=== PATIENT | male | born 2000 | race Caucasian/White ===

== ENCOUNTER 2020-04-01 10:47 | Outpatient (REF) | payer OTHER, SELFPAY | END 2020-04-01 10:48 | disposition home or self-care (01) | LOC: HO.LAB 10:47 | PROVIDERS: Visit Provider Internal Medicine | DX: Z20.828 Contact with and (suspected) exposure to other viral communicable diseases (principal) | CPT/HCPCS: C9803; U0003 ==

== ENCOUNTER 2020-04-20 15:44 | Outpatient (REF) | payer OTHER, SELFPAY | END 2020-04-20 15:45 | disposition home or self-care (01) | LOC: HO.LAB 15:44 | PROVIDERS: Visit Provider Internal Medicine | DX: Z20.828 Contact with and (suspected) exposure to other viral communicable diseases (principal) | CPT/HCPCS: C9803; U0003 ==

== ENCOUNTER → 2022-03-10 09:34 | Outpatient (BNVA) | payer OTHER, SELFPAY | PROVIDERS: PCP Internal Medicine; Visit Provider Nurse Practitioner Psychiatric/Mental Health | DX: Z51.81 Encounter for therapeutic drug level monitoring (principal); F11.20 Opioid dependence, uncomplicated | CPT/HCPCS: 80305; 99202 ==

== ENCOUNTER → 2022-03-17 08:56 | Outpatient (BNVA) | payer OTHER, SELFPAY | PROVIDERS: PCP Internal Medicine; Visit Provider Nurse Practitioner Psychiatric/Mental Health | DX: Z51.81 Encounter for therapeutic drug level monitoring (principal); F11.20 Opioid dependence, uncomplicated | CPT/HCPCS: 80305; 99212 ==

== ENCOUNTER → 2022-03-29 09:45 | Outpatient (BNVA) | payer OTHER, SELFPAY | PROVIDERS: PCP Internal Medicine; Visit Provider Nurse Practitioner Psychiatric/Mental Health | DX: Z51.81 Encounter for therapeutic drug level monitoring (principal); F11.20 Opioid dependence, uncomplicated | CPT/HCPCS: 99212 ==

== ENCOUNTER 2022-04-01 07:40 | Emergency (ER) | payer OTHER, SELFPAY ==
[2022-04-01 07:46] VITALS: BP 127/74; PULSE 90; RESP 18; TEMP 36.4; O2SAT 96; BMI 39.5
--- OUTSIDE RECORDS SUMMARY | 2022-04-01 08:02 | XMS_ITS | Continuity of Care Document ---
:2000 Author Organization [facility] Address [address] [place] [id number]- Care Team Providers Name Role Phone Stanislaw SAEZ, Kori Snyder Primary Care Physician Encounter [facility] Date(s): 12/27/19 - 12/27/[address] [address]- [facility] Discharge Disposition: A-D/C Walkout Attending Physician: Not on Staff, Attending MD Admitting Physician: Not on Staff, Admitting MD Referring Physician: Not on Staff, Referring MD Allergies, Adverse Reactions, Alerts Substance Reaction Severity Status amoxicillin Active Medications No Known Medications
--- OUTSIDE RECORDS SUMMARY | 2022-04-01 08:02 | XMS_ITS | Continuity of Care Document ---
:2000 Author Organization [facility] Address [address] [place] [address]- Care Team Providers Name Role Phone Not on Staff, PCP Primary Care Physician Unavailable Encounter [facility] Date(s): 02/28/20 - 02/28/[address] [address]- [facility] Encounter Diagnosis Chronic back pain (Final) - 02/28/20 Cerebral palsy (Final) - 02/28/20 Discharge Disposition: A-D/C Home Attending Physician: Sujit Kessler MD Admitting Physician: Sujit Kessler MD Referring Physician: Not on Staff, Referring MD Allergies, Adverse Reactions, Alerts Substance Reaction Severity Status amoxicillin Active Vicodin Active Medications lidocaine 5% topical film 1 patch, Topically, Daily, PRN Pain , Mild, for 7 days, remove after 12 hours, # 7 patch, 1 Refills,Acute 03/13/20 8:23:00 EST, 02/28/20 8:23:00 EDT, Film, [id number], 1 patch Topically Daily,x7 days,PRN:Pain , Mild,Instr:remove afte... Start Date: 02/28/20 Stop Date: 03/13/20 Status: Ordered Vital Signs Most recent to oldest 1 2 3 [Reference Range]: Oxygen Saturation [94-100 %] 100 % 99 % 100 % (02/28/20 8:06 AM) (02/28/20 6:43 AM) (02/28/20 5:57 AM) Pulse Rate [55-90 bpm] 98 bpm 98 bpm 114 bpm *H* *H* *H* (02/28/20 8:06 AM) (02/28/20 6:43 AM) (02/28/20 5:57 AM) Blood Pressure [90-138/55-84 143/68 mm Hg 141/86 mm Hg 136 /86 mm Hg mm Hg] *H* *H* (02/28/20 5:57 A M) (02/28/20 8:06 AM) (02/28/20 6:43 AM) Respiratory Rate [16-30 15 br/min 16 br/min 17 br/mi n br/min] *L* (02/28/20 7:41 AM) (02/28/20 6:4 3 AM) (02/28/20 8:06 AM) Temperature [96.8-100.4 98.6 DegF 98.4 DegF 98.3 Deg F DegF] (02/28/20 8:06 AM) (02/28/20 6:43 AM) (02/28/20 5:57 AM) Mode of Delivery (Oxygen) Room air Room air Room a ir (02/28/20 8:06 AM) (02/28/20 6:43 AM) (02/28/20 5:57 AM) Blood pressure sites Arm, left Arm, left Arm, left (02/28/20 8:06 AM) (02/28/20 6:43 AM) (02/28/20 5:57 AM) Temperature Route Oral Oral Oral (02/28/20 8:06 AM) (02/28/20 6:43 AM) (02/28/20 5:57 AM)
[2022-04-01 08:30] LABS: Strep A Nucleic Acid Positive (Negative)
--- NOTE | 2022-04-01 08:53 | ED.GENADULT ---
HPI - General Adult General Chief complaint: General Medical Stated complaint: COVID + Flu Symptoms Time Seen by Provider: 04/01/22 08:10 Source: patient Mode of arrival: ambulatory Limitations: no limitations History of Present Illness HPI narrative: Mookie is a 22 yo male with a PMHx of opioid use disorder and cerebral palsy who presents to the emergency department for a CC of 1.5 weeks of COVID symptoms after testing positive for COVID. He says that for over a week he has been having nasal congestion, body aches, and says he has a throbbing migraine that he rates as a 10/10. He does not indicate that it radiates anywhere but says it has been constant for the last few days. He denies any trauma to his head and says anxiety triggers his migraines. He denies photophobia or phonophobia. He also denies fevers, chills, shortness of breath, chest pain, nausea, vomiting, diarrhea, constipation, or changes in urination. He has tried taking Ibuprofen and Tylenol for his symptoms but with no relief. He admits that he has not been taking any of his other medications but has been taking Vicodin. Onset (ago): week(s) Location: head Severity: moderate and severe Severity scale (1-10): 10 Pain Consistency: constant Relieving factors: none Exacerbating factors: none Associated symptoms: headaches Treatments prior to arrival: NSAID Related Data Previous Rx's Medication Instructions Recorded hydroxyzine HCl 50 mg tablet 50 mg PO TID PRN anxiety #30 tabs 03/10/22 mirtazapine 7.5 mg tablet 7.5 mg PO BEDTIME #14 tabs 03/10/22 buprenorphine 12 mg-naloxone 3 mg 1 film buccal Q24H #8 ea 03/29/22 sublingual film (Suboxone) buprenorphine 4 mg-naloxone 1 mg 1 film sublingual Q24H #14 ea 03/29/22 sublingual film (Suboxone) clindamycin HCl 150 mg capsule 150 mg PO TID #21 caps 04/01/22 ketorolac 10 mg tablet 10 mg PO Q8H PRN pain #15 tabs 04/01/22 Allergies Allergy/AdvReac Type Severity Reaction Status Date / Time acetaminophen [From VICODIN] Allergy Unknown RASH Unverified 03/29/22 09:54 amoxicillin [AMOXICILLIN] Allergy Unknown HIVES Unverified 03/29/22 09:54 hydrocodone [From VICODIN] Allergy Unknown RASH Unverified 03/29/22 09:54 sulfamethoxazole Allergy Unknown UNKNOWN Unverified 03/29/22 09:54 [From BACTRIM] trimethoprim [From BACTRIM] Allergy Unknown UNKNOWN Unverified 03/29/22 09:54 Vicodin Allergy Unknown hives Uncoded 03/29/22 09:54 Review of Systems Review of Systems: Yes all other systems are reviewed and are negative Constitutional: Constitutional: Reports no additional constitutional complaints, Reports body ache(s), Denies chills, Denies fever(s), Reports headache(s) and Denies weakness Eyes: Eyes: Reports no additional eye complaints and Denies change in vision ENT: Reports system reviewed and no additional complaints, except as documented, Denies dizziness, Reports headache(s), Reports nasal congestion, Denies nasal discharge and Denies neck pain Comments: exudate left tonsil Cardiovascular: Cardiovascular: Reports no additional cardiovascular complaints, Denies chest pain, Denies leg edema and Denies dyspnea Respiratory: Respiratory: Reports no additional respiratory complaints, Denies cough and Denies dyspnea Gastrointestinal: Gastrointestinal: Reports no additional gastrointestinal complaints, Denies abdominal pain, Denies diarrhea, Denies nausea and Denies vomiting Genitourinary: Genitourinary: Denies urinary incontinence Musculoskeletal: Musculoskeletal: Reports no additional musculoskeletal complaints, Reports back pain, Reports myalgias, Denies arthralgias, Denies joint swelling, Denies neck pain, Denies numbness and Denies tingling Integumentary/Breasts: Skin/Breast: Reports system reviewed and no additional complaints, except as docu and Denies rash Neurologic: Reports system reviewed and no additional complaints, except as documented, Denies dizziness, Reports headache(s), Denies numbness, Denies tingling and Denies weakness [facility], [facility] Past Medical History Attestation statement: The following information was validated with the patient. [facility], [facility] Narrative: PMHx: opioid use disorder and cerebral palsy SHx: none Social: Drinks alcohol socially, vapes everyday, taking Vicodin Source: old records reviewed and nursing notes reviewed Social History Social History Advance Directives: No Advance Directives Information Provided: No Physical Exam ED Vital Signs: Vital Signs - 24 hr 04/01/22 07:46 Temperature 97.5 F Pulse Rate 90 Respiratory Rate 18 Blood Pressure 127/74 Pulse Oximetry 96 Oxygen Delivery Method Room Air BMI result Body Mass Index 39.5 Const General: cooperative, alert and awake Nutritional Appearance: well nourished Orientation/consciousness: oriented to person, oriented to place and oriented to time Limitations: no limitations HENMT Head: Yes normal to inspection Ears: hearing grossly normal bilaterally, external ears normal and TM's normal bilaterally General nose exam: Normal external nose present Face and sinus: Yes normal facial exam and Yes sinuses nontender Mouth: Normal oral and palatal mucosa present Throat: Yes abnormal tonsil (exudate left) Eyes General: appearance normal, both eyes and all related structures Pupils: Equal, round and reactive pupils present EOM: EOMs intact bilaterally Neck Neck: Yes normal visual inspection, Yes full ROM, Yes no lymphadenopathy and Yes no meningeal signs Chest Chest palpation & inspection: normal inspection of the chest and normal palpation of entire chest wall Resp Effort & Inspection: normal respiratory effort and able to speak in complete sentences Auscultation: clear to auscultation bilaterally Cardio Palpation: normal PMI Rate: regular rate Rhythm: regular rhythm Heart sounds: S1 normal heart sound present and S2 normal heart sound present GI Inspection: Yes normal to inspection Auscultation: normal bowel sounds General: Yes no CVA tenderness Back/Spine/Pelvis Back: no CVA tenderness Cervical Spine: normal cervical lordosis Thoracic/Lumbar Spine: thoracic and lumbar spine normal to inspection Skin General skin exam: no rashes or lesions noted Neuro General: oriented to person, oriented to place, oriented to time and no meningeal signs Cranial nerves: Yes CN's II-XII intact bilaterally and Yes Equal, round and reactive pupils present Extrem General: Yes normal to inspection and Yes full ROM Course Course Course Narrative: Mookie is a 22 yo male who test positive for COVID 1.5 weeks ago and has current symptoms of body aches, migraine, congestion, and axiety. His grandmother yesterday and he is very stressed about this as well as his current symptoms which he feels have been worsening. His physical exam is positive for an exudate on left tonsil but is otherwise unremarkable. Did have positive Strep test. Will treat with Clindamycin 500 mg BID for 10 days. Will also provide some hydroxyzine PRN for anxiety and toradol injection for current body aches. Pt should f/u with PCP for further care but return to the emergency department if symptoms worsen. Reevaluation(s) Reevaluation #1: -informed by nursing patient declined hydroxyzine. Did feel better after receiving Toradol. Plan for discharge home with prescription for clindamycin for strep pharyngitis. Patient did elope from the emergency room prior to receiving his instructions. We did verbally reviewed the instructions with the patient at the bedside Medications Administered Discontinued Medications Generic Name Dose Route Start Last Admin Trade Name Freq PRN Reason Stop Dose Admin Hydroxyzine HCl 25 mg 04/01/22 09:06 04/01/22 09:25 Hydroxyzine Hcl 25 Mg Tablet PO 04/01/22 09:07 Not Given ONCE ONE Ketorolac Tromethamine 60 mg 04/01/22 09:06 04/01/22 09:24 Ketorolac Tromethamine 60 Mg/2 Ml Vial IM 04/01/22 09:07 60 mg ONCE ONE Administration Toradol Medical Decision Making MDM Narrative Medical decision making narrative: r/o SAH-no sudden, not worst headache of life, no neck stiffness, no photophobia, no nausea, no vomiting r/o stroke-no neuro changes, no weakness or sensory changes, no trauma r/o psudeotumor cerebri-no headache on standing, no transient vision loss, no pulsatile tinnitus. r/o giant cell arteritis-no hardened temporal artery, no jaw claudication, does have headache, no vision changes r/o epidural/subdural hemorrage-no loc, no trauma likely migraine -throbbing, triggered by anxiety, neuro exam unremarkable, no photophobia or phonophobia, with body aches, nasal congestion, exudate on left tonsil on PE, positive strep test Plan is to treat for pain, strep infection, and anxiety - will start Toradol, hydroxyzine, and clindamycin Medical Records Medical records reviewed: Yes I reviewed the patient's medical records. Lab Data Lab results reviewed: Yes I reviewed the patient's lab results. Labs: Lab Results 04/01/22 04/01/22 Range/Units 08:02 08:03 Influenza Type A (PCR) NEGATIVE (Negative) Influenza Type B (PCR) NEGATIVE (Negative) RSV RNA Qual (PCR) NEGATIVE (Negative) SARS-CoV-2 RNA (RT-PCR) NEGATIVE (Negative) S. pyogenes GrpA EWA Positive A (Negative) Discharge Plan Discharge Clinical Impression: Pharyngitis Patient Disposition: Home, Self-Care Instructions: Pharyngitis (ED) Prescriptions: New clindamycin HCl 150 mg capsule 150 mg PO TID Qty: 21 0RF ketorolac 10 mg tablet 10 mg PO Q8H PRN (Reason: pain) Qty: 15 0RF No Action buprenorphine-naloxone [Suboxone] 12-3 mg film 1 film buccal Q24H Qty: 8 0RF Rx Instructions: total of 20mg daily buprenorphine-naloxone [Suboxone] 4-1 mg film 1 film sublingual Q24H Qty: 14 0RF Rx Instructions: take one film at 2 pm and one film at 8pm total of 20mg daily mirtazapine 7.5 mg tablet 7.5 mg PO BEDTIME Qty: 14 0RF hydroxyzine HCl 50 mg tablet 50 mg PO TID PRN (Reason: anxiety) Qty: 30 0RF Referrals: Physician,None [Primary Care Provider] - 1 week Interventions: ED Discharge Assessment Last Done: 04/01/22 09:58 Discharge Date/Time: 04/01/22 09:58
[2022-04-01] MEDS: Ketorolac Tromethamine 60 MG/2 ML VIAL IM (09:24)
[2022-04-01 09:28] LABS: Influenza A PCR NEGATIVE (Negative); Influenza B PCR NEGATIVE (Negative); Resp Syncy Virus RNA Qual PCR NEGATIVE (Negative); SARS COV2 PCR INHOUSE NEGATIVE (Negative)
--- NOTE | 2022-04-01 09:30 | PC.NURSE ---
refused atarax sts i dont know what that is . pt educated about medication and intended effect. pt sts i usually take ativan or klonopin . provider aware. pt not outwardly displaying any evidence of anxiety or nervousness, rr even/unlabored, appears comfortable sitting up. pt sts my anxiety is through the roof .
== END 2022-04-01 09:58 | disposition home or self-care (01) ==
PROVIDERS: Emergency Provider Student in an Organized Health Care Education/Training Program
DX: U07.1 COVID-19 (principal); J02.9 Acute pharyngitis, unspecified; Z79.899 Other long term (current) drug therapy
CPT/HCPCS: 0241U; 87651; 96372; 99283; 99284; J1885

== ENCOUNTER → 2022-07-06 10:07 | Outpatient (BNVA) | payer OTHER, SELFPAY | PROVIDERS: PCP Pediatrics; Visit Provider Nurse Practitioner Psychiatric/Mental Health | DX: F11.20 Opioid dependence, uncomplicated (principal) | CPT/HCPCS: 80305; 99212 ==

== ENCOUNTER → 2022-07-13 10:08 | Outpatient (BNVA) | payer OTHER, SELFPAY | PROVIDERS: PCP Nurse Practitioner Family; Visit Provider Nurse Practitioner Psychiatric/Mental Health | DX: Z51.81 Encounter for therapeutic drug level monitoring (principal); F11.20 Opioid dependence, uncomplicated | CPT/HCPCS: 80305; 96372; 99212 ==

== ENCOUNTER → 2022-08-10 09:12 | Outpatient (BNVA) | payer OTHER, SELFPAY | PROVIDERS: PCP Nurse Practitioner Family; Visit Provider Nurse Practitioner Psychiatric/Mental Health | DX: Z51.81 Encounter for therapeutic drug level monitoring (principal); F11.20 Opioid dependence, uncomplicated | CPT/HCPCS: 80305; 96372 ==

== ENCOUNTER → 2022-09-12 09:23 | Outpatient (BNVA) | payer OTHER, SELFPAY | PROVIDERS: PCP Nurse Practitioner Family; Visit Provider Nurse Practitioner Psychiatric/Mental Health | DX: Z51.81 Encounter for therapeutic drug level monitoring (principal); F11.20 Opioid dependence, uncomplicated | CPT/HCPCS: 80305; 96372; 99212 ==

== ENCOUNTER → 2022-09-19 09:19 | Outpatient (BNVA) | payer OTHER, SELFPAY | PROVIDERS: PCP Nurse Practitioner Family; Visit Provider Nurse Practitioner Psychiatric/Mental Health | DX: F11.20 Opioid dependence, uncomplicated (principal) | CPT/HCPCS: 99212 ==

== ENCOUNTER 2022-10-10 09:20 | Outpatient (REF) | payer OTHER, SELFPAY ==
[2022-10-10 10:54] LABS: Basophils Percent Auto 0.4 % (0-2); Eosinophils Absolute Auto 0.8 X10*3/uL (0.0-0.4); Eosinophils Percent Auto 10.3 % (0-4); Hematocrit 43.4 % (42.0-52.0); Hemoglobin 14.5 g/dl (14.0-18.0); Imm Gran Abs Auto 0.04 X10*3/uL (0.00-0.03); Imm Gran Pct Auto 0.5 % (0.0-0.4); Lymphocytes Absolute Auto 2.2 X10*3/uL (1.2-4.9); Lymphocytes Percent Auto 27.3 % (20-40); MANUAL DIFF FLAG NO; Mean Corpuscular HGB Conc 33.4 g/dl (31.0-36.0); Mean Corpuscular Hemoglobin 27.9 pg (27.0-33.0); Mean Corpuscular Volume 83.6 fL (80.0-98.0); Mean Platelet Volume 10.7 fL (9.4-12.4); Monocytes Absolute Auto 0.6 X10*3/uL (0.1-1.2); Monocytes Percent Auto 7.6 % (2-11); Neutrophils Absolute Auto 4.3 x10*3/uL (2.0-8.3); Neutrophils Percent Auto 53.9 % (45-73); Platelet Count 255 X10*3/uL (160-400); Red Blood Count 5.19 X10*6/uL (4.60-5.80); Red Cell Distribution Width 12.4 % (11.0-16.0)
[2022-10-10 12:11] LABS: Alanine Aminotransferase 30 U/L (0-40); Albumin Level 4.3 g/dL (3.5-5.0); Alkaline Phosphatase 84 U/L (39-117); Anion Gap 12 (12-20); Aspartate Amino Transferase 25 U/L (5-37); Bilirubin Total 0.4 mg/dL (0.0-1.0); Blood Urea Nitrogen 18 mg/dL (9-16); Calcium 9.8 mg/dL (8.4-10.2); Carbon Dioxide 25 mmol/L (22-29); Chloride 107 mmol/L (96-108); Cholesterol 148 mg/dL; Estimated Glomerular Filt Rate > 60; Glucose Fasting 103 mg/dL (60-99); HDL Cholesterol 36 mg/dL; LDL Cholesterol Calculated 95 mg/dl; Sodium 140 mmol/L (135-145); Total Protein 7.7 g/dL (6.5-8.0); Triglycerides 87 mg/dL
[2022-10-10 12:14] LABS: TSH reflex Free T4 1.41 uIU/mL (0.32-4.0)
== END 2022-10-10 09:21 | disposition home or self-care (01) ==
LOC: HO.LAB 09:20
PROVIDERS: PCP Nurse Practitioner Family; Visit Provider Nurse Practitioner Family
DX: Z00.00 Encounter for general adult medical examination without abnormal findings (principal); F11.20 Opioid dependence, uncomplicated; Z51.81 Encounter for therapeutic drug level monitoring; Z79.899 Other long term (current) drug therapy
CPT/HCPCS: 36415; 80053; 80061; 80305; 84443; 85025; 96372; 99212

== ENCOUNTER → 2022-11-04 09:40 | Outpatient (BNVA) | payer OTHER, SELFPAY | PROVIDERS: PCP Nurse Practitioner Family; Visit Provider Nurse Practitioner Psychiatric/Mental Health | DX: Z51.81 Encounter for therapeutic drug level monitoring (principal); F11.10 Opioid abuse, uncomplicated | CPT/HCPCS: 99212 ==

== ENCOUNTER 2022-11-11 09:20 | Outpatient (AMB) | payer OTHER, SELFPAY ==
--- NOTE | 2022-11-11 09:21 | A.OFFVIS_ITS ---
Intake Vital Signs 11/11/22 09:31 BP 120/82 Blood Pressure Location Lt radial Position Sitting Pulse 84 Pulse Source Pulse Oximeter Pulse Oximetry (%) 96 Oxygen Delivery Method Room Air Intake Visit Reasons: MAT Visit Intake Note: the patient presents for a mat visit Medical Territory Manager Required: No Allergies acetaminophen [From VICODIN] Allergy (Unknown, Unverified 11/11/22 09:23) RASH amoxicillin [AMOXICILLIN] Allergy (Unknown, Unverified 11/11/22 09:23) HIVES hydrocodone [From VICODIN] Allergy (Unknown, Unverified 11/11/22 09:23) RASH sulfamethoxazole [From BACTRIM] Allergy (Unknown, Unverified 11/11/22 09:23) UNKNOWN trimethoprim [From BACTRIM] Allergy (Unknown, Unverified 11/11/22 09:23) UNKNOWN Vicodin Allergy (Unknown, Uncoded 11/11/22 09:23) hives Do you need a note to return to daycare/school/sports/work: No HPI MAT Visit HPI Details Patient presents for ALICIA treatment follow up Reports he attmpted to get admitted to [facility] following last visit, but no beds available Patient reports recurrence of use Has been taking extra suboxone. Discussed that dose will not be increased any further. Discussed possibility of transitioning to methadone. Patient does not wish to do this. Seems patient is taking Suboxone to address anxiety and cravings, reviewed other strategies for dressing cravings. Patient would like to change from 12 mg b.i.d. to 8 mg t.i.d. [facility] Medical History (Updated 10/03/22 @ 13:44 by Jarvis Porter, [facility]) Cerebral palsy Left hemiparesis Social History (System 04/12/22 @ 13:24 by Kelsi Portillo) Housing: House Patient Tobacco Use Status: Current everyday Tobacco user e-Cigarette/Vaping Use: Never Used Current occupational status: unemployed Cognitive needs: No Hearing needs: No Vision needs: No Review of Systems Const Reports as per HPI Physical Exam Vital Signs: Last Vital Signs Pulse 84 11/11/22 09:31 BP 120/82 11/11/22 09:31 Pulse Ox 96 11/11/22 09:31 Oxygen Delivery Method Room Air 11/11/22 09:31 Const General: cooperative, healthy appearing and no acute distress Nutritional Appearance: overweight Psych Appearance: well kempt Speech and movement: Clear speech present Affect: Anxious affect present Attitude: cooperative Insight: Limited insight present (Psych) Results AMB 14 Panel Urine Drug Screen Urine Marijuana (THC) Negative Last Edit by Dominique Paulino CMA on 11/11/22 09:34 Urine Cocaine Positive Last Edit by Dominique Paulino CMA on 11/11/22 09:34 Urine Morphine Negative Last Edit by Dominique Paulino CMA on 11/11/22 09:34 Urine Methamphetamine Negative Last Edit by Dominique Paulino CMA on 11/11/22 09:34 Urine Amphetamine Negative Last Edit by Dominique Paulino CMA on 11/11/22 09:3 4 Urine Benzodiazepine Positive Last Edit by Dominique Paulino CMA on 11/11/22 09:34 Urine Barbiturates Negative Last Edit by Dominique Paulino CMA on 11/11/22 09: 34 Urine Methadone Negative Last Edit by Dominique Paulino CMA on 11/11/22 09:34 Urine Buprenorphine Positive Last Edit by Dominique Paulino CMA on 11/11/22 09 :34 Urine Tricyclic Antidepressant Negative Last Edit by Dominique Paulino CMA on 11/11/22 09:34 Urine MDMA Negative Last Edit by Dominique Paulino CMA on 11/11/22 09:34 Urine Oxycodone Positive Last Edit by Dominique Paulino CMA on 11/11/22 09:34 Urine Phencyclidine Negative Last Edit by Dominique Paulino CMA on 11/11/22 09 :34 Urine Propoxyphene Negative Last Edit by Dominique Paulino CMA on 11/11/22 09: 34 Results Reviewed Results Reviewed: Laboratory Last Values POC Urine Buprenorphine Positive 11/11/22 09:24 POC Urine Morphine Negative 11/11/22 09:24 POC Urine Oxycodone Positive 11/11/22 09:24 POC Urine Methadone Negative 11/11/22 09:24 POC Urine Propoxyphene Negative 11/11/22 09:24 POC Urine Barbiturates Negative 11/11/22 09:24 POC U Tricyclic Antidpr Negative 11/11/22 09:24 POC Urine PCP Negative 11/11/22 09:24 POC Ur Amphetamines Negative 11/11/22 09:24 POC Ur Methamphetamine Negative 11/11/22 09:24 POC Urine MDMA Negative 11/11/22 09:24 POC Ur Benzodiazepine Positive 11/11/22 09:24 POC Urine Cocaine Positive 11/11/22 09:24 POC Ur Marijuana (THC) Negative 11/11/22 09:24 Assessment & Plan Assessment & Plan (1) Opioid use disorder: Code(s): F11.90 - Opioid use, unspecified, uncomplicated Plan: * Suboxone 8 mg t.i.d. * Overdose prevention and risk reduction discussion * Follow-up 2 weeks Orders: Orders AMB 14 Panel Urine Drug Screen Today Z51.81 - Encounter for therapeutic drug level monitoring Medications: New buprenorphine-naloxone 8-2 mg (Suboxone) 1 film sublingual TID 21 ea 1RF Refilled bupropion HCl (Wellbutrin XL) 300 mg PO QAM 30 tabs 2RF Discontinued buprenorphine-naloxone 2-0.5 mg (Suboxone) Discontinued Reason: Patient Completed Course 1 film sublingual DAILY 10 ea 0RF buprenorphine-naloxone 12-3 mg (Suboxone) Discontinued Reason: Doctor's Order 1 film sublingual BID 14 ea 0RF Coding Level of Care Code Est Pt Level 4 (50202) Diagnoses Opioid use disorder F11.90
[2022-11-11 09:31] VITALS: BP 120/82; PULSE 84; O2SAT 96
== END 2022-11-11 09:50 | disposition home or self-care (01) ==
LOC: HO.HCC 09:21
PROVIDERS: PCP Nurse Practitioner Family; Visit Provider Nurse Practitioner Psychiatric/Mental Health
DX: F11.90 Opioid use, unspecified, uncomplicated (principal); Z51.81 Encounter for therapeutic drug level monitoring
CPT/HCPCS: 99214

== ENCOUNTER → 2022-11-11 09:20 | Outpatient (BNVA) | payer OTHER, SELFPAY | PROVIDERS: PCP Nurse Practitioner Family; Visit Provider Nurse Practitioner Psychiatric/Mental Health | DX: Z51.81 Encounter for therapeutic drug level monitoring (principal); F11.10 Opioid abuse, uncomplicated | CPT/HCPCS: 80305; 99212 ==

== ENCOUNTER 2023-01-16 16:05 | Outpatient (AMB) | payer OTHER, SELFPAY ==
[2023-01-16 16:48] VITALS: BP 122/80; PULSE 80; TEMP 36.6; O2SAT 97
--- NOTE | 2023-01-16 16:48 | MHC.OFFWIV ---
Intake Vital Signs 01/16/23 16:48 Weight 289 lb BP 122/80 Blood Pressure Location Rt brachial Position Sitting Pulse 80 Pulse Source Pulse Oximeter Temp 97.8 F Temp Source Temporal Artery Scan Pulse Oximetry (%) 97 Intake Visit Reasons: EP Sore Throat (masked) Intake Note: pt is here for c/o sore throat, denies sore throat/strep, loss of voice and cough Patient Tobacco Use Status: Current everyday Tobacco user Allergies acetaminophen [From VICODIN] Allergy (Unknown, Verified 01/17/23 05:13) RASH amoxicillin [AMOXICILLIN] Allergy (Unknown, Verified 01/17/23 05:13) HIVES hydrocodone [From VICODIN] Allergy (Unknown, Verified 01/17/23 05:13) RASH sulfamethoxazole [From BACTRIM] Allergy (Unknown, Verified 01/17/23 05:13) UNKNOWN trimethoprim [From BACTRIM] Allergy (Unknown, Verified 01/17/23 05:13) UNKNOWN Vicodin Allergy (Unknown, Uncoded 01/17/23 05:13) hives Medication List - Last Reconciled 01/17/23 by Donnell Carlton MD albuterol sulfate 90 mcg/actuation (Ventolin HFA) 2 puffs inhalation QID PRN buprenorphine-naloxone 8-2 mg (Suboxone) 1 film sublingual TID bupropion HCl (Wellbutrin XL) 300 mg PO QAM clonazepam 1 mg PO TID PRN dextroamphetamine-amphetamine 20 mg 1 tab PO BID fexofenadine (Karen Allergy) 180 mg PO Q24H ibuprofen 800 mg PO BID PRN 30 days tizanidine 4 mg PO BID PRN 30 days Do you need a note to return to daycare/school/sports/work: Yes HPI EP Sore Throat (masked) HPI Details Patient presents for a sick visit. Reporting symptoms of sinus congestion, sore throat and difficulty swallowing. Low-grade fever. No family member is sick. No recent travel. Patient reports symptoms of malaise and fatigue. [facility] Medical History (Updated 01/17/23 @ 05:14 by Donnell Carlton MD) Environmental allergies Allergies Left hemiparesis Cerebral palsy Social History (System 04/12/22 @ 13:24 by Kelsi Portillo) Housing: House Patient Tobacco Use Status: Current everyday Tobacco user e-Cigarette/Vaping Use: Never Used Current occupational status: unemployed Cognitive needs: No Hearing needs: No Vision needs: No Physical Exam Vital Signs: Last Vital Signs Temp 97.8 F 01/16/23 16:48 Pulse 80 01/16/23 16:48 BP 122/80 01/16/23 16:48 Pulse Ox 97 01/16/23 16:48 Const General: cooperative and healthy appearing Nutritional Appearance: well nourished Orientation/consciousness: patient oriented x3 Limitations: no limitations HEENT Head: Yes normal to inspection Eyes General: appearance normal, both eyes and all related structures Neck Neck: Yes normal visual inspection Chest Chest palpation & inspection: normal palpation of entire chest wall Resp Effort & Inspection: normal respiratory effort Neuro General: patient oriented x3 Assessment & Plan Assessment & Plan (1) Upper respiratory tract infection: Code(s): J06.9 - Acute upper respiratory infection, unspecified Plan: Increase fluid intake. Tylenol for aches and pains. If symptoms worsen, follow-up here for a recheck. No antibiotics needed. Allergy medication called in. Medications: Refilled fexofenadine (Karen Allergy) 180 mg PO Q24H 90 tabs 0RF Coding Level of Care Code Est Pt Level 3 (94389) Diagnoses Upper respiratory tract infection J06.9
== END 2023-01-16 17:02 | disposition home or self-care (01) ==
PROVIDERS: PCP Nurse Practitioner Family; Visit Provider Internal Medicine
DX: J06.9 Acute upper respiratory infection, unspecified (principal)
CPT/HCPCS: 99213

== ENCOUNTER 2023-01-19 09:27 | Outpatient (AMB) | payer OTHER, SELFPAY ==
--- NOTE | 2023-01-19 07:23 | A.OFFPC_ITS ---
Intake Visit Reasons: Follow up Allergies acetaminophen [From VICODIN] Allergy (Unknown, Verified 01/17/23 05:13) RASH amoxicillin [AMOXICILLIN] Allergy (Unknown, Verified 01/17/23 05:13) HIVES hydrocodone [From VICODIN] Allergy (Unknown, Verified 01/17/23 05:13) RASH sulfamethoxazole [From BACTRIM] Allergy (Unknown, Verified 01/17/23 05:13) UNKNOWN trimethoprim [From BACTRIM] Allergy (Unknown, Verified 01/17/23 05:13) UNKNOWN Vicodin Allergy (Unknown, Uncoded 01/17/23 05:13) hives Tobacco use date assessed: 08/16/22 HPI Follow up HPI Details Pt c/o ongoing lower back pain. He does report radicular symptoms down his BLE. XR has been ordered, encouraged pt to have this done. Pt was supposed to go to PT but never did due to going to rehab. Will refer back to PT. Denies any signs of cauda equina. [facility] Medical History (Updated 01/17/23 @ 05:14 by Donnell Carlton MD) Environmental allergies Allergies Left hemiparesis Cerebral palsy Social History (System 04/12/22 @ 13:24 by Kelsi Portillo) Housing: House Patient Tobacco Use Status: Current everyday Tobacco user e-Cigarette/Vaping Use: Never Used Current occupational status: unemployed Cognitive needs: No Hearing needs: No Vision needs: No Questionnaire Thrive Questionnaire Date Thrive assessed: 08/16/22 TAMMIE-7 AMB Questionnaire TAMMIE-7 Date TAMMIE - 7 assessed: 08/16/22 Source: Developed by Drs. Isaak Christiansen, Cady Brooks, Hunter Escobedo and colleagues, with an educational robbie from [employer]. Review of Systems Const Reports as per HPI Physical exam (Primary Care) Tobacco/Smoking Status: Tobacco use Status Tobacco use date assessed 08/16/22 01/19/23 07:25 Patient Tobacco Use Status Current everyday Tobacco 01/19/23 07:25 e-Cigarette/Vaping Use Never Used 01/19/23 07:25 Thrive Assessment: Date of Thrive Assessment Date Thrive assessed 08/16/22 01/19/23 07:25 Const General: cooperative Orientation/consciousness: patient oriented x3 Neuro General: patient oriented x3 Psych Appearance: grossly normal Mental Status: mental status grossly normal Speech and movement: Clear speech present Affect: normal affect Attitude: cooperative Thought process: Normal thought process present Thought content: Normal thought content present Insight: Good insight present (Psych) Judgement: Good judgement present (Psych) Telehealth Telehealth Location of provider rendering services: practice address Location of patient: address on file Patient Identification confirmed using: Name, : Yes Telehealth method: video Patient verbally consented to treatment: Yes Patient verbally consented to billing insurance company: Yes Patient informed of any privacy concerns related to visit: Yes Minutes spent on Phone/Video with Pt.: 10 Assessment and Plan Assessment & Plan (1) Chronic lower back pain: Code(s): M54.50 - Low back pain, unspecified; G89.29 - Other chronic pain Plan: Referred to PT Plan The patient agreed to the use of a medical transport specialist for this encounter. Scribed for PRAVEEN Clifford by Lee Ann Curtis medical transport specialist, on 01/19/2023 at 07:25 EST. Orders: Orders PT Evaluation and Treatment Today G89.29 - Other chronic pain, M54.50 - Low back pain, unspecified Coding Level of Care Code Tele Est Pt Level 3 (98877) Diagnoses Chronic lower back pain M54.50; G89.29
== END 2023-01-19 09:30 | disposition home or self-care (01) ==
PROVIDERS: PCP Nurse Practitioner Family; Visit Provider Nurse Practitioner Family
DX: M54.50 Low back pain, unspecified (principal); G89.29 Other chronic pain
CPT/HCPCS: 99213

== ENCOUNTER 2023-01-20 07:57 | Outpatient (REF) | payer OTHER, SELFPAY ==
--- NOTE | ~2023-01-20 | XR_ITS ---
EXAMINATION: XR LUMBOSACRAL SPINE CLINICAL INFORMATION: Low back pain COMPARISON: 12/11/2018 TECHNIQUE: Three views of the lumbosacral spine. FINDINGS: Limited visualization of the bilateral sacroiliac joints. Small rounded pelvic calcification, likely vascular, redemonstrated. Straightening of the normal lumbar lordosis. Lumbar vertebral body heights and disc space heights are preserved. Mild degenerative changes redemonstrated in the imaged lower thoracic spine. XR/XR lumbar spine 2-3V IMPRESSION: Straightening of the normal lumbar lordosis. Lumbar vertebral body heights and disc space heights are preserved. Additional imaging with CT scan or MRI should be considered for better visualization as these modalities are much more sensitive for detection of fracture or other underlying pathology.
[2023-01-20 11:29] LABS: Appearance Urine Clear; Color Urine Yellow; Glucose Urine UA Negative (Negative); Leukocyte Esterase Urine Negative (Negative); Nitrite Urine Negative (Negative); PH 5.5 (5.0-9.0); Urine Blood Negative (Negative); Urine Ketones Negative (Negative); Urine Protein Negative (Neg-Trace)
== END 2023-01-20 07:58 | disposition home or self-care (01) ==
LOC: HO.HMGCX 07:57
PROVIDERS: PCP Nurse Practitioner Family; Visit Provider Nurse Practitioner Family
DX: Z00.00 Encounter for general adult medical examination without abnormal findings (principal); M54.50 Low back pain, unspecified; G89.29 Other chronic pain; E66.01 Morbid (severe) obesity due to excess calories
CPT/HCPCS: 72100; 81003

== ENCOUNTER 2023-01-24 09:34 | Outpatient (AMB) | payer OTHER, SELFPAY ==
--- NOTE | 2023-01-24 09:54 | A.OFFVIS_ITS ---
Intake Vital Signs 01/24/23 09:55 BP 118/80 Blood Pressure Location Lt brachial Position Sitting Pulse 79 Pulse Oximetry (%) 97 Intake Visit Reasons: MAT Visit Allergies acetaminophen [From VICODIN] Allergy (Unknown, Verified 01/17/23 05:13) RASH amoxicillin [AMOXICILLIN] Allergy (Unknown, Verified 01/17/23 05:13) HIVES hydrocodone [From VICODIN] Allergy (Unknown, Verified 01/17/23 05:13) RASH sulfamethoxazole [From BACTRIM] Allergy (Unknown, Verified 01/17/23 05:13) UNKNOWN trimethoprim [From BACTRIM] Allergy (Unknown, Verified 01/17/23 05:13) UNKNOWN Vicodin Allergy (Unknown, Uncoded 01/17/23 05:13) hives HPI MAT Visit HPI Details Patient presents for OUD treatment follow up Recently discharged from [address]. Received Sublocade on Jan 03 at facility--due for next injection week of January 30 Patient reports that upon discharge from facility he and his mother petitioned to have his father committed for treatment as well. Patient disclosed that he and his father would use together and he was concerned that he would start using again if his father were in the home. At time of visit patient expressed hope and calmness with his recovery. He is active with classes and therapy. [facility] TO [facility] Medical History (Updated 01/17/23 @ 05:14 by Donnell Carlton MD) Environmental allergies Allergies Left hemiparesis Cerebral palsy Social History (System 04/12/22 @ 13:24 by Kelsi Portillo) Housing: House Patient Tobacco Use Status: Current everyday Tobacco user e-Cigarette/Vaping Use: Never Used Current occupational status: unemployed Cognitive needs: No Hearing needs: No Vision needs: No Review of Systems Const Reports as per HPI and Reports no additional complaints Physical Exam Vital Signs: Last Vital Signs Pulse 79 01/24/23 09:55 BP 118/80 01/24/23 09:55 Pulse Ox 97 01/24/23 09:55 Const General: cooperative, healthy appearing and comfortable Orientation/consciousness: patient oriented x3 Limitations: no limitations Neuro General: patient oriented x3 Psych Appearance: well kempt Speech and movement: Clear speech present Affect: normal affect Attitude: cooperative Thought process: Normal thought process present Thought content: Normal thought content present Insight: Good insight present (Psych) Judgement: Good judgement present (Psych) Results AMB 14 Panel Urine Drug Screen Urine Marijuana (THC) Negative Last Edit by Janeth Ordaz RN on 01/24/23 11:0 6 Urine Cocaine Negative Last Edit by Janeth Ordaz RN on 01/24/23 11:06 Urine Morphine Negative Last Edit by Janeth Ordaz RN on 01/24/23 11:06 Urine Methamphetamine Negative Last Edit by Janeth Ordaz RN on 01/24/23 11:0 6 Urine Amphetamine Negative Last Edit by Janeth Ordaz RN on 01/24/23 11:06 Urine Benzodiazepine Negative Last Edit by Janeth Ordaz RN on 01/24/23 11:06 Urine Barbiturates Negative Last Edit by Janeth Ordaz RN on 01/24/23 11:06 Urine Methadone Negative Last Edit by Janeth Ordaz RN on 01/24/23 11:06 Urine Buprenorphine Positive Last Edit by Janeth Ordaz RN on 01/24/23 11:06 Urine Tricyclic Antidepressant Negative Last Edit by Janeth Ordaz RN on 01/24/23 11:06 Urine MDMA Negative Last Edit by Janeth Ordaz RN on 01/24/23 11:06 Urine Oxycodone Negative Last Edit by Janeth Ordaz RN on 01/24/23 11:06 Urine Phencyclidine Negative Last Edit by Janeth Ordaz RN on 01/24/23 11:06 Urine Propoxyphene Negative Last Edit by Janeth Ordaz RN on 01/24/23 11:06 Results Reviewed Results Reviewed: Laboratory Last Values POC Urine Buprenorphine Positive 01/24/23 09:55 POC Urine Morphine Negative 01/24/23 09:55 POC Urine Oxycodone Negative 01/24/23 09:55 POC Urine Methadone Negative 01/24/23 09:55 POC Urine Propoxyphene Negative 01/24/23 09:55 POC Urine Barbiturates Negative 01/24/23 09:55 POC U Tricyclic Antidpr Negative 01/24/23 09:55 POC Urine PCP Negative 01/24/23 09:55 POC Ur Amphetamines Negative 01/24/23 09:55 POC Ur Methamphetamine Negative 01/24/23 09:55 POC Urine MDMA Negative 01/24/23 09:55 POC Ur Benzodiazepine Negative 01/24/23 09:55 POC Urine Cocaine Negative 01/24/23 09:55 POC Ur Marijuana (THC) Negative 01/24/23 09:55 Assessment & Plan Assessment & Plan (1) Opioid use disorder: Code(s): F11.90 - Opioid use, unspecified, uncomplicated Plan: * relapse prevention discussion * follow up one week for injection Orders: Orders AMB 14 Panel Urine Drug Screen Today Z51.81 - Encounter for therapeutic drug level monitoring Coding Level of Care Code Est Pt Level 3 (13216) Diagnoses Opioid use disorder F11.90
[2023-01-24 09:55] VITALS: BP 118/80; PULSE 79; O2SAT 97
== END 2023-01-24 10:39 | disposition home or self-care (01) ==
LOC: HO.HCC 09:34
PROVIDERS: PCP Nurse Practitioner Family; Visit Provider Nurse Practitioner Psychiatric/Mental Health
DX: Z51.81 Encounter for therapeutic drug level monitoring (principal); F11.90 Opioid use, unspecified, uncomplicated
CPT/HCPCS: 99213

== ENCOUNTER → 2023-01-24 09:34 | Outpatient (BNVA) | payer OTHER, SELFPAY | PROVIDERS: PCP Nurse Practitioner Family; Visit Provider Nurse Practitioner Psychiatric/Mental Health | DX: Z51.81 Encounter for therapeutic drug level monitoring (principal); F11.20 Opioid dependence, uncomplicated | CPT/HCPCS: 80305; 99212 ==

== ENCOUNTER 2023-01-31 10:09 | Outpatient (AMB) | payer OTHER, SELFPAY ==
[2023-01-31 10:21] VITALS: BP 108/72; PULSE 74; O2SAT 96
--- NOTE | 2023-01-31 10:21 | AM.OFFVISNUR ---
Intake Vital Signs 01/31/23 10:21 BP 108/72 Blood Pressure Location Lt radial Pulse 74 Pulse Source Pulse Oximeter Pulse Oximetry (%) 96 Oxygen Delivery Method Room Air Intake Visit Reasons: MAT VISIT Intake Note: the patient presents for a sub inj Oceanology Teacher Required: No Allergies acetaminophen [From VICODIN] Allergy (Unknown, Verified 01/31/23 10:23) RASH amoxicillin [AMOXICILLIN] Allergy (Unknown, Verified 01/31/23 10:23) HIVES hydrocodone [From VICODIN] Allergy (Unknown, Verified 01/31/23 10:23) RASH sulfamethoxazole [From BACTRIM] Allergy (Unknown, Verified 01/31/23 10:23) UNKNOWN trimethoprim [From BACTRIM] Allergy (Unknown, Verified 01/31/23 10:23) UNKNOWN Vicodin Allergy (Unknown, Uncoded 01/31/23 10:23) hives Do you need a note to return to daycare/school/sports/work: No Coding
== END 2023-01-31 10:50 | disposition home or self-care (01) ==
PROVIDERS: PCP Nurse Practitioner Family; Visit Provider Nurse Practitioner Psychiatric/Mental Health
DX: F11.90 Opioid use, unspecified, uncomplicated (principal)

== ENCOUNTER → 2023-01-31 10:09 | Outpatient (BNVA) | payer OTHER, SELFPAY | PROVIDERS: PCP Nurse Practitioner Family; Visit Provider Nurse Practitioner Psychiatric/Mental Health | DX: F11.20 Opioid dependence, uncomplicated (principal) | CPT/HCPCS: 96372; Q9992 ==

== ENCOUNTER 2023-02-13 09:41 | Outpatient (REF) | payer OTHER, SELFPAY ==
--- NOTE | ~2023-02-13 | CT_ITS ---
EXAMINATION: CT LUMBAR SPINE WITHOUT CONTRAST CLINICAL INFORMATION: Morbid obesity due to excess calories. COMPARISON: None TECHNIQUE: Helical non-contrast CT images were obtained through the lumbar spine without contrast. Multiplanar reformats were rendered and reviewed. This CT examination was performed using dose optimization techniques as appropriate, variously including the following: *Automated exposure control *Adjustment of mA and/or kV according to patient size (this includes techniques or standardized protocols for targeted exams where dose is matched to indication/reason for exam; i.e. extremities or head) *Use of iterative reconstruction technique DLP: 1683 mGy-cm FINDINGS: Lumbar vertebral bodies maintain normal heights and alignment. No significant disc height loss is seen. There is a minimal amount of levoscoliotic curvature. No fractures seen. There is no pars defect. No gross disc herniation is seen. There is possible mild disc bulging at L4-L5. Neural foramina appear patent. No spinal canal stenosis is seen. The extraspinal soft tissues are within normal limits. CT/CT lumbar spine wo IV con IMPRESSION: No lumbar spine fracture or malalignment. Possible mild disc bulging at L4-L5. No significant narrowing of the spinal canal or neural foramina.
== END 2023-02-13 09:42 | disposition home or self-care (01) ==
LOC: HO.CT 09:41
PROVIDERS: PCP Nurse Practitioner Family; Visit Provider Nurse Practitioner Family
DX: M54.50 Low back pain, unspecified (principal); G89.29 Other chronic pain; E66.01 Morbid (severe) obesity due to excess calories
CPT/HCPCS: 72131

== ENCOUNTER 2023-02-27 12:53 | Outpatient (AMB) | payer OTHER, SELFPAY ==
--- NOTE | 2023-02-27 12:58 | AM.OFFVISNUR ---
Intake Intake Visit Reasons: MAT VISIT Allergies acetaminophen [From VICODIN] Allergy (Unknown, Verified 01/31/23 10:23) RASH amoxicillin [AMOXICILLIN] Allergy (Unknown, Verified 01/31/23 10:23) HIVES hydrocodone [From VICODIN] Allergy (Unknown, Verified 01/31/23 10:23) RASH sulfamethoxazole [From BACTRIM] Allergy (Unknown, Verified 01/31/23 10:23) UNKNOWN trimethoprim [From BACTRIM] Allergy (Unknown, Verified 01/31/23 10:) UNKNOWN Vicodin Allergy (Unknown, Uncoded 01/31/23 10:23) hives Coding
--- NOTE | 2023-02-27 13:01 | A.OFFVIS_ITS ---
Intake Vital Signs 02/27/23 13:10 BP 110/72 Blood Pressure Location Lt radial Position Sitting Pulse 83 Pulse Source Pulse Oximeter Pulse Oximetry (%) 94 Oxygen Delivery Method Room Air Intake Visit Reasons: MAT VISIT Intake Note: the patient is here for a sub inj Photographic Reproduction Technician Required: No Allergies acetaminophen [From VICODIN] Allergy (Unknown, Verified 02/27/23 13:11) RASH amoxicillin [AMOXICILLIN] Allergy (Unknown, Verified 02/27/23 13:11) HIVES hydrocodone [From VICODIN] Allergy (Unknown, Verified 02/27/23 13:11) RASH sulfamethoxazole [From BACTRIM] Allergy (Unknown, Verified 02/27/23 13:11) UNKNOWN trimethoprim [From BACTRIM] Allergy (Unknown, Verified 02/27/23 13:11) UNKNOWN Vicodin Allergy (Unknown, Uncoded 02/27/23 13:11) hives Do you need a note to return to daycare/school/sports/work: No HPI MAT VISIT HPI Details Pt presents for OUD follow up and treatment. States he has been doing well with recovery, but has lots of urges lately. Pt is unsure what has been triggering him States he has had anxiety, periods of sweating, and diarrhea. Pt reports when he has intrusive thoughts he combats this by keeping busy. 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 Said some people have tried to reach out to him to sell him pills, but he has declined and blocked the people that have reached out. Denies any side effects or concerns with current medication. [facility] Medical History (Updated 01/17/23 @ 05:14 by Donnell Carlton MD) Environmental allergies Allergies Left hemiparesis Cerebral palsy Social History (System 04/12/22 @ 13:24 by Kelsi Portillo) Housing: House Patient Tobacco Use Status: Current everyday Tobacco user e-Cigarette/Vaping Use: Never Used Current occupational status: unemployed Cognitive needs: No Hearing needs: No Vision needs: No Review of Systems Const Reports as per HPI and Reports excessive sweating GI Reports diarrhea Psych Reports anxiety Endo Reports excessive sweating Physical Exam Vital Signs: Last Vital Signs Pulse 83 02/27/23 13:10 BP 110/72 02/27/23 13:10 Pulse Ox 94 10/30/23 13:10 Oxygen Delivery Method Room Air 02/27/23 13:10 Const General: cooperative and healthy appearing Orientation/consciousness: patient oriented x3 Resp Effort & Inspection: normal respiratory effort Neuro General: patient oriented x3 and gait normal Psych Appearance: grossly normal Mental Status: mental status grossly normal Speech and movement: Normal speech and movement present Affect: Sad affect present Attitude: cooperative Thought process: Normal thought process present Office Meds Sublocade 300 mg/1.5 mL solution,extended release subcutaneous syringe Performing Provider: Kimberly Nielsen NP Performing Location: [facility] Administered by: Kimberly Nielsen NP on 02/27/23 14:55 Dose Route Admin Location Dispensed Lot Number Expiration Date [facility] Cat Scan Tech 300 mg subcut RUQ 1.5 mL [id number] 06/28/24 [address]-2 [employer]. Comments: No signs or symptoms of infection to previous injection site. Educated pt on signs and symptoms of infection, encouraged to call the office with any questions or concerns. Assessment & Plan Assessment & Plan (1) Opioid use disorder: Code(s): F11.90 - Opioid use, unspecified, uncomplicated Plan: Pt tolerated injection well. Relapse prevention discussed, discussed distractions when intrusive thoughts occur. Discussed with patient a plan to keep a journal to track cravings to figure out his trigger Follow up in 4 weeks. Plan to send bridge script in 3 weeks to address any breakthrough withdrawal symptoms. Orders: Orders AMB Buprenorphine Injection - Patient Supplied Today F11.90 - Opioid use, unspecified, uncomplicated Coding Level of Care Code Est Pt Level 3 (70871) Diagnoses Opioid use disorder F11.90
[2023-02-27 13:10] VITALS: BP 110/72; PULSE 83; O2SAT 94
== END 2023-02-27 13:42 | disposition home or self-care (01) ==
PROVIDERS: PCP Nurse Practitioner Family; Visit Provider Nurse Practitioner Family
DX: F11.90 Opioid use, unspecified, uncomplicated (principal)
CPT/HCPCS: 99213

== ENCOUNTER → 2023-02-27 12:53 | Outpatient (BNVA) | payer OTHER, SELFPAY | PROVIDERS: PCP Nurse Practitioner Family; Visit Provider Nurse Practitioner Family | DX: F11.20 Opioid dependence, uncomplicated (principal) | CPT/HCPCS: 96372; 99212; Q9992 ==

== ENCOUNTER 2023-03-27 12:53 | Outpatient (AMB) | payer OTHER, SELFPAY ==
--- NOTE | 2023-03-27 12:54 | MHC.OFFVIS ---
Intake Vital Signs 03/27/23 13:02 BP 126/70 Blood Pressure Location Lt radial Position Sitting Pulse 118 H Pulse Source Pulse Oximeter Pulse Oximetry (%) 98 Oxygen Delivery Method Room Air Intake Visit Reasons: MAT VISIT Intake Note: the patient presents for a sub inj Cancer Registry Manager Required: No Allergies acetaminophen [From VICODIN] Allergy (Unknown, Verified 03/27/23 13:03) RASH amoxicillin [AMOXICILLIN] Allergy (Unknown, Verified 03/27/23 13:03) HIVES hydrocodone [From VICODIN] Allergy (Unknown, Verified 03/27/23 13:03) RASH sulfamethoxazole [From BACTRIM] Allergy (Unknown, Verified 03/27/23 13:03) UNKNOWN trimethoprim [From BACTRIM] Allergy (Unknown, Verified 03/27/23 13:03) UNKNOWN Vicodin Allergy (Unknown, Uncoded 03/27/23 13:03) hives Do you need a note to return to daycare/school/sports/work: No HPI MAT VISIT HPI Details Pt presents for monthly sublocade Reports this past month has been good for him, many positive changes He reports 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 Has no concerns for recovery today. Reports mild withdrawal symptoms around 1-2 weeks before next injection is due (sweating, diarrhea) Declining bridge films at this time. [facility] Medical History (Updated 01/17/23 @ 05:14 by Donnell Carlton MD) Environmental allergies Allergies Left hemiparesis Cerebral palsy Social History (System 04/12/22 @ 13:24 by Kelsi Portillo) Housing: House Patient Tobacco Use Status: Current everyday Tobacco user e-Cigarette/Vaping Use: Never Used Current occupational status: unemployed Cognitive needs: No Hearing needs: No Vision needs: No Review of Systems Const Reports as per HPI Physical Exam Vital Signs: Last Vital Signs Pulse 118 H 03/27/23 13:02 BP 126/70 03/27/23 13:02 Pulse Ox 98 03/27/23 13:02 Oxygen Delivery Method Room Air 03/27/23 13:02 Const General: cooperative Resp Effort & Inspection: normal respiratory effort Psych Appearance: grossly normal Mental Status: mental status grossly normal Speech and movement: Normal speech and movement present Affect: normal affect Attitude: cooperative Thought process: Normal thought process present Office Meds Sublocade 300 mg/1.5 mL solution,extended release subcutaneous syringe Performing Provider: Kimberly Nielsen NP Performing Location: [facility] Administered by: Kimberly Nielsen NP on 03/28/23 08:59 Dose Route Admin Location Dispensed Lot Number Expiration Date [employer] 300 mg subcut LUQ 1.5 mL [id number] 11/29/23 [address]-3 [employer]. Comments: Pt tolerated injection well. Reviewed signs and symptoms of infection, encouraged to call the office with concerns. Assessment & Plan Assessment & Plan (1) Opioid use disorder: Code(s): F11.90 - Opioid use, unspecified, uncomplicated Plan: Pt tolerated injection well. Follow up in 4 weeks. Encouraged to call the office if he needs a bridge script, or needs to be seen sooner. Orders: Orders AMB Buprenorphine Injection - Patient Supplied 03/27/23 F11.90 - Opioid use, unspecified, uncomplicated Coding Level of Care Code Est Pt Level 3 (36212) Diagnoses Opioid use disorder F11.90
[2023-03-27 13:02] VITALS: BP 126/70; PULSE 118; O2SAT 98
== END 2023-03-27 14:04 | disposition home or self-care (01) ==
PROVIDERS: PCP Nurse Practitioner Family; Visit Provider Nurse Practitioner Family
DX: F11.90 Opioid use, unspecified, uncomplicated (principal)
CPT/HCPCS: 99213

== ENCOUNTER → 2023-03-27 12:53 | Outpatient (BNVA) | payer OTHER, SELFPAY | PROVIDERS: PCP Nurse Practitioner Family; Visit Provider Nurse Practitioner Family | DX: F11.20 Opioid dependence, uncomplicated (principal) | CPT/HCPCS: 96372; 99212; Q9992 ==

== ENCOUNTER 2023-04-12 07:12 | Outpatient (AMB) | payer OTHER, SELFPAY ==
--- NOTE | 2023-04-12 07:30 | MHC.PC.OV ---
Intake Visit Reasons: Discuss smoking cessation Allergies acetaminophen [From VICODIN] Allergy (Unknown, Verified 03/27/23 13:03) RASH amoxicillin [AMOXICILLIN] Allergy (Unknown, Verified 03/27/23 13:03) HIVES hydrocodone [From VICODIN] Allergy (Unknown, Verified 03/27/23 13:03) RASH sulfamethoxazole [From BACTRIM] Allergy (Unknown, Verified 03/27/23 13:03) UNKNOWN trimethoprim [From BACTRIM] Allergy (Unknown, Verified 03/27/23 13:03) UNKNOWN Vicodin Allergy (Unknown, Uncoded 03/27/23 13:03) hives Medication List - Last Reconciled 04/12/23 by ALVINA Johnson-RONN albuterol sulfate 90 mcg/actuation (Ventolin HFA) 2 puffs inhalation QID PRN buprenorphine ER (Sublocade) 300 mg (1.5 mL) subcut .q 4 weeks buprenorphine-naloxone 8-2 mg (Suboxone) 1 film sublingual TID bupropion HCl 300 mg PO QAM clonazepam 1 mg PO TID PRN dextroamphetamine-amphetamine 20 mg 1 tab PO BID fexofenadine (Karen Allergy) 180 mg PO Q24H ibuprofen 800 mg PO BID PRN 30 days nicotine 1 patch transdermal DAILY tizanidine 4 mg PO TID PRN 30 days Tobacco use date assessed: 08/16/22 HPI Discuss smoking cessation HPI Details Pt c/o ongoing lower back pain. He has a CT which showed no lumbar spine fracture or malalignment. Possible mild disc bulging at L4-L5. No significant narrowing of the spinal canal or neural foramina. Will refer to [facility]. Denies any signs of cauda equina. smoker: sending patches. He knows to take them off before bed. [facility] Medical History Environmental allergies Allergies Left hemiparesis Cerebral palsy Social History (System 04/12/22 @ 13:24 by Kelsi Portillo) Housing: House Patient Tobacco Use Status: Current everyday Tobacco user e-Cigarette/Vaping Use: Never Used Current occupational status: unemployed Cognitive needs: No Hearing needs: No Vision needs: No Questionnaire Thrive Questionnaire Date Thrive assessed: 08/16/22 TAMMIE-7 AMB Questionnaire TAMMIE-7 Date TAMMIE - 7 assessed: 08/16/22 Source: Developed by Drs. Isaak Christiansen, Cady Brooks, Hunter Escobedo and colleagues, with an educational robbie from [employer]. Review of Systems Const Reports as per HPI Physical exam (Primary Care) Tobacco/Smoking Status: Tobacco use Status Tobacco use date assessed 08/16/22 04/12/23 07:36 Patient Tobacco Use Status Current everyday Tobacco 04/12/23 07:36 e-Cigarette/Vaping Use Never Used 04/12/23 07:36 Thrive Assessment: Date of Thrive Assessment Date Thrive assessed 08/16/22 04/12/23 07:36 Const General: cooperative Orientation/consciousness: patient oriented x3 Neuro General: patient oriented x3 Psych Appearance: grossly normal Mental Status: mental status grossly normal Speech and movement: Clear speech present Affect: normal affect Attitude: cooperative Thought process: Normal thought process present Thought content: Normal thought content present Insight: Good insight present (Psych) Judgement: Good judgement present (Psych) Telehealth Telehealth Location of provider rendering services: practice address Location of patient: address on file Patient Identification confirmed using: Name, : Yes Telehealth method: video Patient verbally consented to treatment: Yes Patient verbally consented to billing insurance company: Yes Patient informed of any privacy concerns related to visit: Yes Minutes spent on Phone/Video with Pt.: 10 Assessment and Plan Assessment & Plan (1) Chronic lower back pain: Code(s): M54.50 - Low back pain, unspecified; G89.29 - Other chronic pain Plan: Referred to [facility] (2) Smoker: Code(s): F17.200 - Nicotine dependence, unspecified, uncomplicated Plan The patient agreed to the use of a medical pathology teacher for this encounter. Scribed for Jarvis Porter PHOTOLITH OPERATOR- by Lee Ann Curtis medical pathology teacher, on 04/12/2023 at 07:30 EST. Orders: Referrals Sports Medicine Referral G89.29 - Other chronic pain, M54.50 - Low back pain, unspecified Medications: New nicotine 1 patch transdermal DAILY 28 ea 0RF Coding Level of Care Code Tele Est Pt Level 3 (26109) Diagnoses Chronic lower back pain M54.50; G89.29 Smoker F17.200
== END 2023-04-12 14:17 | disposition home or self-care (01) ==
LOC: HO.HMGC 07:12
PROVIDERS: PCP Nurse Practitioner Family; Visit Provider Nurse Practitioner Family
DX: M54.50 Low back pain, unspecified (principal); G89.29 Other chronic pain; F17.200 Nicotine dependence, unspecified, uncomplicated
CPT/HCPCS: 99213

== ENCOUNTER 2023-04-25 10:13 | Outpatient (AMB) | payer OTHER, SELFPAY ==
--- NOTE | 2023-04-25 10:13 | AM.OFFVISNUR ---
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 presents for OUD F/U and sublocade injection.? Pt A&O x 4 pleasant and cooperative with care.? ? Pt. reports his recovery is going well.?He is still havingW/D toward the end of his injection (around the last week or so) to include diarrhea, agitation and restlessness. Provide, Gunjan notified and she will send in bridge script in two weeks. Pt notified of this and in agreement. Pt has been following up with his medical needs including a referral to PSS for lower back pain. The appt for this is scheduled for 04/27/23. ? Pt. denies any systemic or local SE from sublocade injection. Pt also reports progress with his smoking cessation. Pt. is motivated for recovery and is actively participating in his treatment.? T/W administered sublocade injection as per provider orders.? Pt. will F/U in clinic in four weeks for check in and injection. Office Meds Sublocade 300 mg/1.5 mL solution,extended release subcutaneous syringe Performing Provider: Kimberly Nielsen NP Performing Location: [facility] Administered by: Dian Madrid RN on 04/25/23 11:42 Dose Route Admin Location Dispensed Lot Number Expiration Date [facility] Community Product Specialist 300 mg subcut LLQ 1.5 mL [id number] 06/01/24 [address]-9 [employer]. Comments: Pt tolerated injection well. Educated on S/S of infection. Encouraged to call [facility] with questions/concerns. Coding Assessment & Plan Assessment & Plan Orders: Orders AMB Buprenorphine Injection - Patient Supplied Today F11.90 - Opioid use, unspecified, uncomplicated
[2023-04-25 10:24] VITALS: BP 124/72; PULSE 89; O2SAT 97
== END 2023-04-25 11:17 | disposition home or self-care (01) ==
PROVIDERS: PCP Nurse Practitioner Family
DX: F11.90 Opioid use, unspecified, uncomplicated (principal)

== ENCOUNTER → 2023-04-25 10:13 | Outpatient (BNVA) | payer OTHER, SELFPAY | PROVIDERS: PCP Nurse Practitioner Family | DX: F11.20 Opioid dependence, uncomplicated (principal); Z79.899 Other long term (current) drug therapy | CPT/HCPCS: 96372; Q9992 ==

== ENCOUNTER 2023-05-23 10:14 | Outpatient (AMB) | payer OTHER, SELFPAY ==
--- NOTE | 2023-05-23 10:18 | MHC.AM.SUB ---
Intake Intake Visit Reasons: Sub Inj Allergies acetaminophen [From VICODIN] Allergy (Unknown, Verified 04/25/23 10:25) RASH amoxicillin [AMOXICILLIN] Allergy (Unknown, Verified 04/25/23 10:25) HIVES hydrocodone [From VICODIN] Allergy (Unknown, Verified 04/25/23 10:25) RASH sulfamethoxazole [From BACTRIM] Allergy (Unknown, Verified 04/25/23 10:25) UNKNOWN trimethoprim [From BACTRIM] Allergy (Unknown, Verified 04/25/23 10:25) UNKNOWN Vicodin Allergy (Unknown, Uncoded 04/25/23 10:25) hives [facility] Medical History (Reviewed 04/12/23 @ 08:[address] [facility] [place]) Environmental allergies Allergies Left hemiparesis Cerebral palsy Social History (System 04/12/22 @ 13:24 by Kelsi Portillo) Housing: House Patient Tobacco Use Status: Current everyday Tobacco user e-Cigarette/Vaping Use: Never Used Current occupational status: unemployed Cognitive needs: No Hearing needs: No Vision needs: No Coding
--- NOTE | 2023-05-23 10:20 | AM.OFFVISNUR ---
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 A+O x4, well appearing, smiling throughout visit, speaking in clear/full sentences. 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 He understands to call [facility] with any questions or concerns. Office Meds Sublocade 300 mg/1.5 mL solution,extended release subcutaneous syringe Performing Provider: Kimberly Nielsen NP Performing Location: [facility] Administered by: Cynthia Walker RN on 05/23/23 10:46 Dose Route Admin Location Dispensed Lot Number Expiration Date [facility] Pricing Consultant 300 mg subcut rlq 1.5 mL [id number] 06/29/24 [address]-7 [employer]. Comments: Patient tolerated injection with no stated or noted side effects. Educated on signs and symptoms of complications, he verbally understands and will call [facility] with any questions or concerns. Coding Assessment & Plan Assessment & Plan Orders: Orders AMB Buprenorphine Injection - Patient Supplied Today F11.90 - Opioid use, unspecified, uncomplicated
[2023-05-23 10:23] VITALS: BP 122/84; PULSE 85; O2SAT 95
== END 2023-05-23 10:44 | disposition home or self-care (01) ==
PROVIDERS: PCP Nurse Practitioner Family
DX: F11.90 Opioid use, unspecified, uncomplicated (principal)

== ENCOUNTER → 2023-05-23 10:14 | Outpatient (BNVA) | payer OTHER, SELFPAY | PROVIDERS: PCP Nurse Practitioner Family | DX: F11.90 Opioid use, unspecified, uncomplicated (principal) | CPT/HCPCS: 96372; Q9992 ==

== ENCOUNTER 2023-06-12 03:47 | Emergency (ER) | payer OTHER, SELFPAY ==
[2023-06-12 03:56] VITALS: BP 120/74; BP 140/84; PULSE 108; PULSE 120; RESP 16; TEMP 37.1; O2SAT 98; BMI 45.2
[2023-06-12 04:00] VITALS: PULSE 110
--- NOTE | 2023-06-12 04:03 | ED_ITS ---
HPI - Overdose General Chief Complaint: Overdose Stated Complaint: OVERDOSE. 12 MG NARCAN GIVEN Time Seen by Provider: 06/12/23 04:03 Source: patient and EMS Mode of arrival: EMS Limitations: no limitations History of Present Illness HPI Narrative: Patient's history of substance abuse on Suboxone ambulate took a pill from the street around midnight father found him unresponsive foaming from the mouth give him Narcan 12 mg intranasally patient responded calm and cooperative now Related Data Home Medications Medication Instructions Recorded Confirmed clonazepam 1 mg tablet 1 mg PO TID PRN 01/16/23 04/12/23 dextroamphetamine-amphetamine 20 1 tab PO BID 01/16/23 04/12/23 mg tablet Previous Rx's Medication Instructions Recorded albuterol sulfate 90 mcg/actuation 2 puff inhalation QID PRN 10/26/22 aerosol inhaler (Ventolin HFA) shortness of breath or wheezing #8.5 grams buprenorphine 300 mg/1.5 mL 300 mg (1.5 mL) subcut .q 4 weeks 02/09/23 solution,exten.rel.subcutaneous #1.5 mL syringe (Sublocade) bupropion HCl 300 mg 24 hr tablet, 300 mg PO QAM #90 tabs 04/11/23 extended release nicotine 21 mg/24 hr daily 1 patch transdermal DAILY #28 ea 04/12/23 transdermal patch ibuprofen 800 mg tablet 800 mg PO BID PRN pain 30 days #60 04/14/23 tabs tizanidine 4 mg tablet 4 mg PO TID PRN muscle spasticity 04/19/23 30 days #90 tabs buprenorphine 8 mg-naloxone 2 mg 1 film sublingual BID #14 ea 05/16/23 sublingual film (Suboxone) fexofenadine 180 mg tablet 180 mg PO Q24H #90 tabs 06/12/23 (Karen Allergy) Allergies Allergy/AdvReac Type Severity Reaction Status Date / Time amoxicillin [AMOXICILLIN] Allergy Unknown HIVES Verified 05/23/23 10:23 hydrocodone [From VICODIN] Allergy Unknown RASH Verified 05/23/23 10:23 sulfamethoxazole Allergy Unknown UNKNOWN Verified 05/23/23 10:23 [From BACTRIM] trimethoprim [From BACTRIM] Allergy Unknown UNKNOWN Verified 05/23/23 10:23 Vicodin Allergy Unknown hives Uncoded 05/23/23 10:23 Review of Systems Review of Systems: Yes all other systems are reviewed and are negative [facility] Past Medical History Medical History Environmental allergies Allergies Left hemiparesis Cerebral palsy Social History Social History Housing: House Patient Tobacco Use Status: Current everyday Tobacco user Smoked in Last 30 Days: Yes e-Cigarette/Vaping Use: Never Used Use of substances other than those prescribed or required for medical reasons: No Advance Directives: No Advance Directives Information Provided: No Current occupational status: unemployed Cognitive needs: No Hearing needs: No Vision needs: No Physical Exam Vital Signs: Vital Signs: Last Vital Signs Temp 98.8 F 06/12/23 04:10 Pulse 108 H 06/12/23 04:10 Resp 18 06/12/23 04:10 BP 120/74 06/12/23 04:10 Pulse Ox 98 06/12/23 04:10 O2 Del Method Room Air 06/12/23 04:10 BMI result Body Mass Index 45.2 Appearance: Alert. Oriented X3. No acute distress. Eyes: PERRLA, No Nystagmus ENT: Pharynx normal. Oral Mucosa moist no tongue bite Neck: Normal inspection. Neck supple. CVS: Normal heart rate and rhythm. Pulses normal. Respiratory: No respiratory distress. Equal air entry bilateral, no wheezing/rales/rhonchi Abdomen: Soft and nontender. Bowel sounds are present, no mass palpable, no CVA tenderness Skin: Skin warm and dry. Normal skin color. Normal skin turgor. Extremities: No lower extremity edema. No calf tenderness Neuro: Oriented X 3. No motor deficit. No sensory deficit.No cerebellar signs , cranial nerves II-XII intact Medications Administered Discontinued Medications Generic Name Dose Route Start Last Admin Trade Name Freq PRN Reason Stop Dose Admin Acetaminophen 650 mg 06/12/23 05:20 06/12/23 05:24 Acetaminophen 325 Mg Tablet PO 06/12/23 05:21 650 mg ONCE ONE Administration Medical Decision Making Medical Decision Making [facility] Narrative: Patient with opiate overdose alert and awake x3 no saturating 90 discharge patient home advised not to take street pills Differential Diagnosis Differential Diagnoses: The differential diagnosis associated with the presentation includes Lab Data [facility] Lab Attestation statement: I reviewed the patient's lab results. Labs: Lab Results 06/12/23 Range/Units 04:12 Urine Opiates Screen POSITIVE H (Not Detect) Urine Fentanyl Screen Not Detected (Not Detect) Ur Barbiturates Screen Not Detected (Not Detect) Ur Phencyclidine Scrn Not Detected (Not Detect) Ur Amphetamines Screen Not Detected (Not Detect) U Benzodiazepines Scrn Not Detected (Not Detect) Urine Cocaine Screen Not Detected (Not Detect) U Marijuana (THC) Screen Not Detected (Not Detect) Independent Interpretation I performed an independent interpretation of an: EKG Interpretation: Sinus tachycardia heart rate 109 beats per minute incomplete right bundle-branch block no acute ST T wave changes no acute ischemia Discharge Plan Discharge Clinical Impression: Opioid use disorder Patient Disposition: Home, Self-Care Instructions: Opioid Use Disorder (ED) Additional Instructions: Follow-up with detox Prescriptions: No Action albuterol sulfate [Ventolin HFA] 90 mcg/actuation HFA aerosol inhaler 2 puff inhalation QID PRN (Reason: shortness of breath or wheezing) Qty: 8.5 2RF Sublocade 300 mg/1.5 mL solution, extended rel syringe 300 mg subcut .q 4 weeks Qty: 1.5 5RF bupropion HCl 300 mg tablet extended release 24 hr 300 mg PO QAM Qty: 90 1RF ibuprofen 800 mg tablet 800 mg PO BID PRN (Reason: pain) 30 Days Qty: 60 1RF tizanidine 4 mg tablet 4 mg PO TID PRN (Reason: muscle spasticity) 30 Days Qty: 90 1RF buprenorphine-naloxone [Suboxone] 8-2 mg film 1 film sublingual BID Qty: 14 0RF fexofenadine [Karen Allergy] 180 mg tablet 180 mg PO Q24H Qty: 90 0RF clonazepam 1 mg tablet 1 mg PO TID PRN dextroamphetamine-amphetamine 20 mg tablet 1 tab PO BID nicotine 21 mg/24 hr patch 24 hour 1 patch transdermal DAILY Qty: 28 0RF Interventions: ED Discharge Assessment Last Done: 06/12/23 06:07 Discharge Date/Time: 06/12/23 05:55
--- NOTE | 2023-06-12 04:07 | ECG_ITS ---
Test Reason : OVERDOSE Blood Pressure : / mmHG Vent. Rate : 109 BPM Atrial Rate : 109 BPM P-R Int : 166 ms QRS Dur : 092 ms QT Int : 328 ms P-R-T Axes : 024 -15 005 degrees QTc Int : 441 ms Sinus tachycardia Incomplete right bundle branch block Minimal voltage criteria for LVH, may be normal variant ( R in aVL ) Cannot rule out Anterior infarct , age undetermined Abnormal ECG No previous ECGs available Referred By: Lukas Kingston Electronically Signed By:Seamus Stallworth
[2023-06-12 04:10] VITALS: BP 120/74; PULSE 108; RESP 18; TEMP 37.1; O2SAT 98
--- NOTE | 2023-06-12 04:23 | PC.NURSE ---
0400 - pt biba from home reported by father that pt was laying in bed with him when he noticed him awake from his sleep gasping for air and shaking. I thought he was having a seizure but i didn't know so i sprayed narcan 3 times. no hx of seizures per father. father reports pt axox4 at baseline mentation after narcan admin however pt denies opioid use. pt states he took an extra half tab of prescribed klonopin as he felt extra anxious after work. dad reports pt regularly uses percocets. on arrival pt axox4 calm/cooperative. changed over to hospital clothes. belongings in . pt provided jarvis sample. pt reports n/R. sided cp; sinus tachy on monitor. ekg obtained Dr. Kingston aware. resp even and unlabored nad. pt denies si/hi. VSS. call juarez within reach. 0430 - NSR on monitor 93 bpm.
[2023-06-12 04:24] LABS: Amphetamine Screen Urine Not Detected (Not Detect); Barbiturates, Urine Not Detected (Not Detect); Benzodiazepines Screen Urine Not Detected (Not Detect); Cannabinoid Screen Urine Not Detected (Not Detect); Cocaine Screen Urine Not Detected (Not Detect); Fentanyl, urine Not Detected (Not Detect); Opiate Screen Urine POSITIVE (Not Detect); Phencyclidine Screen Urine Not Detected (Not Detect)
[2023-06-12] MEDS: Acetaminophen 325 MG TABLET 650 MG PO (05:24)
== END 2023-06-12 05:55 | disposition home or self-care (01) ==
PROVIDERS: Emergency Provider Internal Medicine; PCP Nurse Practitioner Family
DX: T50.991A Poisoning by other drugs, medicaments and biological substances, accidental (unintentional), initial encounter (principal); Y92.9 Unspecified place or not applicable; R00.0 Tachycardia, unspecified; Z79.899 Other long term (current) drug therapy
CPT/HCPCS: 80307; 93005; 99284; 99285

== ENCOUNTER → 2023-06-12 04:07 | Outpatient (BNV) | payer OTHER, SELFPAY | PROVIDERS: Emergency Provider Internal Medicine; PCP Nurse Practitioner Family; Visit Provider Internal Medicine Cardiovascular Disease | DX: R94.31 Abnormal electrocardiogram [ECG] [EKG] (principal) | CPT/HCPCS: 93010 ==

== ENCOUNTER 2023-06-20 09:09 | Outpatient (AMB) | payer OTHER, SELFPAY ==
[2023-06-20 09:19] VITALS: BP 118/84; PULSE 98; O2SAT 95; BMI 47.4
--- NOTE | 2023-06-20 09:19 | A.OFFVISCC_ITS ---
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: No Allergies amoxicillin [AMOXICILLIN] Allergy (Unknown, Verified 06/20/23 09:29) HIVES hydrocodone [From VICODIN] Allergy (Unknown, Verified 06/20/23 09:29) RASH sulfamethoxazole [From BACTRIM] Allergy (Unknown, Verified 06/20/23 09:29) UNKNOWN trimethoprim [From BACTRIM] Allergy (Unknown, Verified 06/20/23 09:29) UNKNOWN Vicodin Allergy (Unknown, Uncoded 06/20/23 09:29) hives Do you need a note to return to daycare/school/sports/work: No HPI MAT Visit /Sub Inj HPI Details Patient presents for MAT visit Reports he fucked up States he was seen in the emergency dept for OD 1/5 weeks ago He took a 30mg oxycodone that he got from a known source, and he claims they were prescription not pressed pills He reports he was feeling withdrawal symptoms and cravings, he did not want to call the clinic because he feels the films make him feel unwell (nauseated/ high ). 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 [facility] Medical History Environmental allergies Allergies Left hemiparesis Cerebral palsy Social History Housing: House Patient Tobacco Use Status: Current everyday Tobacco user e-Cigarette/Vaping Use: Never Used Current occupational status: unemployed Cognitive needs: No Hearing needs: No Vision needs: No Review of Systems Const Reports as per HPI Physical Exam Vital Signs: Last Vital Signs Pulse 98 06/20/23 09:19 BP 118/84 06/20/23 09:19 Pulse Ox 95 06/20/23 09:19 Oxygen Delivery Method Room Air 06/20/23 09:19 BMI result Body Mass Index 47.4 Const General: cooperative Resp Effort & Inspection: normal respiratory effort and able to speak in complete sentences Psych Appearance: grossly normal Mental Status: mental status grossly normal Speech and movement: Normal speech and movement present Affect: normal affect Attitude: cooperative Office Meds Sublocade 300 mg/1.5 mL solution,extended release subcutaneous syringe Performing Provider: Kimberly Nielsen NP Performing Location: [facility] Administered by: Cynthia Walker RN on 06/20/23 09:57 Dose Route Admin Location Dispensed Lot Number Expiration Date [facility] Calender Let Off Operator 300 mg subcut LLQ 1.5 mL [id number] 06/01/24 [address]-4 [employer]. Comments: Patient tolerated injection with no stated or noted side effects. He verbally agrees to call [facility] with any comments or concerns. Assessment & Plan Assessment & Plan (1) Opioid use disorder: Code(s): F11.90 - Opioid use, unspecified, uncomplicated Plan: -Narcan offered, he declined reporting he has plenty at home -Recovery support discussed -Rx for buprenorphine tablets placed -Discussed weekly Brixadi with him as an option and provided literature -Discussed with him increasing his visits to weekly for the time being- he is agreeable to this -Follow up 1 week Orders: Orders AMB Buprenorphine Injection - Patient Supplied Today F11.90 - Opioid use, unspecified, uncomplicated Medications: New buprenorphine HCl 8 mg sublingual BID 42 tabs 0RF Coding Level of Care Code Est Pt Level 3 (79527) Diagnoses Opioid use disorder F11.90
== END 2023-06-20 10:53 | disposition home or self-care (01) ==
PROVIDERS: PCP Nurse Practitioner Family; Visit Provider Nurse Practitioner Family
DX: F11.90 Opioid use, unspecified, uncomplicated (principal)
CPT/HCPCS: 99213

== ENCOUNTER → 2023-06-20 09:09 | Outpatient (BNVA) | payer OTHER, SELFPAY | PROVIDERS: PCP Nurse Practitioner Family; Visit Provider Nurse Practitioner Family | DX: F11.20 Opioid dependence, uncomplicated (principal) | CPT/HCPCS: 96372; 99212; Q9992 ==

== ENCOUNTER 2023-06-26 10:07 | Outpatient (AMB) | payer OTHER, SELFPAY ==
--- NOTE | 2023-06-26 10:09 | MHC.AM.SUB ---
Intake Vital Signs 06/26/23 10:15 BP 126/74 Blood Pressure Location Lt radial Position Sitting Pulse 98 Pulse Source Pulse Oximeter Pulse Oximetry (%) 97 Oxygen Delivery Method Room Air Intake Visit Reasons: mat Intake Note: the patient presents for mat visit Biologist Aide Required: No Allergies amoxicillin [AMOXICILLIN] Allergy (Unknown, Verified 06/26/23 10:16) HIVES hydrocodone [From VICODIN] Allergy (Unknown, Verified 06/26/23 10:16) RASH sulfamethoxazole [From BACTRIM] Allergy (Unknown, Verified 06/26/23 10:16) UNKNOWN trimethoprim [From BACTRIM] Allergy (Unknown, Verified 06/26/23 10:16) UNKNOWN Vicodin Allergy (Unknown, Uncoded 06/26/23 10:16) hives Do you need a note to return to daycare/school/sports/work: No HPI mat HPI Details Patient presents for follow up Irritable affect, he was on his phone the entire encounter, poor eye contact When asked if he could put his phone away for discussion, he reports it is out for his anxiety Reports cravings persist, he has been experiencing mood swings, hot flashes , and stomach cramps When t/w attempted to have a discussion about trialing antidepressants, he declined Difficult to engage in conversation, unwilling to discuss how to address his cravings, fixated on receiving oral suboxone [facility] Medical History Environmental allergies Allergies Left hemiparesis Cerebral palsy Social History Housing: House Patient Tobacco Use Status: Current everyday Tobacco user e-Cigarette/Vaping Use: Never Used Current occupational status: unemployed Cognitive needs: No Hearing needs: No Vision needs: No Review of Systems Const Reports as per HPI Physical Exam Vital Signs: Last Vital Signs Pulse 98 06/26/23 10:15 BP 126/74 06/26/23 10:15 Pulse Ox 97 06/26/23 10:15 Oxygen Delivery Method Room Air 06/26/23 10:15 Const General: cooperative and no acute distress Resp Effort & Inspection: normal respiratory effort Psych Appearance: grossly normal Mental Status: mental status grossly normal Affect: Irritable affect present Attitude: Belligerent attititude/behavior present, Guarded attititude/behavior present and Avoids eye contact (attititude/behavior) Assessment & Plan Assessment & Plan (1) Opioid use disorder: Code(s): F11.90 - Opioid use, unspecified, uncomplicated Plan: -Mass pat reviewed -Discussed antidepressants, pt declined at this time -Attempted to explore other therapeutic options, he is not interested at this time -Follow up as need prior to next injection Coding Level of Care Code Est Pt Level 3 (90641) Diagnoses Opioid use disorder F11.90
[2023-06-26 10:15] VITALS: BP 126/74; PULSE 98; O2SAT 97
== END 2023-06-26 10:35 | disposition home or self-care (01) ==
PROVIDERS: PCP Nurse Practitioner Family; Visit Provider Nurse Practitioner Family
DX: F11.90 Opioid use, unspecified, uncomplicated (principal)
CPT/HCPCS: 99213

== ENCOUNTER → 2023-06-26 10:07 | Outpatient (BNVA) | payer OTHER, SELFPAY | PROVIDERS: PCP Nurse Practitioner Family; Visit Provider Nurse Practitioner Family | DX: F11.20 Opioid dependence, uncomplicated (principal) | CPT/HCPCS: 99212 ==

== ENCOUNTER 2023-07-04 09:10 | Outpatient (AMB) | payer OTHER, SELFPAY ==
[2023-07-04 09:22] VITALS: BP 140/60; PULSE 98; RESP 20; O2SAT 99
--- NOTE | 2023-07-04 09:22 | MHC.AM.SUB ---
Intake Vital Signs 07/04/23 09:22 BP 140/60 H Blood Pressure Location Rt radial Position Sitting Respiration 20 Pulse 98 Pulse Source Pulse Oximeter Pulse Oximetry (%) 99 Intake Visit Reasons: mat Allergies amoxicillin [AMOXICILLIN] Allergy (Unknown, Verified 06/26/23 10:16) HIVES hydrocodone [From VICODIN] Allergy (Unknown, Verified 06/26/23 10:16) RASH sulfamethoxazole [From BACTRIM] Allergy (Unknown, Verified 06/26/23 10:16) UNKNOWN trimethoprim [From BACTRIM] Allergy (Unknown, Verified 06/26/23 10:16) UNKNOWN Vicodin Allergy (Unknown, Uncoded 06/26/23 10:16) hives HPI mat HPI Details Patient presents for OUD treatment follow up Discussed recent overdose-15mg oxycodone Currently in [facility] for the last 2 weeks Psychiatry appt tomorrow Expressing anxiety and worry with cravings --he reports cravings several times per day with no trigger Reviewed how he deals with them as they come on. He expressed desire for tabs ans he found them helpful while he was in [address]. He states that he was not anxious or having cravings when he was taking tabs. This service writer acknowledged patients experience with tabs, however also reminded patient that he was in a highly structured, controlled environment. Discussed possibility of switching to Brixadi, or referring to methadone. Also reinforced importance of developing and strengthening coping strategies as taking suboxone with every thought of using is not a sustainable response. Prior auth for tablets denied. [facility] Medical History Environmental allergies Allergies Left hemiparesis Cerebral palsy Social History Housing: House Patient Tobacco Use Status: Current everyday Tobacco user e-Cigarette/Vaping Use: Never Used Current occupational status: unemployed Cognitive needs: No Hearing needs: No Vision needs: No Review of Systems Const Reports as per HPI Physical Exam Vital Signs: Last Vital Signs Pulse 98 07/04/23 09:22 Resp 20 07/04/23 09:22 BP 140/60 H 07/04/23 09:22 Pulse Ox 99 07/04/23 09:22 Const General: cooperative and healthy appearing Nutritional Appearance: overweight Orientation/consciousness: patient oriented x3 Limitations: no limitations Neuro General: patient oriented x3 Psych Appearance: well kempt Speech and movement: Clear speech present Affect: normal affect Attitude: cooperative and Avoids eye contact (attititude/behavior) Thought process: Circumstantial thought process present Insight: Fair insight present (Psych) Judgement: Fair judgement present (Psych) Assessment & Plan Assessment & Plan (1) Opioid use disorder: Code(s): F11.90 - Opioid use, unspecified, uncomplicated Plan patient agreeable to zofran trial when needing pRN films follow up 2 weeks for next injection Medications: New ondansetron 4 mg PO DAILY PRN 10 tabs 0RF nausea and vomiting Coding Level of Care Code Est Pt Level 4 (44068) Diagnoses Opioid use disorder F11.90
== END 2023-07-04 10:03 | disposition home or self-care (01) ==
PROVIDERS: PCP Nurse Practitioner Family; Visit Provider Nurse Practitioner Psychiatric/Mental Health
DX: F11.90 Opioid use, unspecified, uncomplicated (principal)
CPT/HCPCS: 99214

== ENCOUNTER → 2023-07-04 09:10 | Outpatient (BNVA) | payer OTHER, SELFPAY | PROVIDERS: PCP Nurse Practitioner Family; Visit Provider Nurse Practitioner Psychiatric/Mental Health | DX: F11.20 Opioid dependence, uncomplicated (principal) | CPT/HCPCS: 99212 ==

== ENCOUNTER 2024-03-11 07:22 | Emergency (ER) | payer OTHER, SELFPAY ==
--- NOTE | ~2024-03-11 | CT_ITS ---
EXAMINATION: CT FOREARM WITH CONTRAST, LEFT CLINICAL INFORMATION: Abscess. COMPARISON: None available. TECHNIQUE: Axial imaging. Sagittal and coronal reconstructions. 85 mL Omnipaque 350. This CT examination was performed using dose optimization techniques as appropriate, variously including the following: *Automated exposure control *Adjustment of mA and/or kV according to patient size (this includes techniques or standardized protocols for targeted exams where dose is matched to indication/reason for exam; i.e. extremities or head) *Use of iterative reconstruction technique DLP: 181 mGy-cm FINDINGS: There is soft tissue swelling with fluid and stranding in the subcutaneous tissues of the anterior/lateral aspect of the elbow. The confluent signal changes measure about 2.2 x 2.1 cm (transverse x length) (5:109, 8:80, 7:116). This is suggestive of edema from inflammatory/infectious process with possible early/evolving abscess not excluded. There is extensive subcutaneous edema/fluid and stranding presumed from cellulitis in the subcutaneous tissues of the forearm more prominently seen along the posterior, medial and anterior aspect. There is skin thickening and edema present. More confluent signal changes seen in the medial/ulnar aspect of the proximal/mid forearm, measuring 3.6 x 1.2 x 4.4 cm (AP x transverse x length) (image 5:73, 7:66). Findings raise concern for an abscess in this region. No fluid collection is identified in the deep soft tissues/fascial planes. No evidence of acute fracture. No erosive or destructive changes identified. CT/CT forearm LT w IV con IMPRESSION: 1. Soft tissue swelling with extensive subcutaneous edema/cellulitis, skin thickening and inflammation. Findings are from inflammatory/infectious process. 2. More confluent hypodense focus in the skin and subcutaneous tissues of the proximal/mid forearm, measuring approximately 3.6 x 1.2 x 4.5 cm. Findings raise concern for a possible abscess. 3. More confluent fluid focus in the subcutaneous tissues of the anterior/lateral aspect of the elbow measuring 2.2 x 2.1 cm. Early/evolving abscess cannot be excluded in this region. Electronically signed by: Ernesto Lee MD 03/11/2024 01:50 PM [facility]
[2024-03-11 07:25] VITALS: BP 139/87; PULSE 100; RESP 18; TEMP 37; O2SAT 98; BMI 39.3
[2024-03-11 07:41] LABS: MANUAL DIFF FLAG NO
[2024-03-11 07:44] LABS: Basophils Percent Auto 0.4 % (0-2); Eosinophils Absolute Auto 0.3 X10*3/uL (0.0-0.4); Eosinophils Percent Auto 3.1 % (0-4); Hematocrit 43.1 % (42.0-52.0); Hemoglobin 14.7 g/dl (14.0-18.0); Imm Gran Abs Auto 0.03 X10*3/uL (0.00-0.03); Imm Gran Pct Auto 0.4 % (0.0-0.4); Lymphocytes Absolute Auto 2.1 X10*3/uL (1.2-4.9); Lymphocytes Percent Auto 25.5 % (20-40); Mean Corpuscular HGB Conc 34.1 g/dl (31.0-36.0); Mean Corpuscular Hemoglobin 27.9 pg (27.0-33.0); Mean Corpuscular Volume 81.8 fL (80.0-98.0); Mean Platelet Volume 11.1 fL (9.4-12.4); Monocytes Absolute Auto 0.6 X10*3/uL (0.1-1.2); Monocytes Percent Auto 7.7 % (2-11); Neutrophils Absolute Auto 5.1 x10*3/uL (2.0-8.3); Neutrophils Percent Auto 62.9 % (45-73); Platelet Count 278 X10*3/uL (160-400); Red Blood Count 5.27 X10*6/uL (4.60-5.80); Red Cell Distribution Width 11.9 % (11.0-16.0); White Blood Count 8.1 X10*3/uL (4.8-10.8)
--- NOTE | 2024-03-11 08:29 | ED.SKABFB ---
HPI - Skin/Abscess/Foreign Bdy General Chief complaint: Skin/Abscess/Foreign Body Stated complaint: abscess Time Seen by Provider: 03/11/24 08:15 Source: patient Mode of arrival: ambulatory Limitations: no limitations History of Present Illness ED Provider: NELSON DAWSON PA-C HPI narrative: 23-year-old male with pmhx significant for opioid use disorder, depression, IV drug use presents to the ED today for evaluation of two abscess' to left forearm x1 week. Patient was recently evaluated at urgent care for an abscess to his left hand. The area was not incised and drained and he was discharged home with bactrim. Admits that he has not been taking the antibiotic as prescribed. Admits that since being evaluated at urgent care, he has two more abscesses to his left upper extremity. Reports increasing pain, swelling and purulent drainage from the areas. Admits to pain with flexing and extending his left elbow. Patient admits to IVDU. Injects cocaine. Last injected this morning. States that he just started injecting 1 month ago. States he is not seeking detox at this time. [email or web address] currently. Denies fevers, chills, N/V, numbness/tingling/weakness of the LUE. Related Data Home Medications ?Medication ?Instructions ?Recorded ?Confirmed clonazepam 1 mg tablet 1 mg PO TID PRN 01/16/23 04/12/23 dextroamphetamine-amphetamine 20 1 tab PO BID 01/16/23 04/12/23 mg tablet Previous Rx's ?Medication ?Instructions ?Recorded buprenorphine 300 mg/1.5 mL 300 mg (1.5 mL) subcut .q 4 weeks 02/09/23 solution,exten.rel.subcutaneous #1.5 mL syringe (Sublocade) bupropion HCl 300 mg 24 hr tablet, 300 mg PO QAM #90 tabs 04/11/23 extended release buprenorphine 8 mg-naloxone 2 mg 1 film sublingual BID #14 ea 05/16/23 sublingual film (Suboxone) buprenorphine HCl 8 mg sublingual 8 mg sublingual BID #42 tabs 06/20/23 tablet dicyclomine 20 mg tablet 20 mg PO BID PRN abdominal pain 06/27/23 #30 tabs ondansetron 4 mg disintegrating 4 mg PO DAILY PRN nausea and 07/04/23 tablet vomiting #10 tabs tizanidine 4 mg tablet 4 mg PO TID PRN muscle spasticity 07/26/23 30 days #90 tabs fexofenadine 180 mg tablet 180 mg PO Q24H #90 tabs 09/21/23 (Karen Allergy) nicotine 21 mg/24 hr daily 1 patch transdermal DAILY #28 ea 01/03/24 transdermal patch ibuprofen 800 mg tablet 800 mg PO BID PRN pain 30 days #60 01/23/24 tabs Ventolin HFA 90 mcg/actuation 2 puff inhalation QID PRN 02/27/24 aerosol inhaler (albuterol sulfate) shortness of breath or wheezing #8 grams cephalexin 500 mg capsule 500 mg PO Q8H 10 days #30 caps 03/11/24 doxycycline hyclate 100 mg tablet 100 mg PO BID 10 days #20 tabs 03/11/24 Allergies Allergy/AdvReac Type Severity Reaction Status Date / Time amoxicillin [AMOXICILLIN] Allergy Unknown HIVES Verified 03/11/24 07:29 hydrocodone [From VICODIN] Allergy Unknown RASH Verified 03/11/24 07:29 sulfamethoxazole Allergy Unknown UNKNOWN Verified 03/11/24 07:29 [From BACTRIM] trimethoprim [From BACTRIM] Allergy Unknown UNKNOWN Verified 03/11/24 07:29 Vicodin Allergy Unknown hives Uncoded 03/11/24 07:29 Review of Systems Review of Systems: Constitutional: No fever, chills, fatigue, night sweats, weight changes ENT/Mouth: No ear pain, hearing loss, nasal congestion, sinus pain, rhinorrhea, sore throat Eyes: No eye pain, swelling, redness, vision changes, discharge Cardio: No chest pain, palpitations, KILPATRICK, orthopnea, peripheral edema Pulm: No SOB, cough, sputum, wheezing, dyspnea, hemoptysis GI: No nausea, vomiting, hematemesis, abdominal pain, diarrhea, constipation, hematochezia, melena : No irregular bleeding, dysuria, frequency, urgency, hesitancy, hematuria, flank pain, urinary flow changes, urinary incontinence or retention MSK: No back pain, neck pain, joint pain, myalgias Skin: No lesions, rashes, +L forearm abscess Neuro: No weakness, numbness, paresthesias, LOC, dizziness, headache Psych: No anxiety/panic, depression, SI/HI, AH/VH All other systems reviewed and are negative. [facility] Past Medical History Attestation statement: The following information was validated with the patient. Source: old records reviewed and nursing notes reviewed Medical History Environmental allergies Allergies Left hemiparesis Cerebral palsy Social History Social History Housing: House Patient Tobacco Use Status: Current everyday Tobacco user e-Cigarette/Vaping Use: Never Used Advance Directives: No Advance Directives Information Provided: Yes Do you have a plan to hurt others: No Plan Current occupational status: unemployed Cognitive needs: No Hearing needs: No Vision needs: No Physical Exam Vital Signs: Vital Signs: Last Vital Signs Temp 98.6 F 03/11/24 14:05 Pulse 100 03/11/24 14:05 Resp 18 03/11/24 14:05 BP 139/87 03/11/24 14:05 Pulse Ox 98 03/11/24 14:05 O2 Del Method Room Air 03/11/24 14:05 BMI result Body Mass Index 39.3 Vital signs stable. Afebrile. General: Well appearing, in no acute distress. Skin: see photos below. Multiple track iverson and areas consistent with skin picking. 8 cm x 7 cm area of erythema noted to ulnar aspect of left forearm. Large area of central fluctuance and pointing with bloody/purulent drainage. No streaking. 2cm x 3cm area of induration with central fluctuance and pointing noted to radial aspect of left forearm just distal to elbow. Full ROM intact to left shoulder, elbow, wrist. There is pain on flexion of left elbow. Warm, exquisitely tender to palpation. 2+radial/ ulnar pulse intact. Head: Normocephalic, atraumatic. EENT: Hearing is intact b/l. Conjunctiva clear. PERRLA. EOM intact. Moist mucous membranes.? Neck: Supple without LAD Cardiac: Chest wall symmetric. RRR Lungs: Normal respiratory effort without accessory muscle use Back: No midline spinous or paraspinal tenderness. No step off deformity. Ext: Upper and lower extremities atraumatic, without tenderness, deformity, swelling or erythema. Full ROM throughout Neuro: AOx3. Normal speech. Ambulating with steady gait. Psych: Appropriate mood and affect. Responds appropriately to questions. Course Course Course Narrative: CBC without leukocytosis or left shift. no anemia, h&h stable. chemistry without acute electrolyte abnormality requiring intervention. CRP elevated to 1.84, ESR wnl. lactic acid wnl. CT forearm LT w IV con IMPRESSION: 1. Soft tissue swelling with extensive subcutaneous edema/cellulitis, skin thickening and inflammation. Findings are from inflammatory/infectious process. 2. More confluent hypodense focus in the skin and subcutaneous tissues of the proximal/mid forearm, measuring approximately 3.6 x 1.2 x 4.5 cm. Findings raise concern for a possible abscess. 3. More confluent fluid focus in the subcutaneous tissues of the anterior/lateral aspect of the elbow measuring 2.2 x 2.1 cm. Early/evolving abscess cannot be excluded in this region. No involvement of the left elbow joint or surrounding muscles. I did reach out to general surgeon, Dr. Davis, who reviewed CT images and evaluated patient at bedside. states the abscess' are superficial and would benefit from I&D under local anesthesia. I feel this is reasonable. > I incised both abscess' to left forearm using an 11 blade. I injected approximately 8 ml lido into the larger abscess to mid forearm and approximately 2 ml into the smaller abscess more proximally. I was able drain a large amount of purulent discharge from each. I broke up the loculations and irrigated each with saline/ iodine. I packed the larger abscess with iodoform packing. overall patient tolerated procedure well. administered toradol and oxycodone for pain. > patient with noted allergy to amoxicillin. tells me he gets a rash. oral doxy and keflex given in ED. observed for reaction. patient tolerated well. will send home with both prescriptions for coverage. > gram stain sent to lab. informed patient that he will be contacted if his antibiotics require adjustment. > advised patient to return to the ED in 3 days for wound check/ packing removal. Patient also spoke with Cynthia from addiction medicine. He has plans to follow up with her at the [email or web address] tomorrow for detox options. i have provided him with their contact information. Patient has remained stable throughout ED visit today. Discussed worrisome signs and symptoms and when to return to the ED. All questions answered at this time. Patient is agreeable with disposition and stable for discharge. Medications Administered Discontinued Medications Generic Name Dose Route Start Last Admin Trade Name Freq PRN Reason Stop Dose Admin Cephalexin HCl 500 mg 03/11/24 12:06 03/11/24 13:12 Cephalexin 500 Mg Capsule PO 03/11/24 12:07 500 mg ONCE ONE Administration Doxycycline Monohydrate 100 mg 03/11/24 12:06 03/11/24 13:12 Doxycycline Monohydrate 100 Mg Capsule PO 03/11/24 12:07 100 mg ONCE ONE Administration Piperacillin Sod/Tazobactam 50 mls @ 100 mls/hr 03/11/24 12:06 03/11/24 12:27 Sod 3.375 gm/ Sodium Chloride IV 03/11/24 12:35 Not Given ONCE ONE Iohexol 85 ml 03/11/24 09:47 03/11/24 09:48 Iohexol 350 Mg/Ml 100 Ml Infus..Btl IV 03/11/24 09:48 85 ml ONCE ONE Administration Ketorolac Tromethamine 15 mg 03/11/24 08:27 03/11/24 09:12 Ketorolac Tromethamine 15 Mg/Ml Vial IVPUSH 03/11/24 08:28 15 mg ONCE ONE Administration Lidocaine HCl 5 ml 03/11/24 08:28 03/11/24 12:29 Lidocaine Hcl 1 % Mpf 5 Ml Vial INFILTRATI 03/11/24 08:29 5 ml ONCE ONE Administration Lidocaine HCl 5 ml 03/11/24 12:15 03/11/24 12:29 Lidocaine Hcl 1 % Mpf 5 Ml Vial INFILTRATI 03/11/24 12:16 5 ml ONCE ONE Administration Oxycodone HCl 5 mg 03/11/24 13:38 03/11/24 13:55 Oxycodone Hcl Immed Release 5 Mg Tablet PO 03/11/24 13:39 5 mg ONCE ONE Administration Medical Decision Making Medical Decision Making MDM Narrative: 23-year-old male with pmhx significant for opioid use disorder, depression, IV drug use presents to the ED today for evaluation of abscess to left forearm x1 week. Vitals stable, afebrile. on exam, there are Multiple track iverson and areas consistent with skin picking. 8 cm x 7 cm area of erythema noted to ulnar aspect of left forearm. Large area of central fluctuance and pointing with bloody/purulent drainage. No streaking. 2cm x 3cm area of induration with central fluctuance and pointing noted to radial aspect of left forearm just distal to elbow. Full ROM intact to left shoulder, elbow, wrist. There is pain on flexion of left elbow. Warm, exquisitely tender to palpation. 2+radial/ ulnar pulse intact. Differential diagnosis includes cellulitis, abscess, deep soft tissue infection, polysubstance use, IV drug use. Lower suspicion for lymphangitis, septic joint, neurovascular compromise, threat to limb. Plan labs, inflammatory markers, lactic acid, blood cultures, CT forearm, I&D, pain control, re-evaluation. Differential Diagnosis Differential Diagnoses: The differential diagnosis associated with the presentation includes As above Admission/Observation Consideration of admission/observation: Escalation of care including admission/observation considered Admission considered on presentation Consult Healthcare Provider Management of the patient was discussed with: Doughnut Icer (Dr. Davis) Lab Data MDM Lab Attestation statement: I reviewed the patient's lab results. As above 03/11/24 07:36 03/11/24 11:13 Labs: Lab Results 03/11/24 03/11/24 03/11/24 Range/Units 07:36 11:12 11:13 WBC 8.1 (4.8-10.8) X10*3/uL RBC 5.27 (4.60-5.80) X10*6/uL Hgb 14.7 (14.0-18.0) g/dl Hct 43.1 (42.0-52.0) % MCV 81.8 (80.0-98.0) fL MCH 27.9 (27.0-33.0) pg MCHC 34.1 (31.0-36.0) g/dl RDW 11.9 (11.0-16.0) % Plt Count 278 (160-400) X10*3/uL MPV 11.1 (9.4-12.4) fL Immature Gran % (Auto) 0.4 (0.0-0.4) % Neut % (Auto) 62.9 (45-73) % Lymph % (Auto) 25.5 (20-40) % [place] % (Auto) 7.7 (2-11) % Eos % (Auto) 3.1 (0-4) % Baso % (Auto) 0.4 (0-2) % Lymph # (Auto) 2.1 (1.2-4.9) X10*3/uL [place] # (Auto) 0.6 (0.1-1.2) X10*3/uL Eos # (Auto) 0.3 (0.0-0.4) X10*3/uL Baso # (Auto) 0.0 (0.0-0.2) X10*3/uL Abs Immat Gran (auto) 0.03 (0.00-0.03) X10*3/uL Absolute Neuts (auto) 5.1 (2.0-8.3) x10*3/uL Absolute Nucleated RBC 0.000 (0.0-0.012) X10*3/uL Nucleated RBC % (auto) 0.0 (0.0-0.2) /100WBC ESR 10 (0-15) MM/HR Sodium 135 (135-145) mmol/L Potassium 4.0 (3.3-5.1) mmol/L Chloride 109 H (96-108) mmol/L Carbon Dioxide 17 L (22-29) mmol/L Anion Gap 13 (12-20) BUN 14 (9-16) mg/dL Creatinine 1.11 (0.5-1.4) mg/dL Estim Creat Clear Calc 132.8 Estimated GFR > 60 Random Glucose 108 (60-115) mg/dL Lactic Acid 0.7 (0.5-2.0) mmol/L Calcium 9.4 (8.4-10.2) mg/dL Total Bilirubin 0.3 (0.0-1.0) mg/dL AST 22 (5-37) U/L ALT 21 (0-40) U/L Alkaline Phosphatase 65 (39-117) U/L C-Reactive Protein 1.85 H (< or = 0.50) mg/dL Total Protein 7.6 (6.5-8.0) g/dL Albumin 3.8 (3.5-5.0) g/dL Independent Interpretation I performed an independent interpretation of an: CT Scan Interpretation: CT left forearm Radiology Impression Discussion of test interpretation with radiology: I have reviewed the radiologist's reading. Radiologist Impression: CT forearm LT w IV con IMPRESSION: 1. Soft tissue swelling with extensive subcutaneous edema/cellulitis, skin thickening and inflammation. Findings are from inflammatory/infectious process. 2. More confluent hypodense focus in the skin and subcutaneous tissues of the proximal/mid forearm, measuring approximately 3.6 x 1.2 x 4.5 cm. Findings raise concern for a possible abscess. 3. More confluent fluid focus in the subcutaneous tissues of the anterior/lateral aspect of the elbow measuring 2.2 x 2.1 cm. Early/evolving abscess cannot be excluded in this region. Electronically signed by: Ernesto Lee MD 03/11/2024 01:50 PM [facility] Workstation: [facility] [employer] External Record Review External record reviewed: Inpatient record Prescription Management I considered prescription management with: Pain Medication and Antibiotic (keflex, doxy) Chronic Conditions Patient?s care impacted by: Other (IV drug use) Social Determinants Patient?s care significantly limited by Social Determinants of Health including: Other Social Determinant of Health Procedures Abscess I/D Site: upper extremity (forearm) Side (if applicable): left Local Anesthetic: lidocaine 1% Amount of anesthesia used (mL): 10 Technique: incised with blade Amount of fluid expressed (mL): 15 Sent for culture/gram staining?: Yes Irrigation: Yes Packing used?: iodoform Complications: bleeding Critical Care Time Critical Care Time Critical Care Time: No Discharge Plan Discharge Clinical Impression: Abscess of forearm, left, Active intravenous drug use, Encounter for incision and drainage procedure Patient Disposition: Home, Self-Care Instructions: Abscess (ED), Abscess Follow-up (ED), Incision and Drainage (ED) Additional Instructions: You were evaluated in the ED today for two abscesses to your left forearm/ elbow. Both were incised and drained today. The larger abscess to your forearm was packed with medicated packing. Please keep the area surrounding the abscess clean and dry. You will be given a prescription for antibiotics (Keflex and Doxycycline). Please take the antibiotics as directed for the full course of the medication. Return to the ED in 3 days for wound check and to determine if the packing needs to be removed. I recommend you take 600mg ibuprofen every 6 hours or Tylenol 650mg every 6 hours as needed for pain. If needed, you can alternate these medications so that you take one medication every 3 hours. For example, at noon take ibuprofen, then at 3pm take Tylenol, then at 6pm take ibuprofen. Please schedule an appointment with your primary care provider as soon as possible for follow up. I have also provided you with a referral to general surgery. you may call them to establish care. they will not call you. You were also seen by Addiction Medicine. Please follow up with them at the [email or web address]] as discussed tomorrow. [place] [id number] [address] [address] Return to the Emergency Department if you experience fevers greater than 100.4F, increase in area of redness or swelling, increasing amount of discharge from the area, increased tenderness around the area, or any other concerning symptoms. Prescriptions: New doxycycline hyclate 100 mg tablet 100 mg PO BID 10 Days Qty: 20 0RF cephalexin 500 mg capsule 500 mg PO Q8H 10 Days Qty: 30 0RF No Action Sublocade 300 mg/1.5 mL solution, extended rel syringe 300 mg subcut .q 4 weeks Qty: 1.5 5RF bupropion HCl 300 mg tablet extended release 24 hr 300 mg PO QAM Qty: 90 1RF buprenorphine-naloxone [Suboxone] 8-2 mg film 1 film sublingual BID Qty: 14 0RF dicyclomine 20 mg tablet 20 mg PO BID PRN (Reason: abdominal pain) Qty: 30 0RF tizanidine 4 mg tablet 4 mg PO TID PRN (Reason: muscle spasticity) 30 Days Qty: 90 1RF fexofenadine [Karen Allergy] 180 mg tablet 180 mg PO Q24H Qty: 90 0RF nicotine 21 mg/24 hr patch 24 hour 1 patch transdermal DAILY Qty: 28 0RF ibuprofen 800 mg tablet 800 mg PO BID PRN (Reason: pain) 30 Days Qty: 60 1RF albuterol sulfate [Ventolin HFA] 90 mcg/actuation HFA aerosol inhaler 2 puff inhalation QID PRN (Reason: shortness of breath or wheezing) Qty: 8 2RF clonazepam 1 mg tablet 1 mg PO TID PRN dextroamphetamine-amphetamine 20 mg tablet 1 tab PO BID buprenorphine HCl 8 mg tablet, sublingual 8 mg sublingual BID Qty: 42 0RF ondansetron 4 mg tablet,disintegrating 4 mg PO DAILY PRN (Reason: nausea and vomiting) Qty: 10 0RF Referrals: [facility] [Provider Group] Jarvis Porter FNP-BC [Primary Care Provider] - Interventions: ED Discharge Assessment Last Done: 03/11/24 14:05 Discharge Date/Time: 03/11/24 14:05 Print Language: Mauritian
[2024-03-11] MEDS: Ketorolac Tromethamine 15 MG/ML VIAL IVPUSH (09:12)
[2024-03-11] MEDS: iohexoL 350 MG/ML 100 ML INFUS..BTL 85 ML IV (09:48)
[2024-03-11 11:33] LABS: Lactic Acid 0.7 mmol/L (0.5-2.0)
[2024-03-11 11:36] LABS: Alanine Aminotransferase 21 U/L (0-40); Albumin Level 3.8 g/dL (3.5-5.0); Alkaline Phosphatase 65 U/L (39-117); Anion Gap 13 (12-20); Aspartate Amino Transferase 22 U/L (5-37); Bilirubin Total 0.3 mg/dL (0.0-1.0); Blood Urea Nitrogen 14 mg/dL (9-16); C Reactive Protein 1.85 mg/dL (< or = 0.50); Calcium 9.4 mg/dL (8.4-10.2); Carbon Dioxide 17 mmol/L (22-29); Chloride 109 mmol/L (96-108); Creatinine Clr Calc Pharmacy 132.8; Estimated Glomerular Filt Rate > 60; Glucose Random 108 mg/dL (60-115); Sodium 135 mmol/L (135-145); Total Protein 7.6 g/dL (6.5-8.0)
[2024-03-11 11:41] LABS: Erythrocyte Sedimentation Rate 10 MM/HR (0-15)
[2024-03-11] MEDS: Lidocaine HCl 1 % MPF 5 ML VIAL INFILTRATI ×2 (12:29)
[2024-03-11] MEDS: Doxycycline Monohydrate 100 MG CAPSULE PO (13:12)
[2024-03-11] MEDS: cephALEXin 500 MG CAPSULE PO (13:12)
[2024-03-11] MEDS: oxyCODONE HCl Immed Release 5 MG TABLET PO (13:55)
[2024-03-11 14:05] VITALS: BP 139/87; PULSE 100; RESP 18; TEMP 37; O2SAT 98
== END 2024-03-11 14:05 | disposition home or self-care (01) ==
PROVIDERS: Physician Assistant Medical; Emergency Provider Emergency Medicine; PCP Nurse Practitioner Family
DX: L02.414 Cutaneous abscess of left upper limb (principal); Z79.899 Other long term (current) drug therapy; F17.210 Nicotine dependence, cigarettes, uncomplicated
CPT/HCPCS: 10060; 36415; 73201; 80053; 83605; 85025; 85652; 86140; 87040; 87070; 87077; 87186; 87205; 96374; 99283; 99284; J1885; J2003; Q9967

== ENCOUNTER 2024-03-13 13:51 | Outpatient (AMB) | payer OTHER, SELFPAY ==
--- NOTE | 2024-03-13 13:55 | AM.OFFVISNUR ---
Intake Visit Reasons: MAT Allergies amoxicillin [AMOXICILLIN] Allergy (Unknown, Verified 03/11/24 07:29) HIVES hydrocodone [From VICODIN] Allergy (Unknown, Verified 03/11/24 07:29) RASH sulfamethoxazole [From BACTRIM] Allergy (Unknown, Verified 03/11/24 07:29) UNKNOWN trimethoprim [From BACTRIM] Allergy (Unknown, Verified 03/11/24 07:29) UNKNOWN Vicodin Allergy (Unknown, Uncoded 03/11/24 07:29) hives Nursing Note Patient Presents for Sublocade Injection. Current Dose 300mg . Given in LLQ the with no noted or stated complications. Denies any issues with previous injection. Denies symptoms, and denies any break through cravings. Last appt with provider was in july , will follow up with RN in 4 weeks for injection. Will need to see provider for check in next week for an MAT intake restart . Office Meds Sublocade 300 mg/1.5 mL solution,extended release subcutaneous syringe Performing Provider: Gunjan Damon CNP Performing Location: [facility] Administered by: Cynthia Walker RN on 03/14/24 14:04 Dose Route Admin Location Dispensed Lot Number Expiration Date [facility] [employer] 300 mg subcut LLQ 1.5 mL [id number] 06/29/24 [address]-7 [employer]. Assessment & Plan Assessment & Plan Orders: Orders AMB Buprenorphine Injection - Patient Supplied 03/13/24 F11.90 - Opioid use, unspecified, uncomplicated AMB 14 Panel Urine Drug Screen 03/13/24 Z51.81 - Encounter for therapeutic drug level monitoring
== END 2024-03-13 14:20 | disposition home or self-care (01) ==
LOC: HO.HCC 13:51
PROVIDERS: PCP Nurse Practitioner Family; Visit Provider Nurse Practitioner Psychiatric/Mental Health
DX: F11.90 Opioid use, unspecified, uncomplicated (principal); Z51.81 Encounter for therapeutic drug level monitoring

== ENCOUNTER → 2024-03-13 13:51 | Outpatient (BNVA) | payer OTHER, SELFPAY | PROVIDERS: PCP Nurse Practitioner Family; Visit Provider Nurse Practitioner Psychiatric/Mental Health | DX: F11.90 Opioid use, unspecified, uncomplicated (principal); Z51.81 Encounter for therapeutic drug level monitoring | CPT/HCPCS: 80307; 96372; Q9992 ==

== ENCOUNTER 2024-05-10 09:53 | Outpatient (AMB) | payer OTHER, SELFPAY ==
--- NOTE | 2024-05-15 17:38 | A.OFFVISCC_ITS ---
Intake Visit Reasons: MAT Office Allergies amoxicillin [AMOXICILLIN] Allergy (Unknown, Verified 03/11/24 07:29) HIVES hydrocodone [From VICODIN] Allergy (Unknown, Verified 03/11/24 07:29) RASH sulfamethoxazole [From BACTRIM] Allergy (Unknown, Verified 03/11/24 07:29) UNKNOWN trimethoprim [From BACTRIM] Allergy (Unknown, Verified 03/11/24 07:29) UNKNOWN Vicodin Allergy (Unknown, Uncoded 03/11/24 07:29) hives HPI HPI MAT Office: Details: Patient presents as walk in to continue treatment for ALICIA Patient reporting he started injecting cocaine after release from incarceration he states he had been using that multiple times per day, but at time of visit had not used in over a week showing t/w numerous healed injection sites on his arms patient reporting increasing cravings limited structure in his day parents are in process of getting a divorce Review of Systems Const Reports as per HPI, Reports difficulty sleeping, Reports lethargy and Reports malaise Psych Reports anxiety, Reports depression, Reports difficulty concentrating and Reports anhedonia Physical Exam Const General: cooperative and anxious Orientation/consciousness: patient oriented x3 Limitations: no limitations Neuro General: patient oriented x3 Psych Appearance: disheveled Speech and movement: Normal speech and movement present Affect: Anxious affect present Attitude: cooperative Thought process: Circumstantial thought process present Thought content: Normal thought content present Insight: Limited insight present (Psych) Judgement: Fair judgement present (Psych) [facility] Medical History Environmental allergies Allergies Left hemiparesis Cerebral palsy Social History Housing: House Patient Tobacco Use Status: Current everyday Tobacco user e-Cigarette/Vaping Use: Never Used Current occupational status: unemployed Cognitive needs: No Hearing needs: No Vision needs: No Assessment & Plan Assessment & Plan (1) Opioid use disorder: Code(s): F11.90 - Opioid use, unspecified, uncomplicated Category: Medical Plan: * continue suboxone 8mg TID * will restart sublocade Medications: Refilled buprenorphine-naloxone 8-2 mg (Suboxone) 1 film sublingual BID 28 ea 0RF
== END 2024-05-10 10:11 | disposition home or self-care (01) ==
PROVIDERS: PCP Nurse Practitioner Family; Visit Provider Nurse Practitioner Psychiatric/Mental Health
DX: F11.90 Opioid use, unspecified, uncomplicated (principal)
CPT/HCPCS: 99214

== ENCOUNTER → 2024-05-10 09:53 | Outpatient (BNVA) | payer OTHER, SELFPAY | PROVIDERS: PCP Nurse Practitioner Family; Visit Provider Nurse Practitioner Psychiatric/Mental Health | DX: F11.20 Opioid dependence, uncomplicated (principal) | CPT/HCPCS: 99212 ==

== ENCOUNTER 2024-05-25 14:47 | Inpatient (IN) | payer MEDICAID, SELFPAY ==
--- NOTE | ~2024-05-25 | XR_ITS ---
CLINICAL HISTORY: ? foreign body 3 view left hand Comparison: CR - HAND LEFT [id number] - 04/15/14 02:16 EST Findings: No fractures or dislocations. No significant loss of joint space or osteophytes. No erosions. No radiopaque foreign body. IMPRESSION: No radiopaque foreign body. Severe soft tissue edema noted. This document has been electronically signed by: Steph Milian MD on 05/26/2024 13:54:30
[2024-05-25 14:57] VITALS: BP 127/71; PULSE 100; RESP 18; TEMP 36.6; O2SAT 96; BMI 34.9
[2024-05-25 16:12] LABS: MANUAL DIFF FLAG NO
[2024-05-25 16:14] LABS: Basophils Percent Auto 0.2 % (0-2); Eosinophils Absolute Auto 0.1 X10*3/uL (0.0-0.4); Eosinophils Percent Auto 0.6 % (0-4); Hematocrit 41.1 % (42.0-52.0); Hemoglobin 14.3 g/dl (14.0-18.0); Imm Gran Abs Auto 0.06 X10*3/uL (0.00-0.03); Imm Gran Pct Auto 0.5 % (0.0-0.4); Lymphocytes Absolute Auto 1.7 X10*3/uL (1.2-4.9); Lymphocytes Percent Auto 13.2 % (20-40); Mean Corpuscular HGB Conc 34.8 g/dl (31.0-36.0); Mean Corpuscular Hemoglobin 27.9 pg (27.0-33.0); Mean Corpuscular Volume 80.3 fL (80.0-98.0); Mean Platelet Volume 10.4 fL (9.4-12.4); Monocytes Absolute Auto 1.4 X10*3/uL (0.1-1.2); Monocytes Percent Auto 10.7 % (2-11); Neutrophils Absolute Auto 9.6 x10*3/uL (2.0-8.3); Neutrophils Percent Auto 74.8 % (45-73); Platelet Count 245 X10*3/uL (160-400); Red Blood Count 5.12 X10*6/uL (4.60-5.80); Red Cell Distribution Width 12.3 % (11.0-16.0); White Blood Count 12.8 X10*3/uL (4.8-10.8)
[2024-05-25 16:27] LABS: Lactic Acid 0.9 mmol/L (0.5-2.0)
[2024-05-25 16:28] LABS: Alanine Aminotransferase 27 U/L (0-40); Albumin Level 3.8 g/dL (3.5-5.0); Alkaline Phosphatase 94 U/L (39-117); Anion Gap 11 (12-20); Aspartate Amino Transferase 30 U/L (5-37); Bilirubin Total 0.5 mg/dL (0.0-1.0); Blood Urea Nitrogen 12 mg/dL (9-16); Calcium 9.2 mg/dL (8.4-10.2); Carbon Dioxide 23 mmol/L (22-29); Chloride 107 mmol/L (96-108); Creatinine Clr Calc Pharmacy 184.6; Estimated Glomerular Filt Rate > 60; Glucose Random 118 mg/dL (60-115); Potassium 3.6 mmol/L (3.3-5.1); Sodium 137 mmol/L (135-145); Total Protein 8.1 g/dL (6.5-8.0)
[2024-05-25 16:59] LABS: Influenza A PCR NEGATIVE (Negative); Influenza B PCR NEGATIVE (Negative); Resp Syncy Virus RNA Qual PCR POSITIVE (Negative); SARS COV2 PCR INHOUSE NEGATIVE (Negative)
[2024-05-25 22:38] VITALS: BP 135/60; PULSE 78; RESP 18; TEMP 36.8; O2SAT 100
--- NOTE | 2024-05-25 22:42 | PC.NURSE ---
pt retriaged at this time pt requesting rewrap of L hand states has been itching it and dressing was coming off. pt back out to waiting room
--- OUTSIDE RECORDS SUMMARY | 2024-05-26 00:23 | XMS_ITS | Clinical Summary ---
Author Organization [facility] Address [address] [place] [id number] Phone Care Team Providers Care Special Education Aide Name Role Phone Unavailable Primary Care Provider Unavailabl e Immunizations Name Administration Dates Next Due DTaP 5 05/17/2005, 2,2000, 001,2000 H1N1 03/30/2009 HPV, Quadrivalent 04/11/2013,04/16/2012 Hep B, ped/adol 2000,2000,2000 Hib (PRP-T) 07/02/2001, 1,2000, 001 IPV 05/17/2005, 2,2000, 001 Influenza Split 04/11/2013,04/16/2012 Influenza, injectable, trivalent 009,03/05/2008,03/14/2007, 007,03/03/2005 Influenza, intranasal, trivalent 12/30/2009 MMR 05/05/2004,04/03/2001 Meningococcal Conj (Menactra) MCV4P 03/30/2011 Pneumococcal Conjugate 05/05/2004,2000,2000, 001 Tdap 03/30/2011 Varicella 03/05/2008,04/03/2001 Family History Relation Name Status Comments Brother Alive Brother: Alive and well, ADD/ADHD Cousin 1 Cousin: ADD/ADH D, Autism Cousin 2 Cousin: ADD/ADH D, Autism Father Alive Father: Asthma Mother Alive Mother: Alive a nd well Other No family histo ry of Seizure disorder, No family history of Deafness, Family history of Obesity, No family history of Migraines, No family history of Elevated cholesterol, No family history of Developmental dislocation of hip, Family history of Asthma, No family history of Strabismus/amblyopia, Family history of Diabetes mellitus, No family history of Sudden /VA under age 55 Sister Alive Sister: Asthma Social History Tobacco Use Types Packs/Day Years Used Date Smoking Tobacco: Never Comments:Never smoker Sex and Gender Information Value Date Recorded Sex Assigned at Not on file Legal Sex Male 4:51 PM EDT Gender Identity Not on file Sexual Orientation Not on file Last Filed Vital Signs Vital Sign Reading Time Taken Comments Blood Pressure 120/57 05/30/2013 12:00 AM EST Pulse 72 05/30/2013 12:00 AM EST Temperature 35.7 ??C (96.2 ??F) 05/30/2013 12:[address] Respiratory Rate - - Oxygen Saturation - - Inhaled Oxygen Concentration - - Weight 82.2 kg (181 lb 3.2 oz) 05/30/2013 12:00 AM EST Height 162 cm (5' 3.78 ) 04/11/2013 12:00 AM EST Body Mass Index - - Plan of Treatment Health Maintenance Due Date Last Done Comments Consider Men B Vaccine (1 of 2 - Bexsero 2-dose series) 2016 DTaP,Tdap,and Td Vaccines (7 - Td or Tdap) 03/30/2021 03/30/2011, 05/17/2005, 09/18/2001, Additional history exists Influenza Vaccines (#1) 2023 04/11/20 13, 04/16/2012, 12/30/2009, Additional history exists COVID-19 Vaccine () 12/31/2023 Hepatitis B Vaccines Completed 2000, 2000, 2000 HIB Vaccines Completed 07/02/2001, 10/2000, 2000, Additional history exists MMR Vaccines Completed 05/05/2004, 04/03/2001 Pneumococcal Vaccine Completed 05/05/2004, 2000, 2000, Additional history exists IPV Vaccines Completed 05/17/2005, 07/2001, 2000, Additional history exists Varicella Vaccines Completed 03/05/2008, 04/03/2001 Meningococcal Vaccine Aged Out 03/30/2011 No deandra peggy eligible based on patient's age to complete this topic HPV Vaccines Completed 04/11/2013, 04/16/2012 Hepatitis A Vaccines Aged Out No long er eligible based on patient's age to complete this topic Men B Vaccine Aged Out No longer elig ible based on patient's age to complete this topic
[2024-05-26 00:50] VITALS: BP 111/65; PULSE 87; RESP 18; TEMP 36.9; O2SAT 99
--- NOTE | 2024-05-26 01:12 | ED.GENADULT ---
HPI - General Adult General Chief complaint: Skin/Abscess/Foreign Body Stated complaint: abscess Time Seen by Provider: 05/26/24 00:10 Source: patient, RN notes reviewed and old records reviewed Mode of arrival: ambulatory Limitations: no limitations History of Present Illness ED Provider: Troy HPI narrative: 24-year-old male past medical history significant for cerebral palsy, opiate use disorder presents for evaluation of an abscess. Patient reports that he injects to his left arm mostly as he is right-hand dominant. He also has left-sided deficits from his cerebral palsy The patient denies any fevers but reports severe pain to the left hand and wrist area. He reports that he has difficulty moving all of the fingers left hand He also reports body aches Related Data Home Medications ?Medication ?Instructions ?Recorded ?Confirmed clonazepam 1 mg tablet 1 mg PO TID PRN 01/16/23 04/12/23 dextroamphetamine-amphetamine 20 1 tab PO BID 01/16/23 04/12/23 mg tablet Previous Rx's ?Medication ?Instructions ?Recorded bupropion HCl 300 mg 24 hr tablet, 300 mg PO QAM #90 tabs 04/11/23 extended release buprenorphine HCl 8 mg sublingual 8 mg sublingual BID #42 tabs 06/20/23 tablet dicyclomine 20 mg tablet 20 mg PO BID PRN abdominal pain 06/27/23 #30 tabs ondansetron 4 mg disintegrating 4 mg PO DAILY PRN nausea and 07/04/23 tablet vomiting #10 tabs nicotine 21 mg/24 hr daily 1 patch transdermal DAILY #28 ea 01/03/24 transdermal patch ibuprofen 800 mg tablet 800 mg PO BID PRN pain 30 days #60 01/23/24 tabs Ventolin HFA 90 mcg/actuation 2 puff inhalation QID PRN 02/27/24 aerosol inhaler (albuterol sulfate) shortness of breath or wheezing #8 grams cephalexin 500 mg capsule 500 mg PO Q8H 10 days #30 caps 03/11/24 doxycycline hyclate 100 mg tablet 100 mg PO BID 10 days #20 tabs 03/11/24 tizanidine 4 mg tablet 4 mg PO TID PRN muscle spasticity 03/14/24 30 days #90 tabs fexofenadine 180 mg tablet 180 mg PO Q24H #90 tabs 04/10/24 (Karen Allergy) buprenorphine 8 mg-naloxone 2 mg 1 film sublingual BID #28 ea 05/10/24 sublingual film (Suboxone) buprenorphine 300 mg/1.5 mL 300 mg (1.5 mL) subcut .q 4 weeks 05/15/24 solution,exten.rel.subcutaneous #1.5 mL syringe (Sublocade) Allergies Allergy/AdvReac Type Severity Reaction Status Date / Time amoxicillin [AMOXICILLIN] Allergy Unknown HIVES Verified 05/25/24 14:59 hydrocodone [From VICODIN] Allergy Unknown RASH Verified 05/25/24 14:59 sulfamethoxazole Allergy Unknown UNKNOWN Verified 05/25/24 14:59 [From BACTRIM] trimethoprim [From BACTRIM] Allergy Unknown UNKNOWN Verified 05/25/24 14:59 Vicodin Allergy Unknown hives Uncoded 03/11/24 07:29 Review of Systems Constitutional: Constitutional: Reports body ache(s), Denies chills, Denies fever(s) and Denies headache(s) Eyes: Eyes: Denies blurry vision ENT: Denies vertigo and Denies headache(s) Cardiovascular: Cardiovascular: Denies chest pain and Denies dyspnea Respiratory: Respiratory: Reports cough and Denies dyspnea Gastrointestinal: Gastrointestinal: Denies abdominal pain Musculoskeletal: Musculoskeletal: Reports arthralgias, Reports joint swelling and Reports limited range of motion Integumentary/Breasts: Skin/Breast: Reports erythema and Reports wounds Neurologic: Denies vertigo and Denies headache(s) [facility] Past Medical History Medical History Environmental allergies Allergies Left hemiparesis Cerebral palsy Social History Social History Housing: House Patient Tobacco Use Status: Current everyday Tobacco user e-Cigarette/Vaping Use: Never Used Advance Directives: No Advance Directives Information Provided: Yes Current occupational status: unemployed Cognitive needs: No Hearing needs: No Vision needs: No Physical Exam ED Vital Signs: Vital Signs - 24 hr 05/25/24 14:57 05/25/24 22:38 05/26/24 00:50 Temperature 97.9 F 98.3 F 98.5 F Pulse Rate 100 78 87 Respiratory Rate 18 18 18 Blood Pressure 127/71 135/60 111/65 Pulse Oximetry 96 100 99 Oxygen Delivery Method Room Air Room Air Room Air BMI result Body Mass Index 34.9 Const General: healthy appearing, comfortable, no acute distress, alert and awake Nutritional Appearance: well nourished Orientation/consciousness: patient oriented x3 HENMT Head: Yes normocephalic and Yes atraumatic Eyes Eyelids: Yes eyelids normal Conjunctivae: conjunctivae normal Sclerae: sclerae normal Corneas: corneas normal Pupils: Equal, round and reactive pupils present EOM: EOMs intact bilaterally Neck Neck: Yes full ROM Resp Effort & Inspection: normal respiratory effort, able to speak in complete sentences and not labored GI Inspection: No distended Palpation (GI): Soft to palpation, not firm, nontender, no guarding and not rigid Skin General skin exam: elasticity normal Neuro General: patient oriented x3 Cranial nerves: Yes Equal, round and reactive pupils present and Yes Bilaterally intact EOM present Cognition (Neuro): normal cognition Extrem Other: Patient has moderate edema to the dorsal surface of the left hand and wrist. There is an area of fluctuance with an open wound and foul-smelling drainage coming from the radial side of the left hand. The patient has slightly reduced range of motion with extension of the left 3rd 4th and 5th fingers. He also has reduced range of motion with flexion of the left wrist. Distal sensation and capillary refill is intact Medical Decision Making Medical Decision Making MDM Narrative: 24-year-old male presents for evaluation of an abscess to his left hand. This has been going on for at least a week per his report. Clinically he has a very clear abscess and surrounding cellulitis. The area is already open and draining. I discussed with Orthopedics, Ken Arnold who does not feel that imaging will be beneficial at this time as the abscess is quite obvious clinically. He recommends the patient be admitted to the medical service. He orthopedic team will evaluate the patient in the morning to determine if the patient requires additional imaging versus OR intervention. The patient should be NPO after midnight. We will treat the patient with vancomycin and ceftriaxone due to amoxicillin allergy. He does not meet sepsis criteria but did received broad-spectrum antibiotics and some fluids Differential Diagnosis Differential Diagnoses: The differential diagnosis associated with the presentation includes Abscess Cellulitis Septic joint Sepsis Admission/Observation Consideration of admission/observation: Escalation of care including admission/observation considered Discussed with orthopedics who recommends admission for IV antibiotics and possible OR intervention Consult Healthcare Provider Management of the patient was discussed with: Assistant To The Vice President Ken Arnold Lab Data MDM Lab Attestation statement: I reviewed the patient's lab results. Leukocytosis to 12.8 K. No significant anemia. Normal platelet count. No electrolyte abnormalities 05/25/24 16:03 05/25/24 16:03 Labs: Lab Results 05/25/24 Range/Units 16:03 WBC 12.8 H (4.8-10.8) X10*3/uL RBC 5.12 (4.60-5.80) X10*6/uL Hgb 14.3 (14.0-18.0) g/dl Hct 41.1 L (42.0-52.0) % MCV 80.3 (80.0-98.0) fL MCH 27.9 (27.0-33.0) pg MCHC 34.8 (31.0-36.0) g/dl RDW 12.3 (11.0-16.0) % Plt Count 245 (160-400) X10*3/uL MPV 10.4 (9.4-12.4) fL Immature Gran % (Auto) 0.5 H (0.0-0.4) % Neut % (Auto) 74.8 H (45-73) % Lymph % (Auto) 13.2 L (20-40) % [place] % (Auto) 10.7 (2-11) % Eos % (Auto) 0.6 (0-4) % Baso % (Auto) 0.2 (0-2) % Lymph # (Auto) 1.7 (1.2-4.9) X10*3/uL [place] # (Auto) 1.4 H (0.1-1.2) X10*3/uL Eos # (Auto) 0.1 (0.0-0.4) X10*3/uL Baso # (Auto) 0.0 (0.0-0.2) X10*3/uL Abs Immat Gran (auto) 0.06 H (0.00-0.03) X10*3/uL Absolute Neuts (auto) 9.6 H (2.0-8.3) x10*3/uL Absolute Nucleated RBC 0.000 (0.0-0.012) X10*3/uL Nucleated RBC % (auto) 0.0 (0.0-0.2) /100WBC Sodium 137 (135-145) mmol/L Potassium 3.6 (3.3-5.1) mmol/L Chloride 107 (96-108) mmol/L Carbon Dioxide 23 (22-29) mmol/L Anion Gap 11 L (12-20) BUN 12 (9-16) mg/dL Creatinine 0.79 (0.5-1.4) mg/dL Estim Creat Clear Calc 184.6 Estimated GFR > 60 Random Glucose 118 H (60-115) mg/dL Lactic Acid 0.9 (0.5-2.0) mmol/L Calcium 9.2 (8.4-10.2) mg/dL Total Bilirubin 0.5 (0.0-1.0) mg/dL AST 30 (5-37) U/L ALT 27 (0-40) U/L Alkaline Phosphatase 94 (39-117) U/L Total Protein 8.1 H (6.5-8.0) g/dL Albumin 3.8 (3.5-5.0) g/dL Influenza Type A (PCR) NEGATIVE (Negative) Influenza Type B (PCR) NEGATIVE (Negative) RSV RNA Qual (PCR) POSITIVE A (Negative) SARS-CoV-2 RNA (RT-PCR) NEGATIVE (Negative) Discharge Plan Discharge Clinical Impression: Abscess of dorsum of left hand, Drug abuse, IV Patient Disposition: Admitted As Inpatient Prescriptions: No Action bupropion HCl 300 mg tablet extended release 24 hr 300 mg PO QAM Qty: 90 1RF dicyclomine 20 mg tablet 20 mg PO BID PRN (Reason: abdominal pain) Qty: 30 0RF nicotine 21 mg/24 hr patch 24 hour 1 patch transdermal DAILY Qty: 28 0RF ibuprofen 800 mg tablet 800 mg PO BID PRN (Reason: pain) 30 Days Qty: 60 1RF albuterol sulfate [Ventolin HFA] 90 mcg/actuation HFA aerosol inhaler 2 puff inhalation QID PRN (Reason: shortness of breath or wheezing) Qty: 8 2RF tizanidine 4 mg tablet 4 mg PO TID PRN (Reason: muscle spasticity) 30 Days Qty: 90 1RF fexofenadine [Karen Allergy] 180 mg tablet 180 mg PO Q24H Qty: 90 0RF doxycycline hyclate 100 mg tablet 100 mg PO BID 10 Days Qty: 20 0RF cephalexin 500 mg capsule 500 mg PO Q8H 10 Days Qty: 30 0RF clonazepam 1 mg tablet 1 mg PO TID PRN dextroamphetamine-amphetamine 20 mg tablet 1 tab PO BID buprenorphine HCl 8 mg tablet, sublingual 8 mg sublingual BID Qty: 42 0RF ondansetron 4 mg tablet,disintegrating 4 mg PO DAILY PRN (Reason: nausea and vomiting) Qty: 10 0RF buprenorphine-naloxone [Suboxone] 8-2 mg film 1 film sublingual BID Qty: 28 0RF Sublocade 300 mg/1.5 mL solution, extended rel syringe 300 mg subcut .q 4 weeks Qty: 1.5 5RF Print Language: Citizen Of [place]
[2024-05-26] MEDS: cefTRIAXone sodium 1 GM VIAL IVPUSH ×2 (01:17→23:09)
[2024-05-26] MEDS: ondansetron HCL 4 MG/2 ML VIAL IVPUSH (01:19)
[2024-05-26] MEDS: Morphine Sulfate 4 MG/ML CARTRIDGE IVPUSH ×4 (01:20→15:23)
[2024-05-26] MEDS: clonazePAM 1 MG TABLET PO ×5 (01:21→23:09)
[2024-05-26] MEDS: vancomycin/NS 2,000 MG/500 ML PLAST..BAG 250 MG IV (01:21)
[2024-05-26] MEDS: 0.9 % Sodium Chloride 1,000 ML 999 ML IV (01:24)
--- NOTE | 2024-05-26 02:17 | P.HPHOSP_ITS ---
History of Present Illness Date of Service: 05/26/24 Attending physician on admission: Armando Chaves Chief Complaint: L hand abscess Patient is a 24-year-old male with a past medical history significant for cerebral palsy with left hand deficit, substance use disorder (opiates and cocaine), obesity and mild intermittent asthma, who presented to the ED due to left hand pain, swelling and abscess drainage for the past week. He reports that a week and a half ago he injected cocaine into his hand. He has severe pain in his hand with swelling and he was unable to move it much. He also describes some body aches and reports that everyone at home is sick, he tested positive for RSV. He is currently on Sublocade for substance use disorder. He denies any runny nose, congestion, nausea, vomiting, abdominal pain, diarrhea. He has not been coughing much and denies any wheezing but feels mildly short of breath and is requesting his inhaler as needed. Review of Systems 2 Constitutional: Constitutional: Reports body ache(s), Denies chills, Denies fatigue, Denies fever(s) and Denies headache(s) Eyes: Eyes: Denies change in vision ENT: Denies headache(s), Denies nasal congestion, Denies nasal discharge and Denies sore throat Cardiovascular: Cardiovascular: Denies chest pain, Denies rapid heart rate, Denies leg edema, Denies lightheadedness and Reports dyspnea Respiratory: Respiratory: Denies chest congestion, Denies cough, Reports dyspnea and Denies wheezing Gastrointestinal: Gastrointestinal: Denies diarrhea, Denies nausea and Denies vomiting Genitourinary: Genitourinary: Denies hematuria, Denies dysuria and Denies urinary urgency Integumentary/Breasts: Skin/Breast: Reports as per HPI Neurologic: Denies confusion and Denies headache(s) Psychiatric: Psychiatric: Denies confusion Endocrine: Endocrine: Denies fatigue Hematologic/Lymphatic: Hematologic/Lymphatic: Denies easy bleeding and Denies easy bruising Allergic/Immunologic: Allergic/Immunologic: Denies wheezing [facility] Medical History (Updated 05/26/24 @ 02:28 by An Dill PA-C) Mild intermittent asthma Environmental allergies Allergies Left hemiparesis Cerebral palsy Functional capacity: independent ambulation Social History Housing: House Patient Tobacco Use Status: Current everyday Tobacco user e-Cigarette/Vaping Use: Never Used Advance Directives: No Advance Directives Information Provided: Yes Current occupational status: unemployed Cognitive needs: No Hearing needs: No Vision needs: No Narrative: vapes nicotine, uses IV cocaine, on sublocade, no etoh Meds Allergies Allergy/AdvReac Type Severity Reaction Status Date / Time amoxicillin [AMOXICILLIN] Allergy Unknown HIVES Verified 05/25/24 14:59 hydrocodone [From VICODIN] Allergy Unknown RASH Verified 05/25/24 14:59 sulfamethoxazole Allergy Unknown UNKNOWN Verified 05/25/24 14:59 [From BACTRIM] trimethoprim [From BACTRIM] Allergy Unknown UNKNOWN Verified 05/25/24 14:59 Vicodin Allergy Unknown hives Uncoded 03/11/24 07:29 Active Medications: Current Medications Calcium Carbonate (Calcium Carbonate 750 Mg Tab.Chew) 750 mg PO Q4H PRN PRN Reason: Heartburn Ceftriaxone Sodium (Ceftriaxone Sodium 1 Gm Vial) 1 gm IVPUSH Q24H ROBERT Vancomycin HCl (Vancomycin/Ns) 2,000 mg in 500 mls @ 250 mls/hr IV ONCE ONE Stop: 05/26/24 02:54 Last Admin: 05/26/24 01:21 Dose: 250 mls/hr Acetaminophen (Ofirmev) 1,000 mg in 100 mls @ 400 mls/hr IV Q6H ROBERT Ketorolac Tromethamine (Ketorolac Tromethamine 30 Mg/Ml Vial) 30 mg IM Q6H PRN PRN Reason: Pain, Moderate(Pain Scale 4-6) Magnesium Hydroxide (Milk Of Magnesia 30 Ml Oral.Susp) 30 ml PO DAILY PRN PRN Reason: Constipation Melatonin (Melatonin 3 Mg Tablet) 6 mg PO BEDTIME PRN PRN Reason: Insomnia Morphine Sulfate (Morphine Sulfate 4 Mg/Ml Cartridge) 4 mg IVPUSH Q6H PRN; Protocol PRN Reason: Pain, Severe (Pain Scale 7-10) Nicotine (Nicotine 14 Mg Patch.Td24) 14 mg TRANSDERMA DAILY ROBERT Ondansetron HCl (Ondansetron Hcl 4 Mg/2 Ml Vial) 4 mg IVPUSH Q8H PRN PRN Reason: Nausea and Vomiting Pharmacy Consult (Consult Rx Vancomycin Dosing) 1 each MISCELLANE DAILY PRN PRN Reason: Consult order Sodium Chloride (0.9 % Sodium Chloride Flush 3 Ml Syringe) 3 ml IVFLUSH QSHIFT ON LICENSE OF [facility] Home Medications ?Medication ?Instructions ?Recorded ?Confirmed ?Last Taken ?Type clonazepam 1 mg tablet 1 mg PO TID PRN 01/16/23 04/12/23 Unknown History dextroamphetamine-amphetamine 20 1 tab PO BID 01/16/23 04/12/23 Unknown History mg tablet Physical Exam 2 Vital Signs and Narrative: Vital Signs: Last Vital Signs Temp 98.5 F 05/26/24 00:50 Pulse 87 05/26/24 00:50 Resp 18 05/26/24 00:50 BP 111/65 05/26/24 00:50 Pulse Ox 99 05/26/24 00:50 O2 Del Method Room Air 05/26/24 00:50 BMI result Body Mass Index 34.9 General: AOx3, no acute distress Resp: CTA bilaterally, no wheezing or rhonchi CVS: S1, S2, RRR GI: +BS, NT, no distention Skin: Warm, dry. swelling and erythema dorsum L hand. warmth. purulent drainage. painful to touch. Neuro: Cranial nerves II-XII grossly intact bilaterally. Motor grossly intact bilaterally Extremities: No LE edema Psych: Appropriate affect Const: General: No confusion Orientation/consciousness: No confusion Neuro: General: No confusion Results Labs 05/25/24 16:03 05/25/24 16:03 Labs: Laboratory Results - last 24 hr 05/25/24 16:03 MCV 80.3 MCH 27.9 MCHC 34.8 RDW 12.3 Plt Count 245 MPV 10.4 Immature Gran % (Auto) 0.5 H Neut % (Auto) 74.8 H Lymph % (Auto) 13.2 L [place] % (Auto) 10.7 Eos % (Auto) 0.6 Baso % (Auto) 0.2 Lymph # (Auto) 1.7 [place] # (Auto) 1.4 H Eos # (Auto) 0.1 Baso # (Auto) 0.0 Abs Immat Gran (auto) 0.06 H Absolute Neuts (auto) 9.6 H Absolute Nucleated RBC 0.000 Nucleated RBC % (auto) 0.0 Anion Gap 11 L Estim Creat Clear Calc 184.6 Estimated GFR > 60 Random Glucose 118 H Lactic Acid 0.9 Calcium 9.2 Total Bilirubin 0.5 AST 30 ALT 27 Alkaline Phosphatase 94 Total Protein 8.1 H Albumin 3.8 Influenza Type A (PCR) NEGATIVE Influenza Type B (PCR) NEGATIVE RSV RNA Qual (PCR) POSITIVE A SARS-CoV-2 RNA (RT-PCR) NEGATIVE Assessment and Plan (1) Sepsis: Status: Acute (2) Abscess of dorsum of left hand: Status: Acute (3) Drug abuse, IV: Status: Acute (4) Opioid use disorder: Status: Acute (5) RSV (respiratory syncytial virus infection): Status: Acute (6) Morbid obesity: Status: Acute Plan Patient is a 24-year-old male with a past medical history significant for cerebral palsy with left hand deficit, substance use disorder (opiates and cocaine), obesity and mild intermittent asthma, who presented to the ED due to left hand pain, swelling and abscess drainage for the past week. ED provider discussed case with ortho and it was recommended for medical admission with surgical I&D today or tomorrow. sepsis due to abscess left hand secondary to IV drug abuse - WBC 12.8, mild tachycardia, lactic acid normal, blood cultures x2 pending, not severe sepsis - history of MRSA abscess - active draining abscess on left hand - no imaging recommended by ortho given obvious presentation - NPO - Surgical consult - given 1 L IV fluids in ED - started on ceftriaxone and vancomycin, continue - monitor CBC and BMP RSV - patient mildly symptomatic - supportive care - contact precautions Mild intermittent asthma, no acute exacerbation - albuterol as needed Substance use disorder - patient on sublocade Obesity - BMI 34.9 - weight loss encouraged Full code VTE prophylaxis: Pneumoboots Patient with sepsis secondary to abscess left hand due to IV drug use, complicated by current RSV infection, requiring admission for at least 2 midnights stay for IV antibiotics and incision and drainage by Orthopedics. Quality Stroke Does the patient have a stroke diagnosis?: No VTE Prior VTE?: No VTE Risk Level:: Medical - moderate - high VTE Device Contraindication: N/A - Device Ordered VTE Drug Contraindication: Treatment Not Indicated
[2024-05-26] MEDS: Acetaminophen 1,000 MG/100 ML PIGGYBACK 400 MG IV ×4 (02:49→23:19)
[2024-05-26 04:00] VITALS: BP 115/69; PULSE 79; RESP 16; TEMP 36.8; O2SAT 99
[2024-05-26 06:00] VITALS: BP 110/63; PULSE 75; RESP 16; TEMP 36.4; O2SAT 98
[2024-05-26 06:00] LABS: MANUAL DIFF FLAG NO
[2024-05-26 06:02] LABS: Basophils Percent Auto 0.5 % (0-2); Eosinophils Absolute Auto 0.2 X10*3/uL (0.0-0.4); Eosinophils Percent Auto 2.5 % (0-4); Hematocrit 42.1 % (42.0-52.0); Hemoglobin 13.8 g/dl (14.0-18.0); Imm Gran Abs Auto 0.03 X10*3/uL (0.00-0.03); Imm Gran Pct Auto 0.4 % (0.0-0.4); Lymphocytes Absolute Auto 2.5 X10*3/uL (1.2-4.9); Lymphocytes Percent Auto 30.6 % (20-40); Mean Corpuscular HGB Conc 32.8 g/dl (31.0-36.0); Mean Corpuscular Hemoglobin 27.1 pg (27.0-33.0); Mean Corpuscular Volume 82.5 fL (80.0-98.0); Mean Platelet Volume 10.9 fL (9.4-12.4); Monocytes Absolute Auto 0.8 X10*3/uL (0.1-1.2); Monocytes Percent Auto 9.7 % (2-11); Neutrophils Absolute Auto 4.6 x10*3/uL (2.0-8.3); Neutrophils Percent Auto 56.3 % (45-73); Platelet Count 218 X10*3/uL (160-400); Red Cell Distribution Width 12.3 % (11.0-16.0); White Blood Count 8.1 X10*3/uL (4.8-10.8)
[2024-05-26 06:16] LABS: Anion Gap 9 (12-20); Blood Urea Nitrogen 11 mg/dL (9-16); Calcium 8.3 mg/dL (8.4-10.2); Carbon Dioxide 24 mmol/L (22-29); Chloride 110 mmol/L (96-108); Creatinine Clr Calc Pharmacy 184.6; Estimated Glomerular Filt Rate > 60; Glucose Random 109 mg/dL (60-115); Potassium 3.5 mmol/L (3.3-5.1); Sodium 139 mmol/L (135-145)
--- NOTE | 2024-05-26 06:32 | PC.NURSE ---
medicated per Jun, Notified WINNIE Barnes
[2024-05-26] MEDS: Nicotine 14 MG PATCH.TD24 TRANSDERMA (08:27)
--- NOTE | 2024-05-26 08:27 | PHA.PROG ---
Admission Date/Time: May 26, 2024 02:00 Indication: skin infection Weight in k.398 kg Serum Creatinine - Last 168 Hours 05/25/24 05/26/24 16:03 05:46 Creatinine 0.79 0.79 Estimated CrCl and GFR - Last 168 Hours 05/25/24 05/26/24 16:03 05:46 Estim Creat Clear Calc 184.6 184.6 Estimated GFR > 60 > 60 Vancomycin Loading Dose: 2000 mg Current Vancomycin Dosing Regimen: 1500 Q12H Vancomycin Monitoring using AUC goal of 400 - 600 range with trough as surrogate marker: 550 Date and Time for next Vancomycin Level to be drawn: 05/27 @1100 Pharmacist Comments on Vancomycin Plan: Vancomycin dosing will take advantage of jigl as a clinical decision support tool that uses Bayesian modeling to calculate individual patient's pharmacokinetic parameters and forecast the patient's drug concentration time course with the target goal AUC 24 range of 400 - 600 mg/L/hr.
[2024-05-26 08:29] VITALS: BP 121/79; PULSE 59; RESP 18; TEMP 36.2; O2SAT 98
--- NOTE | 2024-05-26 08:35 | PHA.MEDREC ---
Pharmacy Consult ? Medication Reconciliation Pharmacy has completed the medication reconciliation. Spoke to the patient to confirm meds. Per pt, no longer takes Suboxone, Depakote, loratadine, or sertraline.
[2024-05-26] MEDS: 0.9 % Sodium Chloride Flush 3 ML SYRINGE IVFLUSH ×2 (08:37→16:50)
--- NOTE | 2024-05-26 08:42 | P.CONOP_ITS ---
History of Present Illness HPI Consult date: 05/26/24 Chief complaint: Abscess L Hand, RSV Narrative: Patient is a 24 YO M admitted to the hospital for treatment of L hand/wrist abscess Patient states that he injected cocaine into the area approximately 2 weeks ago, began to notice an abscess forming approximately 1.5 weeks ago Patient states that the abscess has been draining for the last few days Patient states that he is experiencing significant pain throughout the dorsum of his left hand, and states that he has diminished sensation in his fingers Patient states that he has not been doing anything in particular to treat this abscess until arrival to the hospital No other acute complaints or concerns at this time Review of Systems 2 Review of Systems: Yes all other systems are reviewed and are negative [facility] Past Medical History Medical History (Updated 05/26/24 @ 02:28 by An Dill PA-C) Mild intermittent asthma Environmental allergies Allergies Left hemiparesis Cerebral palsy Social History Social History Household Members: Family and Other Housing: House Do you presently have visiting nurse or other home services: No Patient Tobacco Use Status: Current everyday Tobacco user Smoked in Last 30 Days: Yes e-Cigarette/Vaping Use: Currently Using Use of substances other than those prescribed or required for medical reasons: Yes Substance Use Type: [employer] Drugs and Opiates Substance Use Frequency: Daily Last Used Substance: Just Prior to Admission Currently Displaying Signs/Symptoms of Drug Intoxication Withdrawal: No Advance Directives: No Advance Directives Information Provided: Yes Do you have a plan to hurt others: No Plan Recently lost weight without trying: No Nutrition Risks: No Nutritional Risk Poor oral hygiene: No Current occupational status: unemployed Cognitive needs: No Hearing needs: No Vision needs: No Meds Allergies Allergy/AdvReac Type Severity Reaction Status Date / Time amoxicillin [AMOXICILLIN] Allergy Unknown HIVES Verified 05/25/24 14:59 hydrocodone [From VICODIN] Allergy Unknown RASH Verified 05/25/24 14:59 sulfamethoxazole Allergy Unknown UNKNOWN Verified 05/25/24 14:59 [From BACTRIM] trimethoprim [From BACTRIM] Allergy Unknown UNKNOWN Verified 05/25/24 14:59 Vicodin Allergy Unknown hives Uncoded 03/11/24 07:29 Active Medications: Current Medications Albuterol Sulfate (Albuterol Sulfate 90 Mcg 8 Gm Inhaler) 2 puff INHALE RQ4H WHILE AWAKE PRN PRN Reason: Shortness of Breath/Wheezing Calcium Carbonate (Calcium Carbonate 750 Mg Tab.Chew) 750 mg PO Q4H PRN PRN Reason: Heartburn Ceftriaxone Sodium (Ceftriaxone Sodium 1 Gm Vial) 1 gm IVPUSH Q24H [facility] Acetaminophen (Ofirmev) 1,000 mg in 100 mls @ 400 mls/hr IV Q6H [facility] Last Admin: 05/26/24 08:28 Dose: 400 mls/hr Vancomycin HCl 1,500 mg/ (Sodium Chloride) 500 mls @ 333.333 mls/hr IV Q24H [facility] Ketorolac Tromethamine (Ketorolac Tromethamine 30 Mg/Ml Vial) 30 mg IM Q6H PRN PRN Reason: Pain, Moderate(Pain Scale 4-6) Magnesium Hydroxide (Milk Of Magnesia 30 Ml Oral.Susp) 30 ml PO DAILY PRN PRN Reason: Constipation Melatonin (Melatonin 3 Mg Tablet) 6 mg PO BEDTIME PRN PRN Reason: Insomnia Morphine Sulfate (Morphine Sulfate 4 Mg/Ml Cartridge) 4 mg IVPUSH Q6H PRN; Protocol PRN Reason: Pain, Severe (Pain Scale 7-10) Last Admin: 05/26/24 06:29 Dose: 4 mg Nicotine (Nicotine 14 Mg Patch.Td24) 14 mg TRANSDERMA DAILY [facility] Last Admin: 05/26/24 08:27 Dose: 14 mg Ondansetron HCl (Ondansetron Hcl 4 Mg/2 Ml Vial) 4 mg IVPUSH Q8H PRN PRN Reason: Nausea and Vomiting Pharmacy Consult (Consult Rx Vancomycin Dosing) 1 each MISCELLANE DAILY PRN PRN Reason: Consult order Sodium Chloride (0.9 % Sodium Chloride Flush 3 Ml Syringe) 3 ml IVFLUSH QSHIFT [facility] Home Medications ?Medication ?Instructions ?Recorded ?Confirmed ?Last Taken ?Type albuterol sulfate 90 mcg/actuation 2 puff inhalation QID PRN wheezing 05/26/24 05/26/24 Unknown History aerosol inhaler (Ventolin HFA) buprenorphine HCl 8 mg sublingual 24 mg sublingual DAILY 05/26/24 05/26/24 05/25/24 History tablet clonazepam 1 mg tablet 1 mg PO QID 05/26/24 05/26/24 05/25/24 History clonidine HCl 0.1 mg tablet 0.1 mg PO TID PRN Anxiety 05/26/24 05/26/24 Unknown History dextroamphetamine-amphetamine 30 1 tab PO BID@0700,1400 05/26/24 05/26/24 05/25/24 History mg tablet fexofenadine 180 mg tablet 180 mg PO DAILY 05/26/24 05/26/24 05/25/24 History ibuprofen 800 mg tablet 800 mg PO BID PRN pain 05/26/24 05/26/24 Unknown History nicotine 21 mg/24 hr daily 1 patch transdermal DAILY 05/26/24 05/26/24 05/25/24 History transdermal patch Physical Exam 2 Vital Signs: Vital Signs: Last Vital Signs Temp 97.2 F 05/26/24 08:29 Pulse 59 05/26/24 08:29 Resp 18 05/26/24 08:29 BP 121/79 05/26/24 08:29 Pulse Ox 98 05/26/24 08:29 O2 Del Method Room Air 05/26/24 08:29 BMI result Body Mass Index 34.9 Extrem: Other: Patient is alert, oriented, and in no acute distress. Neuro: Diminished sensation of the tips of all digits of the left hand at this time Vascular: Cap refill brisk Pain: Patient reports significant tenderness to palpation about the abscess on the dorsal and ulnar aspect of the left hand and wrist Patient reports pain when attempting active range of motion of the fingers of the left hand No pain with passive range of motion of the fingers of the left hand ROM: Patient does have diminished range of motion of the fingers of the left hand when moving actively However, the fingers of the left hand are able to be passively flexed and extended fully with minimal discomfort Skin: There is noted to be an open, draining wound with associated edema and cellulitis consistent with abscess on the ulnar and dorsal aspect of the left hand/wrist Drainage purulent, yellow General: No ecchymosis Psych: Appears grossly normal Affect normal Attitude cooperative Results Labs 05/26/24 05:46 05/26/24 05:46 Labs: Abnormal lab results 05/25/24 05/26/24 Range/Units 16:03 05:46 WBC 12.8 H (4.8-10.8) X10*3/uL Hgb 13.8 L (14.0-18.0) g/dl Hct 41.1 L (42.0-52.0) % Immature Gran % (Auto) 0.5 H (0.0-0.4) % Neut % (Auto) 74.8 H (45-73) % Lymph % (Auto) 13.2 L (20-40) % [place] # (Auto) 1.4 H (0.1-1.2) X10*3/uL Abs Immat Gran (auto) 0.06 H (0.00-0.03) X10*3/uL Absolute Neuts (auto) 9.6 H (2.0-8.3) x10*3/uL Chloride 110 H (96-108) mmol/L Anion Gap 11 L 9 L (12-20) Random Glucose 118 H (60-115) mg/dL Calcium 8.3 L D (8.4-10.2) mg/dL Total Protein 8.1 H (6.5-8.0) g/dL RSV RNA Qual (PCR) POSITIVE A (Negative) H & H 05/25/24 05/26/24 Range/Units 16:03 05:46 Hgb 14.3 13.8 L (14.0-18.0) g/dl Hct 41.1 L 42.1 (42.0-52.0) % All other labs normal. Assessment and Plan (1) Abscess of dorsum of left hand: Status: Acute Plan 1. Abscess of dorsum of the left hand and wrist Patient was discussed with Dr. Duvall and Dr. Mercado, and a collaborative treatment plan was formed: At this time, due to the abscess actively draining on its own, no acute surgery is indicated at this time, however this may change if the patient demonstrates no improvement with conservative treatment or active drainage of the abscess ceases Patient should be admitted to the hospital for IV antibiotics, pain management, and monitoring Patient will be made NPO every midnight until demonstrating large amounts of improvement and potential surgery would no longer be indicated Encourage patient to undergo warm water soaks of the left hand 2-3 times per day at a minimum to encourage drainage of the abscess Loose Dressing should be applied for absorption of purulent material when not soaking We will obtain x-ray of the left hand to rule out presence of any needle or other foreign body Continue IV antibiotics per Medicine Continue with all other recommendations per Medicine Orthopedics will continue to follow Procedures Date of Service Date of Service: 05/26/24
[2024-05-26 08:49] VITALS: BMI 34.6
[2024-05-26] MEDS: Loratadine 10 MG TABLET PO (09:35)
--- NOTE | 2024-05-26 09:41 | PM.EVENT ---
Event Note Date of Service: 05/26/24 Event Note: pt seen/examined, vitals, imaing and med reconciled 24-year-old male with a past medical history significant for cerebral palsy with left hand deficit, substance use disorder (opiates and cocaine), obesity and mild intermittent asthma, who presented to the ED due to left hand pain, swelling and abscess drainage for the past week. ED provider discussed case with ortho and it was recommended for medical admission with surgical I&D today or tomorrow. Left hand abscess/sepsis related to ivda -continue iv vanco and cetriaxone -follow culture -Ortho august I and D tomorrow RSV-- asymptomatic - supportive care Mild intermittent asthma, no acute exacerbation - albuterol as needed Attention deficit=Adderal Substance use disorder - patient on sublocade -consider addiction med consult Obesity - BMI 34.9 - weight loss encouraged Full code VTE prophylaxis: Pneumoboots Time Spent With Patient Time: Total time managing care of this patient today ____ minutes.
[2024-05-26] MEDS: Amphetamine Mixed Salts 10 MG TABLET 30 MG PO ×2 (10:04→14:21)
[2024-05-26] MEDS: Buprenorphine HCL 8 MG TAB.SUBL 24 MG SUBLINGUAL (10:38)
--- NOTE | 2024-05-26 11:22 | PC.NURSE ---
Addendum entered by Lary Soriano RN 05/26/24 11:38: Pt has scabs to left upper arm, PA aware. 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 Wound care nurse consulted. Original Note: Per VINNIE Arnold, warm soak of left hand given. Pt tolerated well. Pat dried, xeroform, gauze, then gauze wrap covering site.
[2024-05-26] MEDS: oxyCODONE HCl Immed Release 5 MG TABLET PO ×2 (12:36→23:08)
[2024-05-26] MEDS: vancomycin HCL 1,500 MG in 0.9 % Sodium Chloride 500 ML 333.33 MG IV (12:36)
--- NOTE | 2024-05-26 15:32 | MHC.CM.PN ---
PT REPORTS HE LIVES WITH HIS PARENTS AND HIS MOTHER ASSISTS WITH MOST OF HIS CARE HE HAS NO IN HOME SERVICES BUT IS INTERESTED IN A [facility] REFERRAL HE COMPLETED A HCP TODAY NAMING HIS PARENTS HIS AGENTS PCP: LISTED LEIA MULLER, HOWEVER PT STATES HE RECENTLY CHANGED IT TO [facility] PUENTE DCP: HOME WITH [facility] REFERRAL PARENTS TO TRANSPORT
[2024-05-26] MEDS: Ketorolac Tromethamine 30 MG/ML VIAL IM (15:46)
[2024-05-26 15:49] VITALS: BP 127/70; PULSE 65; RESP 16; TEMP 36.3; O2SAT 99
[2024-05-26] MEDS: HYDROmorphone HCl 1 MG/ML SYRINGE IVPUSH (19:12)
[2024-05-26 20:00] VITALS: BP 130/74; PULSE 101; RESP 18; TEMP 36.1; O2SAT 98
[2024-05-27] MEDS: HYDROmorphone HCl 1 MG/ML SYRINGE IVPUSH ×6 (01:01→23:14)
[2024-05-27] MEDS: cloNIDine HCL 0.1 MG TABLET PO (01:47)
[2024-05-27 04:00] VITALS: BP 121/65; PULSE 88; RESP 17; TEMP 36; O2SAT 96
[2024-05-27] MEDS: Acetaminophen 1,000 MG/100 ML PIGGYBACK 400 MG IV (04:15)
[2024-05-27] MEDS: Docusate Sodium 100 MG CAPSULE PO ×2 (04:34→20:25)
[2024-05-27] MEDS: oxyCODONE HCl Immed Release 5 MG TABLET PO ×4 (06:39→20:25)
[2024-05-27] MEDS: Amphetamine Mixed Salts 10 MG TABLET 30 MG PO ×2 (07:24→13:48)
[2024-05-27 07:42] VITALS: BP 118/72; PULSE 58; RESP 12; TEMP 37; O2SAT 97
[2024-05-27 08:09] LABS: MANUAL DIFF FLAG NO
[2024-05-27 08:16] LABS: Basophils Percent Auto 0.4 % (0-2); Eosinophils Absolute Auto 0.2 X10*3/uL (0.0-0.4); Eosinophils Percent Auto 2.7 % (0-4); Hematocrit 37.6 % (42.0-52.0); Hemoglobin 12.8 g/dl (14.0-18.0); Imm Gran Abs Auto 0.03 X10*3/uL (0.00-0.03); Imm Gran Pct Auto 0.4 % (0.0-0.4); Lymphocytes Absolute Auto 2.5 X10*3/uL (1.2-4.9); Lymphocytes Percent Auto 32.3 % (20-40); Mean Corpuscular Hemoglobin 27.9 pg (27.0-33.0); Mean Corpuscular Volume 81.9 fL (80.0-98.0); Mean Platelet Volume 10.8 fL (9.4-12.4); Monocytes Absolute Auto 0.4 X10*3/uL (0.1-1.2); Monocytes Percent Auto 5.6 % (2-11); Neutrophils Absolute Auto 4.5 x10*3/uL (2.0-8.3); Neutrophils Percent Auto 58.6 % (45-73); Platelet Count 235 X10*3/uL (160-400); Red Blood Count 4.59 X10*6/uL (4.60-5.80); Red Cell Distribution Width 12.3 % (11.0-16.0); White Blood Count 7.7 X10*3/uL (4.8-10.8)
[2024-05-27] MEDS: Nicotine 21 MG PATCH.TD24 TRANSDERMA (08:19)
[2024-05-27] MEDS: Buprenorphine HCL 8 MG TAB.SUBL 24 MG SUBLINGUAL (08:20)
[2024-05-27] MEDS: Loratadine 10 MG TABLET PO (08:21)
[2024-05-27] MEDS: clonazePAM 1 MG TABLET PO ×4 (08:21→20:25)
[2024-05-27] MEDS: 0.9 % Sodium Chloride Flush 3 ML SYRINGE IVFLUSH ×2 (08:21→16:05)
[2024-05-27 08:29] LABS: Anion Gap 11 (12-20); Blood Urea Nitrogen 14 mg/dL (9-16); Calcium 8.6 mg/dL (8.4-10.2); Carbon Dioxide 22 mmol/L (22-29); Chloride 110 mmol/L (96-108); Creatinine Clr Calc Pharmacy 168.9; Estimated Glomerular Filt Rate > 60; Glucose Random 106 mg/dL (60-115); Potassium 3.9 mmol/L (3.3-5.1); Sodium 139 mmol/L (135-145)
--- NOTE | 2024-05-27 08:30 | PM.PNORT ---
Subjective Subjective Date of Service: 05/27/24 Interval history: 24-year-old male admitted to the hospital for left hand abscess Today, patient reports he is still in significant pain Has been compliant with warm water soaks Receiving IV antibiotics and pain medication per Medicine No acute events overnight, but patient reports he did have trouble sleeping No other acute complaints or concerns at this time Physical Exam Vital Signs: Vital Signs: Last Vital Signs Temp 98.6 F 05/27/24 07:42 Pulse 58 05/27/24 07:42 Resp 12 05/27/24 07:42 BP 118/72 05/27/24 07:42 Pulse Ox 97 05/27/24 07:42 O2 Del Method Room Air 05/27/24 07:42 BMI result Body Mass Index 34.6 Extrem: Other: Patient is alert, oriented, and in no acute distress. Neuro: Diminished sensation of the tips of all digits of the left hand at this time Vascular: Cap refill brisk Pain: Patient reports significant tenderness to palpation about the abscess on the dorsal and ulnar aspect of the left hand and wrist Patient reports some pain when attempting active range of motion of the fingers of the left hand, but this is improved from yesterday No pain with passive range of motion of the fingers of the left hand Patient continues to report pain with axial loading of the wrist, but states that this is only located along the ulnar aspect of the wrist ROM: Patient does have diminished range of motion of the fingers of the left hand when moving actively, but this has improved since yesterday However, the fingers of the left hand are able to be passively flexed and extended fully with minimal discomfort Skin: There is noted to be an wound with associated mild edema consistent with abscess on the ulnar and dorsal aspect of the left hand/wrist Erythema and edema significantly improved from yesterday, no longer tracking up into the hand or down into the forearm No active drainage at this time General: No ecchymosis No fluctuance around wound and abscess site noted today Psych: Appears grossly normal Affect normal Attitude cooperative Procedures Date of Service Date of Service: 05/27/24 Progress Note: A&P Assessment and plan (1) Abscess of dorsum of left hand: Status: Acute Plan 1. Abscess of dorsum of left hand Significantly improved from yesterday No surgical indication noted today, patient appears to be significantly improving and there is no further evidence of acute fluid collection Dressing changed Patient encouraged to continue with warm water soaks to allow any further purulence that may be in his wound out OT ordered Patient can eat now, but we will be NPO once again at midnight pending evaluation tomorrow Continue IV antibiotics per Medicine Continue with all other recommendations per Medicine Time Spent With Patient Time: Total time managing care of this patient today ____ minutes. Quality Stroke Does the patient have a stroke diagnosis?: No VTE Prior VTE?: No VTE Risk Level:: Medical - moderate - high VTE Device Contraindication: N/A - Device Ordered VTE Drug Contraindication: Treatment Not Indicated
[2024-05-27 10:16] LABS: Vancomycin Trough 6.5 mcg/mL (10.0-20.0)
[2024-05-27] MEDS: Ibuprofen 800 MG TABLET PO (10:51)
[2024-05-27] MEDS: vancomycin HCL 1,500 MG in 0.9 % Sodium Chloride 500 ML 333.33 MG IV ×2 (10:52→23:23)
--- NOTE | 2024-05-27 10:53 | P.PNIM_ITS ---
Subjective Subjective Date of Service: 05/27/24 Interval History: f/u on cellulitis and abscess of left hand looking better today Physical Exam 2 Vital Signs: Vital Signs: Last Vital Signs Temp 98.6 F 05/27/24 07:42 Pulse 58 05/27/24 07:42 Resp 12 05/27/24 07:42 BP 118/72 05/27/24 07:42 Pulse Ox 97 05/27/24 07:42 O2 Del Method Room Air 05/27/24 07:42 BMI result Body Mass Index 34.6 Const: Other: General: AO X 3, no acute distress Resp: CTA bilateral CVS: S1,S2,RRR GI: +BS, NT, no distention Skin: No rash Neuro: motor grossly intact Psych: appropriate affect Objective Data Active Medications Albuterol Sulfate (Albuterol Sulfate 90 Mcg 8 Gm Inhaler) 2 puff INHALE RQ4H WHILE AWAKE PRN PRN Reason: Shortness of Breath/Wheezing Albuterol Sulfate (Albuterol Sulfate 90 Mcg 8 Gm Inhaler) 2 puff INHALE QID PRN PRN Reason: wheezing Amphetamine/Dextroamphetamine (Amphetamine Mixed Salts 10 Mg Tablet) 30 mg PO BID@0700,1400 [facility] Last Admin: 05/27/24 07:24 Dose: 30 mg Documented By: VINCENT Buprenorphine HCl (Buprenorphine Hcl 8 Mg Tab.Subl) 24 mg SUBLINGUAL DAILY [facility] Last Admin: 05/27/24 08:20 Dose: 24 mg Documented By: VINCENT Calcium Carbonate (Calcium Carbonate 750 Mg Tab.Chew) 750 mg PO Q4H PRN PRN Reason: Heartburn Ceftriaxone Sodium (Ceftriaxone Sodium 1 Gm Vial) 1 gm IVPUSH Q24H [facility] Last Admin: 05/26/24 23:09 Dose: 1 gm Documented By: GARRET Clonazepam (Clonazepam 1 Mg Tablet) 1 mg PO QID [facility] Last Admin: 05/27/24 08:21 Dose: 1 mg Documented By: VINCENT Clonidine HCl (Clonidine Hcl 0.1 Mg Tablet) 0.1 mg PO TID PRN; Protocol PRN Reason: Anxiety Last Admin: 05/27/24 01:47 Dose: 0.1 mg Documented By: GARRET Docusate Sodium (Docusate Sodium 100 Mg Capsule) 100 mg PO BID [facility] Last Admin: 05/27/24 04:34 Dose: 100 mg Documented By: GARRET Hydromorphone HCl (Hydromorphone Hcl 1 Mg/Ml Syringe) 1 mg IVPUSH Q4H PRN; Protocol PRN Reason: Pain, Severe (Pain Scale 7-10) Last Admin: 05/27/24 09:46 Dose: 1 mg Documented By: VINCENT Vancomycin HCl 1,500 mg/ (Sodium Chloride) 500 mls @ 333.333 mls/hr IV Q12H [facility] Ibuprofen (Ibuprofen 800 Mg Tablet) 800 mg PO Q6H PRN PRN Reason: Pain, Mild (Pain Scale 1-3) Loratadine (Loratadine 10 Mg Tablet) 10 mg PO DAILY [facility] Last Admin: 05/27/24 08:21 Dose: 10 mg Documented By: VINCENT Magnesium Hydroxide (Milk Of Magnesia 30 Ml Oral.Susp) 30 ml PO DAILY PRN PRN Reason: Constipation Melatonin (Melatonin 3 Mg Tablet) 6 mg PO BEDTIME PRN PRN Reason: Insomnia Nicotine (Nicotine 14 Mg Patch.Td24) 14 mg TRANSDERMA DAILY [facility] Last Admin: 05/27/24 08:45 Dose: Not Given Documented By: VINCENT Non-Admin Reason: Patient Refused Nicotine (Nicotine 21 Mg Patch.Td24) 21 mg TRANSDERMA DAILY [facility] Last Admin: 05/27/24 08:19 Dose: 21 mg Documented By: VINCENT Ondansetron HCl (Ondansetron Hcl 4 Mg/2 Ml Vial) 4 mg IVPUSH Q8H PRN PRN Reason: Nausea and Vomiting Oxycodone HCl (Oxycodone Hcl Immed Release 5 Mg Tablet) 5 mg PO Q6H PRN PRN Reason: Pain, Moderate(Pain Scale 4-6) Last Admin: 05/27/24 06:39 Dose: 5 mg Documented By: GARRET Comments: per pt request Pharmacy Consult (Consult Rx Vancomycin Dosing) 1 each MISCELLANE DAILY PRN PRN Reason: Consult order Sodium Chloride (0.9 % Sodium Chloride Flush 3 Ml Syringe) 3 ml IVFLUSH QSHIFT [facility] Last Admin: 05/27/24 08:21 Dose: 3 ml Documented By: VINCENT Tizanidine HCl (Tizanidine Hcl 4 Mg Tablet) 4 mg PO TID PRN PRN Reason: muscle spasticity Labs 05/27/24 07:30 05/27/24 07:30 Labs: Laboratory Results - last 24 hr 05/27/24 05/27/24 07:30 09:19 MCV 81.9 MCH 27.9 MCHC 34.0 RDW 12.3 Plt Count 235 MPV 10.8 Immature Gran % (Auto) 0.4 Neut % (Auto) 58.6 Lymph % (Auto) 32.3 [place] % (Auto) 5.6 Eos % (Auto) 2.7 Baso % (Auto) 0.4 Lymph # (Auto) 2.5 [place] # (Auto) 0.4 Eos # (Auto) 0.2 Baso # (Auto) 0.0 Abs Immat Gran (auto) 0.03 Absolute Neuts (auto) 4.5 Absolute Nucleated RBC 0.000 Nucleated RBC % (auto) 0.0 Anion Gap 11 L Estim Creat Clear Calc 168.9 Estimated GFR > 60 Random Glucose 106 Calcium 8.6 Vancomycin Trough 6.5 L Microbiology Microbiology Results: Microbiology 05/25/24 16:03 Blood Culture - Preliminary Blood - Venous No growth after 24 hours. 05/25/24 16:03 Blood Culture - Preliminary Blood - Venous No growth after 24 hours. Assessment and Plan (1) Sepsis: Status: Acute (2) Abscess of dorsum of left hand: Status: Acute (3) RSV (respiratory syncytial virus infection): Status: Acute Plan 24-year-old male with a past medical history significant for cerebral palsy with left hand deficit, substance use disorder (opiates and cocaine), obesity and mild intermittent asthma, who presented to the ED due to left hand pain, swelling and abscess drainage for the past week. ED provider discussed case with ortho and it was recommended for medical admission with surgical I&D today or tomorrow. Left hand abscess/sepsis related to ivda, looks better -continue iv vanco and cetriaxone -follow culture -Ortho may I and D following, so far no intervention -dilaudid and oxycodone for pain RSV-- asymptomatic - supportive care Mild intermittent asthma, no acute exacerbation - albuterol as needed Attention deficit--Adderal Substance use disorder - patient on sublocade -consider addiction med consult Obesity - BMI 34.9 - weight loss encouraged Full code VTE prophylaxis: Pneumoboots early ambulation Quality Stroke Does the patient have a stroke diagnosis?: No VTE Prior VTE?: No VTE Risk Level:: Medical - moderate - high VTE Device Contraindication: N/A - Device Ordered VTE Drug Contraindication: Treatment Not Indicated
[2024-05-27] MEDS: TiZANidine HCL 4 MG TABLET PO ×2 (10:56→20:25)
[2024-05-27 11:49] VITALS: BP 138/77; PULSE 78; RESP 18; TEMP 36.3; O2SAT 98
--- NOTE | 2024-05-27 13:15 | MHC.CM.PN ---
Per MD rounds Patient is not medically cleared for discharge today. A referral has been sent to [facility]. A message has been sent to the options care advisor today. CM will continue to follow for discharge. DP home with family support and transport.
--- NOTE | 2024-05-27 13:53 | HO.ADDICT_ITS ---
History of Present Illness Date of Service: 05/27/2024 Chief Complaint: Abscess L Hand, RSV Reason for Consult: ALICIA Sources of Information: patient interviewed and chart reviewed HPI Narrative: Patient is a 24 year old male medically admitted with abscess to the hand secondary to IVDU Patient known to t/w via outpatient ALICIA treatment at [facility]. Patient seen in room 363. He is awake, alert, pleasant and engaged in interview. He reports that he has been injecting into the same area of his hand for some time, and felt like he waiting too long to be seen, it smelled so bad . He states he was nervous to come in because he knew he would end up admitted and he was afraid to tell his mother why--states his mother was unaware that he had started using cocaine IV. He reports he started using IV after release from incarceration over the summer, and his use just increased quickly. He reports that opiate use is minimal. He has been engaged in treatemtn with Linda BERMEO, and last received his Sublocade injection last week. Denies any recent overdose He denies any discomfort or pain. He expressed interest in being referred to treatment from this admission. Review of Systems Constitutional: Reports as per HPI Diagnostics Vital Signs (24Hr): Vital Signs - 24 hr 05/26/24 15:49 05/26/24 20:00 05/27/24 04:00 Temperature 97.3 F 96.9 F 96.8 F Pulse Rate 65 101 H 88 Respiratory Rate 16 18 17 Blood Pressure 127/70 130/74 121/65 Pulse Oximetry 99 98 96 Oxygen Delivery Method Room Air Room Air Room Air 05/27/24 07:42 05/27/24 11:49 Temperature 98.6 F 97.4 F Pulse Rate 58 78 Respiratory Rate 12 18 Blood Pressure 118/72 138/77 Pulse Oximetry 97 98 Oxygen Delivery Method Room Air Room Air BMI result Body Mass Index 34.6 Labs 05/27/24 07:30 05/27/24 07:30 Labs: Laboratory Results - last 48 hr 05/25/24 05/26/24 05/27/24 16:03 05:46 07:30 WBC 12.8 H 8.1 7.7 RBC 5.12 5.10 4.59 L Hgb 14.3 13.8 L 12.8 L Hct 41.1 L 42.1 37.6 L MCV 80.3 82.5 81.9 MCH 27.9 27.1 27.9 MCHC 34.8 32.8 34.0 RDW 12.3 12.3 12.3 Plt Count 245 218 235 MPV 10.4 10.9 10.8 Immature Gran % (Auto) 0.5 H 0.4 0.4 Neut % (Auto) 74.8 H 56.3 58.6 Lymph % (Auto) 13.2 L 30.6 32.3 [place] % (Auto) 10.7 9.7 5.6 Eos % (Auto) 0.6 2.5 2.7 Baso % (Auto) 0.2 0.5 0.4 Lymph # (Auto) 1.7 2.5 2.5 [place] # (Auto) 1.4 H 0.8 0.4 Eos # (Auto) 0.1 0.2 0.2 Baso # (Auto) 0.0 0.0 0.0 Abs Immat Gran (auto) 0.06 H 0.03 0.03 Absolute Neuts (auto) 9.6 H 4.6 4.5 Absolute Nucleated RBC 0.000 0.000 0.000 Nucleated RBC % (auto) 0.0 0.0 0.0 Sodium 137 139 139 Potassium 3.6 3.5 3.9 Chloride 107 110 H 110 H Carbon Dioxide 23 24 22 Anion Gap 11 L 9 L 11 L BUN 12 11 14 Creatinine 0.79 0.79 0.86 Estim Creat Clear Calc 184.6 184.6 168.9 Estimated GFR > 60 > 60 > 60 Random Glucose 118 H 109 106 Lactic Acid 0.9 Calcium 9.2 8.3 L D 8.6 Total Bilirubin 0.5 AST 30 ALT 27 Alkaline Phosphatase 94 Total Protein 8.1 H Albumin 3.8 Vancomycin Trough Influenza Type A (PCR) NEGATIVE Influenza Type B (PCR) NEGATIVE RSV RNA Qual (PCR) POSITIVE A SARS-CoV-2 RNA (RT-PCR) NEGATIVE 05/27/24 09:19 WBC RBC Hgb Hct MCV MCH MCHC RDW Plt Count MPV Immature Gran % (Auto) Neut % (Auto) Lymph % (Auto) [place] % (Auto) Eos % (Auto) Baso % (Auto) Lymph # (Auto) [place] # (Auto) Eos # (Auto) Baso # (Auto) Abs Immat Gran (auto) Absolute Neuts (auto) Absolute Nucleated RBC Nucleated RBC % (auto) Sodium Potassium Chloride Carbon Dioxide Anion Gap BUN Creatinine Estim Creat Clear Calc Estimated GFR Random Glucose Lactic Acid Calcium Total Bilirubin AST ALT Alkaline Phosphatase Total Protein Albumin Vancomycin Trough 6.5 L Influenza Type A (PCR) Influenza Type B (PCR) RSV RNA Qual (PCR) SARS-CoV-2 RNA (RT-PCR) Mental Status Exam Mental Status Exam Patient Appearance: Appropriate Patient Orientation: Person, Place, Time and Situation Level of Consciousness: Awake, Appropriate and Alert Patient Behavior: Appropriate and Talkative Mood Description: Calm Affect Description: Calm Speech Pattern: Clear Thought Process: Intact Thought Content: positive for Intact Judgement: Fair Medications Medications Current Medications Albuterol Sulfate (Albuterol Sulfate 90 Mcg 8 Gm Inhaler) 2 puff INHALE RQ4H WHILE AWAKE PRN PRN Reason: Shortness of Breath/Wheezing Albuterol Sulfate (Albuterol Sulfate 90 Mcg 8 Gm Inhaler) 2 puff INHALE QID PRN PRN Reason: wheezing Amphetamine/Dextroamphetamine (Amphetamine Mixed Salts 10 Mg Tablet) 30 mg PO BID@0700,1400 [facility] Last Admin: 05/27/24 13:48 Dose: 30 mg Buprenorphine HCl (Buprenorphine Hcl 8 Mg Tab.Subl) 24 mg SUBLINGUAL DAILY [facility] Last Admin: 05/27/24 08:20 Dose: 24 mg Calcium Carbonate (Calcium Carbonate 750 Mg Tab.Chew) 750 mg PO Q4H PRN PRN Reason: Heartburn Ceftriaxone Sodium (Ceftriaxone Sodium 1 Gm Vial) 1 gm IVPUSH Q24H [facility] Last Admin: 05/26/24 23:09 Dose: 1 gm Clonazepam (Clonazepam 1 Mg Tablet) 1 mg PO QID [facility] Last Admin: 05/27/24 12:30 Dose: 1 mg Clonidine HCl (Clonidine Hcl 0.1 Mg Tablet) 0.1 mg PO TID PRN; Protocol PRN Reason: Anxiety Last Admin: 05/27/24 01:47 Dose: 0.1 mg Docusate Sodium (Docusate Sodium 100 Mg Capsule) 100 mg PO BID [facility] Last Admin: 05/27/24 04:34 Dose: 100 mg Hydromorphone HCl (Hydromorphone Hcl 1 Mg/Ml Syringe) 1 mg IVPUSH Q4H PRN; Protocol PRN Reason: Pain, Severe (Pain Scale 7-10) Last Admin: 05/27/24 09:46 Dose: 1 mg Vancomycin HCl 1,500 mg/ (Sodium Chloride) 500 mls @ 333.333 mls/hr IV Q12H [facility] Last Infusion: 05/27/24 12:53 Dose: Infused Ibuprofen (Ibuprofen 800 Mg Tablet) 800 mg PO Q6H PRN PRN Reason: Pain, Mild (Pain Scale 1-3) Last Admin: 05/27/24 10:51 Dose: 800 mg Loratadine (Loratadine 10 Mg Tablet) 10 mg PO DAILY [facility] Last Admin: 05/27/24 08:21 Dose: 10 mg Magnesium Hydroxide (Milk Of Magnesia 30 Ml Oral.Susp) 30 ml PO DAILY PRN PRN Reason: Constipation Melatonin (Melatonin 3 Mg Tablet) 6 mg PO BEDTIME PRN PRN Reason: Insomnia Nicotine (Nicotine 14 Mg Patch.Td24) 14 mg TRANSDERMA DAILY [facility] Last Admin: 05/27/24 08:45 Dose: Not Given Nicotine (Nicotine 21 Mg Patch.Td24) 21 mg TRANSDERMA DAILY [facility] Last Admin: 05/27/24 08:19 Dose: 21 mg Ondansetron HCl (Ondansetron Hcl 4 Mg/2 Ml Vial) 4 mg IVPUSH Q8H PRN PRN Reason: Nausea and Vomiting Oxycodone HCl (Oxycodone Hcl Immed Release 5 Mg Tablet) 5 mg PO Q6H PRN PRN Reason: Pain, Moderate(Pain Scale 4-6) Last Admin: 05/27/24 12:30 Dose: 5 mg Pharmacy Consult (Consult Rx Vancomycin Dosing) 1 each MISCELLANE DAILY PRN PRN Reason: Consult order Sodium Chloride (0.9 % Sodium Chloride Flush 3 Ml Syringe) 3 ml IVFLUSH QSHIFT [facility] Last Admin: 05/27/24 08:21 Dose: 3 ml Tizanidine HCl (Tizanidine Hcl 4 Mg Tablet) 4 mg PO TID PRN PRN Reason: muscle spasticity Last Admin: 05/27/24 10:56 Dose: 4 mg Allergies Allergies Allergy/AdvReac Type Severity Reaction Status Date / Time amoxicillin [AMOXICILLIN] Allergy Unknown HIVES Verified 05/25/24 14:59 hydrocodone [From VICODIN] Allergy Unknown RASH Verified 05/25/24 14:59 sulfamethoxazole Allergy Unknown UNKNOWN Verified 05/25/24 14:59 [From BACTRIM] trimethoprim [From BACTRIM] Allergy Unknown UNKNOWN Verified 05/25/24 14:59 Vicodin Allergy Unknown hives Uncoded 03/11/24 07:29 Assessment & Plan Assessment & Plan (1) Opioid use disorder: Status: Acute Code(s): F11.90 - Opioid use, unspecified, uncomplicated Assessment and Plan: * d/c buprenorphine as patient received Sublocade injection last week (per his report) * interested in going to treatment following this hospitalization--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
--- NOTE | 2024-05-27 14:35 | MHC.RECOVRN ---
Attempted to reach Linda Clayton x 2 to determine when pts last Sublocade injection was. Left voicemails. Awaiting call back.
[2024-05-27 15:33] VITALS: BP 124/64; PULSE 93; RESP 16; TEMP 36; O2SAT 97
[2024-05-27 19:11] VITALS: BP 156/77; PULSE 100; RESP 17; TEMP 36.5; O2SAT 95
[2024-05-27] MEDS: cefTRIAXone sodium 1 GM VIAL IVPUSH (20:26)
[2024-05-28] MEDS: cloNIDine HCL 0.1 MG TABLET PO (00:26)
[2024-05-28 03:20] VITALS: BP 120/66; PULSE 64; RESP 18; TEMP 36.7; O2SAT 98
[2024-05-28 07:13] VITALS: BP 102/61; PULSE 70; RESP 16; TEMP 36.3; O2SAT 100
[2024-05-28] MEDS: Amphetamine Mixed Salts 10 MG TABLET 30 MG PO (07:31)
[2024-05-28] MEDS: HYDROmorphone HCl 1 MG/ML SYRINGE IVPUSH (07:36)
[2024-05-28] MEDS: 0.9 % Sodium Chloride Flush 3 ML SYRINGE IVFLUSH (07:39)
[2024-05-28] MEDS: Nicotine 21 MG PATCH.TD24 TRANSDERMA (08:40)
[2024-05-28] MEDS: oxyCODONE HCl Immed Release 5 MG TABLET PO (08:40)
[2024-05-28] MEDS: Docusate Sodium 100 MG CAPSULE PO (08:41)
[2024-05-28] MEDS: Loratadine 10 MG TABLET PO (08:41)
[2024-05-28] MEDS: TiZANidine HCL 4 MG TABLET PO (08:41)
[2024-05-28] MEDS: clonazePAM 1 MG TABLET PO (08:41)
--- NOTE | 2024-05-28 09:00 | HO.WOUND ---
Wound Consult: Initial 24yr old male admitted to [facility] [place] 05[place]26/24 see H&P for details. Wound consult placed for Left Hand - chart review reveals patient is followed by Orthopedic Surgery team with topical orders in place. No topical orders needed at this time from Inpatient wound Care will defer to Orthopedic Surgery team.
--- NOTE | 2024-05-28 09:31 | P.DS_ITS ---
DS: Providers Provider Date of Service: 05/28/24 Date of admission: 05/26/24 02:00 Date of discharge: 05/28/24 Primary care physician: Nghia Gao MD Consults: 05/26/24 02:14 Consult to Orthopedics Routine Consulting Provider: [facility] Orth[facility] Surgeons Reason for consultation: abscess L hand Has provider been notified: Yes 05/26/24 11:25 Addiction Medicine Routine Consulting Provider: Addiction Covering Reason for consultation: poly sub use Consult to Wound Care Routine Reason for consultation: left hand IVDU injection site DS: Diagnosis Discharge Diagnosis (1) Opioid use disorder: Status: Acute (2) Cocaine use disorder: Status: Acute DS: Summary Hospital Course Hospital Course: admission hpi Chief Complaint: L hand abscess Patient is a 24-year-old male with a past medical history significant for cerebral palsy with left hand deficit, substance use disorder (opiates and cocaine), obesity and mild intermittent asthma, who presented to the ED due to left hand pain, swelling and abscess drainage for the past week. He reports that a week and a half ago he injected cocaine into his hand. He has severe pain in his hand with swelling and he was unable to move it much. He also describes some body aches and reports that everyone at home is sick, he tested positive for RSV. He is currently on Sublocade for substance use disorder. He denies any runny nose, congestion, nausea, vomiting, abdominal pain, diarrhea. He has not been coughing much and denies any wheezing but feels mildly short of breath and is requesting his inhaler as needed. Hospital course: The patient was admitted for IV antibiotics with vancomycin and doxycycline for cellulitis and an abscess on the back of the left hand. Initially, he was evaluated by orthopedics, who expressed concern that surgery might be required. However, during the hospitalization, the affected area spontaneously opened and self-drained. Subsequently, the redness and swelling in the hand significantly improved, and the patient is now able to maneuver the hand and fingers without difficulty. Orthopedics no longer believes surgery is necessary and recommends outpatient follow-up. Cultures have been negative. 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 Follow-up with orthopedics in the office is advised. Daily dry dressing changes are recommended, and his father will assist with these. Oxycodone is prescribed as needed for pain, with clear instructions to avoid use in conjunction with any illicit substances. Time Attestation Discharge Coordination Time (in mins): 35 Quality: Safe Use of Opioids Does Pt have an Active Cancer Diagnosis on the Problem List?: Yes Opioid Measure Date for [facility] Report: 04/28/24 Opioid Measure Time for [facility] Report: 09:39 Quality: Stroke Does the patient have a stroke diagnosis?: No Physical Exam Vital Signs: Vital Signs: Last Vital Signs Temp 97.3 F 05/28/24 07:13 Pulse 70 05/28/24 07:13 Resp 16 05/28/24 07:13 BP 102/61 05/28/24 07:13 Pulse Ox 100 05/28/24 07:13 O2 Del Method Room Air 05/28/24 07:13 BMI result Body Mass Index 34.6 General: AO X 3, no acute distress Resp: CTA bilateral CVS: S1,S2,RRR GI: +BS, NT, no distention Skin: No rash Neuro: motor grossly intact Psych: appropriate affect DS: Data Data Completed and Pending Labs on day of discharge: Laboratory Results - last 24 hr 05/27/24 09:19 Vancomycin Trough 6.5 L Preliminary micro results at discharge 05/25/24 16:03 Blood Culture - Preliminary Blood - Venous No growth after 48 hours. 05/25/24 16:03 Blood Culture - Preliminary Blood - Venous No growth after 48 hours. Discharge Plan Discharge Anticipated Discharge Date/Time: 05/28/24 09:20 Patient Disposition: Home, Self-Care Discharge Diagnosis: Cellulitis and abscess of left hand Referrals: Nghia Gao MD [Primary Care Provider] - 1 Week Discharge Medications: New doxycycline monohydrate 100 mg capsule 100 mg PO BID Qty: 13 0RF oxycodone 5 mg Tablet 5 mg PO Q6H PRN (Reason: Pain, Moderate(Pain Scale 4-6)) Qty: 10 0RF Rx Instructions: Partial Fill upon patient request. Continued tizanidine 4 mg tablet 4 mg PO TID PRN (Reason: muscle spasticity) 30 Days Qty: 90 1RF clonidine HCl 0.1 mg tablet 0.1 mg PO TID PRN (Reason: Anxiety) ibuprofen 800 mg tablet 800 mg PO BID PRN (Reason: pain) clonazepam 1 mg tablet 1 mg PO QID fexofenadine 180 mg tablet 180 mg PO DAILY dextroamphetamine-amphetamine 30 mg tablet 1 tab PO BID@0700,1400 nicotine 21 mg/24 hr patch 24 hour 1 patch transdermal DAILY albuterol sulfate [Ventolin HFA] 90 mcg/actuation HFA aerosol inhaler 2 puff INHALATION QID PRN (Reason: wheezing) buprenorphine HCl 8 mg tablet, sublingual 24 mg sublingual DAILY Discharge Orders: Discharge Order (Routine); Ordered 05/28/24 Ordered By: Ej Stephens Diet: Advance to usual diet Activity on Discharge: As tolerated Stand Alone Forms: Patient Portal Discharge page Print Language: Palestinian Care Plan Goals: recovery from sepsis, cellulitis of the back of left hand Health Concerns: cellulitis, abscess of left hand opioid and substance use disorder Plan of Treatment: take Doxycyline as recommended follow up with Orthopedics office in a week avoid ilicit substance use follow up with your primary care provider in a week, call for appointment Assessment: see above
[2024-05-28] MEDS: Doxycycline Monohydrate 100 MG CAPSULE PO (09:46)
--- NOTE | 2024-05-28 09:49 | MHC.CM.PN ---
Patient discharged to home self care. His parents will provide transport home.
--- NOTE | 2024-05-28 10:12 | MHC.RECOVRN ---
T/W met with pt. in rm. 363-1 upon D/C and provided him education re: harm reduction including supplies available and where to obtain them.
== END 2024-05-28 11:07 | disposition home or self-care (01) | DRG 720 ==
LOC: HO.ED 05-26 01:20 → HO.EDOVER 05-26 02:12 → HO.S3 05-26 07:23
PROVIDERS: Admitting Provider Physician Assistant; Emergency Provider Emergency Medicine Emergency Medical Services; PCP Internal Medicine; Visit Provider Internal Medicine
DX: A41.9 Sepsis, unspecified organism (principal); B97.4 Respiratory syncytial virus as the cause of diseases classified elsewhere; F11.20 Opioid dependence, uncomplicated; G80.9 Cerebral palsy, unspecified; L03.114 Cellulitis of left upper limb; E66.9 Obesity, unspecified; F98.8 Other specified behavioral and emotional disorders with onset usually occurring in childhood and adolescence; F14.90 Cocaine use, unspecified, uncomplicated; Z68.34 Body mass index [BMI] 34.0-34.9, adult; Z71.3 Dietary counseling and surveillance; F17.210 Nicotine dependence, cigarettes, uncomplicated; J45.20 Mild intermittent asthma, uncomplicated; L02.512 Cutaneous abscess of left hand; Z86.14 Personal history of Methicillin resistant Staphylococcus aureus infection; Z71.6 Tobacco abuse counseling; Z79.899 Other long term (current) drug therapy
CPT/HCPCS: 0241U; 36415; 73130; 80048; 80053; 80202; 83605; 85025; 87040; 97110; 97165; 99285; J0131; J0571; J0696; J1171; J1885; J2270; J2405; J3370; J3371

== ENCOUNTER 2024-05-26 02:00 | Outpatient (BNV) | payer OTHER, SELFPAY | END 2024-05-26 12:50 | PROVIDERS: Admitting Provider Physician Assistant; Emergency Provider Emergency Medicine Emergency Medical Services; PCP Internal Medicine; Visit Provider Radiology Diagnostic Radiology | DX: L02.512 Cutaneous abscess of left hand (principal) | CPT/HCPCS: 73130 ==

== ENCOUNTER → 2024-05-26 02:00 | Outpatient (BNV) | payer OTHER, SELFPAY | PROVIDERS: Admitting Provider Physician Assistant; Emergency Provider Emergency Medicine Emergency Medical Services; PCP Internal Medicine; Visit Provider Internal Medicine | DX: A41.9 Sepsis, unspecified organism (principal); L02.512 Cutaneous abscess of left hand; B33.8 Other specified viral diseases | CPT/HCPCS: 99233 ==

== ENCOUNTER → 2024-05-26 02:00 | Outpatient (BNV) | payer OTHER, SELFPAY | PROVIDERS: Admitting Provider Physician Assistant; Emergency Provider Emergency Medicine Emergency Medical Services; PCP Internal Medicine | DX: L02.512 Cutaneous abscess of left hand (principal) | CPT/HCPCS: 99222; 99232 ==

== ENCOUNTER → 2024-05-26 02:00 | Outpatient (BNV) | payer MEDICAID, SELFPAY | PROVIDERS: Admitting Provider Physician Assistant; Emergency Provider Emergency Medicine Emergency Medical Services; PCP Internal Medicine; Visit Provider Nurse Practitioner Psychiatric/Mental Health | DX: F11.90 Opioid use, unspecified, uncomplicated (principal); F14.10 Cocaine abuse, uncomplicated | CPT/HCPCS: 99222 ==

== ENCOUNTER 2024-06-04 13:02 | Outpatient (AMB) | payer MEDICAID, SELFPAY ==
--- NOTE | 2024-06-04 13:16 | MHC.OFFVIS ---
Vital Signs 06/04/24 13:17 Height 5 ft 9 in Weight 250 lb BMI 36.9 Intake Visit Reasons: OV- ED f/u open wound of LT hand Intake Note: Mookie is a 24 year old right hand dominant male who presents today for a wound check and follow up for his left hand and wrist abscess s/p ED admission on 05/26/24. As per ED note patient states that he injected cocaine into the area approximately 2 weeks ago, began to notice an abscess forming approximately 1.5 weeks after. Currently he has pain at the dorsal aspect of hand that increases with ROM. Numbness and tingling in his whole hand. Allergies amoxicillin [AMOXICILLIN] Allergy (Unknown, Verified 06/04/24 13:18) HIVES hydrocodone [From VICODIN] Allergy (Unknown, Verified 06/04/24 13:18) RASH sulfamethoxazole [From BACTRIM] Allergy (Unknown, Verified 06/04/24 13:18) UNKNOWN trimethoprim [From BACTRIM] Allergy (Unknown, Verified 06/04/24 13:18) UNKNOWN Vicodin Allergy (Unknown, Uncoded 06/04/24 13:18) hives HPI HPI OV- ED f/u open wound of LT hand: Details: Mookie is a 24 year old right hand dominant male who presents today for a wound check and follow up for his left hand and wrist abscess s/p ED admission on 05/26/24. As per ED note patient states that he injected cocaine into the area approximately 2 weeks ago, began to notice an abscess forming approximately 1.5 weeks after. Currently he has pain at the dorsal aspect of hand that increases with ROM, improved from previous evaluation in the hospital. Numbness and tingling in his whole hand. 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 Neuro: Diminished sensation of the tips of all digits of the left hand at this time Vascular: Cap refill brisk Pain: Patient reports very mild tenderness to palpation about the wound on the dorsal and ulnar aspect of the left hand and wrist Patient reports improved pain when attempting active range of motion of the fingers of the left hand No pain with range of motion of the fingers of the left hand Patient reports very mild pain with axial loading of the wrist, but states that this is only located along the ulnar aspect of the wrist ROM: Patient does have diminished range of motion of the fingers of the left hand when moving actively, but this has improved since yesterday However, the fingers of the left hand are able to be passively flexed and extended fully with minimal discomfort Skin: There is noted to be an wound on the dorsal and ulnar aspect of the left wrist Edema and erythema resolved since hospital discharge General: No ecchymosis Psych: Appears grossly normal Affect normal Attitude cooperative Assessment & Plan Assessment & Plan (1) Abscess of dorsum of left hand: Code(s): L02.512 - Cutaneous abscess of left hand Category: Medical (2) Numbness and tingling of left hand: Code(s): R20.0 - Anesthesia of skin; R20.2 - Paresthesia of skin Category: Medical Plan 1. Abscess of left hand 2. Numbness and tingling of left hand Patient appears to be recovering well from his injury Patient is educated about the typical recovery course At this time, patient was referred to occupational therapy for range of motion and strengthening of the left hand in the setting of recovery from an abscess Patient was also referred for EMG and nerve conduction study for assessment of the health of the nerves of left upper extremity Patient was amenable to this plan Patient will follow-up in 1 week for wound check, sooner with any acute concerns Orders: Orders NE nerve conduction velocity Today R20.0 - Anesthesia of skin, R20.2 - Paresthesia of skin NE electromyogram (EMG) Today R20.0 - Anesthesia of skin, R20.2 - Paresthesia of skin OT Evaluation and Treatment Today L02.512 - Cutaneous abscess of left hand Coding Level of Care Code Est Pt Level 3 (09111) Diagnoses Abscess of dorsum of left hand L02.512 Numbness and tingling of left hand R20.0; R20.2
[2024-06-04 13:17] VITALS: BMI 36.9
--- OUTSIDE RECORDS SUMMARY | 2024-06-04 13:23 | XMS_ITS | Encounter Summary ---
Author Organization [facility] Address [address] [place] [phone] Phone Care Team Providers Care Wood Inspector Name Role Phone Kori Dover MD Primary Care Provider [phone] Encounter Details Date Type Department Care Team (Late st Contact Info) Description 12/15/2016 Conversion Encounter [facility] [place] [address] [place] [address] Social History Tobacco Use Types Packs/Day Years Used Date Smoking Tobacco: Never Comments:Never smoker Sex and Gender Information Value Date Recorded Sex Assigned at Not on file Legal Sex Male 4:51 PM EDT Gender Identity Not on file Sexual Orientation Not on file documented as of this encounter Plan of Treatment Not on file documented as of this encounter Visit Diagnoses Not on filedocumented in this encounter Care Teams Wood Inspector Relationship Specialty Start Date End Date Kori Dover MD [address] [place] [address] PCP - General 12/09/16 10/30/22 documented as of this encounter
--- OUTSIDE RECORDS SUMMARY | 2024-06-04 13:23 | XMS_ITS | Clinical Summary ---
Author Organization [facility] Address [address] [place] [phone] Phone Care Team Providers Care Well Service Floorperson Name Role Phone Unavailable Primary Care Provider [...] Diabetes mellitus, No family history of Sudden /ME under age 55 Sister Alive Sister: Asthma [...]
== END 2024-06-04 13:52 | disposition home or self-care (01) ==
PROVIDERS: PCP Internal Medicine
DX: L02.512 Cutaneous abscess of left hand (principal); R20.0 Anesthesia of skin; R20.2 Paresthesia of skin
CPT/HCPCS: 99213

== ENCOUNTER → 2024-06-04 13:02 | Outpatient (BNVA) | payer MEDICAID, SELFPAY | PROVIDERS: PCP Internal Medicine | DX: L02.512 Cutaneous abscess of left hand (principal); R20.0 Anesthesia of skin; R20.2 Paresthesia of skin | CPT/HCPCS: 99212 ==

== ENCOUNTER 2024-06-21 10:48 | Inpatient (IN) | payer MEDICAID, SELFPAY ==
--- NOTE | ~2024-06-21 | XR_ITS ---
EXAMINATION: XR HAND, LEFT CLINICAL INFORMATION: infection, FB COMPARISON: 05/26/2024. TECHNIQUE: PA, lateral, and oblique views of the left hand. FINDINGS: No fracture, dislocation, or suspicious bone lesion. Normal bone mineralization. Normal alignment. Joint spaces are preserved. No significant arthropathy. Soft tissue swelling involving the hypothenar aspect and dorsum of the hand. No radiopaque foreign body seen. XR/XR hand LT min 3V IMPRESSION: 1. No acute bony abnormalities. 2. Soft tissue swelling involving the hypothenar aspect and dorsum of the hand. No radiopaque foreign body is evident. Electronically signed by: Janes Cunningham MD 06/21/2024 11:49 AM [facility]
[2024-06-21 10:59] VITALS: BP 131/79; PULSE 74; RESP 18; TEMP 37; O2SAT 96; BMI 36.3
--- NOTE | 2024-06-21 11:18 | ED.SKABFB ---
HPI - Skin/Abscess/Foreign Bdy General Chief complaint: Skin/Abscess/Foreign Body Stated complaint: Abscess L hand Time Seen by Provider: 06/21/24 17:22 Source: patient, RN notes reviewed and old records reviewed Mode of arrival: ambulatory Limitations: no limitations History of Present Illness ED Provider: Troy HPI narrative: 24-year-old male past medical history significant for obesity, mild intermittent asthma, IV drug abuse presents for evaluation of an abscess to his left hand. Patient was seen here on 05/26/2024 and admitted for an abscess to his left hand. Orthopedics was consulted but the patient did not have any OR intervention because of the abscess was draining He was given a few days of antibiotics and discharged on 05/28/2024. The patient reports he did not fill his prescription on discharge. He also reports that he continuing to inject into the left hand. He reports he is unable to straighten all the fingers in his left hand. He denies any fevers or chills He reports his pain is 10/10 Related Data Home Medications ?Medication ?Instructions ?Recorded ?Confirmed albuterol sulfate 90 mcg/actuation 2 puff inhalation QID PRN wheezing 05/26/24 05/29/24 aerosol inhaler (Ventolin HFA) buprenorphine HCl 8 mg sublingual 24 mg sublingual DAILY 05/26/24 05/29/24 tablet clonazepam 1 mg tablet 1 mg PO QID 05/26/24 05/29/24 clonidine HCl 0.1 mg tablet 0.1 mg PO TID PRN Anxiety 05/26/24 05/29/24 dextroamphetamine-amphetamine 30 1 tab PO BID@0700,1400 05/26/24 05/29/24 mg tablet fexofenadine 180 mg tablet 180 mg PO DAILY 05/26/24 05/29/24 ibuprofen 800 mg tablet 800 mg PO BID PRN pain 05/26/24 05/29/24 nicotine 21 mg/24 hr daily 1 patch transdermal DAILY 05/26/24 05/29/24 transdermal patch Previous Rx's ?Medication ?Instructions ?Recorded tizanidine 4 mg tablet 4 mg PO TID PRN muscle spasticity 03/14/24 30 days #90 tabs doxycycline monohydrate 100 mg 100 mg PO BID #13 caps 05/28/24 capsule Allergies Allergy/AdvReac Type Severity Reaction Status Date / Time amoxicillin [AMOXICILLIN] Allergy Unknown HIVES Verified 06/21/24 11:04 hydrocodone [From VICODIN] Allergy Unknown RASH Verified 06/21/24 11:04 sulfamethoxazole Allergy Unknown UNKNOWN Verified 06/21/24 11:04 [From BACTRIM] trimethoprim [From BACTRIM] Allergy Unknown UNKNOWN Verified 06/21/24 11:04 Vicodin Allergy Unknown hives Uncoded 06/21/24 11:04 Review of Systems Constitutional: Constitutional: Denies body ache(s), Denies chills, Denies fever(s) and Denies headache(s) ENT: Denies headache(s) Cardiovascular: Cardiovascular: Denies chest pain and Denies dyspnea Respiratory: Respiratory: Denies cough and Denies dyspnea Gastrointestinal: Gastrointestinal: Denies abdominal pain Musculoskeletal: Musculoskeletal: Reports arthralgias, Reports joint swelling and Reports limited range of motion Integumentary/Breasts: Skin/Breast: Reports erythema, Reports skin pain, Reports skin swelling and Reports wounds Neurologic: Denies headache(s) PMFSH Past Medical History Medical History (Updated 06/21/24 @ 18:13 by Jorge Alberto Simmons) Mild intermittent asthma Environmental allergies Allergies Left hemiparesis Cerebral palsy Social History Social History Household Members: Family and Other Housing: House Do you presently have visiting nurse or other home services: No Patient Tobacco Use Status: Current everyday Tobacco user e-Cigarette/Vaping Use: Currently Using Substance Use Type: Club/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 [employer] Drugs and Opiates Advance Directives: Yes Advance Directives on File: Yes Advance Directives Date on File: 05/29/24 Do you have a plan to hurt others: No Plan service: No Current occupational status: unemployed Cognitive needs: No Hearing needs: No Vision needs: No Physical Exam Vital Signs: Vital Signs: Last Vital Signs Temp 100.2 F 06/21/24 16:00 Pulse 79 06/21/24 16:00 Resp 18 06/21/24 16:00 BP 140/84 H 06/21/24 16:00 Pulse Ox 99 06/21/24 16:00 O2 Del Method Room Air 06/21/24 16:00 BMI result Body Mass Index 36.3 Const: General: healthy appearing, comfortable, no acute distress, alert and awake Nutritional Appearance: well nourished Orientation/consciousness: patient oriented x3 HEENT: Head: Yes normocephalic and Yes atraumatic Eyes: Eyelids: Yes eyelids normal Conjunctivae: conjunctivae normal Sclerae: sclerae normal Corneas: corneas normal Pupils: Equal, round and reactive pupils present EOM: EOMs intact bilaterally Neck: Neck: Yes full ROM Resp: Effort & Inspection: normal respiratory effort, able to speak in complete sentences and not labored Skin: General skin exam: elasticity normal Neuro: General: patient oriented x3 Cranial nerves: Yes Equal, round and reactive pupils present and Yes Bilaterally intact EOM present Cognition (Neuro): normal cognition Extrem: Other: Patient has a markedly edematous dorsal surface of left hand mostly on the ulnar side. There is significant erythema. The area is tender to palpation. The patient has limited range of motion with extension of the 1st through 4th fingers Course Course Course Narrative: This is a rapid medical exam performed by Heather Espinal PA-C. The patient is a 24-year-old male with a history of IV drug abuse, who presents with infection of the left hand x5 days. Associated fevers, and purulent drainage from some of the wounds. We will be ordering screening labs blood cultures lactic and an x-ray of the hand. The patient is stable and can return to the waiting room pending his full medical assessment. Medications Administered Generic Name Dose Route Start Last Admin Trade Name Freq PRN Reason Stop Dose Admin Sodium Chloride 1,000 mls @ 999 mls/hr 06/21/24 17:45 06/21/24 17:56 Ns IV 06/21/24 18:45 999 mls/hr .Q1H1M ROBERT Administration Discontinued Medications Generic Name Dose Route Start Last Admin Trade Name Freq PRN Reason Stop Dose Admin Ceftriaxone Sodium 1 gm 06/21/24 17:31 06/21/24 17:55 Ceftriaxone Sodium 1 Gm Vial IVPUSH 06/21/24 17:32 1 gm ONCE ONE Administration Hydromorphone HCl 1 mg 06/21/24 17:47 06/21/24 18:08 Hydromorphone Hcl 1 Mg/Ml Syringe IVPUSH 06/21/24 17:48 1 mg ONCE ONE Administration Protocol Ondansetron HCl 4 mg 06/21/24 17:47 06/21/24 18:08 Ondansetron Hcl 4 Mg/2 Ml Vial IVPUSH 06/21/24 17:48 4 mg ONCE ONE Administration Medical Decision Making Medical Decision Making [facility] Narrative: 24-year-old male presents for evaluation of left hand abscess. He was admitted about a month ago for left hand abscess and did not have any or intervention. He was treated with IV antibiotics, he was discharged a couple days later but did not fill his antibiotic prescription. He continuing to use IV drugs injecting into the left hand. He appears to have worsening abscess. I consulted with Orthopedics, Ken Arnold who recommends admission to the medical service for likely OR intervention tomorrow. The patient should be NPO after midnight. The patient does not meet SIRS criteria. He was treated with vancomycin and ceftriaxone. He has an allergy to amoxicillin Differential Diagnosis Differential Diagnoses: The differential diagnosis associated with the presentation includes Abscess Cellulitis Tenosynovitis Sepsis less likely Admission/Observation Consideration of admission/observation: Escalation of care including admission/observation considered Consult Healthcare Provider Management of the patient was discussed with: Hospitalist and Province Archivist Lab Data [facility] Lab Attestation statement: I reviewed the patient's lab results. Leukocytosis to 13.5. Consistent with left hand cellulitis/abscess. No significant anemia. No significant electrolyte abnormalities. 06/21/24 11:37 06/21/24 11:37 Labs: Lab Results 06/21/24 Range/Units 11:37 WBC 13.5 H (4.8-10.8) X10*3/uL RBC 5.16 (4.60-5.80) X10*6/uL Hgb 14.1 (14.0-18.0) g/dl Hct 41.7 L (42.0-52.0) % MCV 80.8 (80.0-98.0) fL MCH 27.3 (27.0-33.0) pg MCHC 33.8 (31.0-36.0) g/dl RDW 12.7 (11.0-16.0) % Plt Count 297 D (160-400) X10*3/uL MPV 10.4 (9.4-12.4) fL Immature Gran % (Auto) 0.3 (0.0-0.4) % Neut % (Auto) 80.4 H (45-73) % Lymph % (Auto) 11.2 L (20-40) % [place] % (Auto) 6.7 (2-11) % Eos % (Auto) 1.1 (0-4) % Baso % (Auto) 0.3 (0-2) % Lymph # (Auto) 1.5 (1.2-4.9) X10*3/uL [place] # (Auto) 0.9 (0.1-1.2) X10*3/uL Eos # (Auto) 0.2 (0.0-0.4) X10*3/uL Baso # (Auto) 0.0 (0.0-0.2) X10*3/uL Abs Immat Gran (auto) 0.04 H (0.00-0.03) X10*3/uL Absolute Neuts (auto) 10.9 H (2.0-8.3) x10*3/uL Absolute Nucleated RBC 0.000 (0.0-0.012) X10*3/uL Nucleated RBC % (auto) 0.0 (0.0-0.2) /100WBC Sodium 137 (135-145) mmol/L Potassium 3.9 (3.3-5.1) mmol/L Chloride 106 (96-108) mmol/L Carbon Dioxide 24 (22-29) mmol/L Anion Gap 11 L (12-20) BUN 16 (9-16) mg/dL Creatinine 0.86 (0.5-1.4) mg/dL Estim Creat Clear Calc 158.1 Estimated GFR > 60 Random Glucose 121 H (60-115) mg/dL Lactic Acid 1.3 (0.5-2.0) mmol/L Calcium 9.2 D (8.4-10.2) mg/dL Independent Interpretation I performed an independent interpretation of an: Plain X-Ray Interpretation: Agree with Radiology interpretation Radiology Impression Discussion of test interpretation with radiology: I have reviewed the radiologist's reading. Radiologist Impression: FINDINGS: No fracture, dislocation, or suspicious bone lesion. Normal bone mineralization. Normal alignment. Joint spaces are preserved. No significant arthropathy. Soft tissue swelling involving the hypothenar aspect and dorsum of the hand. No radiopaque foreign body seen. XR/XR hand LT min 3V IMPRESSION: 1. No acute bony abnormalities. 2. Soft tissue swelling involving the hypothenar aspect and dorsum of the hand. No radiopaque foreign body is evident. Electronically signed by: Janes Cunningham MD 06/21/2024 11:49 AM EST Discharge Plan Discharge Clinical Impression: Abscess of hand, left Patient Disposition: Admitted As Inpatient Print Language: Cook Islander
[2024-06-21 11:45] LABS: MANUAL DIFF FLAG NO
[2024-06-21 11:49] LABS: Basophils Percent Auto 0.3 % (0-2); Eosinophils Absolute Auto 0.2 X10*3/uL (0.0-0.4); Eosinophils Percent Auto 1.1 % (0-4); Hematocrit 41.7 % (42.0-52.0); Hemoglobin 14.1 g/dl (14.0-18.0); Imm Gran Abs Auto 0.04 X10*3/uL (0.00-0.03); Imm Gran Pct Auto 0.3 % (0.0-0.4); Lymphocytes Absolute Auto 1.5 X10*3/uL (1.2-4.9); Lymphocytes Percent Auto 11.2 % (20-40); Mean Corpuscular HGB Conc 33.8 g/dl (31.0-36.0); Mean Corpuscular Hemoglobin 27.3 pg (27.0-33.0); Mean Corpuscular Volume 80.8 fL (80.0-98.0); Mean Platelet Volume 10.4 fL (9.4-12.4); Monocytes Absolute Auto 0.9 X10*3/uL (0.1-1.2); Monocytes Percent Auto 6.7 % (2-11); Neutrophils Absolute Auto 10.9 x10*3/uL (2.0-8.3); Neutrophils Percent Auto 80.4 % (45-73); Platelet Count 297 X10*3/uL (160-400); Red Blood Count 5.16 X10*6/uL (4.60-5.80); Red Cell Distribution Width 12.7 % (11.0-16.0); White Blood Count 13.5 X10*3/uL (4.8-10.8)
[2024-06-21 12:01] LABS: Anion Gap 11 (12-20); Blood Urea Nitrogen 16 mg/dL (9-16); Calcium 9.2 mg/dL (8.4-10.2); Carbon Dioxide 24 mmol/L (22-29); Chloride 106 mmol/L (96-108); Creatinine Clr Calc Pharmacy 158.1; Estimated Glomerular Filt Rate > 60; Glucose Random 121 mg/dL (60-115); Potassium 3.9 mmol/L (3.3-5.1); Sodium 137 mmol/L (135-145)
[2024-06-21 12:06] LABS: Lactic Acid 1.3 mmol/L (0.5-2.0)
--- OUTSIDE RECORDS SUMMARY | 2024-06-21 15:43 | XMS_ITS | Clinical Summary ---
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 Name Role Phone Unavailable Primary Care Provider Unavailabl e Encounters Date Type Department Care Team Description 06/21/2024 Lab Requisition [facility] - Main Lab [address] [facility] [place] [address] Alia Mota MD Opioid dependence, uncomplicated (CMS/HCC) from Last 3 Months Surgical History Surgery Date Site/Laterality Comments OTHER SURGICAL HISTORY PROCEDURE: DENIES PREVIOUS SURGERY Medical History Medical History Date Comments Left hemiparesis (CMS/HCC) DX:Le ft hemiparesis ([facility]); 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 Kristie LÓPEZ in past- Obesity DX:Obesity; COMM ENT: seen at [facility] Fracture of patella, right, closed 2010 DX:Fracture of patella, right, closed; COMMENT: no complications, Hx MRSA infection 04/07/2014 DX:Hx MRSA inf ection; COMMENT: Abscess thigh 04/04/14 ADHD (attention deficit hype ractivity disorder) DX:ADHD (attention deficit hyperactivity disorder) Family History Medical History Relation Name Comments ADD / ADHD Brother 1 learning prob Other: learning problems Brother 2 Diabetes Maternal Grandmother Hypertension Maternal Grandmother Other: renal dise Maternal Grandmother Stroke Maternal Grandmother Asthma Sister 1 PAVITHRA disease Sister 2 Relation Name Status Comments Brother 1 Brother 2 Brother 3 Maternal Grandmother Sister 1 Sister 2 Sister 3 Social History Tobacco Use Types Packs/Day Years Used Date Smoking Tobacco: Never Alcohol Use Standard Drinks/Week Comments Not Asked 0 (1 standard drink = 0.6 oz pur e alcohol) Sex and Gender Information Value Date Recorded Sex Assigned at Not on file Legal Sex Male 9:06 AM EST Gender Identity Not on file Sexual Orientation Not on file Obstetrics History Plan of Treatment Health Maintenance Due Date Last Done Comments DTaP,Tdap,and Td Vaccines (7 - Td or Tdap) 03/30/2021 03/30/2011, 05/17/2005, 09/18/2001, Additional history exists Cholesterol Screening (Lipid Panel) 04/03/2022 Depression Screening 04/03/2022 HIV Screening 04/03/2022 Hepatitis C Screening 04/03/2022 Social Influencers of Health Screening 04/03/2022 COVID-19 Vaccine ( season) 2023 Influenza Vaccine (#1) 2023 6, 04/16/2012, 12/30/2009, Additional history exists Hepatitis B Vaccines Completed 2000, 2000, 2000 HIB Vaccines Completed 07/02/2001, 10/2000, 2000, Additional history exists MMR Vaccines Completed 05/05/2004, 04/03/2001 IPV Vaccines Completed 05/17/2005, 07/2001, 07/02/2001, Additional history exists Pneumococcal Vaccine: Pediatrics (0 to 5 Years) and At-Risk Patients (6 to 64 Years) Completed 05/05/2006, 05/30/2001, 2000, Additional history exists Varicella Vaccines Completed 03/05/2008, 04/03/2001 Meningococcal ACWY Vaccine Aged Out 03/30/2011 N o longer eligible based on patient's age to complete this topic HPV Vaccines Completed 06/11/2014, 03/31, 04/16/2012 Hepatitis A Vaccines Aged Out No long er eligible based on patient's age to complete this topic Meningococcal B Vacine Aged Out No lo nger eligible based on patient's age to complete this topic RSV Immunization Patients Under 20 months Aged Out No longer eligible based on patient's age to complete this topic Procedures Procedure Name Priority Date/Time Associated Diagnosis Comments COMPLETE BLOOD COUNT Routine 06/21/2024 10:35 AM EST Opioid dependence, uncomplicated (CMS/HCC) from Last 3 Months Results * (ABNORMAL) Complete blood count (06/21/2024 10:35 AM EST) [facility] WBC 12.8(H) 4.8 - 10.8 K/mcL LAB HEMETOLOGY METHOD 06/21/2024 2:44 PM [facility] RBC 5.20 4.50 - 5.50 M/mcL LAB HEMETOLOGY METHOD 06/21/2024 2:44 PM [facility] Hemoglobin 14.3 13.5 - 17.5 g/dL LAB HEMETOLOGY METHOD 06/21/2024 2:44 PM [facility] Hematocrit 44.5 42.0 - 54.0 % LAB HEMETOLOGY METHOD 06/21/2024 2:44 PM [facility] MCV 85.1 79.0 - 98.0 FL LAB HEMETOLOGY METHOD 06/21/2024 2:44 PM [facility] MCH 27.3 27.0 - 32.0 pcg LAB HEMETOLOGY METHOD 06/21/2024 2:44 PM [facility] MCHC 32.1 32.0 - 37.0 g/dL LAB HEMETOLOGY METHOD 06/21/2024 2:44 PM [facility] RDW 12.8 11.0 - 15.0 % LAB HEMETOLOGY METHOD 06/21/2024 2:44 PM [facility] Platelets 298 130 - 400 K/mcL LAB HEMETOLOGY METHOD 06/21/2024 2:44 PM [facility] MPV 11.5(H) 7.0 - 11.0 FL LAB HEMETOLOGY METHOD 06/21/2024 2:44 PM [facility] NRBC 0.0 <1.0 % LAB HEMETOLOGY METHOD 06/21/2024 2:44 PM [facility] NRBC Absolute 0.00 <0.10 K/mcL LAB HEMETOLOGY METHOD 06/21/2024 2:44 PM EST [facility] Blood Venous blood specimen / Unknown 06/21/2024 10:35 AM EST 06/21/2024 2:35 PM EST us Alia Mota MD LAB BLOOD ORDERABLES Fi nal Result [facility] [address] [place] [address], from Last 3 Months Insurance [place]ICA[place] - [place]
--- OUTSIDE RECORDS SUMMARY | 2024-06-21 15:43 | XMS_ITS | Encounter Summary ---
Author Organization [facility] Address [address] [place] [phone] Phone Care Team Providers Care Combat Control Name Role Phone Kori Dover MD Primary Care Provider [phone] Encounter Details Date Type Department Care Team (Late st Contact Info) Description 12/15/2016 Conversion Encounter [facility] [address] [place] [address] Social History Tobacco Use Types Packs/Day Years [...] on filedocumented in this encounter Care Teams Combat Control Relationship Specialty Start Date End Date Kori Dover MD [address] [place] [address] PCP - General 12/09/16 10/30/22 documented as of this encounter
--- OUTSIDE RECORDS SUMMARY | 2024-06-21 15:43 | XMS_ITS | Clinical Summary ---
Author Organization [facility] Address [address] [place] [phone] Phone Care Team Providers Care Manager Farm Name Role Phone Unavailable Primary Care Provider Unavailabl e Immunizations Immunization Administration Dates Next Due DTaP 5 05/17/2005, [...] Diabetes mellitus, No family history of Sudden /ND under age 55 Sister Alive Sister: Asthma [...] 04/16/2012, 12/30/2009, Additional history exists COVID-19 Vaccine ( season) 2023 Hepatitis B Vaccines Completed 2000, 2000, 2000 [...]
--- OUTSIDE RECORDS SUMMARY | 2024-06-21 15:43 | XMS_ITS | Encounter Summary ---
Author Organization [facility] Address [address] [place] [address] Care Team Providers Care Metal Refiner Name Role Phone Unavailable Primary Care Provider Unavailabl e Encounter Details Date Type Department Care Team (Late st Contact Info) Description 06/21/2024 Lab Requisition [facility] - Main Lab [address] [facility] [address] [place] [address] Alia Mota MD [address] [place], [place] [id number] Opioid dependence, uncomplicated (CMS/HCC) Social History Tobacco Use Types Packs/Day Years [...] as of this encounter Plan of Treatment Pending Results Name Type Priority Associated Diagnoses Date /Time Comprehensive metabolic panel Lab Routine Opioid dependence, uncomplicated (CMS/HCC) 06/21/2024 10:35 AM EST Treponema pallidum antibody with reflex to RPR and particle agglutination Lab Routine Opioid dependence, uncomplicated (CMS/HCC) 06/21/2024 10:35 AM EST Hepatitis B surface antigen with reflex to confirmation Lab Routine Opioid dependence, uncomplicated (CMS/HCC) 06/21/2024 10:35 AM EST Hepatitis B surface antibody Lab Routine Opioid dependence, uncomplicated (CMS/HCC) 06/21/2024 10:35 AM EST Hepatitis B core antibody, total Lab Routine Opioid dependence, uncomplicated (CMS/HCC) 06/21/2024 10:35 AM EST HIV 1,2 antibody, p24 antigen with reflex to differentiation Lab Routine Opioid dependence, uncomplicated (CMS/HCC) 06/21/2024 10:35 AM EST Hepatitis A antibody IgM Lab Routine Opioid dependence, uncomplicated (CMS/HCC) 06/21/2024 10:35 AM EST Hepatitis C antibody Lab Routine Opioid dependence, uncomplicated (CMS/HCC) 06/21/2024 10:35 AM EST documented as of this encounter Procedures Procedure Name Priority Date/Time Associated Diagnosis Comments COMPLETE BLOOD COUNT Routine 06/21/2024 10:35 AM EST Opioid dependence, uncomplicated (CMS/HCC) documented in this encounter Results * (ABNORMAL) Complete blood count (06/21/2024 10:35 AM EST) WBC 12.8(H) 4.8 - 10.8 K/mcL LAB HEMETOLOGY METHOD 06/21/2024 2:44 PM [facility] RBC 5.20 4.50 - 5.50 M/mcL LAB HEMETOLOGY METHOD 06/21/2024 2:44 PM [facility] Hemoglobin 14.3 13.5 - 17.5 g/dL LAB HEMETOLOGY METHOD 06/21/2024 2:44 PM [facility] Hematocrit 44.5 42.0 - 54.0 % LAB HEMETOLOGY METHOD 06/21/2024 2:44 PM [facility] LAB MCV 85.1 79.0 - 98.0 FL LAB HEMETOLOGY METHOD 06/21/2024 2:44 PM [facility] LAB MCH 27.3 27.0 - 32.0 pcg LAB HEMETOLOGY METHOD 06/21/2024 2:44 PM [facility] LAB MCHC 32.1 32.0 - 37.0 g/dL LAB HEMETOLOGY METHOD 06/21/2024 2:44 PM [facility] RDW 12.8 11.0 - 15.0 % LAB HEMETOLOGY METHOD 06/21/2024 2:44 PM [facility] Platelets 298 130 - 400 K/mcL LAB HEMETOLOGY METHOD 06/21/2024 2:44 PM EST [facility] MPV 11.5(H) 7.0 - 11.0 FL LAB HEMETOLOGY METHOD 06/21/2024 2:44 PM EST [facility] NRBC 0.0 <1.0 % LAB HEMETOLOGY METHOD 06/21/2024 2:44 PM EST [facility] NRBC Absolute 0.00 <0.10 K/mcL LAB HEMETOLOGY METHOD 06/21/2024 2:44 PM EST [facility] Blood Venous blood specimen / Unknown 06/21/2024 10:35 AM EST 06/21/2024 2:35 PM EST us Alia Mota MD LAB BLOOD ORDERABLES Fi nal Result [facility] [address] [place] [address], documented in this encounter Visit Diagnoses Diagnosis Opioid dependence, uncomplicated (CMS/HCC) documented in this encounter
[2024-06-21 16:00] VITALS: BP 140/84; PULSE 79; RESP 18; TEMP 37.9; O2SAT 99
[2024-06-21] MEDS: cefTRIAXone sodium 1 GM VIAL IVPUSH (17:55)
[2024-06-21] MEDS: 0.9 % Sodium Chloride 1,000 ML 999 ML IV (17:56)
[2024-06-21] MEDS: HYDROmorphone HCl 1 MG/ML SYRINGE IVPUSH ×2 (18:08→22:15)
[2024-06-21] MEDS: ondansetron HCL 4 MG/2 ML VIAL IVPUSH (18:08)
[2024-06-21] MEDS: vancomycin/NS 2,000 MG/500 ML PLAST..BAG 250 MG IV (18:22)
--- NOTE | 2024-06-21 18:36 | PC.NURSE ---
patient reports he is newly switched from suboxone to methadone with [facility]. Facility was called but clinic is closed at thsi time and will reopen at 5:30am until 12pm monday06/21/24. Alicia public area supervisor can be contacted at that time @ [phone] or the nurses station can be reached @ [phone] for methadone dosing confirmation.
--- NOTE | 2024-06-21 18:43 | PHA.MEDREC ---
Addendum entered by Karey Hardy RPh 06/21/24 19:12: Med rec was reviewed by [facility]. Original Note: Pharmacy Consult ? Medication Reconciliation Pharmacy has completed the medication reconciliation. Spoke with patient to confirm medications. He reports not taking depakote, last taken 2 weeks ago. He is waiting for a PA at his pharmacy for the adderall. He uses sertraline prn. He is no longer on Suboxone, he started on methadone 3 days ago, he reports 70 mg last taken this morning at 9AM and he gets it from [facility]. He uses nicotine patches when he does not have his e-cigarette. He last took his medications this morning.
--- NOTE | 2024-06-21 18:48 | PHA.PROG ---
Admission Date/Time: June 21, 2024 18:28 Indication: SKIN Weight in k.409 kg Adjusted body weight in Kg: [place] body weight in Kg: Obesity Dosing Indication % IBW: Serum Creatinine - Last 168 Hours 06/21/24 11:37 Creatinine 0.86 Estimated CrCl and GFR - Last 168 Hours 06/21/24 11:37 Estim Creat Clear Calc 158.1 Estimated GFR > 60 Vancomycin Loading Dose: 2000 MG Current Vancomycin Dosing Regimen: 1250 MG Q12H Vancomycin Monitoring using AUC goal of 400 - 600 range with trough as surrogate marker: BYK=138 TROUGH=14.4 Date and Time for next Vancomycin Level to be drawn: 06/22/24 @1600 Pharmacist Comments on Vancomycin Plan: Vancomycin dosing will take advantage of [employer] as a clinical decision support tool that uses Bayesian modeling to calculate individual patient's pharmacokinetic parameters and forecast the patient's drug concentration time course with the target goal AUC 24 range of 400 - 600 mg/L/hr.
--- NOTE | 2024-06-21 19:11 | P.HPHOSP_ITS ---
History of Present Illness Date of Service: 06/21/24 Attending physician on admission: Yong Scott Chief Complaint: Left hand abscess/sepsis HPi:24-year-old male with a past medical history significant for cerebral palsy with left hand deficit, substance use disorder (opiates and cocaine), obesity and mild intermittent asthma, who presented to the ED due to left hand pain, swelling and abscess drainage for the past week. ED provider discussed case with ortho and it was recommended for medical admission with surgical I&D today or tomorrow. has left hand pain /erythema/swelling Denies any new complaint of chest pain or shortness of breath or abdominal pain or fever or chills or nausea or vomiting Denies any cough Denies any weakness or numbness. labs imaging reviewed: wbc 13.5 bmp seems fine ,blood cultures pending hand xray: 1. No acute bony abnormalities. 2. Soft tissue swelling involving the hypothenar aspect and dorsum of the hand. No radiopaque foreign body is evidence Review of Systems 2 Review of Systems: as above. Yes all other systems are reviewed and are negative [facility] Medical History Mild intermittent asthma Environmental allergies Allergies Left hemiparesis Cerebral palsy Social History Household Members: Family and Other Housing: House Do you presently have visiting nurse or other home services: No Alcohol intake: current Alcohol intake frequency: holidays/special occasions only Patient Tobacco Use Status: Current everyday Tobacco user e-Cigarette/Vaping Use: Currently Using Use of substances other than those prescribed or required for medical reasons: Yes Substance Use Type: Crack/Cocaine and Heroin Substance Use Frequency: Daily Last Used Substance: Unknown Any prior treatment program specific to substance use: Yes ([facility]) Advance Directives: Yes Advance Directives on File: Yes Advance Directives Date on File: 05/29/24 Do you have a plan to hurt others: No Plan service: No Current occupational status: unemployed Cognitive needs: No Hearing needs: No Vision needs: No Meds Allergies Allergy/AdvReac Type Severity Reaction Status Date / Time amoxicillin [AMOXICILLIN] Allergy Unknown HIVES Verified 06/21/24 11:04 hydrocodone [From VICODIN] Allergy Unknown RASH Verified 06/21/24 11:04 sulfamethoxazole Allergy Unknown UNKNOWN Verified 06/21/24 11:04 [From BACTRIM] trimethoprim [From BACTRIM] Allergy Unknown UNKNOWN Verified 06/21/24 11:04 Vicodin Allergy Unknown hives Uncoded 06/21/24 11:04 Active Medications: Current Medications Acetaminophen (Acetaminophen 325 Mg Tablet) 650 mg PO Q6H PRN PRN Reason: Pain, Mild 1-3,fever,headache Albuterol Sulfate (Albuterol Sulfate 90 Mcg 8 Gm Inhaler) 2 puff INHALE QID PRN PRN Reason: wheezing Amphetamine/Dextroamphetamine (Amphetamine Mixed Salts 10 Mg Tablet) 30 mg PO BID@0700,1400 ROBERT Calcium Carbonate (Calcium Carbonate 750 Mg Tab.Chew) 750 mg PO Q4H PRN PRN Reason: Heartburn Ceftriaxone Sodium (Ceftriaxone Sodium 1 Gm Vial) 1 gm IVPUSH Q24H ROBERT Clonazepam (Clonazepam 1 Mg Tablet) 1 mg PO QID ROBERT Clonidine HCl (Clonidine Hcl 0.1 Mg Tablet) 0.1 mg PO TID PRN; Protocol PRN Reason: Anxiety Vancomycin HCl (Vancomycin/Ns) 2,000 mg in 500 mls @ 250 mls/hr IV ONCE ONE Stop: 06/21/24 19:59 Last Admin: 06/21/24 18:22 Dose: 250 mls/hr Lactated Ringer's (Lr) 1,000 mls @ 100 mls/hr IVCONT .Q10H ROBERT Vancomycin HCl 1,250 mg/ (Sodium Chloride) 250 mls @ 166.667 mls/hr IV Q12H ROBERT Magnesium Hydroxide (Milk Of Magnesia 30 Ml Oral.Susp) 30 ml PO DAILY PRN PRN Reason: Constipation Melatonin (Melatonin 3 Mg Tablet) 6 mg PO BEDTIME PRN PRN Reason: Insomnia Nicotine (Nicotine 21 Mg Patch.Td24) mg TRANSDERMA DAILY PRN PRN Reason: Nicotine Cravings Non-Formulary Medication (Fexofenadine) 180 mg PO DAILY ROBERT Ondansetron HCl (Ondansetron Odt 8 Mg Tab.Rapdis) 8 mg TRANSLINGU DAILY PRN PRN Reason: nausea Pharmacy Consult (Consult Rx Vancomycin Dosing) 1 each MISCELLANE DAILY PRN PRN Reason: Consult order Sertraline HCl (Sertraline Hcl 50 Mg Tablet) 50 mg PO DAILY PRN PRN Reason: Anxiety Sodium Chloride (0.9 % Sodium Chloride Flush 3 Ml Syringe) 3 ml IVFLUSH QSHIFT [facility] Tizanidine HCl (Tizanidine Hcl 4 Mg Tablet) 4 mg PO TID PRN PRN Reason: muscle spasticity Home Medications ?Medication ?Instructions ?Recorded ?Confirmed ?Last Taken ?Type albuterol sulfate 90 mcg/actuation 2 puff inhalation QID PRN wheezing 05/26/24 06/21/24 Unknown History aerosol inhaler (Ventolin HFA) clonazepam 1 mg tablet 1 mg PO QID 05/26/24 06/21/24 06/21/24 History clonidine HCl 0.1 mg tablet 0.1 mg PO TID PRN Anxiety 05/26/24 06/21/24 Unknown History dextroamphetamine-amphetamine 30 1 tab PO BID@0700,1400 05/26/24 06/21/24 05/25/24 History mg tablet fexofenadine 180 mg tablet 180 mg PO DAILY 05/26/24 06/21/24 06/21/24 History ibuprofen 800 mg tablet 800 mg PO BID PRN pain 05/26/24 06/21/24 Unknown History nicotine 21 mg/24 hr daily 1 patch transdermal DAILY PRN 05/26/24 06/21/24 05/25/24 History transdermal patch Nicotine Cravings methadone 10 mg/mL oral concentrate 70 mg PO DAILY 06/21/24 06/21/24 06/21/24 09:00 History ondansetron 8 mg disintegrating 8 mg PO DAILY PRN nausea 06/21/24 06/21/24 Unknown History tablet sertraline 50 mg tablet 50 mg PO DAILY PRN Anxiety 06/21/24 06/21/24 Unknown History Physical Exam 2 Vital Signs and Narrative: Vital Signs: Last Vital Signs Temp 100.2 F 06/21/24 16:00 Pulse 79 06/21/24 16:00 Resp 18 06/21/24 16:00 BP 140/84 H 06/21/24 16:00 Pulse Ox 99 06/21/24 16:00 O2 Del Method Room Air 06/21/24 16:00 BMI result Body Mass Index 36.3 Appearance: Alert.? Oriented X3.? Eyes: Pupils equal, round and reactive to light.? Sclera nonicteric.? ENT: Pharynx normal.? Moist mucous membranes. cvs: rrr, [id number] . res: clear to auscultation ,no rhonchii or wheezing abd: no rebound or guarding ,nt, bs present. ext pulses present , no cyanosis . skin: erythema, Reports skin pain, Reports skin swelling ,please see hand pic(H&P). neuro: axo3 , nonfocal. No Results Labs 06/21/24 11:37 06/21/24 11:37 Labs: Laboratory Results - last 24 hr 06/21/24 11:37 MCV 80.8 MCH 27.3 MCHC 33.8 RDW 12.7 Plt Count 297 D MPV 10.4 Immature Gran % (Auto) 0.3 Neut % (Auto) 80.4 H Lymph % (Auto) 11.2 L [place] % (Auto) 6.7 Eos % (Auto) 1.1 Baso % (Auto) 0.3 Lymph # (Auto) 1.5 [place] # (Auto) 0.9 Eos # (Auto) 0.2 Baso # (Auto) 0.0 Abs Immat Gran (auto) 0.04 H Absolute Neuts (auto) 10.9 H Absolute Nucleated RBC 0.000 Nucleated RBC % (auto) 0.0 Anion Gap 11 L Estim Creat Clear Calc 158.1 Estimated GFR > 60 Random Glucose 121 H Lactic Acid 1.3 Calcium 9.2 D Imaging Radiologist's Impressions: Impressions Hand X-Ray 06/21/24 11:20 IMPRESSION: 1. No acute bony abnormalities. 2. Soft tissue swelling involving the hypothenar aspect and dorsum of the hand. No radiopaque foreign body is evident. Electronically signed by: Janes Cunningham MD 06/21/2024 11:49 AM [facility] Assessment and Plan (1) Abscess of hand, left: Status: Acute Plan 24-year-old male with a past medical history significant for cerebral palsy with left hand deficit, substance use disorder (opiates and cocaine), obesity and mild intermittent asthma, who presented to the ED due to left hand pain, swelling and abscess drainage for the past week. ED provider discussed case with ortho and it was recommended for medical admission with surgical I&D today or tomorrow. Left hand abscess/sepsis related to ivda WBC 13.5, lactic acid 1.3 no tachycardia or tachypnea follow culture continue iv vanco and cetriaxone Ortho may need I and D -dilaudid and oxycodone for pain. RSV-- asymptomatic- supportive care Mild intermittent asthma, no acute exacerbation albuterol as needed Attention deficit--Adderal. Substance use disorder- patient on sublocade consider addiction med consult Obesity- BMI 34.9 weight loss encouraged Full code VTE prophylaxis: Pneumoboots early ambulation ongoing need for hospitlisation : Left hand abscess/sepsis related to ivda: Started on IV antibiotics,, possible need of I and D in the morning, ortho consult, IV pain medications as well as IV fluid. Quality Stroke Does the patient have a stroke diagnosis?: No VTE Prior VTE?: No VTE Risk Level:: Medical - moderate - high VTE Device Contraindication: N/A - Device Ordered VTE Drug Contraindication: N/A - Med Ordered
[2024-06-21 19:23] VITALS: BP 137/70; PULSE 76; RESP 20; TEMP 37.4; O2SAT 99
[2024-06-21] MEDS: Lactated Ringers 1,000 ML 100 ML IVCONT (20:40)
[2024-06-21] MEDS: clonazePAM 1 MG TABLET PO (20:40)
[2024-06-21 22:45] VITALS: BP 155/72; PULSE 92; RESP 18; O2SAT 97
--- NOTE | 2024-06-21 23:56 | PC.NURSE ---
Went in to introduce myself to pt. fluids not running at this time. pt states previous RN stopped fluid but forgot to restart them. LR fluids restarted at this time. pt asking for something for pain,currently rating pain a 9, advised that PRN for that pain scale not available at this time, voices understanding.
[2024-06-22] VITALS (17 sets, daily range): BP systolic 120–156; BP diastolic 55–91; PULSE 81–103; RESP 15–20; TEMP 36.1–37.1; O2SAT 95–99
[2024-06-22] MEDS: HYDROmorphone HCl 1 MG/ML SYRINGE IVPUSH ×6 (01:26→21:02)
--- NOTE | 2024-06-22 03:17 | PC.NURSE ---
New #20 PIV initiated to right forearm due to other #20 IV in right AC being positional. Pt tolerated well. Pharmacy called to retime maintenance LR as pump has had to be restarted multiple times for downstream occlusion alarm. #20 PIV still appears to be in place, blood return noted, asymptomatic at insertion site.
--- NOTE | 2024-06-22 04:23 | MHC.EDTECH ---
pt requesting pain medication. RN aware.
[2024-06-22 06:16] LABS: Hematocrit 39.8 % (42.0-52.0); Hemoglobin 13.3 g/dl (14.0-18.0); Mean Corpuscular HGB Conc 33.4 g/dl (31.0-36.0); Mean Corpuscular Hemoglobin 27.4 pg (27.0-33.0); Mean Corpuscular Volume 82.1 fL (80.0-98.0); Mean Platelet Volume 10.3 fL (9.4-12.4); Platelet Count 291 X10*3/uL (160-400); Red Blood Count 4.85 X10*6/uL (4.60-5.80); Red Cell Distribution Width 12.5 % (11.0-16.0); White Blood Count 15.2 X10*3/uL (4.8-10.8)
[2024-06-22 06:32] LABS: Anion Gap 12 (12-20); Blood Urea Nitrogen 10 mg/dL (9-16); Carbon Dioxide 23 mmol/L (22-29); Chloride 105 mmol/L (96-108); Creatinine Clr Calc Pharmacy 147.8; Estimated Glomerular Filt Rate > 60; Glucose Random 104 mg/dL (60-115); Sodium 136 mmol/L (135-145)
[2024-06-22] MEDS: vancomycin HCL 1,250 MG in 0.9 % Sodium Chloride 250 ML 166.67 MG IV (06:38)
[2024-06-22] MEDS: Amphetamine Mixed Salts 10 MG TABLET 30 MG PO ×2 (06:39→12:45)
--- NOTE | 2024-06-22 08:18 | P.CONOP_ITS ---
History of Present Illness HPI Consult date: 06/22/24 Chief complaint: Left Hand Abscess Narrative: 24-year-old male admitted to the hospital for left hand abscess Patient did have abscess in the same hand approximately 2-3 weeks ago, drained spontaneously Patient did not fill antibiotics upon discharge and continue to shoot into the left hand Patient reports that abscesses he has noticed on his left hand are not draining like the previous 1 did Significant difficulty with range of motion due to pain Patient reports he has been NPO since midnight Denies numbness or tingling No other acute complaints or concerns this time Review of Systems 2 Review of Systems: Yes all other systems are reviewed and are negative PMFSH Past Medical History Medical History Mild intermittent asthma Environmental allergies Allergies Left hemiparesis Cerebral palsy Social History Social History Household Members: Family and Other Housing: House Do you presently have visiting nurse or other home services: No Alcohol intake: current Alcohol intake frequency: holidays/special occasions only Patient Tobacco Use Status: Current everyday Tobacco user e-Cigarette/Vaping Use: Currently Using Use of substances other than those prescribed or required for medical reasons: Yes Substance Use Type: Crack/Cocaine and Heroin Substance Use Frequency: Daily Last Used Substance: Unknown Any prior treatment program specific to substance use: Yes ([facility]) Advance Directives: Yes Advance Directives on File: Yes Advance Directives Date on File: 05/29/24 Do you have a plan to hurt others: No Plan Nutrition Risks: No Nutritional Risk service: No Current occupational status: unemployed Cognitive needs: No Hearing needs: No Vision needs: No Meds Allergies Allergy/AdvReac Type Severity Reaction Status Date / Time amoxicillin [AMOXICILLIN] Allergy Unknown HIVES Verified 06/21/24 11:04 hydrocodone [From VICODIN] Allergy Unknown RASH Verified 06/21/24 11:04 sulfamethoxazole Allergy Unknown UNKNOWN Verified 06/21/24 11:04 [From BACTRIM] trimethoprim [From BACTRIM] Allergy Unknown UNKNOWN Verified 06/21/24 11:04 Vicodin Allergy Unknown hives Uncoded 06/21/24 11:04 Active Medications: Current Medications Acetaminophen (Acetaminophen 325 Mg Tablet) 650 mg PO Q6H PRN PRN Reason: Pain, Mild 1-3,fever,headache Albuterol Sulfate (Albuterol Sulfate 90 Mcg 8 Gm Inhaler) 2 puff INHALE QID PRN PRN Reason: wheezing Amphetamine/Dextroamphetamine (Amphetamine Mixed Salts 10 Mg Tablet) 30 mg PO BID@0700,1400 [facility] Last Admin: 06/22/24 06:39 Dose: 30 mg Calcium Carbonate (Calcium Carbonate 750 Mg Tab.Chew) 750 mg PO Q4H PRN PRN Reason: Heartburn Ceftriaxone Sodium (Ceftriaxone Sodium 1 Gm Vial) 1 gm IVPUSH Q24H ROBERT Clonazepam (Clonazepam 1 Mg Tablet) 1 mg PO QID [facility] Last Admin: 06/21/24 20:40 Dose: 1 mg Clonidine HCl (Clonidine Hcl 0.1 Mg Tablet) 0.1 mg PO TID PRN; Protocol PRN Reason: Anxiety Hydromorphone HCl (Hydromorphone Hcl 1 Mg/Ml Syringe) 1 mg IVPUSH Q3H PRN; Protocol PRN Reason: Pain, Severe (Pain Scale 7-10) Last Admin: 06/22/24 06:43 Dose: 1 mg Vancomycin HCl 1,250 mg/ (Sodium Chloride) 250 mls @ 166.667 mls/hr IV Q12H [facility] Last Infusion: 06/22/24 08:17 Dose: Infused Lactated Ringer's (Lr) 1,000 mls @ 100 mls/hr IVCONT .Q10H [facility] Loratadine (Loratadine 10 Mg Tablet) 10 mg PO DAILY [facility] Magnesium Hydroxide (Milk Of Magnesia 30 Ml Oral.Susp) 30 ml PO DAILY PRN PRN Reason: Constipation Melatonin (Melatonin 3 Mg Tablet) 6 mg PO BEDTIME PRN PRN Reason: Insomnia Nicotine (Nicotine 21 Mg Patch.Td24) 21 mg TRANSDERMA DAILY PRN PRN Reason: Nicotine Cravings Ondansetron HCl (Ondansetron Odt 8 Mg Tab.Rapdis) 8 mg TRANSLINGU DAILY PRN PRN Reason: nausea Oxycodone HCl (Oxycodone Hcl Immed Release 5 Mg Tablet) 5 mg PO Q6H PRN PRN Reason: Pain, Moderate(Pain Scale 4-6) Pharmacy Consult (Consult Rx Vancomycin Dosing) 1 each MISCELLANE DAILY PRN PRN Reason: Consult order Sertraline HCl (Sertraline Hcl 50 Mg Tablet) 50 mg PO DAILY PRN PRN Reason: Anxiety Sodium Chloride (0.9 % Sodium Chloride Flush 3 Ml Syringe) 3 ml IVFLUSH QSHIFT ROBERT Last Admin: 06/22/24 08:16 Dose: Not Given Tizanidine HCl (Tizanidine Hcl 4 Mg Tablet) 4 mg PO TID PRN PRN Reason: muscle spasticity Home Medications ?Medication ?Instructions ?Recorded ?Confirmed ?Last Taken ?Type albuterol sulfate 90 mcg/actuation 2 puff inhalation QID PRN wheezing 05/26/24 06/21/24 Unknown History aerosol inhaler (Ventolin HFA) clonazepam 1 mg tablet 1 mg PO QID 05/26/24 06/21/24 06/21/24 History clonidine HCl 0.1 mg tablet 0.1 mg PO TID PRN Anxiety 05/26/24 06/21/24 Unknown History dextroamphetamine-amphetamine 30 1 tab PO BID@0700,1400 05/26/24 06/21/24 05/25/24 History mg tablet fexofenadine 180 mg tablet 180 mg PO DAILY 05/26/24 06/21/24 06/21/24 History ibuprofen 800 mg tablet 800 mg PO BID PRN pain 05/26/24 06/21/24 Unknown History nicotine 21 mg/24 hr daily 1 patch transdermal DAILY PRN 05/26/24 06/21/24 05/25/24 History transdermal patch Nicotine Cravings methadone 10 mg/mL oral concentrate 70 mg PO DAILY 06/21/24 06/21/24 06/21/24 09:00 History ondansetron 8 mg disintegrating 8 mg PO DAILY PRN nausea 06/21/24 06/21/24 Unknown History tablet sertraline 50 mg tablet 50 mg PO DAILY PRN Anxiety 06/21/24 06/21/24 Unknown History Physical Exam 2 Vital Signs: Vital Signs: Last Vital Signs Temp 98.5 F 06/22/24 03:46 Pulse 82 06/22/24 03:46 Resp 18 06/22/24 03:46 BP 135/65 06/22/24 03:46 Pulse Ox 97 06/22/24 03:46 O2 Del Method Room Air 06/22/24 03:46 BMI result Body Mass Index 36.3 Extrem: Other: Patient is alert, oriented, and in no acute distress. Neuro: Diminished sensation of the tips of all digits of the left hand at this time Vascular: Cap refill brisk Pain: Patient reports significant tenderness to palpation about the wound on the dorsal left hand Patient reports very significant pain when attempting active range of motion of the fingers of the left hand ROM: Patient does have diminished range of motion of the fingers of the left hand when moving actively Skin: Patient was noted to have very significant edema and erythema throughout the dorsal left hand, most prominent on the ulnar aspect There do appear to be scant amounts of purulent drainage from the radial sided suspected abscess General: No ecchymosis Psych: Appears grossly normal Affect normal Attitude cooperative Results Labs 06/22/24 06:07 06/22/24 06:07 Labs: Abnormal lab results 06/21/24 06/22/24 Range/Units 11:37 06:07 WBC 13.5 H 15.2 H (4.8-10.8) X10*3/uL Hgb 13.3 L (14.0-18.0) g/dl Hct 41.7 L 39.8 L (42.0-52.0) % Neut % (Auto) 80.4 H (45-73) % Lymph % (Auto) 11.2 L (20-40) % Abs Immat Gran (auto) 0.04 H (0.00-0.03) X10*3/uL Absolute Neuts (auto) 10.9 H (2.0-8.3) x10*3/uL Anion Gap 11 L (12-20) Random Glucose 121 H (60-115) mg/dL H & H 06/21/24 06/22/24 Range/Units 11:37 06:07 Hgb 14.1 13.3 L (14.0-18.0) g/dl Hct 41.7 L 39.8 L (42.0-52.0) % All other labs normal. Diagnostic results Wrist/Hand x-ray: report reviewed and image reviewed Assessment and Plan (1) Abscess of hand, left: Status: Acute Plan 1. abscess of the left hand I educated the patient about the condition. I discussed both operative and nonoperative treatment options. The patient would like to proceed with surgery. The risks and benefits of operative treatment were discussed with the patient and the patient wishes to proceed with surgery. These risks include, but are not limited to, risk of damage to blood vessels, nerves, tendons, infection, recurrence, incomplete relief of preoperative symptoms, persistent pain, possible need for further surgery, and the risks associated with regional blocks and/or anesthesia. Plan is to take the patient to the operating room at some point today, 06/22/2024 for the following procedures: 1. I and D of left hand under general anesthesia Patient has been NPO since midnight, last food or drink at approximately 23:00 last night Continue with IV antibiotics per Medicine Pain management post surgery Continue with all other recommendations per Medicine Procedures Date of Service Date of Service: 06/22/24
--- NOTE | 2024-06-22 08:25 | HO.ANESPROP2 ---
HPI - Anesthesia Eval Consult details Narrative: Hand infection PMFSH Active Problems Active Problems: All Active Problems Abscess of hand, left (Acute) Numbness and tingling of left hand (Acute) Cocaine use disorder (Acute) Mild intermittent asthma (Acute) Drug abuse, IV (Acute) Smoker (Acute) Upper respiratory tract infection (Acute) Cervical pain (neck) (Acute) Chronic lower back pain (Acute) Morbid obesity (Acute) Physical exam (Acute) Depression (Acute) Lower thoracic back pain (Acute) Opioid use disorder (Acute) Past Medical History Medical History Mild intermittent asthma Environmental allergies Allergies Left hemiparesis Cerebral palsy Family History Family history of problems with anesthesia: No Surgical History History of Problems with Anesthesia: No Social History Social History Household Members: Family and Other Housing: House Do you presently have visiting nurse or other home services: No Alcohol intake: current Alcohol intake frequency: holidays/special occasions only Patient Tobacco Use Status: Current everyday Tobacco user e-Cigarette/Vaping Use: Currently Using Use of substances other than those prescribed or required for medical reasons: Yes Substance Use Type: Crack/Cocaine and Heroin Substance Use Frequency: Daily Last Used Substance: Unknown Any prior treatment program specific to substance use: Yes ([facility]) Advance Directives: Yes Advance Directives on File: Yes Advance Directives Date on File: 05/29/24 Do you have a plan to hurt others: No Plan Nutrition Risks: No Nutritional Risk service: No Current occupational status: unemployed Cognitive needs: No Hearing needs: No Vision needs: No Meds Allergies Allergy/AdvReac Type Severity Reaction Status Date / Time amoxicillin [AMOXICILLIN] Allergy Unknown HIVES Verified 06/21/24 11:04 hydrocodone [From VICODIN] Allergy Unknown RASH Verified 06/21/24 11:04 sulfamethoxazole Allergy Unknown UNKNOWN Verified 06/21/24 11:04 [From BACTRIM] trimethoprim [From BACTRIM] Allergy Unknown UNKNOWN Verified 06/21/24 11:04 Vicodin Allergy Unknown hives Uncoded 06/21/24 11:04 Active Medications: Current Medications Acetaminophen (Acetaminophen 325 Mg Tablet) 650 mg PO Q6H PRN PRN Reason: Pain, Mild 1-3,fever,headache Albuterol Sulfate (Albuterol Sulfate 90 Mcg 8 Gm Inhaler) 2 puff INHALE QID PRN PRN Reason: wheezing Amphetamine/Dextroamphetamine (Amphetamine Mixed Salts 10 Mg Tablet) 30 mg PO BID@0700,1400 [facility] Last Admin: 06/22/24 06:39 Dose: 30 mg Calcium Carbonate (Calcium Carbonate 750 Mg Tab.Chew) 750 mg PO Q4H PRN PRN Reason: Heartburn Ceftriaxone Sodium (Ceftriaxone Sodium 1 Gm Vial) 1 gm IVPUSH Q24H [facility] Clonazepam (Clonazepam 1 Mg Tablet) 1 mg PO QID [facility] Last Admin: 06/21/24 20:40 Dose: 1 mg Clonidine HCl (Clonidine Hcl 0.1 Mg Tablet) 0.1 mg PO TID PRN; Protocol PRN Reason: Anxiety Hydromorphone HCl (Hydromorphone Hcl 1 Mg/Ml Syringe) 1 mg IVPUSH Q3H PRN; Protocol PRN Reason: Pain, Severe (Pain Scale 7-10) Last Admin: 06/22/24 06:43 Dose: 1 mg Vancomycin HCl 1,250 mg/ (Sodium Chloride) 250 mls @ 166.667 mls/hr IV Q12H [facility] Last Infusion: 06/22/24 08:17 Dose: Infused Lactated Ringer's (Lr) 1,000 mls @ 100 mls/hr IVCONT .Q10H [facility] Loratadine (Loratadine 10 Mg Tablet) 10 mg PO DAILY [facility] Magnesium Hydroxide (Milk Of Magnesia 30 Ml Oral.Susp) 30 ml PO DAILY PRN PRN Reason: Constipation Melatonin (Melatonin 3 Mg Tablet) 6 mg PO BEDTIME PRN PRN Reason: Insomnia Nicotine (Nicotine 21 Mg Patch.Td24) 21 mg TRANSDERMA DAILY PRN PRN Reason: Nicotine Cravings Ondansetron HCl (Ondansetron Odt 8 Mg Tab.Rapdis) 8 mg TRANSLINGU DAILY PRN PRN Reason: nausea Oxycodone HCl (Oxycodone Hcl Immed Release 5 Mg Tablet) 5 mg PO Q6H PRN PRN Reason: Pain, Moderate(Pain Scale 4-6) Pharmacy Consult (Consult Rx Vancomycin Dosing) 1 each MISCELLANE DAILY PRN PRN Reason: Consult order Sertraline HCl (Sertraline Hcl 50 Mg Tablet) 50 mg PO DAILY PRN PRN Reason: Anxiety Sodium Chloride (0.9 % Sodium Chloride Flush 3 Ml Syringe) 3 ml IVFLUSH QSHIFT [facility] Last Admin: 06/22/24 08:16 Dose: Not Given Tizanidine HCl (Tizanidine Hcl 4 Mg Tablet) 4 mg PO TID PRN PRN Reason: muscle spasticity Home Medications ?Medication ?Instructions ?Recorded ?Confirmed ?Last Taken ?Type albuterol sulfate 90 mcg/actuation 2 puff inhalation QID PRN wheezing 05/26/24 06/21/24 Unknown History aerosol inhaler (Ventolin HFA) clonazepam 1 mg tablet 1 mg PO QID 05/26/24 06/21/24 06/21/24 History clonidine HCl 0.1 mg tablet 0.1 mg PO TID PRN Anxiety 05/26/24 06/21/24 Unknown History dextroamphetamine-amphetamine 30 1 tab PO BID@0700,1400 05/26/24 06/21/24 05/25/24 History mg tablet fexofenadine 180 mg tablet 180 mg PO DAILY 05/26/24 06/21/24 06/21/24 History ibuprofen 800 mg tablet 800 mg PO BID PRN pain 05/26/24 06/21/24 Unknown History nicotine 21 mg/24 hr daily 1 patch transdermal DAILY PRN 05/26/24 06/21/24 05/25/24 History transdermal patch Nicotine Cravings methadone 10 mg/mL oral concentrate 70 mg PO DAILY 06/21/24 06/21/24 06/21/24 09:00 History ondansetron 8 mg disintegrating 8 mg PO DAILY PRN nausea 06/21/24 06/21/24 Unknown History tablet sertraline 50 mg tablet 50 mg PO DAILY PRN Anxiety 06/21/24 06/21/24 Unknown History Exam Height,Weight and Vital Signs: Height 5 ft 8 in Weight 108.409 kg Last Vital Signs Temp 98.5 F 06/22/24 03:46 Pulse 82 06/22/24 03:46 Resp 18 06/22/24 03:46 BP 135/65 06/22/24 03:46 Pulse Ox 97 06/22/24 03:46 O2 Del Method Room Air 06/22/24 03:46 Pertinent Lab Results Pertinent Lab Results: Laboratory Tests 06/21/24 06/22/24 11:37 06:07 WBC 13.5 H 15.2 H RBC 5.16 4.85 Hgb 14.1 13.3 L Hct 41.7 L 39.8 L MCV 80.8 82.1 MCH 27.3 27.4 MCHC 33.8 33.4 RDW 12.7 12.5 Plt Count 297 D 291 MPV 10.4 10.3 Immature Gran % (Auto) 0.3 Neut % (Auto) 80.4 H Lymph % (Auto) 11.2 L [place] % (Auto) 6.7 Eos % (Auto) 1.1 Baso % (Auto) 0.3 Lymph # (Auto) 1.5 [place] # (Auto) 0.9 Eos # (Auto) 0.2 Baso # (Auto) 0.0 Abs Immat Gran (auto) 0.04 H Absolute Neuts (auto) 10.9 H Absolute Nucleated RBC 0.000 0.000 Nucleated RBC % (auto) 0.0 0.0 Sodium 137 136 Potassium 3.9 4.0 Chloride 106 105 Carbon Dioxide 24 23 Anion Gap 11 L 12 BUN 16 10 Creatinine 0.86 0.92 Estim Creat Clear Calc 158.1 147.8 Estimated GFR > 60 > 60 Random Glucose 121 H 104 Lactic Acid 1.3 Calcium 9.2 D 9.0 Airway Mallampati Class: II TM Dist: >3cm Neck ROM: Full Loose/Missing/Broken Teeth: No Heart: RRR Lungs: CTA Assessment and Plan Assessment Anesthesia Assessment: Anesthesia Plan Discussed, Smoking Cess. Discussed and Chart Reviewed Final Anesthetic Review Family History of Problems with Anesthesia: No History of Problems with Anesthesia: No NPO: Yes ASA Class: III Final Preanesthetic Review: No Changes in Pt Med Stat, Meds/Allgs Chart Reviewed, Consent Obtained/Reviewed and Anes Risks/Benef Reviewed Patient Risk: Intermediate Procedure Risk: Low Anesthetic Plan Anesthetic Plan: GA Disposition: Standard PACU
--- NOTE | 2024-06-22 08:35 | PC.NURSE ---
report given to surgery
--- NOTE | 2024-06-22 08:51 | P.HPSUR_ITS ---
Pre-Procedural Eval Section A - 24 Hr Update-Section A only Date of Service: 06/22/24 The patient is an INPATIENT: Yes Changes since office visit: Yes Cold of Flu in the past 2 weeks, Yes New Medical Problems, Yes Changes in Medication and Yes Patient answered all questions The patient has been examined within 24 hours of the surgical procedure. The History & Physical has been completed within 30 days and I have reviewed it.: Yes Section B - Complete if H&P > 30 days Chief Complaint: Left Hand Abscess Allergies: Allergies Allergy/AdvReac Type Severity Reaction Status Date / Time amoxicillin [AMOXICILLIN] Allergy Unknown HIVES Verified 06/21/24 11:04 hydrocodone [From VICODIN] Allergy Unknown RASH Verified 06/21/24 11:04 sulfamethoxazole Allergy Unknown UNKNOWN Verified 06/21/24 11:04 [From BACTRIM] trimethoprim [From BACTRIM] Allergy Unknown UNKNOWN Verified 06/21/24 11:04 Vicodin Allergy Unknown hives Uncoded 06/21/24 11:04 Exam Exam Comment: S: The patient is a 24-year-old man who has been injecting drugs into his left hand. He was seen about 2-3 weeks ago with an abscess in the left hand for similar reasons. The abscess began to drain on its own and he was sent home with an order of oral antibiotics which she failed to peanut picker. He complains of pain redness and swelling in his left hand O: The patient has a visible abscess on the ulnar aspect of his left hand. He also appears to have another less prominent abscess on the dorsal radial aspect of his left hand. He admits to shooting drugs into these areas. The palmar aspect of the hand does not appear to be involved. He can only very weakly flex and extend his finger secondary to pain on the ulnar and dorsal aspect of his hand. At present he does not appear to have evidence of palmar abscess. Cap refill brisk sensation intact Assessment and plan: 1. Left dorsal and ulnar hand abscesses secondary to IV drug use I educated the patient about this condition we discussed operative and non operative treatment options. I am recommending an operative I and D and the patient wishes to proceed. The risks and benefits of operative treatment were discussed with the patient and the patient wishes to proceed with surgery. These risks include, but are not limited to risk of damage to blood vessels, nerves, tendons, infection, recurrence, incomplete relief of preoperative symptoms, persistent pain, possible need for further surgery and the risks associated with regional blocks and anesthesia. The plan is to take the patient to the operating room today for the following procedures: 1. Left hand I&D 2. [ ] All of the preoperative paperwork including the consent was filled out today. All the patient's questions were answered. He will then be admitted for IV antibiotics. Plan I have reviewed the history and physical and performed a pertinent physical examination on my patient. No changes have occurred unless specified. Time Spent With Patient Time: Total time managing care of this patient today ____ minutes.
--- NOTE | 2024-06-22 08:56 | W.PM.OPN ---
Operative Note Operative Note Date of Service: 06/22/24 Narrative: Operative Note Narrative: Preop diagnosis: 1. Left dorsal and ulnar hand abscesses secondary to IV drug use Postop diagnosis: Same Procedure: 1. I and D of left ulnar hand abscess 2. I and D of left dorsal radial hand abscess Surgeon: Fanny Cruz MD Developmental Psychologist: Ken B[place]MINGH[place] Anesthesia: General Findings: Copious amounts of creamy yellow purulence from the dorsal ulnar abscess Implants: None Tourniquet time: 0 minutes EBL: 5.0 ml Specimen: Left hand purulence sent for cultures Drains: Iodoform drains times 2 Complications: None Disposition: Brought to the recovery room in stable condition Plan: Admit to floor for IV antibiotics Check cultures and adjust antibiotics appropriately Pull drains and wound check tomorrow Indications: The patient is a 24 year old young man with left dorsal and ulnar hand abscesses secondary to drug use . The risks and benefits of operative treatment, including but not limited to risk of damage to blood vessels, nerves, tendons, infection, recurrence, persistent pain or numbness, incomplete resolution of preoperative symptoms, or need for further surgery were discussed with the patient and they wished to proceed with surgery. Procedure: Once consent was obtained patient was brought back to the operating suite and placed in the operating table in a supine position. Anesthesia was administered by the anesthesia team. A tourniquet was applied to the proximal aspect of the left upper extremity and the limb was prepped and draped in a standard surgical fashion. The tourniquet was not inflated during the case. I 1st aspirated 10 cc of creamy yellow purulence from the abscess on the ulnar aspect of the hand so that it would not be under pressure. I then made a 2 cm longitudinal incision for the apex of the abscess on the dorsal ulnar aspect of the hand. I entered the abscess cavity with a hemostat, spreading within the abscess cavity to facilitate evacuation of the purulence. Creamy yellow purulence was copious and was evacuated. Cultures were taken of the purulence. I then made a 2nd incision over the dorsal ulnar abscess. This 1 was longitudinally oriented and measured approximately 1.5 cm. There was only a small amount of purulence and some fibrinous exudate in this area. I made an additional 1.5 cm longitudinal incision over the dorsal aspect of the dorsal ulnar abscess. This connected with the more ulnarly positioned incision and facilitated our I&D. Both abscess cavities were copiously irrigated with normal saline. At this point the tourniquet was deflated and hemostasis obtained with a brief period of local pressure and bipolar electrocautery. The wound was copiously irrigated with normal saline. I placed 1 piece of quarter-inch iodoform gauze between the 2 incisions in the dorsal ulnar abscess. A 2nd piece of iodoform gauze was placed within the hypothenar abscess to facilitate drainage. The wound was infiltrated with some 1% lidocaine with epinephrine for postop pain control and a sterile dressing was applied. The patient appears to have tolerated the procedure well and with no complications. All digits were well vascularized conclusion of the case.
[2024-06-22 09:24] LABS: C Reactive Protein 8.76 mg/dL (< or = 0.50)
[2024-06-22 10:01] LABS: Erythrocyte Sedimentation Rate 26 MM/HR (0-15)
[2024-06-22] MEDS: Ketorolac Tromethamine 30 MG/ML VIAL IVPUSH (10:02)
[2024-06-22] MEDS: fentaNYL citrate/PF 100 MCG/2 ML VIAL 50 MCG IVPUSH (10:04)
[2024-06-22] MEDS: Acetaminophen 1,000 MG/100 ML PIGGYBACK 400 MG IV (10:14)
--- NOTE | 2024-06-22 11:43 | PC.NURSE ---
no need for telemetry per dr. Scott
[2024-06-22] MEDS: Lactated Ringers 1,000 ML 100 ML IVCONT ×2 (12:09→22:33)
[2024-06-22] MEDS: clonazePAM 1 MG TABLET PO ×3 (12:41→21:02)
--- NOTE | 2024-06-22 12:48 | MHC.CM.PN ---
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 PT VERIFIES PCP AND HCP ON FILE.
[2024-06-22 13:00] LABS: Amphetamine Screen Urine POSITIVE (Not Detect); Barbiturates, Urine Not Detected (Not Detect); Benzodiazepines Screen Urine POSITIVE (Not Detect); Buprenorphine Scr Positive (Not Detect); Cannabinoid Screen Urine Not Detected (Not Detect); Cocaine Screen Urine POSITIVE (Not Detect); Fentanyl, urine POSITIVE (Not Detect); Methadone Screen, Urine Positive (Not Detect); Opiate Screen Urine POSITIVE (Not Detect); Oxycodone Screen Urine Not Detected (Not Detect); Phencyclidine Screen Urine Not Detected (Not Detect)
--- NOTE | 2024-06-22 13:03 | PC.NURSE ---
Patient dose not need a sling for his arm per VINNIE Rogers
[2024-06-22] MEDS: oxyCODONE HCl Immed Release 5 MG TABLET PO ×2 (14:08→19:26)
[2024-06-22 14:41] LABS: MRSA Nasal PCR POSITIVE (Negative); SA Nasal PCR POSITIVE (Negative)
--- NOTE | 2024-06-22 15:22 | HO.PM.IMPN ---
Subjective Subjective Date of Service: 06/22/24 Interval History: Left hand abscess/sepsis Review of Systems s/p I and D of left ulnar hand abscess and I and D of left dorsal radial hand abscess. pain somewhat improving no fevers Physical Exam Vital Signs: Vital Signs: Last Vital Signs Temp 97.4 F 06/22/24 11:50 Pulse 90 06/22/24 11:50 Resp 16 06/22/24 11:50 BP 126/72 06/22/24 11:50 Pulse Ox 98 06/22/24 11:50 O2 Del Method Room Air 06/22/24 11:50 O2 Flow Rate 3 06/22/24 09:50 BMI result Body Mass Index 36.3 Appearance: Alert.? Oriented X3.? cvs: rrr, [id number] . res: clear to auscultation ,no rhonchii or wheezing abd: no rebound or guarding ,nt, bs present. ext pulses present , no cyanosis . skin: s/p i&d left hand neuro: axo3 , nonfocal. No Objective Data Active Medications Acetaminophen (Acetaminophen 325 Mg Tablet) 650 mg PO Q6H PRN PRN Reason: Pain, Mild 1-3,fever,headache Albuterol Sulfate (Albuterol Sulfate 90 Mcg 8 Gm Inhaler) 2 puff INHALE QID PRN PRN Reason: wheezing Amphetamine/Dextroamphetamine (Amphetamine Mixed Salts 10 Mg Tablet) 30 mg PO BID@0700,1400 [facility] Last Admin: 06/22/24 12:45 Dose: 30 mg Documented By: ETRRI Calcium Carbonate (Calcium Carbonate 750 Mg Tab.Chew) 750 mg PO Q4H PRN PRN Reason: Heartburn Ceftriaxone Sodium (Ceftriaxone Sodium 1 Gm Vial) 1 gm IVPUSH Q24H [facility] Clonazepam (Clonazepam 1 Mg Tablet) 1 mg PO QID [facility] Last Admin: 06/22/24 12:41 Dose: 1 mg Documented By: TERRI Clonidine HCl (Clonidine Hcl 0.1 Mg Tablet) 0.1 mg PO TID PRN; Protocol PRN Reason: Anxiety Hydromorphone HCl (Hydromorphone Hcl 1 Mg/Ml Syringe) 1 mg IVPUSH Q3H PRN; Protocol PRN Reason: Pain, Severe (Pain Scale 7-10) Last Admin: 06/22/24 15:03 Dose: 1 mg Documented By: TERRI Vancomycin HCl 1,250 mg/ (Sodium Chloride) 250 mls @ 166.667 mls/hr IV Q12H [facility] Last Infusion: 06/22/24 08:17 Dose: Infused Documented By: BRIANDA Lactated Ringer's (Lr) 1,000 mls @ 100 mls/hr IVCONT .Q10H [facility] Last Admin: 06/22/24 12:09 Dose: 100 mls/hr Documented By: TERRI Loratadine (Loratadine 10 Mg Tablet) 10 mg PO DAILY [facility] Last Admin: 06/22/24 11:48 Dose: Not Given Documented By: TERRI Non-Admin Reason: Off Unit: Surgery Magnesium Hydroxide (Milk Of Magnesia 30 Ml Oral.Susp) 30 ml PO DAILY PRN PRN Reason: Constipation Melatonin (Melatonin 3 Mg Tablet) 6 mg PO BEDTIME PRN PRN Reason: Insomnia Naloxone HCl (Naloxone Hcl 0.4 Mg/Ml Vial) 0.04 mg IVPUSH Q5M PRN PRN Reason: Excessive sedation or RR < 8 Nicotine (Nicotine 21 Mg Patch.Td24) 21 mg TRANSDERMA DAILY PRN PRN Reason: Nicotine Cravings Ondansetron HCl (Ondansetron Odt 8 Mg Tab.Rapdis) 8 mg TRANSLINGU DAILY PRN PRN Reason: nausea Oxycodone HCl (Oxycodone Hcl Immed Release 5 Mg Tablet) 5 mg PO Q6H PRN PRN Reason: Pain, Moderate(Pain Scale 4-6) Last Admin: 06/22/24 14:08 Dose: 5 mg Documented By: TERRI Pharmacy Consult (Consult Rx Vancomycin Dosing) 1 each MISCELLANE DAILY PRN PRN Reason: Consult order Sertraline HCl (Sertraline Hcl 50 Mg Tablet) 50 mg PO DAILY PRN PRN Reason: Anxiety Sodium Chloride (0.9 % Sodium Chloride Flush 3 Ml Syringe) 3 ml IVFLUSH QSHIFT [facility] Last Admin: 06/22/24 08:16 Dose: Not Given Documented By: BRIANDA Non-Admin Reason: IV Running Tizanidine HCl (Tizanidine Hcl 4 Mg Tablet) 4 mg PO TID PRN PRN Reason: muscle spasticity Labs 06/22/24 06:07 06/22/24 06:07 Labs: Laboratory Results - last 24 hr 06/22/24 06/22/24 06/22/24 06:07 12:34 12:49 MCV 82.1 MCH 27.4 MCHC 33.4 RDW 12.5 Plt Count 291 MPV 10.3 Absolute Nucleated RBC 0.000 Nucleated RBC % (auto) 0.0 ESR 26 H Anion Gap 12 Estim Creat Clear Calc 147.8 Estimated GFR > 60 Random Glucose 104 Calcium 9.0 C-Reactive Protein 8.76 H Nasal Screen MRSA (PCR) POSITIVE A Nasal S. aureus Screen POSITIVE A Nasal MRSA/S.aureus Interp SEE NOTE Urine Opiates Screen POSITIVE H Ur Buprenorphine Scrn Positive H Ur Oxycodone Screen Not Detected Urine Methadone Screen Positive H Urine Fentanyl Screen POSITIVE H Ur Barbiturates Screen Not Detected Ur Phencyclidine Scrn Not Detected Ur Amphetamines Screen POSITIVE H U Benzodiazepines Scrn POSITIVE H Urine Cocaine Screen POSITIVE H U Marijuana (THC) Screen Not Detected Microbiology Microbiology Results: Microbiology 06/22/24 09:15 Gram Stain - Final Hand Left 06/21/24 11:37 Blood Culture - Preliminary Blood - Venous No growth after 24 hours. Assessment and Plan (1) Abscess of hand, left: Status: Acute Plan 24-year-old male with a past medical history significant for cerebral palsy with left hand deficit, substance use disorder (opiates and cocaine), obesity and mild intermittent asthma, who presented to the ED due to left hand pain, swelling and abscess drainage for the past week. ED provider discussed case with ortho and it was recommended for medical admission with surgical I&D today or tomorrow. Left hand abscess/sepsis related to ivda WBC 13.5, lactic acid 1.3 no tachycardia or tachypnea follow culture continue iv vanco and cetriaxone Ortho may need I and D -dilaudid and oxycodone for pain. RSV-- asymptomatic- supportive care Mild intermittent asthma, no acute exacerbation albuterol as needed Attention deficit--Adderal. Substance use disorder- patient on methdone -does need to be confirmed. addiction med consult Obesity- BMI 34.9 weight loss encouraged Full code VTE prophylaxis: Pneumoboots early ambulation ongoing need for hospitlisation : Left hand abscess/sepsis related to ivda: Started on IV antibiotics,, possible need of I and D in the morning, ortho consult, IV pain medications as well as IV fluid. Quality Stroke Does the patient have a stroke diagnosis?: No VTE Prior VTE?: No VTE Risk Level:: Medical - moderate - high VTE Device Contraindication: N/A - Device Ordered VTE Drug Contraindication: N/A - Med Ordered
[2024-06-22 16:36] LABS: Vancomycin Random 10.1 mcg/mL (15-20)
[2024-06-22] MEDS: 0.9 % Sodium Chloride Flush 3 ML SYRINGE IVFLUSH (17:23)
[2024-06-22] MEDS: cefTRIAXone sodium 1 GM VIAL IVPUSH (17:25)
[2024-06-22] MEDS: vancomycin HCL 1,500 MG in 0.9 % Sodium Chloride 500 ML 333.33 MG IV (17:26)
[2024-06-22] MEDS: TiZANidine HCL 4 MG TABLET PO (19:25)
[2024-06-22] MEDS: cloNIDine HCL 0.1 MG TABLET PO (21:02)
[2024-06-22] MEDS: Melatonin 3 MG TABLET 6 MG PO (21:02)
[2024-06-23] MEDS: HYDROmorphone HCl 1 MG/ML SYRINGE IVPUSH ×7 (01:05→23:25)
[2024-06-23] MEDS: oxyCODONE HCl Immed Release 5 MG TABLET PO ×2 (01:13→06:22)
[2024-06-23 03:28] VITALS: BP 128/64; PULSE 73; RESP 18; TEMP 36; O2SAT 99
[2024-06-23] MEDS: Acetaminophen 325 MG TABLET 650 MG PO ×2 (05:50→19:40)
[2024-06-23] MEDS: Amphetamine Mixed Salts 10 MG TABLET 30 MG PO ×2 (05:51→12:09)
[2024-06-23] MEDS: vancomycin HCL 1,500 MG in 0.9 % Sodium Chloride 500 ML 333.33 MG IV ×2 (05:51→17:46)
[2024-06-23 07:00] LABS: Creatinine Clr Calc Pharmacy 174.3; Estimated Glomerular Filt Rate > 60
--- NOTE | 2024-06-23 07:28 | HO.PM.IMPN ---
Subjective Subjective Date of Service: 06/23/24 Interval History: hand cellulitis Review of Systems hand wrapped has pain ,able to wiggle fingers Physical Exam Vital Signs: Vital Signs: Last Vital Signs Temp 96.8 F 06/23/24 03:28 Pulse 73 06/23/24 03:28 Resp 18 06/23/24 03:28 BP 128/64 06/23/24 03:28 Pulse Ox 99 06/23/24 03:28 O2 Del Method Room Air 06/23/24 03:28 O2 Flow Rate 3 06/22/24 09:50 BMI result Body Mass Index 36.3 General: AO X 3, no acute distress Resp: CTA bilateral CVS: S1,S2,RRR GI: +BS, NT, no distention Skin: No rash Neuro: motor grossly intact,hand wrapped Psych: appropriate affect Objective Data Active Medications Acetaminophen (Acetaminophen 325 Mg Tablet) 650 mg PO Q6H PRN PRN Reason: Pain, Mild 1-3,fever,headache Last Admin: 06/23/24 05:50 Dose: 650 mg Documented By: ALLISON Albuterol Sulfate (Albuterol Sulfate 90 Mcg 8 Gm Inhaler) 2 puff INHALE QID PRN PRN Reason: wheezing Amphetamine/Dextroamphetamine (Amphetamine Mixed Salts 10 Mg Tablet) 30 mg PO BID@0700,1400 [facility] Last Admin: 06/23/24 05:51 Dose: 30 mg Documented By: ALLISON Calcium Carbonate (Calcium Carbonate 750 Mg Tab.Chew) 750 mg PO Q4H PRN PRN Reason: Heartburn Ceftriaxone Sodium (Ceftriaxone Sodium 1 Gm Vial) 1 gm IVPUSH Q24H [facility] Last Admin: 06/22/24 17:25 Dose: 1 gm Documented By: TERRI Clonazepam (Clonazepam 1 Mg Tablet) 1 mg PO QID [facility] Last Admin: 06/22/24 21:02 Dose: 1 mg Documented By: ALLISON Clonidine HCl (Clonidine Hcl 0.1 Mg Tablet) 0.1 mg PO TID PRN; Protocol PRN Reason: Anxiety Last Admin: 06/22/24 21:02 Dose: 0.1 mg Documented By: ALLISON Hydromorphone HCl (Hydromorphone Hcl 1 Mg/Ml Syringe) 1 mg IVPUSH Q3H PRN; Protocol PRN Reason: Pain, Severe (Pain Scale 7-10) Last Admin: 06/23/24 03:57 Dose: 1 mg Documented By: ALLISON Lactated Ringer's (Lr) 1,000 mls @ 100 mls/hr IVCONT .Q10H [facility] Last Admin: 06/22/24 22:33 Dose: 100 mls/hr Documented By: ALLISON Vancomycin HCl 1,500 mg/ (Sodium Chloride) 500 mls @ 333.333 mls/hr IV Q12H [facility] Last Admin: 06/23/24 05:51 Dose: 333.33 mls/hr Documented By: ALLISON Loratadine (Loratadine 10 Mg Tablet) 10 mg PO DAILY [facility] Last Admin: 06/22/24 11:48 Dose: Not Given Documented By: TERRI Non-Admin Reason: Off Unit: Surgery Magnesium Hydroxide (Milk Of Magnesia 30 Ml Oral.Susp) 30 ml PO DAILY PRN PRN Reason: Constipation Melatonin (Melatonin 3 Mg Tablet) 6 mg PO BEDTIME PRN PRN Reason: Insomnia Last Admin: 06/22/24 21:02 Dose: 6 mg Documented By: ALLISON Methadone HCl (Methadone Hcl 20 Mg/2 Ml Oral.Conc) 70 mg PO ONCE ONE Stop: 06/23/24 09:01 Methadone HCl (Methadone Hcl 20 Mg/2 Ml Oral.Conc) 70 mg PO DAILY@0800 [facility] Naloxone HCl (Naloxone Hcl 0.4 Mg/Ml Vial) 0.04 mg IVPUSH Q5M PRN PRN Reason: Excessive sedation or RR < 8 Nicotine (Nicotine 21 Mg Patch.Td24) 21 mg TRANSDERMA DAILY PRN PRN Reason: Nicotine Cravings Ondansetron HCl (Ondansetron Odt 8 Mg Tab.Rapdis) 8 mg TRANSLINGU DAILY PRN PRN Reason: nausea Oxycodone HCl (Oxycodone Hcl Immed Release 5 Mg Tablet) 5 mg PO Q4H PRN PRN Reason: Pain, Moderate(Pain Scale 4-6) Last Admin: 06/23/24 06:22 Dose: 5 mg Documented By: ALLISON Pharmacy Consult (Consult Rx Vancomycin Dosing) 1 each MISCELLANE DAILY PRN PRN Reason: Consult order Sertraline HCl (Sertraline Hcl 50 Mg Tablet) 50 mg PO DAILY PRN PRN Reason: Anxiety Sodium Chloride (0.9 % Sodium Chloride Flush 3 Ml Syringe) 3 ml IVFLUSH QSHIFT [facility] Last Admin: 06/23/24 00:07 Dose: Not Given Documented By: ALLISON Non-Admin Reason: IV Running Tizanidine HCl (Tizanidine Hcl 4 Mg Tablet) 4 mg PO TID PRN PRN Reason: muscle spasticity Last Admin: 06/22/24 19:25 Dose: 4 mg Documented By: ALLISON Labs 06/22/24 06:07 06/23/24 06:27 Labs: Laboratory Results - last 24 hr 06/22/24 06/22/24 06/22/24 06:07 12:34 12:49 ESR 26 H Estim Creat Clear Calc Estimated GFR C-Reactive Protein 8.76 H Nasal Screen MRSA (PCR) POSITIVE A Nasal S. aureus Screen POSITIVE A Nasal MRSA/S.aureus Interp SEE NOTE Random Vancomycin Urine Opiates Screen POSITIVE H Ur Buprenorphine Scrn Positive H Ur Oxycodone Screen Not Detected Urine Methadone Screen Positive H Urine Fentanyl Screen POSITIVE H Ur Barbiturates Screen Not Detected Ur Phencyclidine Scrn Not Detected Ur Amphetamines Screen POSITIVE H U Benzodiazepines Scrn POSITIVE H Urine Cocaine Screen POSITIVE H U Marijuana (THC) Screen Not Detected 06/22/24 06/23/24 15:59 06:27 ESR Estim Creat Clear Calc 174.3 Estimated GFR > 60 C-Reactive Protein Nasal Screen MRSA (PCR) Nasal S. aureus Screen Nasal MRSA/S.aureus Interp Random Vancomycin 10.1 L Urine Opiates Screen Ur Buprenorphine Scrn Ur Oxycodone Screen Urine Methadone Screen Urine Fentanyl Screen Ur Barbiturates Screen Ur Phencyclidine Scrn Ur Amphetamines Screen U Benzodiazepines Scrn Urine Cocaine Screen U Marijuana (THC) Screen Microbiology Microbiology Results: Microbiology 06/21/24 13:37 Blood Culture - Preliminary Blood - Venous No growth after 24 hours. 06/22/24 09:15 Gram Stain - Final Hand Left 06/21/24 11:37 Blood Culture - Preliminary Blood - Venous No growth after 24 hours. Assessment and Plan (1) Abscess of hand, left: Status: Acute Plan 24-year-old male with a past medical history significant for cerebral palsy with left hand deficit, substance use disorder (opiates and cocaine), obesity and mild intermittent asthma, who presented to the ED due to left hand pain, swelling and abscess drainage for the past week. ED provider discussed case with ortho and it was recommended for medical admission with surgical I&D today or tomorrow. Left hand abscess/sepsis related to ivda WBC 13.5, lactic acid 1.3 no tachycardia or tachypnea follow culture continue iv vanco and cetriaxone Ortho may need I and D -dilaudid and oxycodone for pain. RSV-- asymptomatic- supportive care Mild intermittent asthma, no acute exacerbation albuterol as needed Attention deficit--Adderal. Substance use disorder- patient on methdone -does need to be confirmed. addiction med consult Obesity- BMI 34.9 weight loss encouraged Full code VTE prophylaxis: Pneumoboots early ambulation ongoing need for hospitlisation : Left hand abscess/sepsis related to ivda: Started on IV antibiotics,, possible need of I and D in the morning, ortho consult, IV pain medications as well as IV fluid. Quality Stroke Does the patient have a stroke diagnosis?: No VTE Prior VTE?: No VTE Risk Level:: Medical - moderate - high VTE Device Contraindication: N/A - Device Ordered VTE Drug Contraindication: N/A - Med Ordered
[2024-06-23] MEDS: 0.9 % Sodium Chloride Flush 3 ML SYRINGE IVFLUSH ×3 (07:33→21:19)
[2024-06-23] MEDS: Loratadine 10 MG TABLET PO (07:34)
[2024-06-23] MEDS: clonazePAM 1 MG TABLET PO ×4 (07:35→21:16)
[2024-06-23] MEDS: methADONE HCl 20 MG/2 ML ORAL.CONC 70 MG PO (07:37)
[2024-06-23 07:49] VITALS: BP 127/78; PULSE 69; RESP 18; TEMP 36.3; O2SAT 97
[2024-06-23] MEDS: Lactated Ringers 1,000 ML 100 ML IVCONT (09:14)
--- NOTE | 2024-06-23 09:22 | PC.NURSE ---
Patient asking if Roxicodone or Dilaudid dose can be inreased for better pain control,VINNIE Rogers and Dr. Scott notified
--- NOTE | 2024-06-23 10:30 | PC.NURSE ---
Message sent to Eloisa Dominguez to see pt re switching from Methadone to Seboxone as requested by Dr. Scott
[2024-06-23] MEDS: oxyCODONE HCl Immed Release 5 MG TABLET 10 MG PO ×3 (10:37→21:17)
--- NOTE | 2024-06-23 10:48 | P.PNOP_ITS ---
Subjective Subjective Date of Service: 06/23/24 Interval history: Postop day 1 status post I and D of left hand Patient resting comfortably in bed this morning Reports pain much improved from prior to surgery Did have an episode of pain this morning, but did receive a dose of pain medicat ion which helped significantly No acute events overnight No other acute complaints or concerns at this time Physical Exam Vital Signs: Vital Signs: Last Vital Signs Temp 97.3 F 06/23/24 07:49 Pulse 69 06/23/24 07:49 Resp 18 06/23/24 07:49 BP 127/78 06/23/24 07:49 Pulse Ox 97 06/23/24 07:49 O2 Del Method Room Air 06/23/24 07:49 O2 Flow Rate 3 06/22/24 09:50 BMI result Body Mass Index 36.3 Extrem: Other: Patient is alert, oriented, and in no acute distress. Neuro: Normal sensation of the tips of all digits of the left hand at this time Vascular: Cap refill brisk Pain: Patient reports mild tenderness to palpation about the incision sites Pain with range of motion of the left hand ROM: With encouragement, patient was able to get approximately 50% of the way to a closed fist in the left hand Skin: Open incision sites noted on the dorsal aspect of the left hand Drains in place General: No ecchymosis, erythema, or evidence of infection. Psych: Appears grossly normal Affect normal Attitude cooperative Procedures Date of Service Date of Service: 06/23/24 Progress Note: A&P Assessment and plan (1) Abscess of hand, left: Status: Acute (2) Cocaine use disorder: Status: Acute Plan 1. Status post I and D of left hand DOS 06/22/2024 Dressing changed, drains pulled today Patient should continue with IV antibiotics OT eval and treat ordered for tomorrow for range of motion and strengthening of the left hand Daily dressing changes, and as needed for saturation Patient should be discharged with antibiotics Patient will follow-up with us on an outpatient basis in approximately 1 week Patient was amenable to this plan Continue with all other recommendations per Medicine Time Spent With Patient Time: Total time managing care of this patient today ____ minutes. Quality Stroke Does the patient have a stroke diagnosis?: No VTE Prior VTE?: No VTE Risk Level:: Medical - moderate - high VTE Device Contraindication: N/A - Device Ordered VTE Drug Contraindication: N/A - Med Ordered
[2024-06-23 12:10] VITALS: BP 114/67; PULSE 66; RESP 20; O2SAT 99
--- NOTE | 2024-06-23 14:51 | HO.POSTANES ---
Post Anesthesia Evaluation Post Anesthesia Evaluation Date of Service: 06/23/24 Vital Signs: Vital Signs Temp Pulse Resp BP Pulse Ox O2 Del Method 06/23/24 12:10 66 20 114/67 99 Room Air 06/23/24 07:49 97.3 F 69 18 127/78 97 Room Air 06/23/24 03:28 96.8 F 73 18 128/64 99 Room Air Anesthesia: General LMA Mental Status: Awake Pain Control: Satisfactory Nausea/Vomiting: None Hydration: Adequate Anesthesia-Related Issues: No Anes. Related Issues
[2024-06-23 15:19] VITALS: BP 138/88; PULSE 74; RESP 15; TEMP 36.1; O2SAT 97
[2024-06-23 17:05] LABS: Vancomycin Random 14.4 mcg/mL (15-20)
[2024-06-23] MEDS: cefTRIAXone sodium 1 GM VIAL IVPUSH (17:38)
[2024-06-23 19:13] VITALS: BP 147/89; PULSE 93; RESP 15; TEMP 36.2; O2SAT 100
[2024-06-23] MEDS: Albuterol Sulfate 90 MCG 8 GM INHALER 2 PUFF INHALE (19:46)
[2024-06-23] MEDS: cloNIDine HCL 0.1 MG TABLET PO (21:16)
[2024-06-24] MEDS: HYDROmorphone HCl 1 MG/ML SYRINGE IVPUSH ×4 (02:11→20:13)
[2024-06-24 03:23] VITALS: BP 133/75; PULSE 96; RESP 16; TEMP 36.4; O2SAT 98
[2024-06-24] MEDS: oxyCODONE HCl Immed Release 5 MG TABLET 10 MG PO ×6 (04:42→20:29)
[2024-06-24] MEDS: Amphetamine Mixed Salts 10 MG TABLET 30 MG PO ×2 (06:30→14:08)
[2024-06-24] MEDS: vancomycin HCL 1,500 MG in 0.9 % Sodium Chloride 500 ML 333.33 MG IV (06:31)
[2024-06-24 07:17] LABS: Estimated Glomerular Filt Rate > 60
[2024-06-24 07:47] VITALS: BP 124/77; PULSE 86; RESP 17; TEMP 36.2; O2SAT 97
[2024-06-24] MEDS: 0.9 % Sodium Chloride Flush 3 ML SYRINGE IVFLUSH ×2 (08:39→17:14)
[2024-06-24] MEDS: clonazePAM 1 MG TABLET PO ×3 (08:39→20:13)
[2024-06-24] MEDS: Loratadine 10 MG TABLET PO (08:39)
--- NOTE | 2024-06-24 08:52 | PM.PNORT ---
Subjective Subjective Date of Service: 06/24/24 Interval history: Postop day 2 status post I and D of left hand Patient resting comfortably in bed this morning Reports pain much improved from prior to surgery Patient does report trouble sleeping due to pain No acute events overnight No other acute complaints or concerns at this time Physical Exam Vital Signs: Vital Signs: Last Vital Signs Temp 97.2 F 06/24/24 07:47 Pulse 86 06/24/24 07:47 Resp 17 06/24/24 07:47 BP 124/77 06/24/24 07:47 Pulse Ox 97 06/24/24 07:47 O2 Del Method Room Air 06/24/24 07:47 O2 Flow Rate 3 06/22/24 09:50 BMI result Body Mass Index 36.3 Extrem: Other: Patient is alert, oriented, and in no acute distress. Neuro: Normal sensation of the tips of all digits of the left hand at this time Vascular: Cap refill brisk Pain: Patient reports mild tenderness to palpation about the i dorsal left hand Pain with range of motion of the left hand ROM: With encouragement, patient was able to get approximately 75% of the way to a closed fist in the left hand Skin: No evidence of redness or swelling around the dressing General: No ecchymosis, erythema, or evidence of infection. Psych: Appears grossly normal Affect normal Attitude cooperative Procedures Date of Service Date of Service: 06/24/24 Progress Note: A&P Assessment and plan (1) Abscess of hand, left: Status: Acute (2) Cocaine use disorder: Status: Acute Plan 1. Status post I and D of left hand DOS 06/22/2024 Dressing changed, drains pulled today Patient should continue with IV antibiotics OT eval and treat ordered for today for range of motion and strengthening of the left hand Daily dressing changes, and as needed for saturation Patient should be discharged with antibiotics when he is medically cleared to do so Patient will follow-up with us on an outpatient basis in approximately 1 week Patient was amenable to this plan Continue with all other recommendations per Medicine Time Spent With Patient Time: Total time managing care of this patient today ____ minutes. Quality Stroke Does the patient have a stroke diagnosis?: No VTE Prior VTE?: No VTE Risk Level:: Medical - moderate - high VTE Device Contraindication: N/A - Device Ordered VTE Drug Contraindication: N/A - Med Ordered
--- NOTE | 2024-06-24 09:24 | HE.PHANOTE ---
Re Methadone Received verification form from nursing. Pt gets 70mg from [facility], last dose was 06/21/24
[2024-06-24] MEDS: methADONE HCl 20 MG/2 ML ORAL.CONC 70 MG PO (09:52)
--- NOTE | 2024-06-24 09:58 | HO.ADDICT_ITS ---
History of Present Illness Date of Service: 06/24/2024 Chief Complaint: Left Hand Abscess Reason for Consult: question about MOUD Sources of Information: patient interviewed and chart reviewed HPI Narrative: Patient is a 24 year old male with ongoing ALICIA (OUD and StUD), medically admitted with abscess to the hand secondary to IVDU. Consult requested as patient was requesting to transition back to buprenorphine from current MOUD, methadone. Chart review shows patient was seen by Recovery Support RN over the weekend for the same request, and at that time agreeable to remaining on methadone. This morning patient requesting to speak to t/w, so consult placed. Patient seen in room 352, he is awake, alert, engaged in interview. Father present during interview. Patient states, I think I want to go back to Suboxone, I felt normal with suboxone . When asked how he felt with methadone, he was unable to verbalize, just stating that he felt different--denies sedation, denies feeling groggy , denies side effects, denies any withdrawal sx. He does acknowledge that he feels cravings are better managed with methadone. Per his report and RN notes, methadone was started about a week ago. Patient appears comfortable overall, no restlessness, yawning or rhinorrhea observed. *Patient is well known to t/w via treatment in outpatient setting for ALICIA. He often requests changes in medication regimens dosing--especially early on with treatment changes. He often does well with supportive listening and explanation of why it is helpful to wait before making changes so soon. Review of Systems Constitutional: Reports as per HPI and Reports no additional constitutional complaints Diagnostics Vital Signs (24Hr): Vital Signs - 24 hr 06/23/24 12:10 06/23/24 15:19 06/23/24 19:13 Temperature 96.9 F 97.2 F Pulse Rate 66 74 93 Respiratory Rate 20 15 15 Blood Pressure 114/67 138/88 147/89 H Pulse Oximetry 99 97 100 Oxygen Delivery Method Room Air Room Air Room Air 06/24/24 03:23 06/24/24 07:47 Temperature 97.6 F 97.2 F Pulse Rate 96 86 Respiratory Rate 16 17 Blood Pressure 133/75 124/77 Pulse Oximetry 98 97 Oxygen Delivery Method Room Air Room Air BMI result Body Mass Index 36.3 Labs 06/22/24 06:07 06/24/24 05:26 Labs: Laboratory Results - last 48 hr 06/22/24 06/22/24 06/22/24 06:07 12:34 12:49 ESR 26 H Hold Purple Top Creatinine Estim Creat Clear Calc Estimated GFR Nasal Screen MRSA (PCR) POSITIVE A Nasal S. aureus Screen POSITIVE A Nasal MRSA/S.aureus Interp SEE NOTE Random Vancomycin Urine Opiates Screen POSITIVE H Ur Buprenorphine Scrn Positive H Ur Oxycodone Screen Not Detected Urine Methadone Screen Positive H Urine Fentanyl Screen POSITIVE H Ur Barbiturates Screen Not Detected Ur Phencyclidine Scrn Not Detected Ur Amphetamines Screen POSITIVE H U Benzodiazepines Scrn POSITIVE H Urine Cocaine Screen POSITIVE H U Marijuana (THC) Screen Not Detected 06/22/24 06/23/24 06/23/24 15:59 06:27 15:57 ESR Hold Purple Top Creatinine 0.78 Estim Creat Clear Calc 174.3 Estimated GFR > 60 Nasal Screen MRSA (PCR) Nasal S. aureus Screen Nasal MRSA/S.aureus Interp Random Vancomycin 10.1 L 14.4 L Urine Opiates Screen Ur Buprenorphine Scrn Ur Oxycodone Screen Urine Methadone Screen Urine Fentanyl Screen Ur Barbiturates Screen Ur Phencyclidine Scrn Ur Amphetamines Screen U Benzodiazepines Scrn Urine Cocaine Screen U Marijuana (THC) Screen 06/24/24 05:26 ESR Hold Purple Top SEE NOTE Creatinine 1.07 Estim Creat Clear Calc 127.0 Estimated GFR > 60 Nasal Screen MRSA (PCR) Nasal S. aureus Screen Nasal MRSA/S.aureus Interp Random Vancomycin Urine Opiates Screen Ur Buprenorphine Scrn Ur Oxycodone Screen Urine Methadone Screen Urine Fentanyl Screen Ur Barbiturates Screen Ur Phencyclidine Scrn Ur Amphetamines Screen U Benzodiazepines Scrn Urine Cocaine Screen U Marijuana (THC) Screen Imaging Radiology Impressions: ITS Impressions Hand X-Ray 06/21/24 11:20 IMPRESSION: 1. No acute bony abnormalities. 2. Soft tissue swelling involving the hypothenar aspect and dorsum of the hand. No radiopaque foreign body is evident. Electronically signed by: Janes Cunningham MD 06/21/2024 11:49 AM [facility] Mental Status Exam Mental Status Exam Patient Appearance: Appropriate and Unkempt Level of Consciousness: Awake, Appropriate and Alert Patient Behavior: Appropriate and Talkative Mood Description: Calm Affect Description: Calm Speech Pattern: Clear Thought Process: Intact Thought Content: positive for Intact Judgement: Fair Medications Medications Current Medications Acetaminophen (Acetaminophen 325 Mg Tablet) 975 mg PO Q6H [facility] Albuterol Sulfate (Albuterol Sulfate 90 Mcg 8 Gm Inhaler) 2 puff INHALE QID PRN PRN Reason: wheezing Last Admin: 06/23/24 19:46 Dose: 2 puff Amphetamine/Dextroamphetamine (Amphetamine Mixed Salts 10 Mg Tablet) 30 mg PO BID@0700,1400 [facility] Last Admin: 06/24/24 06:30 Dose: 30 mg Calcium Carbonate (Calcium Carbonate 750 Mg Tab.Chew) 750 mg PO Q4H PRN PRN Reason: Heartburn Ceftriaxone Sodium (Ceftriaxone Sodium 1 Gm Vial) 1 gm IVPUSH Q24H [facility] Last Admin: 06/23/24 17:38 Dose: 1 gm Clonazepam (Clonazepam 1 Mg Tablet) 1 mg PO QID [facility] Last Admin: 06/24/24 08:39 Dose: 1 mg Clonidine HCl (Clonidine Hcl 0.1 Mg Tablet) 0.1 mg PO TID PRN; Protocol PRN Reason: Anxiety Last Admin: 06/23/24 21:16 Dose: 0.1 mg Hydromorphone HCl (Hydromorphone Hcl 1 Mg/Ml Syringe) 1 mg IVPUSH Q3H PRN; Protocol PRN Reason: Pain, Severe (Pain Scale 7-10) Last Admin: 06/24/24 06:29 Dose: 1 mg Vancomycin HCl 1,500 mg/ (Sodium Chloride) 500 mls @ 333.333 mls/hr IV Q12H [facility] Last Infusion: 06/24/24 08:59 Dose: Infused Loratadine (Loratadine 10 Mg Tablet) 10 mg PO DAILY [facility] Last Admin: 06/24/24 08:39 Dose: 10 mg Magnesium Hydroxide (Milk Of Magnesia 30 Ml Oral.Susp) 30 ml PO DAILY PRN PRN Reason: Constipation Melatonin (Melatonin 3 Mg Tablet) 6 mg PO BEDTIME PRN PRN Reason: Insomnia Last Admin: 06/22/24 21:02 Dose: 6 mg Methadone HCl (Methadone Hcl 20 Mg/2 Ml Oral.Conc) 70 mg PO DAILY@0800 [facility] Last Admin: 06/24/24 09:40 Dose: Not Given Naloxone HCl (Naloxone Hcl 0.4 Mg/Ml Vial) 0.04 mg IVPUSH Q5M PRN PRN Reason: Excessive sedation or RR < 8 Nicotine (Nicotine 21 Mg Patch.Td24) 21 mg TRANSDERMA DAILY PRN PRN Reason: Nicotine Cravings Ondansetron HCl (Ondansetron Odt 8 Mg Tab.Rapdis) 8 mg TRANSLINGU DAILY PRN PRN Reason: nausea Oxycodone HCl (Oxycodone Hcl Immed Release 5 Mg Tablet) 10 mg PO Q4H PRN PRN Reason: Pain, Moderate(Pain Scale 4-6) Last Admin: 06/24/24 08:39 Dose: 10 mg Oxycodone HCl (Oxycodone Hcl Immed Release 5 Mg Tablet) 10 mg PO BID PRN PRN Reason: Pain, Moderate(Pain Scale 4-6) Pharmacy Consult (Consult Rx Vancomycin Dosing) 1 each MISCELLANE DAILY PRN PRN Reason: Consult order Sertraline HCl (Sertraline Hcl 50 Mg Tablet) 50 mg PO DAILY PRN PRN Reason: Anxiety Sodium Chloride (0.9 % Sodium Chloride Flush 3 Ml Syringe) 3 ml IVFLUSH QSHIFT [facility] Last Admin: 06/24/24 08:39 Dose: 3 ml Tizanidine HCl (Tizanidine Hcl 4 Mg Tablet) 4 mg PO TID PRN PRN Reason: muscle spasticity Last Admin: 06/22/24 19:25 Dose: 4 mg Allergies Allergies Allergy/AdvReac Type Severity Reaction Status Date / Time amoxicillin [AMOXICILLIN] Allergy Unknown HIVES Verified 06/21/24 11:04 hydrocodone [From VICODIN] Allergy Unknown RASH Verified 06/21/24 11:04 sulfamethoxazole Allergy Unknown UNKNOWN Verified 06/21/24 11:04 [From BACTRIM] trimethoprim [From BACTRIM] Allergy Unknown UNKNOWN Verified 06/21/24 11:04 Vicodin Allergy Unknown hives Uncoded 06/21/24 11:04 Assessment & Plan Assessment & Plan (1) Opioid use disorder: Status: Acute Code(s): F11.90 - Opioid use, unspecified, uncomplicated Assessment and Plan: * lengthy discussion with patient regarding methadone --explained that transition back to buprenorphine is not straightforward and would require several days. Encouraged patient to discuss any desire to change medications with his outpatient team * continue methadone as ordered--no clinical rationale at this time to transition back to buprenorphine * already established with [facility], will continue with them upon discharge (2) Cocaine use disorder: Status: Acute Code(s): F14.10 - Cocaine abuse, uncomplicated Assessment and Plan: * risk reduction discussion Total time managing care of this patient today __35__ minutes. [facility] Past Medical History Medical History Mild intermittent asthma Environmental allergies Allergies Left hemiparesis Cerebral palsy Social History Social History Household Members: Family Housing: House Do you presently have visiting nurse or other home services: No Alcohol intake: current Alcohol intake frequency: holidays/special occasions only Patient Tobacco Use Status: Current everyday Tobacco user Cigarettes Per Day: 10 e-Cigarette/Vaping Use: Currently Using Second Hand Smoke Exposure: Yes Substance Use Type: Crack/Cocaine and Painkillers Advance Directives Date on File: 05/29/24 service: No Current occupational status: unemployed Cognitive needs: No Hearing needs: No Vision needs: No
[2024-06-24] MEDS: Acetaminophen 325 MG TABLET 975 MG PO ×2 (11:55→17:15)
[2024-06-24 15:11] VITALS: BP 145/90; PULSE 78; RESP 20; TEMP 36; O2SAT 98
--- NOTE | 2024-06-24 15:12 | HO.PM.IMPN ---
Subjective Subjective Date of Service: 06/25/24 Interval History: hand infection Review of Systems has hand pain ,can wiggle fingers Physical Exam Vital Signs: Vital Signs: Last Vital Signs Temp 96.8 F 06/24/24 15:11 Pulse 78 06/24/24 15:11 Resp 20 06/24/24 15:11 BP 145/90 H 06/24/24 15:11 Pulse Ox 98 06/24/24 15:11 O2 Del Method Room Air 06/24/24 15:11 O2 Flow Rate 3 06/22/24 09:50 BMI result Body Mass Index 36.3 General: AO X 3, no acute distress Resp: CTA bilateral CVS: S1,S2,RRR GI: +BS, NT, no distention Skin: No rash Neuro: motor grossly intact,hand wrapped Psych: appropriate affect Objective Data Active Medications Acetaminophen (Acetaminophen 325 Mg Tablet) 975 mg PO Q6H [facility] Last Admin: 06/24/24 11:55 Dose: 975 mg Documented By: ANDREA Albuterol Sulfate (Albuterol Sulfate 90 Mcg 8 Gm Inhaler) 2 puff INHALE QID PRN PRN Reason: wheezing Last Admin: 06/23/24 19:46 Dose: 2 puff Documented By: ALLISON Amphetamine/Dextroamphetamine (Amphetamine Mixed Salts 10 Mg Tablet) 30 mg PO BID@0700,1400 [facility] Last Admin: 06/24/24 14:08 Dose: 30 mg Documented By: ANDREA Calcium Carbonate (Calcium Carbonate 750 Mg Tab.Chew) 750 mg PO Q4H PRN PRN Reason: Heartburn Ceftriaxone Sodium (Ceftriaxone Sodium 1 Gm Vial) 1 gm IVPUSH Q24H [facility] Last Admin: 06/23/24 17:38 Dose: 1 gm Documented By: TERRI Clonazepam (Clonazepam 1 Mg Tablet) 1 mg PO QID [facility] Last Admin: 06/24/24 14:14 Dose: Not Given Documented By: ANDREA Non-Admin Reason: Patient Refused Clonidine HCl (Clonidine Hcl 0.1 Mg Tablet) 0.1 mg PO TID PRN; Protocol PRN Reason: Anxiety Last Admin: 06/23/24 21:16 Dose: 0.1 mg Documented By: ALLISON Docusate Sodium (Docusate Sodium 100 Mg Capsule) 100 mg PO BID [facility] Hydromorphone HCl (Hydromorphone Hcl 1 Mg/Ml Syringe) 1 mg IVPUSH Q3H PRN; Protocol PRN Reason: Pain, Severe (Pain Scale 7-10) Last Admin: 06/24/24 11:57 Dose: 1 mg Documented By: ANDREA Vancomycin HCl 1,500 mg/ (Sodium Chloride) 500 mls @ 333.333 mls/hr IV Q12H [facility] Last Infusion: 06/24/24 08:59 Dose: Infused Documented By: ANDREA Loratadine (Loratadine 10 Mg Tablet) 10 mg PO DAILY [facility] Last Admin: 06/24/24 08:39 Dose: 10 mg Documented By: YELENA Magnesium Hydroxide (Milk Of Magnesia 30 Ml Oral.Susp) 30 ml PO DAILY PRN PRN Reason: Constipation Melatonin (Melatonin 3 Mg Tablet) 6 mg PO BEDTIME PRN PRN Reason: Insomnia Last Admin: 06/22/24 21:02 Dose: 6 mg Documented By: ALLISON Methadone HCl (Methadone Hcl 20 Mg/2 Ml Oral.Conc) 70 mg PO DAILY@0800 [facility] Last Admin: 06/24/24 09:40 Dose: Not Given Documented By: ANDREA Non-Admin Reason: Duplicate Order Naloxone HCl (Naloxone Hcl 0.4 Mg/Ml Vial) 0.04 mg IVPUSH Q5M PRN PRN Reason: Excessive sedation or RR < 8 Nicotine (Nicotine 21 Mg Patch.Td24) 21 mg TRANSDERMA DAILY PRN PRN Reason: Nicotine Cravings Ondansetron HCl (Ondansetron Odt 8 Mg Tab.Rapdis) 8 mg TRANSLINGU DAILY PRN PRN Reason: nausea Oxycodone HCl (Oxycodone Hcl Immed Release 5 Mg Tablet) 10 mg PO Q4H PRN PRN Reason: Pain, Moderate(Pain Scale 4-6) Last Admin: 06/24/24 14:13 Dose: 10 mg Documented By: ANDREA Oxycodone HCl (Oxycodone Hcl Immed Release 5 Mg Tablet) 10 mg PO BID PRN PRN Reason: Pain, Moderate(Pain Scale 4-6) Pharmacy Consult (Consult Rx Vancomycin Dosing) 1 each MISCELLANE DAILY PRN PRN Reason: Consult order Polyethylene Glycol (Polyethylene Glycol 3350 17 Gm Powd.Pack) 17 gm PO DAILY PRN PRN Reason: Constipation Sertraline HCl (Sertraline Hcl 50 Mg Tablet) 50 mg PO DAILY PRN PRN Reason: Anxiety Sodium Chloride (0.9 % Sodium Chloride Flush 3 Ml Syringe) 3 ml IVFLUSH QSHIFT [facility] Last Admin: 06/24/24 08:39 Dose: 3 ml Documented By: YELENA Tizanidine HCl (Tizanidine Hcl 4 Mg Tablet) 4 mg PO TID PRN PRN Reason: muscle spasticity Last Admin: 06/22/24 19:25 Dose: 4 mg Documented By: LYSZ Labs 06/22/24 06:07 06/25/24 06:09 Labs: Laboratory Results - last 24 hr 06/23/24 06/24/24 15:57 05:26 Hold Purple Top SEE NOTE Estim Creat Clear Calc 127.0 Estimated GFR > 60 Random Vancomycin 14.4 L Microbiology Microbiology Results: Microbiology 06/22/24 09:15 Gram Stain - Final Hand Left Routine Culture - Preliminary Streptococcus group c Gram negative roldan 06/21/24 13:37 Blood Culture - Preliminary Blood - Venous No growth after 48 hours. 06/21/24 11:37 Blood Culture - Preliminary Blood - Venous No growth after 48 hours. Assessment and Plan (1) Abscess of hand, left: Status: Acute Plan 24-year-old male with a past medical history significant for cerebral palsy with left hand deficit, substance use disorder (opiates and cocaine), obesity and mild intermittent asthma, who presented to the ED due to left hand pain, swelling and abscess drainage for the past week. ED provider discussed case with ortho and it was recommended for medical admission with surgical I&D today or tomorrow. Left hand abscess/sepsis related to ivda WBC 13.5, lactic acid 1.3 no tachycardia or tachypnea follow culture continue iv vanco and cetriaxone Ortho may need I and D -dilaudid and oxycodone for pain. RSV-- asymptomatic- supportive care Mild intermittent asthma, no acute exacerbation albuterol as needed Attention deficit--Adderal. Substance use disorder- patient on methdone -does need to be confirmed. addiction med consult Obesity- BMI 34.9 weight loss encouraged Full code VTE prophylaxis: Pneumoboots early ambulation ongoing need for hospitlisation : Left hand abscess/sepsis related to ivda: Started on IV antibiotics,, possible need of I and D in the morning, ortho consult, IV pain medications as well as IV fluid. Quality Stroke Does the patient have a stroke diagnosis?: No VTE Prior VTE?: No VTE Risk Level:: Medical - moderate - high VTE Device Contraindication: N/A - Device Ordered VTE Drug Contraindication: N/A - Med Ordered
[2024-06-24 16:43] LABS: Vancomycin Random 18.4 mcg/mL (15-20)
--- NOTE | 2024-06-24 17:01 | HE.PHANOTE ---
RE: vanco patient's renal function increased, level came back at 18.4mg/L. changed dose to 1250mg Q12H predicted trough of 14.9mg/L, AUC of 444mg/L. Next level to be drawn 06/25 @1600
[2024-06-24] MEDS: cefTRIAXone sodium 1 GM VIAL IVPUSH (17:15)
[2024-06-24] MEDS: vancomycin HCL 1,250 MG in 0.9 % Sodium Chloride 250 ML 166.67 MG IV (17:53)
[2024-06-24] MEDS: Milk of Magnesia 30 ML ORAL.SUSP PO (18:14)
[2024-06-24 19:16] VITALS: BP 134/74; PULSE 95; RESP 20; TEMP 36; O2SAT 100
[2024-06-24] MEDS: Docusate Sodium 100 MG CAPSULE PO (20:13)
[2024-06-25] MEDS: Acetaminophen 325 MG TABLET 975 MG PO ×2 (00:01→08:57)
[2024-06-25] MEDS: oxyCODONE HCl Immed Release 5 MG TABLET 10 MG PO ×3 (00:02→05:43)
[2024-06-25] MEDS: HYDROmorphone HCl 1 MG/ML SYRINGE IVPUSH ×3 (00:02→05:44)
[2024-06-25 00:03] VITALS: BP 128/70
[2024-06-25] MEDS: 0.9 % Sodium Chloride Flush 3 ML SYRINGE IVFLUSH ×2 (00:03→08:58)
[2024-06-25] MEDS: cloNIDine HCL 0.1 MG TABLET PO (00:03)
[2024-06-25 03:06] VITALS: BP 116/68; PULSE 88; RESP 18; TEMP 36.7; O2SAT 98
[2024-06-25] MEDS: Sertraline HCL 50 MG TABLET PO (03:13)
[2024-06-25] MEDS: Amphetamine Mixed Salts 10 MG TABLET 30 MG PO ×2 (05:46→13:24)
[2024-06-25] MEDS: vancomycin HCL 1,250 MG in 0.9 % Sodium Chloride 250 ML 166.66 MG IV (05:47)
[2024-06-25 06:51] LABS: Creatinine Clr Calc Pharmacy 119.2; Estimated Glomerular Filt Rate > 60
[2024-06-25 08:00] VITALS: BP 136/82; PULSE 94; RESP 16; TEMP 36.1; O2SAT 95
[2024-06-25 08:14] LABS: HIV AB/AG Nonreactive (Nonreactive); HIV Num 1 0.04 S/CO (0.00-0.99); ~HepC Num1 0.24 S/CO (0.00-0.79); ~Hepatitis C Antibody Nonreactive (Nonreactive)
[2024-06-25] MEDS: methADONE HCl 20 MG/2 ML ORAL.CONC 70 MG PO (08:53)
[2024-06-25] MEDS: Docusate Sodium 100 MG CAPSULE PO (08:57)
[2024-06-25] MEDS: clonazePAM 1 MG TABLET PO ×2 (08:57→13:24)
[2024-06-25] MEDS: Loratadine 10 MG TABLET PO (08:57)
--- NOTE | 2024-06-25 09:02 | PC.NURSE ---
Pt left the floor. Was found in the lobby by Nurse Educator Gail. Pt was coming from outside the hospital to inside the lobby. Pt came back to the floor and educated that He can not leave the unit while he is inpatient. Pt states understanding. Camera placed in the room for elopement.
[2024-06-25] MEDS: oxyCODONE HCl Immed Release 15 MG TABLET PO (10:00)
--- NOTE | 2024-06-25 10:33 | P.PNIM_ITS ---
Subjective Subjective Date of Service: 06/25/24 Interval History: hand ceellulitis Physical Exam 2 Vital Signs: Vital Signs: Last Vital Signs Temp 96.9 F 06/25/24 08:00 Pulse 94 06/25/24 08:00 Resp 16 06/25/24 08:00 BP 136/82 06/25/24 08:00 Pulse Ox 95 06/25/24 08:00 O2 Del Method Room Air 06/25/24 08:00 O2 Flow Rate 3 06/22/24 09:50 BMI result Body Mass Index 36.3 Objective Data Active Medications Acetaminophen (Acetaminophen 325 Mg Tablet) 975 mg PO Q6H [facility] Last Admin: 06/25/24 08:57 Dose: 975 mg Documented By: SALMA Albuterol Sulfate (Albuterol Sulfate 90 Mcg 8 Gm Inhaler) 2 puff INHALE QID PRN PRN Reason: wheezing Last Admin: 06/23/24 19:46 Dose: 2 puff Documented By: ALLISON Amphetamine/Dextroamphetamine (Amphetamine Mixed Salts 10 Mg Tablet) 30 mg PO BID@0700,1400 [facility] Last Admin: 06/25/24 05:46 Dose: 30 mg Documented By: MONO Calcium Carbonate (Calcium Carbonate 750 Mg Tab.Chew) 750 mg PO Q4H PRN PRN Reason: Heartburn Ceftriaxone Sodium (Ceftriaxone Sodium 1 Gm Vial) 1 gm IVPUSH Q24H [facility] Last Admin: 06/24/24 17:15 Dose: 1 gm Documented By: ANDREA Clonazepam (Clonazepam 1 Mg Tablet) 1 mg PO QID [facility] Last Admin: 06/25/24 08:57 Dose: 1 mg Documented By: SALMA Clonidine HCl (Clonidine Hcl 0.1 Mg Tablet) 0.1 mg PO TID PRN; Protocol PRN Reason: Anxiety Last Admin: 06/25/24 00:03 Dose: 0.1 mg Documented By: MONO Docusate Sodium (Docusate Sodium 100 Mg Capsule) 100 mg PO BID [facility] Last Admin: 06/25/24 08:57 Dose: 100 mg Documented By: SALMA Hydromorphone HCl (Hydromorphone Hcl 1 Mg/Ml Syringe) 1 mg IVPUSH Q3H PRN; Protocol PRN Reason: Pain, Moderate(Pain Scale 4-6) Vancomycin HCl 1,250 mg/ (Sodium Chloride) 250 mls @ 166.667 mls/hr IV Q12H [facility] Last Infusion: 06/25/24 07:21 Dose: Infused Documented By: SALMA Loratadine (Loratadine 10 Mg Tablet) 10 mg PO DAILY [facility] Last Admin: 06/25/24 08:57 Dose: 10 mg Documented By: SALMA Magnesium Hydroxide (Milk Of Magnesia 30 Ml Oral.Susp) 30 ml PO DAILY PRN PRN Reason: Constipation Last Admin: 06/24/24 18:14 Dose: 30 ml Documented By: ANDREA Melatonin (Melatonin 3 Mg Tablet) 6 mg PO BEDTIME PRN PRN Reason: Insomnia Last Admin: 06/22/24 21:02 Dose: 6 mg Documented By: ALLISON Methadone HCl (Methadone Hcl 20 Mg/2 Ml Oral.Conc) 70 mg PO DAILY@0800 [facility] Last Admin: 06/25/24 08:53 Dose: 70 mg Documented By: SALMA Co-signed By: FELICIA Naloxone HCl (Naloxone Hcl 0.4 Mg/Ml Vial) 0.04 mg IVPUSH Q5M PRN PRN Reason: Excessive sedation or RR < 8 Nicotine (Nicotine 21 Mg Patch.Td24) 21 mg TRANSDERMA DAILY PRN PRN Reason: Nicotine Cravings Ondansetron HCl (Ondansetron Odt 8 Mg Tab.Rapdis) 8 mg TRANSLINGU DAILY PRN PRN Reason: nausea Oxycodone HCl (Oxycodone Hcl Immed Release 15 Mg Tablet) 15 mg PO Q4H PRN PRN Reason: Pain, Moderate(Pain Scale 4-6) Last Admin: 06/25/24 10:00 Dose: 15 mg Documented By: SALMA Pharmacy Consult (Consult Rx Vancomycin Dosing) 1 each MISCELLANE DAILY PRN PRN Reason: Consult order Polyethylene Glycol (Polyethylene Glycol 3350 17 Gm Powd.Pack) 17 gm PO DAILY PRN PRN Reason: Constipation Sertraline HCl (Sertraline Hcl 50 Mg Tablet) 50 mg PO DAILY PRN PRN Reason: Anxiety Last Admin: 06/25/24 03:13 Dose: 50 mg Documented By: MONO Sodium Chloride (0.9 % Sodium Chloride Flush 3 Ml Syringe) 3 ml IVFLUSH QSHIFT [facility] Last Admin: 06/25/24 08:58 Dose: 3 ml Documented By: SALMA Tizanidine HCl (Tizanidine Hcl 4 Mg Tablet) 4 mg PO TID PRN PRN Reason: muscle spasticity Last Admin: 06/22/24 19:25 Dose: 4 mg Documented By: ALLISON Labs 06/22/24 06:07 06/25/24 06:09 Labs: Laboratory Results - last 24 hr 06/24/24 06/25/24 16:16 06:09 Hold Purple Top SEE NOTE Estim Creat Clear Calc 119.2 Estimated GFR > 60 Random Vancomycin 18.4 Hepatitis C Ab (EIA) Nonreactive HIV 1&2 Ab/P24 Ag 4thGn Nonreactive Microbiology Microbiology Results: Microbiology 06/22/24 09:15 Gram Stain - Final Hand Left Routine Culture - Preliminary Streptococcus group c Gram negative roldan Methicillin Res Staph Aureus Assessment and Plan (1) Abscess of hand, left: Status: Acute Plan 24-year-old male with a past medical history significant for cerebral palsy with left hand deficit, substance use disorder (opiates and cocaine), obesity and mild intermittent asthma, who presented to the ED due to left hand pain, swelling and abscess drainage for the past week. ED provider discussed case with ortho and it was recommended for medical admission with surgical I&D today or tomorrow. Left hand abscess/sepsis related to ivda WBC 13.5, lactic acid 1.3 no tachycardia or tachypnea follow culture continue iv vanco and cetriaxone Ortho may need I and D -dilaudid and oxycodone for pain. RSV-- asymptomatic- supportive care Mild intermittent asthma, no acute exacerbation albuterol as needed Attention deficit--Adderal. Substance use disorder- patient on methdone -does need to be confirmed. addiction med consult Obesity- BMI 34.9 weight loss encouraged Full code VTE prophylaxis: Pneumoboots early ambulation ongoing need for hospitlisation : Left hand abscess/sepsis related to ivda: Started on IV antibiotics,, possible need of I and D in the morning, ortho consult, IV pain medications as well as IV fluid. Quality Stroke Does the patient have a stroke diagnosis?: No VTE Prior VTE?: No VTE Risk Level:: Medical - moderate - high VTE Device Contraindication: N/A - Device Ordered VTE Drug Contraindication: N/A - Med Ordered
--- NOTE | 2024-06-25 13:22 | PC.NURSE ---
Pt leaving AMA. Pt is of sounds mind and able to make own decisions. MD notified of leaving AMA. Risks and benefits explained. Pt does not want to stay, Security called. NO IV access.
--- NOTE | 2024-06-25 13:50 | P.DS_ITS ---
DS: Providers Provider Date of Service: 06/25/24 Date of admission: 06/21/24 18:28 Date of discharge: 06/25/24 Primary care physician: Brenda Breaux MD Consults: 06/21/24 19:28 Consult to Orthopedics Routine Consulting Provider: [facility] Reason for consultation: left hand abcess Has provider been notified: No 06/22/24 15:30 Addiction Medicine Routine Consulting Provider: Addiction Covering Reason for consultation: polysubstance use Has provider been notified: No 06/24/24 09:51 Consult to Infectious Diseases Routine Consulting Provider: [facility] Reason for consultation: hand abcess Has provider been notified: No Attending physician on discharge: Yong Scott Discharging clinician: Yogn Scott DS: Diagnosis Discharge Diagnosis (1) Abscess of hand, left: Status: Acute DS: Summary Hospital Course Hospital Course: HPI:24-year-old male with a past medical history significant for cerebral palsy with left hand deficit, substance use disorder (opiates and cocaine), obesity and mild intermittent asthma, who presented to the ED due to left hand pain, swelling and abscess drainage for the past week. ED provider discussed case with ortho and it was recommended for medical admission with surgical I&D today or tomorrow. has left hand pain /erythema/swelling Denies any new complaint of chest pain or shortness of breath or abdominal pain or fever or chills or nausea or vomiting Denies any cough Denies any weakness or numbness. labs imaging reviewed: wbc 13.5 bmp seems fine ,blood cultures pending hand xray: 1. No acute bony abnormalities. 2. Soft tissue swelling involving the hypothenar aspect and dorsum of the hand. No radiopaque foreign body is evidence. Hospital course: Patient came to the hospital because of left hand abscess has history of IVDU: Patient was admitted for left hand abscess/sepsis: Patient was started on IV antibiotics, blood cultures sent, surgery consulted: Patient is status post I&D of left hand-blood culture came out to be negative, hand cellulitis area is also improving after I&D, wound cultures are still pending-so far growing strep C/MRSA /Gram-negative roldan: Patient decided to go against medical advice does not want to tell the reasons Has personal family issues: We have explained in detail the risk of leaving against medical advice yesterday and today-he understand that his hand infection can get worse and even can lose the limb and even can with sepsis if infection worsen, he could able to repeat back above, alert oriented x3. We sent a p.o. antibiotics for home-he understand p.o. antibiotic might not be as effective as IV antibiotics. Staff witnessed conversation. Patient was also told to go to nearest emergency room to seek help. Of note: Patient also was trying go in and out of the hospital since morning even though he was told many times that is not recommended . Assessment and plan coordination time spent 40 minute. Time Attestation Total time managing care of this patient today: 40 mintues. Discharge Coordination Time (in mins): 40 minute Quality: Safe Use of Opioids Does Pt have an Active Cancer Diagnosis on the Problem List?: No Quality: Stroke Does the patient have a stroke diagnosis?: No Physical Exam Vital Signs: Vital Signs: Last Vital Signs Temp 96.9 F 06/25/24 08:00 Pulse 94 06/25/24 08:00 Resp 16 06/25/24 08:00 BP 136/82 06/25/24 08:00 Pulse Ox 95 06/25/24 08:00 O2 Del Method Room Air 06/25/24 08:00 O2 Flow Rate 3 06/22/24 09:50 BMI result Body Mass Index 36.3 Refused physical exam. DS: Data Data Completed and Pending Labs on day of discharge: Laboratory Results - last 24 hr 06/24/24 06/25/24 16:16 06:09 Hold Purple Top SEE NOTE Creatinine 1.14 Estim Creat Clear Calc 119.2 Estimated GFR > 60 Random Vancomycin 18.4 Hepatitis C Ab (EIA) Nonreactive HIV 1&2 Ab/P24 Ag 4thGn Nonreactive Preliminary micro results at discharge 06/22/24 09:15 Routine Culture - Preliminary Hand Left Streptococcus group c Gram negative roldan Methicillin Res Staph Aureus 06/21/24 13:37 Blood Culture - Preliminary Blood - Venous No growth after 48 hours. 06/21/24 11:37 Blood Culture - Preliminary Blood - Venous No growth after 48 hours. Imaging Chest x-ray: Radiologist's impression: ITS Impressions Hand X-Ray 06/21/24 11:20 IMPRESSION: 1. No acute bony abnormalities. 2. Soft tissue swelling involving the hypothenar aspect and dorsum of the hand. No radiopaque foreign body is evident. Electronically signed by: Janes Cunningham MD 06/21/2024 11:49 AM [facility] Discharge Plan Discharge Anticipated Discharge Date/Time: 06/25/24 13:39 Patient Disposition: Left Against Medical Advice Discharge Diagnosis: Left hand Abscess Referrals: Brenda Breaux MD [Primary Care Provider] - 1 Week Ken Arnold PA [Physician Clinical Support Manager] - 1 Week (06/28/24 09:45 [facility] Ken Arnold PA) Discharge Medications: New cefuroxime axetil 500 mg tablet 500 mg PO BID Qty: 14 0RF doxycycline hyclate 100 mg capsule 100 mg PO Q12H Qty: 14 0RF Continued tizanidine 4 mg tablet 4 mg PO TID PRN (Reason: muscle spasticity) 30 Days Qty: 90 1RF clonidine HCl 0.1 mg tablet 0.1 mg PO TID PRN (Reason: Anxiety) ibuprofen 800 mg tablet 800 mg PO BID PRN (Reason: pain) clonazepam 1 mg tablet 1 mg PO QID fexofenadine 180 mg tablet 180 mg PO DAILY dextroamphetamine-amphetamine 30 mg tablet 1 tab PO BID@0700,1400 nicotine 21 mg/24 hr patch 24 hour 1 patch transdermal DAILY PRN (Reason: Nicotine Cravings) albuterol sulfate [Ventolin HFA] 90 mcg/actuation HFA aerosol inhaler 2 puff INHALATION QID PRN (Reason: wheezing) ondansetron 8 mg tablet,disintegrating 8 mg PO DAILY PRN (Reason: nausea) methadone 10 mg/mL Concentrate 70 mg PO DAILY sertraline 50 mg tablet 50 mg PO DAILY PRN (Reason: Anxiety) Discharge Orders: Discharge Order (Routine); Ordered 06/25/24 Ordered By: Yong Scott Print Language: Uzbek Care Plan Goals: Patient came to the hospital because of left hand abscess has history of IVDU: Patient was admitted for left hand abscess/sepsis: Patient was started on IV antibiotics, blood cultures sent, surgery consulted: Patient is status post I&D of left hand-blood culture came out to be negative, hand cellulitis area is also improving after I&D, wound cultures are still pending-so far growing strep C/MRSA /Gram-negative roldan: Patient decided to go against medical advice does not want to tell the reasons Has personal family issues: We have explained in detail the risk of leaving against medical advice yesterday and today-he understand that his hand infection can get worse and even can lose the limb and even can with sepsis if infection worsen, he could able to repeat back above, alert oriented x3. We sent a p.o. antibiotics for home-he understand p.o. antibiotic might not be as effective as IV antibiotics. Staff witnessed conversation. Patient was also told to go to nearest emergency room to seek help. Health Concerns: as above. Plan of Treatment: As above. Assessment: As above.
--- NOTE | 2024-06-25 23:39 | P.CNID_ITS ---
History of Present Illness Data of Consult Service Date: 06/24/24 Requesting physician: Yong Scott Primary Care Provider: MD ERICK Che Reason for consult: left hand abscess He presents with left hand pain and swelling,worse over last day. He has redness as well. He is getting seen by Hand. He has gram negative rods,group C strep from wound. He uses IV cocaine. Review of Systems 2 Review of Systems: Yes all other systems are reviewed and are negative PMFSH Past Medical History Medical History Mild intermittent asthma Environmental allergies Allergies Left hemiparesis Cerebral palsy Family History Family history: reviewed and not pertinent Social History Social History Household Members: Family Housing: House Do you presently have visiting nurse or other home services: No Alcohol intake: current Alcohol intake frequency: holidays/special occasions only Patient Tobacco Use Status: Current everyday Tobacco user Cigarettes Per Day: 10 e-Cigarette/Vaping Use: Currently Using Second Hand Smoke Exposure: Yes Substance Use Type: Crack/Cocaine and Painkillers Advance Directives Date on File: 05/29/24 service: No Current occupational status: unemployed Cognitive needs: No Hearing needs: No Vision needs: No Meds Allergies Allergy/AdvReac Type Severity Reaction Status Date / Time amoxicillin [AMOXICILLIN] Allergy Unknown HIVES Verified 06/21/24 11:04 hydrocodone [From VICODIN] Allergy Unknown RASH Verified 06/21/24 11:04 sulfamethoxazole Allergy Unknown UNKNOWN Verified 06/21/24 11:04 [From BACTRIM] trimethoprim [From BACTRIM] Allergy Unknown UNKNOWN Verified 06/21/24 11:04 Vicodin Allergy Unknown hives Uncoded 06/21/24 11:04 Home Medications ?Medication ?Instructions ?Recorded ?Confirmed ?Last Taken ?Type albuterol sulfate 90 mcg/actuation 2 puff inhalation QID PRN wheezing 05/26/24 06/21/24 Unknown History aerosol inhaler (Ventolin HFA) clonazepam 1 mg tablet 1 mg PO QID 05/26/24 06/21/24 06/21/24 History clonidine HCl 0.1 mg tablet 0.1 mg PO TID PRN Anxiety 05/26/24 06/21/24 Unknown History dextroamphetamine-amphetamine 30 1 tab PO BID@0700,1400 05/26/24 06/21/24 05/25/24 History mg tablet fexofenadine 180 mg tablet 180 mg PO DAILY 05/26/24 06/21/24 06/21/24 History ibuprofen 800 mg tablet 800 mg PO BID PRN pain 05/26/24 06/21/24 Unknown History nicotine 21 mg/24 hr daily 1 patch transdermal DAILY PRN 05/26/24 06/21/24 05/25/24 History transdermal patch Nicotine Cravings methadone 10 mg/mL oral concentrate 70 mg PO DAILY 06/21/24 06/24/24 06/21/24 09:00 History ondansetron 8 mg disintegrating 8 mg PO DAILY PRN nausea 06/21/24 06/21/24 Unknown History tablet sertraline 50 mg tablet 50 mg PO DAILY PRN Anxiety 06/21/24 06/21/24 Unknown History Physical Exam 2 Vital Signs: Vital Signs: Last Vital Signs Temp 96.9 F 06/25/24 08:00 Pulse 94 06/25/24 08:00 Resp 16 06/25/24 08:00 BP 136/82 06/25/24 08:00 Pulse Ox 95 06/25/24 08:00 O2 Del Method Room Air 06/25/24 08:00 O2 Flow Rate 3 06/22/24 09:50 BMI result Body Mass Index 36.3 Const: General: cooperative HEENT: Head: Yes normal to inspection Face and sinus: Yes normal facial exam Mouth: Normal oral and palatal mucosa present Teeth and gingiva: d entition normal Eyes: General: appearance normal, both eyes and all related structures P upils: Equal, round and reactive pupils present Resp: Effort & Inspection: normal respiratory effort Cardio: Rate: regular rate Rhythm: regular rhythm GI: Palpation (GI): Soft to palpation and nontender : General: Yes no CVA tenderness Back/Spine/Pelvis: Back: no CVA tenderness Skin: General skin exam: no rashes or lesions noted Neuro: General: moves all extremities Cranial nerves: Yes Equal, round and reactive pupils present Extrem: Other: hand some swelling,can make fist,difficulty making jean jean sign Psych: Appearance: grossly normal Results Labs 06/22/24 06:07 06/25/24 06:09 Labs: BMP 06/25/24 06:09 Creatinine 1.14 Microbiology Microbiology Results: Microbiology 06/22/24 09:15 Hand Left Gram Stain - Final 06/22/24 09:15 Hand Left Routine Culture - Preliminary Streptococcus group c Gram negative roldan Methicillin Res Staph Aureus 06/21/24 13:37 Blood - Venous Blood Culture - Preliminary No growth after 48 hours. 06/21/24 11:37 Blood - Venous Blood Culture - Preliminary No growth after 48 hours. Assessment and Plan (1) Abscess of hand, left: Status: Acute (2) Cocaine use disorder: Status: Acute (3) Drug abuse, IV: Status: Acute Plan Now that improving and wants to go po cefuroxime and doxycycline 100 mg bid for seven days. Check HIV. Check Hepatitis C and treat if needed outpatient.
--- NOTE | 2024-06-26 10:24 | PC.NURSE ---
Last dose letter faxed at this time to Linda Rothman.
--- NOTE | 2024-07-10 16:50 | P.CDIM_ITS ---
PROVIDER RESPONSE TEXT: To clarify, the appropriate diagnosis supported by the clinical indicators: tendon QUERY TEXT: PHYSICIAN'S DOCUMENTATION REQUEST Date of Query: 07/09/2024 06:45 AM EDT Patient Name: PHILIPPE OREILLY Admit Date: 06/21/2024 Dear Fanny Cruz MD, A review of the medical record indicates additional documentation may be needed. Please review below and update the documentation accordingly. Clinical Indicators: The following diagnoses or signs and symptoms were noted in the patient record: Procedure: 1. I and D of left ulnar hand abscess 2. I and D of left dorsal radial hand abscess Based on the above, could you clarify the depth of the I&D procedure: skin subcutaneous tissue and fat muscle tendon bone Other (explain) Clinically unable to determine (explain) Thank you, Nohemi Rockwell RN Use of terms such as suspected, likely, concern for, or probable (associated with a specific diagnosi s that is being evaluated, monitored, or treated as if it exists) are acceptable and can be coded in the inpatient se tting, when documented at the time of discharge. Please use your independent medical judgment in providing your response. THIS QUERY IS PART OF THE PERMANENT MEDICAL RECORD
== END 2024-06-25 13:53 | disposition left against medical advice (07) | DRG 710 ==
LOC: HO.ED 18:13 → HO.EDOVER 18:43 → HO.S3 06-22 09:52
PROVIDERS: Orthopaedic Surgery; Physician Assistant Medical; Admitting Provider Internal Medicine; Emergency Provider Internal Medicine; PCP Internal Medicine; Visit Provider Internal Medicine
PROC: 0L980ZZ Drainage of Left Hand Tendon, Open Approach (ICD-10-PCS; principal; 2024-06-22 08:30)
DX: A41.9 Sepsis, unspecified organism (principal); E66.9 Obesity, unspecified; F11.20 Opioid dependence, uncomplicated; F98.8 Other specified behavioral and emotional disorders with onset usually occurring in childhood and adolescence; Z68.36 Body mass index [BMI] 36.0-36.9, adult; F17.210 Nicotine dependence, cigarettes, uncomplicated; G80.8 Other cerebral palsy; B95.4 Other streptococcus as the cause of diseases classified elsewhere; B95.62 Methicillin resistant Staphylococcus aureus infection as the cause of diseases classified elsewhere; J45.20 Mild intermittent asthma, uncomplicated; L02.512 Cutaneous abscess of left hand; Z71.6 Tobacco abuse counseling; Z79.899 Other long term (current) drug therapy
CPT/HCPCS: 36415; 73130; 80048; 80202; 80307; 82565; 83605; 85025; 85027; 85652; 86140; 86803; 87040; 87070; 87077; 87147; 87186; 87205; 87389; 87640; 87641; 97110; 97166; 99285; J0131; J0696; J1171; J1885; J2003; J2004; J2250; J2405; J2704; J2795; J3010; J3370; J3371; J7120; S9485

== ENCOUNTER → 2024-06-21 11:10 | Outpatient (BNV) | payer MEDICAID, SELFPAY | PROVIDERS: PCP Internal Medicine; Visit Provider Radiology Diagnostic Radiology | DX: M79.642 Pain in left hand (principal) | CPT/HCPCS: 73130 ==

== ENCOUNTER → 2024-06-21 18:28 | Outpatient (BNV) | payer MEDICAID, SELFPAY | PROVIDERS: Admitting Provider Internal Medicine; Emergency Provider Internal Medicine; PCP Internal Medicine; Visit Provider Internal Medicine | DX: L02.512 Cutaneous abscess of left hand (principal) | CPT/HCPCS: 99222; 99232; 99239 ==

== ENCOUNTER → 2024-06-21 18:28 | Outpatient (BNV) | payer MEDICAID, SELFPAY | PROVIDERS: Admitting Provider Internal Medicine; Emergency Provider Internal Medicine; PCP Internal Medicine; Visit Provider Internal Medicine | DX: L02.512 Cutaneous abscess of left hand (principal); F14.10 Cocaine abuse, uncomplicated; F19.10 Other psychoactive substance abuse, uncomplicated | CPT/HCPCS: 99222 ==

== ENCOUNTER → 2024-06-21 18:28 | Outpatient (BNV) | payer MEDICAID, SELFPAY | PROVIDERS: Admitting Provider Internal Medicine; Emergency Provider Internal Medicine; PCP Internal Medicine | DX: L02.512 Cutaneous abscess of left hand (principal); F14.10 Cocaine abuse, uncomplicated | CPT/HCPCS: 10061; 99024; 99222 ==

== ENCOUNTER → 2024-06-21 18:28 | Outpatient (BNV) | payer MEDICAID, SELFPAY | PROVIDERS: Admitting Provider Internal Medicine; Emergency Provider Internal Medicine; PCP Internal Medicine; Visit Provider Nurse Practitioner Psychiatric/Mental Health | DX: F11.90 Opioid use, unspecified, uncomplicated (principal); F14.10 Cocaine abuse, uncomplicated | CPT/HCPCS: 99221 ==

== ENCOUNTER 2024-08-11 12:58 | Inpatient (IN) | payer MEDICAID, SELFPAY ==
--- NOTE | ~2024-08-11 | XR_ITS ---
CLINICAL HISTORY: abscess, eval for osteo Three views of the left hand. COMPARISON: XR left hand dated 06/21/24 at 11:33 EST FINDINGS: Distal radius and ulna appear intact. Carpal bones appear intact. Metacarpals and phalanges appear intact. No lytic or sclerotic lesion. No periostitis. No cortical disruption. No erosions identified. Soft tissue swelling overlying the 1st metacarpal and dorsal aspect of the hand. IMPRESSION: 1. Soft tissue swelling overlying the 1st metacarpal and dorsal aspect of the hand. Underlying bones appear intact. No radiographic evidence of osteomyelitis. No radiopaque foreign body. This document has been electronically signed by: Stew Flores MD on 08/11/2024 16:11:39
[2024-08-11 13:13] VITALS: BP 131/61; PULSE 92; RESP 18; TEMP 37.3; O2SAT 97; BMI 36.2
--- NOTE | 2024-08-11 13:14 | ED.GENADULT ---
HPI - General Adult General Chief complaint: Skin/Abscess/Foreign Body Stated complaint: abscess Time Seen by Provider: 08/11/24 14:21 Source: patient Mode of arrival: ambulatory Limitations: no limitations History of Present Illness ED Provider: Maricarmen Villa APRN HPI narrative: This is a 24-year-old male with a history of cerebral palsy with left-sided weakness, IV drug abuse, right hand dominant who presents to the ER with complaints of left-sided hand swelling redness and pain for the last 4 days. Of note patient was admitted June 21 for left hand cellulitis and abscess requiring I and D in the operating room. Patient did leave against medical advice and tells me he did not complete his antibiotics. He is injecting cocaine into his right hand daily. No interested in detox resources. He is will to be admitted today of necessary. He reports pain/swelling and limited ROM. Denies numbness, tingling of the extremity. Related Data Home Medications ?Medication ?Instructions ?Recorded ?Confirmed albuterol sulfate 90 mcg/actuation 2 puff inhalation QID PRN wheezing 05/26/24 06/21/24 aerosol inhaler (Ventolin HFA) clonazepam 1 mg tablet 1 mg PO QID 05/26/24 06/21/24 clonidine HCl 0.1 mg tablet 0.1 mg PO TID PRN Anxiety 05/26/24 06/21/24 dextroamphetamine-amphetamine 30 1 tab PO BID@0700,1400 05/26/24 06/21/24 mg tablet fexofenadine 180 mg tablet 180 mg PO DAILY 05/26/24 06/21/24 ibuprofen 800 mg tablet 800 mg PO BID PRN pain 05/26/24 06/21/24 nicotine 21 mg/24 hr daily 1 patch transdermal DAILY PRN 05/26/24 06/21/24 transdermal patch Nicotine Cravings methadone 10 mg/mL oral concentrate 70 mg PO DAILY 06/21/24 06/24/24 ondansetron 8 mg disintegrating 8 mg PO DAILY PRN nausea 06/21/24 06/21/24 tablet sertraline 50 mg tablet 50 mg PO DAILY PRN Anxiety 06/21/24 06/21/24 Previous Rx's ?Medication ?Instructions ?Recorded tizanidine 4 mg tablet 4 mg PO TID PRN muscle spasticity 03/14/24 30 days #90 tabs Allergies Allergy/AdvReac Type Severity Reaction Status Date / Time amoxicillin [AMOXICILLIN] Allergy Unknown HIVES Verified 08/11/24 13:15 hydrocodone [From VICODIN] Allergy Unknown RASH Verified 08/11/24 13:15 sulfamethoxazole Allergy Unknown UNKNOWN Verified 08/11/24 13:15 [From BACTRIM] trimethoprim [From BACTRIM] Allergy Unknown UNKNOWN Verified 08/11/24 13:15 Vicodin Allergy Unknown hives Uncoded 06/21/24 11:04 Review of Systems Review of Systems: Yes all other systems are reviewed and are negative Constitutional: Constitutional: Reports no additional constitutional complaints, Denies body ache(s), Denies chills, Denies fever(s), Denies headache(s) and Denies weakness Eyes: Eyes: Reports no additional eye complaints and Denies change in vision ENT: Reports system reviewed and no additional complaints, except as documented, Denies dizziness, Denies headache(s), Denies nasal congestion, Denies nasal discharge and Denies neck pain Cardiovascular: Cardiovascular: Reports no additional cardiovascular complaints, Denies chest pain, Denies leg edema and Denies dyspnea Respiratory: Respiratory: Reports no additional respiratory complaints, Denies cough and Denies dyspnea Gastrointestinal: Gastrointestinal: Reports no additional gastrointestinal complaints, Denies abdominal pain, Denies diarrhea, Denies nausea and Denies vomiting Genitourinary: Genitourinary: Denies urinary incontinence Musculoskeletal: Musculoskeletal: Reports no additional musculoskeletal complaints, Denies back pain, Denies arthralgias, Denies joint swelling, Denies neck pain, Denies numbness and Denies tingling Integumentary/Breasts: Skin/Breast: Reports system reviewed and no additional complaints, except as docu, Reports swelling, Reports erythema and Denies rash Neurologic: Reports system reviewed and no additional complaints, except as documented, Denies Abnormal speech present, Denies dizziness, Denies headache(s), Denies numbness, Denies tingling and Denies weakness PMFSH Past Medical History Attestation statement: The following information was validated with the patient. Source: old records reviewed and nursing notes reviewed Medical History Mild intermittent asthma Environmental allergies Allergies Left hemiparesis Cerebral palsy Social History Social History Household Members: Family Housing: House Do you presently have visiting nurse or other home services: No Alcohol intake: current Alcohol intake frequency: holidays/special occasions only Patient Tobacco Use Status: Current everyday Tobacco user Cigarettes Per Day: 10 e-Cigarette/Vaping Use: Currently Using Second Hand Smoke Exposure: Yes Substance Use Type: Crack/Cocaine and Painkillers Advance Directives: Yes Advance Directives on File: Yes Advance Directives Date on File: 05/29/24 service: No Current occupational status: unemployed Cognitive needs: No Hearing needs: No Vision needs: No Physical Exam ED Vital Signs: Vital Signs - 24 hr 08/11/24 13:13 Temperature 99.2 F Pulse Rate 92 Respiratory Rate 18 Blood Pressure 131/61 Pulse Oximetry 97 Oxygen Delivery Method Room Air BMI result Body Mass Index 36.2 Const General: cooperative, healthy appearing, comfortable and no acute distress Orientation/consciousness: patient oriented x3 Limitations: no limitations HENMT Head: Yes normal to inspection Ears: hearing grossly normal bilaterally General nose exam: Normal external nose present Face and sinus: Yes normal facial exam Mouth: Normal oral and palatal mucosa present Throat: Yes posterior oropharynx normal Eyes General: appearance normal, both eyes and all related structures Pupils: Equal, round and reactive pupils present Neck Neck: Yes normal visual inspection Chest Chest palpation & inspection: normal inspection of the chest Resp Effort & Inspection: normal respiratory effort Auscultation: clear to auscultation bilaterally Cardio Rate: regular rate Rhythm: regular rhythm Peripheral pulses: Peripheral pulses 2+ throughout GI Inspection: Yes normal to inspection Palpation (GI): Soft to palpation and nontender Auscultation: normal bowel sounds Back/Spine/Pelvis Thoracic/Lumbar Spine: thoracic and lumbar spine normal to inspection Skin General skin exam: no rashes or lesions noted Neuro General: patient oriented x3, no focal motor deficits and normal sensation to monofilament Cranial nerves: Yes Equal, round and reactive pupils present Cognition (Neuro): normal cognition Speech: No Abnormal speech present Gait exam (Neuro): Normal gait present Motor exam (neuro): 5/5 motor strength present throughout Extrem Other: Wrist ROM (active/passive intact). Pain with hyperextension of wrist. Unable to full flex/extend digits especially 1st/2nd digit. Pain with hyperextension of digits and on palpation over the dorsal aspect. Course Course Course Narrative: This is a rapid medical exam performed by Emily Salgado NP: Additional HPI, ROS, PE not included below will be deferred to primary provider. Patient is a 24-year-old right hand dominant male with history of polysubstance use presenting with complaint of abscess to left hand. Has been injecting cocaine, last use 1 week ago. Denies drainage/discharge. Subjective fevers. Plan: labs including cultures Medications Administered Discontinued Medications Generic Name Dose Route Start Last Admin Trade Name Cristiq PRN Reason Stop Dose Admin Ceftriaxone Sodium 2 gm 08/11/24 14:29 08/11/24 15:13 Ceftriaxone Sodium 2 Gm Vial IVPUSH 08/11/24 14:30 2 gm ONCE ONE Administration Hydromorphone HCl 0.5 mg 08/11/24 15:05 08/11/24 15:13 Hydromorphone Hcl 0.5 Mg/0.5 Ml Syringe IVPUSH 08/11/24 15:06 0.5 mg ONCE ONE Administration Protocol Vancomycin HCl 2,000 mg in 500 mls @ 250 mls/hr 08/11/24 14:29 08/11/24 15:13 Vancomycin/Ns IV 08/11/24 16:28 250 mls/hr ONCE ONE Administration Lidocaine HCl 1 appl 08/11/24 15:23 08/11/24 15:30 Lidocaine 4 % Cream Kit TOPICAL 08/11/24 15:24 1 appl ONCE ONE Administration Protocol Lidocaine HCl 2 ml 08/11/24 15:23 08/11/24 15:31 Lidocaine Hcl 1 % Mpf 2 Ml Vial INFILTRATI 08/11/24 15:24 2 ml ONCE ONE Administration Procedures Abscess I/D Site: hand Side (if applicable): left Local Anesthetic: lidocaine 1% Amount of anesthesia used (mL): 3 Technique: incised with blade Amount of fluid expressed (mL): 20 Sent for culture/gram staining?: Yes Irrigation: No Packing used?: iodoform Medical Decision Making Medical Decision Making [facility] Narrative: 1429-This is a 24-year-old male with a history of cerebral palsy with left-sided weakness, IV drug abuse, right hand dominant who presents to the ER with complaints of left-sided hand swelling redness and pain for the last 4 days. Of note patient was admitted June 21 for left hand cellulitis and abscess requiring I and D in the operating room. Patient did leave against medical advice and tells me he did not complete his antibiotics. He is injecting cocaine into his right hand daily. No interested in detox resources. He is will to be admitted today of necessary. He reports pain/swelling and limited ROM. Denies numbness, tingling of the extremity. Wrist ROM (active/passive intact). Pain with hyperextension of wrist. Unable to full flex/extend digits especially 1st/2nd digit. Pain with hyperextension of digits and on palpation over the dorsal aspect. Will need labs, x-ray, discussion with orthopedics and hospitalist for admission. At this time infection suspected. Antibiotics ordered Differential Diagnosis Differential Diagnoses: The differential diagnosis associated with the presentation includes Tenosynovitis, abscess, cellulitis Admission/Observation Consideration of admission/observation: Escalation of care including admission/observation considered See course of care Consult Healthcare Provider Management of the patient was discussed with: Hospitalist and Warehouse [employer] 1530-Spoke to Irma [place]-recommended bedside I&D, admit to medicine service. 1600-Spoke to Sharon [place]-accepted admission Lab Data [facility] Lab Attestation statement: I reviewed the patient's lab results. 08/11/24 14:12 08/11/24 14:11 Labs: Lab Results 08/11/24 08/11/24 Range/Units 14:11 14:12 WBC 13.8 H (4.8-10.8) X10*3/uL RBC 5.47 (4.60-5.80) X10*6/uL Hgb 14.9 (14.0-18.0) g/dl Hct 45.5 (42.0-52.0) % MCV 83.2 (80.0-98.0) fL MCH 27.2 (27.0-33.0) pg MCHC 32.7 (31.0-36.0) g/dl RDW 13.2 (11.0-16.0) % Plt Count 240 (160-400) X10*3/uL MPV 11.5 (9.4-12.4) fL Immature Gran % (Auto) 0.4 (0.0-0.4) % Neut % (Auto) 78.2 H (45-73) % Lymph % (Auto) 10.8 L (20-40) % [place] % (Auto) 9.7 (2-11) % Eos % (Auto) 0.7 (0-4) % Baso % (Auto) 0.2 (0-2) % Lymph # (Auto) 1.5 (1.2-4.9) X10*3/uL [place] # (Auto) 1.3 H (0.1-1.2) X10*3/uL Eos # (Auto) 0.1 (0.0-0.4) X10*3/uL Baso # (Auto) 0.0 (0.0-0.2) X10*3/uL Abs Immat Gran (auto) 0.06 H (0.00-0.03) X10*3/uL Absolute Neuts (auto) 10.8 H (2.0-8.3) x10*3/uL Absolute Nucleated RBC 0.000 (0.0-0.012) X10*3/uL Nucleated RBC % (auto) 0.0 (0.0-0.2) /100WBC ESR 21 H (0-15) MM/HR Sodium 138 (135-145) mmol/L Potassium 4.2 (3.3-5.1) mmol/L Chloride 109 H (96-108) mmol/L Carbon Dioxide 22 (22-29) mmol/L Anion Gap 11 L (12-20) BUN 13 (9-16) mg/dL Creatinine 0.89 (0.5-1.4) mg/dL Estim Creat Clear Calc 147.6 Estimated GFR > 60 Random Glucose 101 (60-115) mg/dL Lactic Acid 1.2 (0.5-2.0) mmol/L Calcium 9.2 (8.4-10.2) mg/dL Total Bilirubin 0.5 (0.0-1.0) mg/dL AST 15 (5-37) U/L ALT 32 (0-40) U/L Alkaline Phosphatase 88 (39-117) U/L C-Reactive Protein 6.06 H (< or = 0.50) mg/dL Total Protein 7.8 (6.5-8.0) g/dL Albumin 4.1 (3.5-5.0) g/dL Independent Interpretation I performed an independent interpretation of an: Plain X-Ray Interpretation: I independently viewed the x-ray and agree with the radiology report Radiology Impression Discussion of test interpretation with radiology: I have reviewed the radiologist's reading. Radiologist Impression: [id number] [place] [id number] XRay Report Signed Patient: Mookie Menchaca MR#: [id number] : 2000 Acct:[id number] Age/Sex: 24 / M ADM Date: 08/11/24 Loc: HO.ED Attending Dr: Ordering Physician: Maricarmen Villa NP Date of Service: 08/11/24 Procedure(s): XR hand LT min 3V Accession Number(s): [id number] cc: Brenda Breaux MD; Maricarmen Villa NP~ CLINICAL HISTORY: abscess, eval for osteo Three views of the left hand. COMPARISON: XR left hand dated 06/21/24 at 11:33 EST FINDINGS: Distal radius and ulna appear intact. Carpal bones appear intact. Metacarpals and phalanges appear intact. No lytic or sclerotic lesion. No periostitis. No cortical disruption. No erosions identified. Soft tissue swelling overlying the 1st metacarpal and dorsal aspect of the hand. IMPRESSION: 1. Soft tissue swelling overlying the 1st metacarpal and dorsal aspect of the hand. Underlying bones appear intact. No radiographic evidence of osteomyelitis. No radiopaque foreign body. This document has been electronically signed by: Stew Flores MD on 08/11/2024 16:11:39 Critical Care Time Critical Care Time Critical Care Time: Yes Total Critical Care Time: 60 Attestation: See procedure note, require discussion with specialist in hospitalist for admission Discharge Plan Discharge Clinical Impression: Cellulitis, Abscess of skin or subcutaneous tissue Patient Disposition: Admitted As Inpatient Print Language: Turkmen
[2024-08-11 14:18] LABS: MANUAL DIFF FLAG NO
[2024-08-11 14:19] LABS: Basophils Percent Auto 0.2 % (0-2); Eosinophils Absolute Auto 0.1 X10*3/uL (0.0-0.4); Eosinophils Percent Auto 0.7 % (0-4); Hematocrit 45.5 % (42.0-52.0); Hemoglobin 14.9 g/dl (14.0-18.0); Imm Gran Abs Auto 0.06 X10*3/uL (0.00-0.03); Imm Gran Pct Auto 0.4 % (0.0-0.4); Lymphocytes Absolute Auto 1.5 X10*3/uL (1.2-4.9); Lymphocytes Percent Auto 10.8 % (20-40); Mean Corpuscular HGB Conc 32.7 g/dl (31.0-36.0); Mean Corpuscular Hemoglobin 27.2 pg (27.0-33.0); Mean Corpuscular Volume 83.2 fL (80.0-98.0); Mean Platelet Volume 11.5 fL (9.4-12.4); Monocytes Absolute Auto 1.3 X10*3/uL (0.1-1.2); Monocytes Percent Auto 9.7 % (2-11); Neutrophils Absolute Auto 10.8 x10*3/uL (2.0-8.3); Neutrophils Percent Auto 78.2 % (45-73); Platelet Count 240 X10*3/uL (160-400); Red Blood Count 5.47 X10*6/uL (4.60-5.80); Red Cell Distribution Width 13.2 % (11.0-16.0); White Blood Count 13.8 X10*3/uL (4.8-10.8)
[2024-08-11 14:50] LABS: Lactic Acid 1.2 mmol/L (0.5-2.0)
[2024-08-11 14:51] LABS: Alanine Aminotransferase 32 U/L (0-40); Albumin Level 4.1 g/dL (3.5-5.0); Alkaline Phosphatase 88 U/L (39-117); Anion Gap 11 (12-20); Aspartate Amino Transferase 15 U/L (5-37); Bilirubin Total 0.5 mg/dL (0.0-1.0); Blood Urea Nitrogen 13 mg/dL (9-16); C Reactive Protein 6.06 mg/dL (< or = 0.50); Calcium 9.2 mg/dL (8.4-10.2); Carbon Dioxide 22 mmol/L (22-29); Chloride 109 mmol/L (96-108); Creatinine Clr Calc Pharmacy 147.6; Estimated Glomerular Filt Rate > 60; Glucose Random 101 mg/dL (60-115); Potassium 4.2 mmol/L (3.3-5.1); Sodium 138 mmol/L (135-145); Total Protein 7.8 g/dL (6.5-8.0)
[2024-08-11 15:01] LABS: Erythrocyte Sedimentation Rate 21 MM/HR (0-15)
[2024-08-11] MEDS: vancomycin/NS 2,000 MG/500 ML PLAST..BAG 250 MG IV (15:13)
[2024-08-11] MEDS: cefTRIAXone sodium 2 GM VIAL IVPUSH (15:13)
[2024-08-11] MEDS: HYDROmorphone HCl 0.5 MG/0.5 ML SYRINGE IVPUSH (15:13)
[2024-08-11] MEDS: Lidocaine 4 % Cream KIT 1 APPL TOPICAL (15:30)
[2024-08-11] MEDS: Lidocaine HCl 1 % MPF 2 ML VIAL INFILTRATI (15:31)
--- NOTE | 2024-08-11 16:04 | PM.IMHP ---
History of Present Illness Date of Service: 08/11/24 Attending physician on admission: Raheel Parekh Chief Complaint: hand infection 24-year-old male with a past medical history significant for cerebral palsy with left hand deficit, substance use disorder (cocaine), obesity and mild intermittent asthma, who presented to the ED due to left hand pain, swelling and redness ongoing for several days. He endores IV cocaine abuse, last use 4 days ago. Reports injecting in the L hand. Has history of cellulitis/abscess ulnar aspect left hand requiring OR I&D but left AMA after several days. Wound cultures positive for MRSA. No history of bacteremia. Endorses subjective fevers and chills. In the ED, slightly tachycardic in the 90s, leukocytosis 13.5. CRP 6.06, ESR 24. Lactic acid 1.2. XR L hand pending. In the ED has received IV vanco and ctx. Also received IV dilaudid. Review of Systems Review of Systems: Yes all other systems are reviewed and are negative [facility] Medical History Mild intermittent asthma Environmental allergies Allergies Left hemiparesis Cerebral palsy Social History Household Members: Family Housing: House Do you presently have visiting nurse or other home services: No Alcohol intake: current Alcohol intake frequency: holidays/special occasions only Patient Tobacco Use Status: Current everyday Tobacco user Cigarettes Per Day: 10 e-Cigarette/Vaping Use: Currently Using Second Hand Smoke Exposure: Yes Substance Use Type: Crack/Cocaine and Painkillers Advance Directives: Yes Advance Directives on File: Yes Advance Directives Date on File: 05/29/24 service: No Current occupational status: unemployed Cognitive needs: No Hearing needs: No Vision needs: No Meds Allergies Allergy/AdvReac Type Severity Reaction Status Date / Time amoxicillin [AMOXICILLIN] Allergy Unknown HIVES Verified 08/11/24 13:15 hydrocodone [From VICODIN] Allergy Unknown RASH Verified 08/11/24 13:15 sulfamethoxazole Allergy Unknown UNKNOWN Verified 08/11/24 13:15 [From BACTRIM] trimethoprim [From BACTRIM] Allergy Unknown UNKNOWN Verified 08/11/24 13:15 Vicodin Allergy Unknown hives Uncoded 06/21/24 11:04 Active Medications: Current Medications Vancomycin HCl (Vancomycin/Ns) 2,000 mg in 500 mls @ 250 mls/hr IV ONCE ONE Stop: 08/11/24 16:28 Last Admin: 08/11/24 15:13 Dose: 250 mls/hr Home Medications ?Medication ?Instructions ?Recorded ?Confirmed ?Last Taken ?Type albuterol sulfate 90 mcg/actuation 2 puff inhalation QID PRN wheezing 05/26/24 06/21/24 Unknown History aerosol inhaler (Ventolin HFA) clonazepam 1 mg tablet 1 mg PO QID 05/26/24 06/21/24 06/21/24 History clonidine HCl 0.1 mg tablet 0.1 mg PO TID PRN Anxiety 05/26/24 06/21/24 Unknown History dextroamphetamine-amphetamine 30 1 tab PO BID@0700,1400 05/26/24 06/21/24 05/25/24 History mg tablet fexofenadine 180 mg tablet 180 mg PO DAILY 05/26/24 06/21/24 06/21/24 History ibuprofen 800 mg tablet 800 mg PO BID PRN pain 05/26/24 06/21/24 Unknown History nicotine 21 mg/24 hr daily 1 patch transdermal DAILY PRN 05/26/24 06/21/24 05/25/24 History transdermal patch Nicotine Cravings methadone 10 mg/mL oral concentrate 70 mg PO DAILY 06/21/24 06/24/24 06/21/24 09:00 History ondansetron 8 mg disintegrating 8 mg PO DAILY PRN nausea 06/21/24 06/21/24 Unknown History tablet sertraline 50 mg tablet 50 mg PO DAILY PRN Anxiety 06/21/24 06/21/24 Unknown History Physical Exam Vital Signs and Narrative: Vital Signs: Last Vital Signs Temp 99.2 F 08/11/24 13:13 Pulse 92 08/11/24 13:13 Resp 18 08/11/24 13:13 BP 131/61 08/11/24 13:13 Pulse Ox 97 08/11/24 13:13 O2 Del Method Room Air 08/11/24 13:13 BMI result Body Mass Index 36.2 Constitutional - Awake and Alert, No apparent distress Eyes - PERRLA, EOMI Cardiovascular - S1S2, RRR, No edema Respiratory - Normal lung expansion, Normal respiratory effort, No respiratory distress, CTA bilaterally Extremities - no calf tenderness bilaterally. Significant swelling pf the dorsal radial aspect of the L hand with prominent abscess at the base of the L thumb with multiple other track iverson noted on the hand. Significant erythema, warmth and ttp, unable to fully close fist due to swelling Skin - Warm/Dry Neurological - Alert & oriented x3 Results Labs 08/11/24 14:12 08/11/24 14:11 Labs: Laboratory Results - last 24 hr 08/11/24 08/11/24 14:11 14:12 MCV 83.2 MCH 27.2 MCHC 32.7 RDW 13.2 Plt Count 240 MPV 11.5 Immature Gran % (Auto) 0.4 Neut % (Auto) 78.2 H Lymph % (Auto) 10.8 L [place] % (Auto) 9.7 Eos % (Auto) 0.7 Baso % (Auto) 0.2 Lymph # (Auto) 1.5 [place] # (Auto) 1.3 H Eos # (Auto) 0.1 Baso # (Auto) 0.0 Abs Immat Gran (auto) 0.06 H Absolute Neuts (auto) 10.8 H Absolute Nucleated RBC 0.000 Nucleated RBC % (auto) 0.0 ESR 21 H Anion Gap 11 L Estim Creat Clear Calc 147.6 Estimated GFR > 60 Random Glucose 101 Lactic Acid 1.2 Calcium 9.2 Total Bilirubin 0.5 AST 15 ALT 32 Alkaline Phosphatase 88 C-Reactive Protein 6.06 H Total Protein 7.8 Albumin 4.1 Assessment and Plan (1) Abscess of skin or subcutaneous tissue: Status: Acute (2) Cellulitis: Status: Acute (3) Drug abuse, IV: Status: Acute Plan 24-year-old male with a past medical history significant for cerebral palsy with left hand deficit, substance use disorder (cocaine), obesity and mild intermittent asthma admitted for further eval and management of cellulitis and abscess L hand Acute cellulitis and abscess L hand wtih sepsis wbc 13.5, tachy 90s. NO lactic acidosis or end organ damage. NO severe sepsis on admission hx mrsa and strep c IV vanco and ctx (initiated 08/11) I&D at bedside by ED provider. Hand surgery consult Follow CBC, cultures Mild intermittent asthma no exacerbation albuterol prn Mood disorder continue home meds Polysubstance abuse refuses addiction consult. Has seen them before and reports he knows how to get in in touch with them and does not desire sobriety at this time NIcotine vaping cessation advised NRT DVT ppx- lovenox full code inpt stay at least 2 midnights due to significant cellulitis L hand and abscess in IVDA requiring broad spectrum abx and expert consultation Quality Stroke Does the patient have a stroke diagnosis?: No VTE Prior VTE?: No VTE Risk Level:: Medical - moderate - high VTE Device Contraindication: Treatment Not Indicated VTE Drug Contraindication: N/A - Med Ordered
--- NOTE | 2024-08-11 16:45 | PHA.PROG ---
Admission Date/Time: Indication: skin + skin structure Weight in k.8 kg Adjusted body weight in Kg: [place] body weight in Kg: Obesity Dosing Indication % IBW: BMI 36.2 Serum Creatinine - Last 168 Hours 08/11/24 14:11 Creatinine 0.89 Estimated CrCl and GFR - Last 168 Hours 08/11/24 14:11 Estim Creat Clear Calc 147.6 Estimated GFR > 60 Vancomycin Loading Dose: 2000mg X1 Current Vancomycin Dosing Regimen: 1500mg Q12H Vancomycin Monitoring using AUC goal of 400 - 600 range with trough as surrogate marker: 552 Date and Time for next Vancomycin Level to be drawn: 08/12 @1300 Pharmacist Comments on Vancomycin Plan: Pt's renal function appears stable. Predicted trough 17.1, starting off a bit higher to get patient into range and bc BMI is elevated. Trough to be drawn tomorrow and adjusted based on renal function and trough before 3rd dose, before 4th dose would be overnight. Vancomycin dosing will take advantage of [employer] website as a clinical decision support tool that uses Bayesian modeling to calculate individual patient's pharmacokinetic parameters and forecast the patient's drug concentration time course with the target goal AUC 24 range of 400 - 600 mg/L/hr.
[2024-08-11] MEDS: HYDROmorphone HCl 1 MG/ML SYRINGE 0.5 MG IVPUSH ×2 (16:57→21:50)
--- NOTE | 2024-08-11 17:10 | PHA.MEDREC ---
Addendum entered by Claudette Fernandez RPh 08/11/24 17:25: MED REC REVIEWED BY JEREMY Original Note: Pharmacy Consult ? Medication Reconciliation Pharmacy has completed the medication reconciliation. Spoke with patient to confirm. He is no longer taking methadone, last had 2 weeks ago. He is no longer taking sertraline or depakote, last had them about a month ago despite recent fills. He confirmed adderall was bid @6AM and 1PM. He only had morning doses of his medications today.
[2024-08-11 18:26] VITALS: BP 126/67; PULSE 94; RESP 16; TEMP 36.8; O2SAT 95
[2024-08-11] MEDS: Nicotine 21 MG PATCH.TD24 TRANSDERMA (18:27)
[2024-08-11] MEDS: Enoxaparin Sodium 40 MG/0.4 ML SYRINGE SUBCUT (18:28)
[2024-08-11] MEDS: oxyCODONE HCl Immed Release 5 MG TABLET PO (18:28)
[2024-08-11 19:47] VITALS: BP 133/71; PULSE 99; RESP 16; TEMP 36.9; O2SAT 97
[2024-08-11] MEDS: clonazePAM 1 MG TABLET PO (20:06)
[2024-08-11] MEDS: 0.9 % Sodium Chloride Flush 3 ML SYRINGE IVFLUSH ×2 (20:06→21:54)
[2024-08-11] MEDS: cloNIDine HCL 0.1 MG TABLET PO (20:07)
--- NOTE | 2024-08-11 21:12 | MHC.PIE ---
p; pt arrived from ed asking for adderall. note; pt take adderall bid, per pt, missed second dose for today. i; dr delgado notified - ok to give adderall now e; will cont to monitor
[2024-08-11] MEDS: Amphetamine Mixed Salts 10 MG TABLET 30 MG PO (21:53)
[2024-08-11] MEDS: TiZANidine HCL 4 MG TABLET PO (22:00)
[2024-08-12 01:00] LABS: Amphetamine Screen Urine Not Detected (Not Detect); Barbiturates, Urine Not Detected (Not Detect); Benzodiazepines Screen Urine Not Detected (Not Detect); Buprenorphine Scr Positive (Not Detect); Cannabinoid Screen Urine Not Detected (Not Detect); Cocaine Screen Urine POSITIVE (Not Detect); Fentanyl, urine Not Detected (Not Detect); Methadone Screen, Urine Not Detected (Not Detect); Opiate Screen Urine POSITIVE (Not Detect); Oxycodone Screen Urine Positive (Not Detect); Phencyclidine Screen Urine Not Detected (Not Detect)
[2024-08-12 03:03] VITALS: BP 101/59; PULSE 63; RESP 18; TEMP 36.1; O2SAT 97
[2024-08-12] MEDS: HYDROmorphone HCl 1 MG/ML SYRINGE 0.5 MG IVPUSH ×5 (03:24→20:01)
[2024-08-12] MEDS: clonazePAM 1 MG TABLET PO ×4 (03:40→21:28)
--- NOTE | 2024-08-12 04:51 | MHC.PIE ---
p; pt asking for klonopin. note klonopin ordered qid while awake? pt reports taking it q6 i; dr delgado notified. new order klonopin q6 e; will cont to monitor
[2024-08-12] MEDS: Amphetamine Mixed Salts 10 MG TABLET 30 MG PO ×2 (05:24→12:24)
[2024-08-12] MEDS: oxyCODONE HCl Immed Release 5 MG TABLET PO ×3 (05:25→21:28)
[2024-08-12 05:49] LABS: MANUAL DIFF FLAG NO
[2024-08-12 05:57] LABS: Basophils Percent Auto 0.3 % (0-2); Eosinophils Absolute Auto 0.2 X10*3/uL (0.0-0.4); Eosinophils Percent Auto 1.7 % (0-4); Hematocrit 41.8 % (42.0-52.0); Hemoglobin 14.9 g/dl (14.0-18.0); Imm Gran Abs Auto 0.05 X10*3/uL (0.00-0.03); Imm Gran Pct Auto 0.4 % (0.0-0.4); Lymphocytes Absolute Auto 2.7 X10*3/uL (1.2-4.9); Lymphocytes Percent Auto 23.6 % (20-40); Mean Corpuscular HGB Conc 35.6 g/dl (31.0-36.0); Mean Corpuscular Hemoglobin 30.1 pg (27.0-33.0); Mean Corpuscular Volume 84.4 fL (80.0-98.0); Mean Platelet Volume 11.6 fL (9.4-12.4); Monocytes Absolute Auto 1.3 X10*3/uL (0.1-1.2); Monocytes Percent Auto 11.7 % (2-11); Neutrophils Absolute Auto 7.1 x10*3/uL (2.0-8.3); Neutrophils Percent Auto 62.3 % (45-73); Platelet Count 231 X10*3/uL (160-400); Red Blood Count 4.95 X10*6/uL (4.60-5.80); Red Cell Distribution Width 13.2 % (11.0-16.0); White Blood Count 11.3 X10*3/uL (4.8-10.8)
[2024-08-12 06:06] LABS: Anion Gap 11 (12-20); Blood Urea Nitrogen 16 mg/dL (9-16); Carbon Dioxide 24 mmol/L (22-29); Chloride 105 mmol/L (96-108); Creatinine Clr Calc Pharmacy 142.8; Estimated Glomerular Filt Rate > 60; Glucose Random 111 mg/dL (60-115); Potassium 3.9 mmol/L (3.3-5.1); Sodium 136 mmol/L (135-145)
[2024-08-12 07:20] VITALS: BP 118/71; PULSE 84; RESP 16; TEMP 36.2; O2SAT 99
[2024-08-12] MEDS: 0.9 % Sodium Chloride Flush 3 ML SYRINGE IVFLUSH ×3 (07:33→23:08)
[2024-08-12] MEDS: Nicotine 21 MG PATCH.TD24 TRANSDERMA (07:34)
[2024-08-12] MEDS: Loratadine 10 MG TABLET PO (07:36)
--- NOTE | 2024-08-12 08:43 | P.PNIM_ITS ---
Subjective Subjective Date of Service: 08/12/24 Interval History: left hand pain Physical Exam 2 Vital Signs: Vital Signs: Last Vital Signs Temp 97.1 F 08/12/24 07:20 Pulse 84 08/12/24 07:20 Resp 16 08/12/24 07:20 BP 118/71 08/12/24 07:20 Pulse Ox 99 08/12/24 07:20 O2 Del Method Room Air 08/12/24 07:20 BMI result Body Mass Index 36.2 Swelling of left hand with packed abscess status post I and D, minimal serous drainage, minimal tenderness, no erythema Objective Data Active Medications Acetaminophen (Acetaminophen 325 Mg Tablet) 650 mg PO Q6H PRN PRN Reason: Pain, Mild 1-3,fever,headache Albuterol Sulfate (Albuterol Sulfate 90 Mcg 8 Gm Inhaler) 2 puff INHALE QID PRN PRN Reason: wheezing Amphetamine/Dextroamphetamine (Amphetamine Mixed Salts 10 Mg Tablet) 30 mg PO BID@0600,1300 [facility] Last Admin: 08/12/24 05:24 Dose: 30 mg Documented By: DEANDRA Calcium Carbonate (Calcium Carbonate 750 Mg Tab.Chew) 750 mg PO Q4H PRN PRN Reason: Heartburn Ceftriaxone Sodium (Ceftriaxone Sodium 1 Gm Vial) 1 gm IVPUSH Q24H [facility] Clonazepam (Clonazepam 1 Mg Tablet) 1 mg PO Q6H [facility] Last Admin: 08/12/24 03:40 Dose: 1 mg Documented By: DEANDRA Clonidine HCl (Clonidine Hcl 0.1 Mg Tablet) 0.1 mg PO TID PRN; Protocol PRN Reason: Anxiety Last Admin: 08/11/24 20:07 Dose: 0.1 mg Documented By: DEANDRA Enoxaparin Sodium (Enoxaparin Sodium 40 Mg/0.4 Ml Syringe) 40 mg SUBCUT Q24H [facility] Last Admin: 08/11/24 18:28 Dose: 40 mg Documented By: DONTRELL Hydromorphone HCl (Hydromorphone Hcl 1 Mg/Ml Syringe) 0.5 mg IVPUSH Q4H PRN; Protocol PRN Reason: Pain, Severe (Pain Scale 7-10) Last Admin: 08/12/24 07:32 Dose: 0.5 mg Documented By: YONI Vancomycin HCl 1,500 mg/ (Sodium Chloride) 500 mls @ 333.333 mls/hr IV Q12H [facility] Loratadine (Loratadine 10 Mg Tablet) 10 mg PO DAILY [facility] Last Admin: 08/12/24 07:36 Dose: 10 mg Documented By: YONI Magnesium Hydroxide (Milk Of Magnesia 30 Ml Oral.Susp) 30 ml PO DAILY PRN PRN Reason: Constipation Melatonin (Melatonin 3 Mg Tablet) 6 mg PO BEDTIME PRN PRN Reason: Insomnia Nicotine (Nicotine 21 Mg Patch.Td24) 21 mg TRANSDERMA DAILY [facility] Last Admin: 08/12/24 07:34 Dose: 21 mg Documented By: YONI Ondansetron HCl (Ondansetron Odt 8 Mg Tab.Rapdis) 8 mg TRANSLINGU DAILY PRN PRN Reason: nausea Oxycodone HCl (Oxycodone Hcl Immed Release 5 Mg Tablet) 5 mg PO Q6H PRN PRN Reason: Pain, Moderate(Pain Scale 4-6) Last Admin: 08/12/24 05:25 Dose: 5 mg Documented By: DEANDRA Comments: given per pt request Pharmacy Consult (Consult Rx Vancomycin Dosing) 1 each MISCELLANE DAILY PRN PRN Reason: Consult order Sodium Chloride (0.9 % Sodium Chloride Flush 3 Ml Syringe) 3 ml IVFLUSH QSHIFT [facility] Last Admin: 08/12/24 07:33 Dose: 3 ml Documented By: YONI Tizanidine HCl (Tizanidine Hcl 4 Mg Tablet) 4 mg PO TID PRN PRN Reason: muscle spasticity Last Admin: 08/11/24 22:00 Dose: 4 mg Documented By: DEANDRA Labs 08/12/24 05:22 08/12/24 05:22 Labs: Laboratory Results - last 24 hr 08/11/24 08/11/24 08/12/24 14:11 14:12 00:38 MCV 83.2 MCH 27.2 MCHC 32.7 RDW 13.2 Plt Count 240 MPV 11.5 Immature Gran % (Auto) 0.4 Neut % (Auto) 78.2 H Lymph % (Auto) 10.8 L [place] % (Auto) 9.7 Eos % (Auto) 0.7 Baso % (Auto) 0.2 Lymph # (Auto) 1.5 [place] # (Auto) 1.3 H Eos # (Auto) 0.1 Baso # (Auto) 0.0 Abs Immat Gran (auto) 0.06 H Absolute Neuts (auto) 10.8 H Absolute Nucleated RBC 0.000 Nucleated RBC % (auto) 0.0 ESR 21 H Anion Gap 11 L Estim Creat Clear Calc 147.6 Estimated GFR > 60 Random Glucose 101 Lactic Acid 1.2 Calcium 9.2 Total Bilirubin 0.5 AST 15 ALT 32 Alkaline Phosphatase 88 C-Reactive Protein 6.06 H Total Protein 7.8 Albumin 4.1 Urine Opiates Screen POSITIVE H Ur Buprenorphine Scrn Positive H Ur Oxycodone Screen Positive H Urine Methadone Screen Not Detected Urine Fentanyl Screen Not Detected Ur Barbiturates Screen Not Detected Ur Phencyclidine Scrn Not Detected Ur Amphetamines Screen Not Detected U Benzodiazepines Scrn Not Detected Urine Cocaine Screen POSITIVE H U Marijuana (THC) Screen Not Detected 08/12/24 05:22 MCV 84.4 MCH 30.1 MCHC 35.6 RDW 13.2 Plt Count 231 MPV 11.6 Immature Gran % (Auto) 0.4 Neut % (Auto) 62.3 Lymph % (Auto) 23.6 [place] % (Auto) 11.7 H Eos % (Auto) 1.7 Baso % (Auto) 0.3 Lymph # (Auto) 2.7 [place] # (Auto) 1.3 H Eos # (Auto) 0.2 Baso # (Auto) 0.0 Abs Immat Gran (auto) 0.05 H Absolute Neuts (auto) 7.1 Absolute Nucleated RBC 0.000 Nucleated RBC % (auto) 0.0 ESR Anion Gap 11 L Estim Creat Clear Calc 142.8 Estimated GFR > 60 Random Glucose 111 Lactic Acid Calcium 9.0 Total Bilirubin AST ALT Alkaline Phosphatase C-Reactive Protein Total Protein Albumin Urine Opiates Screen Ur Buprenorphine Scrn Ur Oxycodone Screen Urine Methadone Screen Urine Fentanyl Screen Ur Barbiturates Screen Ur Phencyclidine Scrn Ur Amphetamines Screen U Benzodiazepines Scrn Urine Cocaine Screen U Marijuana (THC) Screen Microbiology Microbiology Results: Microbiology 08/11/24 16:33 Routine Culture - Preliminary Hand Left Culture in progress. Assessment and Plan (1) Opioid use disorder: Status: Acute Plan 24M PMH polysubstance dependence with IV drug use, cerebral palsy, mild intermittent asthma presented with left hand erythema and swelling Sepsis due to Acute recurrent cellulitis and abscess of left hand due to IV drug use Status post I&D in ED Follow up cultures Continue vancomycin and ceftriaxone Orthopedics following Polysubstance dependence Now agreeable to addiction consult Mood disorder Continue Klonopin DVT prophylaxis with Lovenox Full Code reason for continued hospitalization: Awaiting cultures Quality Stroke Does the patient have a stroke diagnosis?: No VTE Prior VTE?: No VTE Risk Level:: Medical - moderate - high VTE Device Contraindication: Treatment Not Indicated VTE Drug Contraindication: N/A - Med Ordered
[2024-08-12] MEDS: vancomycin HCL 1,500 MG in 0.9 % Sodium Chloride 500 ML 333.33 MG IV ×2 (09:23→21:29)
--- NOTE | 2024-08-12 09:39 | P.CONOP_ITS ---
History of Present Illness HPI Consult date: 08/12/24 Chief complaint: Cellulitis, Abscess LHand Narrative: 24-year-old male with history significant for multiple abscesses of left hand over last 6 months admitted to hospital for abscess of dorsum of the left hand with associated cellulitis Left hand I and D performed bedside in ED yesterday with significant drainage expressed Patient resting comfortably in bed this morning No acute events overnight Pain well managed No other acute complaints or concerns at this time Review of Systems 2 Review of Systems: Yes all other systems are reviewed and are negative PMFSH Past Medical History Medical History Mild intermittent asthma Environmental allergies Allergies Left hemiparesis Cerebral palsy Social History Social History Household Members: Family Housing: Apartment Do you presently have visiting nurse or other home services: No Alcohol intake: current Alcohol intake frequency: holidays/special occasions only Patient Tobacco Use Status: Never used Tobacco Cigarettes Per Day: 10 e-Cigarette/Vaping Use: Currently Using Second Hand Smoke Exposure: Yes Use of substances other than those prescribed or required for medical reasons: Yes Substance Use Type: Crack/Cocaine Substance Use Frequency: Chronic Longstanding Currently Displaying Signs/Symptoms of Drug Intoxication Withdrawal: No Any prior treatment program specific to substance use: No Have you been hit, kicked, punched, or otherwise hurt by someone within the past year? If so, by whom?: No Do you feel safe in your current relationship?: No Current Relationship Is there a partner from a previous relationship who is making you feel unsafe now?: No Are you made to feel afraid or neglected: No Advance Directives: Yes Advance Directives on File: Yes Advance Directives Date on File: 05/29/24 Do you have a plan to hurt others: No Plan Recently lost weight without trying: No Nutrition Risks: No Nutritional Risk Poor oral hygiene: No service: No Current occupational status: unemployed Cognitive needs: No Hearing needs: No Vision needs: No Meds Allergies Allergy/AdvReac Type Severity Reaction Status Date / Time amoxicillin [AMOXICILLIN] Allergy Unknown HIVES Verified 08/11/24 13:15 hydrocodone [From VICODIN] Allergy Unknown RASH Verified 08/11/24 13:15 sulfamethoxazole Allergy Unknown UNKNOWN Verified 08/11/24 13:15 [From BACTRIM] trimethoprim [From BACTRIM] Allergy Unknown UNKNOWN Verified 08/11/24 13:15 Vicodin Allergy Unknown hives Uncoded 06/21/24 11:04 Active Medications: Current Medications Acetaminophen (Acetaminophen 325 Mg Tablet) 650 mg PO Q6H PRN PRN Reason: Pain, Mild 1-3,fever,headache Albuterol Sulfate (Albuterol Sulfate 90 Mcg 8 Gm Inhaler) 2 puff INHALE QID PRN PRN Reason: wheezing Amphetamine/Dextroamphetamine (Amphetamine Mixed Salts 10 Mg Tablet) 30 mg PO BID@0600,1300 [facility] Last Admin: 08/12/24 05:24 Dose: 30 mg Calcium Carbonate (Calcium Carbonate 750 Mg Tab.Chew) 750 mg PO Q4H PRN PRN Reason: Heartburn Ceftriaxone Sodium (Ceftriaxone Sodium 1 Gm Vial) 1 gm IVPUSH Q24H [facility] Clonazepam (Clonazepam 1 Mg Tablet) 1 mg PO Q6H [facility] Last Admin: 08/12/24 09:23 Dose: 1 mg Clonidine HCl (Clonidine Hcl 0.1 Mg Tablet) 0.1 mg PO TID PRN; Protocol PRN Reason: Anxiety Last Admin: 08/11/24 20:07 Dose: 0.1 mg Enoxaparin Sodium (Enoxaparin Sodium 40 Mg/0.4 Ml Syringe) 40 mg SUBCUT Q24H [facility] Last Admin: 08/11/24 18:28 Dose: 40 mg Hydromorphone HCl (Hydromorphone Hcl 1 Mg/Ml Syringe) 0.5 mg IVPUSH Q4H PRN; Protocol PRN Reason: Pain, Severe (Pain Scale 7-10) Last Admin: 08/12/24 07:32 Dose: 0.5 mg Vancomycin HCl 1,500 mg/ (Sodium Chloride) 500 mls @ 333.333 mls/hr IV Q12H [facility] Last Admin: 08/12/24 09:23 Dose: 333.33 mls/hr Loratadine (Loratadine 10 Mg Tablet) 10 mg PO DAILY [facility] Last Admin: 08/12/24 07:36 Dose: 10 mg Magnesium Hydroxide (Milk Of Magnesia 30 Ml Oral.Susp) 30 ml PO DAILY PRN PRN Reason: Constipation Melatonin (Melatonin 3 Mg Tablet) 6 mg PO BEDTIME PRN PRN Reason: Insomnia Nicotine (Nicotine 21 Mg Patch.Td24) 21 mg TRANSDERMA DAILY [facility] Last Admin: 08/12/24 07:34 Dose: 21 mg Ondansetron HCl (Ondansetron Odt 8 Mg Tab.Rapdis) 8 mg TRANSLINGU DAILY PRN PRN Reason: nausea Oxycodone HCl (Oxycodone Hcl Immed Release 5 Mg Tablet) 5 mg PO Q6H PRN PRN Reason: Pain, Moderate(Pain Scale 4-6) Last Admin: 08/12/24 05:25 Dose: 5 mg Pharmacy Consult (Consult Rx Vancomycin Dosing) 1 each MISCELLANE DAILY PRN PRN Reason: Consult order Sodium Chloride (0.9 % Sodium Chloride Flush 3 Ml Syringe) 3 ml IVFLUSH QSHIFT [facility] Last Admin: 08/12/24 07:33 Dose: 3 ml Tizanidine HCl (Tizanidine Hcl 4 Mg Tablet) 4 mg PO TID PRN PRN Reason: muscle spasticity Last Admin: 08/11/24 22:00 Dose: 4 mg Home Medications ?Medication ?Instructions ?Recorded ?Confirmed ?Last Taken ?Type albuterol sulfate 90 mcg/actuation 2 puff inhalation QID PRN wheezing 05/26/24 08/11/24 Unknown History aerosol inhaler (Ventolin HFA) clonazepam 1 mg tablet 1 mg PO QID 05/26/24 08/11/24 08/11/24 History clonidine HCl 0.1 mg tablet 0.1 mg PO TID PRN Anxiety 05/26/24 08/11/24 Unknown History dextroamphetamine-amphetamine 30 1 tab PO BID@0600,1300 05/26/24 08/11/24 08/11/24 History mg tablet fexofenadine 180 mg tablet 180 mg PO DAILY 05/26/24 08/11/24 08/11/24 History ibuprofen 800 mg tablet 800 mg PO BID PRN pain 05/26/24 08/11/24 Unknown History nicotine 21 mg/24 hr daily 1 patch transdermal DAILY PRN 05/26/24 08/11/24 05/25/24 History transdermal patch Nicotine Cravings ondansetron 8 mg disintegrating 8 mg PO DAILY PRN nausea 06/21/24 08/11/24 Unknown History tablet Physical Exam 2 Vital Signs: Vital Signs: Last Vital Signs Temp 97.1 F 08/12/24 07:20 Pulse 84 08/12/24 07:20 Resp 16 04/14/25 07:20 BP 118/71 08/12/24 07:20 Pulse Ox 99 08/12/24 07:20 O2 Del Method Room Air 08/12/24 07:20 BMI result Body Mass Index 36.2 Extrem: Other: Patient is alert, oriented, and in no acute distress. Neuro: Normal sensation of the tips of all digits of the left hand at this time Vascular: Cap refill brisk Pain: Minor tenderness to palpation about the abscess site on the dorsal aspect of the 1st webspace of the left hand No tenderness to palpation of the thenar eminence or volar 1st webspace No other tenderness to palpation noted ROM: Range of motion of left thumb limited due to pain Patient is able to flex and extend all other digits of the left hand fully and without much difficulty Skin: There is noted to be an approximately 1.5 cm incision noted over the 1st dorsal webspace of the left hand Surrounding cellulitis appears to have improved from images from ED visit No active drainage at this time, drains in place Psych: Appears grossly normal Affect normal Attitude cooperative Results Labs 08/12/24 05:22 08/12/24 05:22 Labs: Abnormal lab results 08/11/24 08/11/24 08/12/24 Range/Units 14:11 14:12 00:38 WBC 13.8 H (4.8-10.8) X10*3/uL Hct (42.0-52.0) % Neut % (Auto) 78.2 H (45-73) % Lymph % (Auto) 10.8 L (20-40) % [place] % (Auto) (2-11) % [place] # (Auto) 1.3 H (0.1-1.2) X10*3/uL Abs Immat Gran (auto) 0.06 H (0.00-0.03) X10*3/uL Absolute Neuts (auto) 10.8 H (2.0-8.3) x10*3/uL ESR 21 H (0-15) MM/HR Chloride 109 H (96-108) mmol/L Anion Gap 11 L (12-20) C-Reactive Protein 6.06 H (< or = 0.50) mg/dL Urine Opiates Screen POSITIVE H (Not Detect) Ur Buprenorphine Scrn Positive H (Not Detect) ng/mL Ur Oxycodone Screen Positive H (Not Detect) ng/mL Urine Cocaine Screen POSITIVE H (Not Detect) 08/12/24 Range/Units 05:22 WBC 11.3 H (4.8-10.8) X10*3/uL Hct 41.8 L (42.0-52.0) % Neut % (Auto) (45-73) % Lymph % (Auto) (20-40) % [place] % (Auto) 11.7 H (2-11) % [place] # (Auto) 1.3 H (0.1-1.2) X10*3/uL Abs Immat Gran (auto) 0.05 H (0.00-0.03) X10*3/uL Absolute Neuts (auto) (2.0-8.3) x10*3/uL ESR (0-15) MM/HR Chloride (96-108) mmol/L Anion Gap 11 L (12-20) C-Reactive Protein (< or = 0.50) mg/dL Urine Opiates Screen (Not Detect) Ur Buprenorphine Scrn (Not Detect) ng/mL Ur Oxycodone Screen (Not Detect) ng/mL Urine Cocaine Screen (Not Detect) H & H 08/11/24 08/12/24 Range/Units 14:12 05:22 Hgb 14.9 14.9 (14.0-18.0) g/dl Hct 45.5 41.8 L (42.0-52.0) % All other labs normal. Assessment and Plan (1) Abscess of skin or subcutaneous tissue: Status: Acute (2) Cellulitis: Status: Acute Plan 1. Abscess of left hand status post I and D bedside in ER Patient was once again educated about this condition Patient is educated about the typical treatment course At this time, no acute surgical intervention is indicated Regular diet ordered Patient will be made NPO at midnight once again pending evaluation tomorrow Continue with all other recommendations per Medicine Patient is educated on the importance of strict follow-up and post hospital care, as if he continues to cause recurrent abscesses in his left hand without finishing his treatment course there is a risk of potential severe complications, such as osteomyelitis Patient states understanding this Procedures Date of Service Date of Service: 08/12/24
--- NOTE | 2024-08-12 10:09 | HO.ADDICT_ITS ---
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 Consult requested as patient was requesting to start suboxone. Patient known to this narrative writer via previous admissions to [facility] and outpatient addiction treatment. Patient seen in room 380, he is awake, alert, pleasant and engaged in interview. He reports he has been buying 30mg percocets and taking 3 tabs per day (when he can get them). Denies any heroin or fentanyl use. He also reports using approx a gram of cocaine weekly, IV Denies any alcohol use Is prescribed benzodiazepines-1mg QID Also prescribed Adderrall 30mg BID Discussed treatment for OUD. He had previously been engaged with [facility], however he has not been there since mid June, at which point his last dose was 70. Patient reports that he does not wish to resume methadone and states that he does not like the way it makes him feel. States that he would like to start buprenorphine. refining equipment operator obtained collateral from [facility] -patient inconsistent with attendance to [facility]--highest dose 100mg, reduced to 70mg due several missed doses. -prior to methadone, patient was receiving Sublocade 300mg, however was requesting up to 24mg supplemental films, so decision was made to transition to methadone. He appears comfortable, no withdrawal sx noted, and none reported Discussion around injecting into his left hand--encouraged him to avoid that area, and warned that wound/infection may not heal with ongoing use into that same site. Discussed using alternate spots Review of Systems Constitutional: Reports as per HPI Gastrointestinal: Denies diarrhea, Denies loose stools and Denies nausea Diagnostics Vital Signs (24Hr): Vital Signs - 24 hr 08/11/24 13:13 08/11/24 18:26 08/11/24 19:47 Temperature 99.2 F 98.2 F 98.4 F Pulse Rate 92 94 99 Respiratory Rate 18 16 16 Blood Pressure 131/61 126/67 133/71 Pulse Oximetry 97 95 97 Oxygen Delivery Method Room Air Room Air Room Air 08/12/24 03:03 08/12/24 07:20 Temperature 97.0 F 97.1 F Pulse Rate 63 84 Respiratory Rate 18 16 Blood Pressure 101/59 L 118/71 Pulse Oximetry 97 99 Oxygen Delivery Method Room Air Room Air BMI result Body Mass Index 36.2 Labs 08/12/24 05:22 08/12/24 05:22 Labs: Laboratory Results - last 48 hr 08/11/24 08/11/24 08/12/24 14:11 14:12 00:38 WBC 13.8 H RBC 5.47 Hgb 14.9 Hct 45.5 MCV 83.2 MCH 27.2 MCHC 32.7 RDW 13.2 Plt Count 240 MPV 11.5 Immature Gran % (Auto) 0.4 Neut % (Auto) 78.2 H Lymph % (Auto) 10.8 L [place] % (Auto) 9.7 Eos % (Auto) 0.7 Baso % (Auto) 0.2 Lymph # (Auto) 1.5 [place] # (Auto) 1.3 H Eos # (Auto) 0.1 Baso # (Auto) 0.0 Abs Immat Gran (auto) 0.06 H Absolute Neuts (auto) 10.8 H Absolute Nucleated RBC 0.000 Nucleated RBC % (auto) 0.0 ESR 21 H Sodium 138 Potassium 4.2 Chloride 109 H Carbon Dioxide 22 Anion Gap 11 L BUN 13 Creatinine 0.89 Estim Creat Clear Calc 147.6 Estimated GFR > 60 Random Glucose 101 Lactic Acid 1.2 Calcium 9.2 Total Bilirubin 0.5 AST 15 ALT 32 Alkaline Phosphatase 88 C-Reactive Protein 6.06 H Total Protein 7.8 Albumin 4.1 Urine Opiates Screen POSITIVE H Ur Buprenorphine Scrn Positive H Ur Oxycodone Screen Positive H Urine Methadone Screen Not Detected Urine Fentanyl Screen Not Detected Ur Barbiturates Screen Not Detected Ur Phencyclidine Scrn Not Detected Ur Amphetamines Screen Not Detected U Benzodiazepines Scrn Not Detected Urine Cocaine Screen POSITIVE H U Marijuana (THC) Screen Not Detected 08/12/24 05:22 WBC 11.3 H RBC 4.95 Hgb 14.9 Hct 41.8 L MCV 84.4 MCH 30.1 MCHC 35.6 RDW 13.2 Plt Count 231 MPV 11.6 Immature Gran % (Auto) 0.4 Neut % (Auto) 62.3 Lymph % (Auto) 23.6 [place] % (Auto) 11.7 H Eos % (Auto) 1.7 Baso % (Auto) 0.3 Lymph # (Auto) 2.7 [place] # (Auto) 1.3 H Eos # (Auto) 0.2 Baso # (Auto) 0.0 Abs Immat Gran (auto) 0.05 H Absolute Neuts (auto) 7.1 Absolute Nucleated RBC 0.000 Nucleated RBC % (auto) 0.0 ESR Sodium 136 Potassium 3.9 Chloride 105 Carbon Dioxide 24 Anion Gap 11 L BUN 16 Creatinine 0.92 Estim Creat Clear Calc 142.8 Estimated GFR > 60 Random Glucose 111 Lactic Acid Calcium 9.0 Total Bilirubin AST ALT Alkaline Phosphatase C-Reactive Protein Total Protein Albumin Urine Opiates Screen Ur Buprenorphine Scrn Ur Oxycodone Screen Urine Methadone Screen Urine Fentanyl Screen Ur Barbiturates Screen Ur Phencyclidine Scrn Ur Amphetamines Screen U Benzodiazepines Scrn Urine Cocaine Screen U Marijuana (THC) Screen Mental Status Exam Mental Status Exam Patient Appearance: Well Grooomed and Appropriate Level of Consciousness: Awake, Appropriate and Alert Patient Behavior: Appropriate, Talkative and Cooperative Mood Description: Calm Affect Description: Calm and Appropriate Speech Pattern: Clear Thought Process: Intact Thought Content: positive for Intact Judgement: Fair Medications Medications Current Medications Acetaminophen (Acetaminophen 325 Mg Tablet) 650 mg PO Q6H PRN PRN Reason: Pain, Mild 1-3,fever,headache Albuterol Sulfate (Albuterol Sulfate 90 Mcg 8 Gm Inhaler) 2 puff INHALE QID PRN PRN Reason: wheezing Amphetamine/Dextroamphetamine (Amphetamine Mixed Salts 10 Mg Tablet) 30 mg PO BID@0600,1300 [facility] Last Admin: 08/12/24 05:24 Dose: 30 mg Calcium Carbonate (Calcium Carbonate 750 Mg Tab.Chew) 750 mg PO Q4H PRN PRN Reason: Heartburn Ceftriaxone Sodium (Ceftriaxone Sodium 1 Gm Vial) 1 gm IVPUSH Q24H [facility] Clonazepam (Clonazepam 1 Mg Tablet) 1 mg PO Q6H [facility] Last Admin: 08/12/24 09:23 Dose: 1 mg Clonidine HCl (Clonidine Hcl 0.1 Mg Tablet) 0.1 mg PO TID PRN; Protocol PRN Reason: Anxiety Last Admin: 08/11/24 20:07 Dose: 0.1 mg Enoxaparin Sodium (Enoxaparin Sodium 40 Mg/0.4 Ml Syringe) 40 mg SUBCUT Q24H [facility] Last Admin: 08/11/24 18:28 Dose: 40 mg Hydromorphone HCl (Hydromorphone Hcl 1 Mg/Ml Syringe) 0.5 mg IVPUSH Q4H PRN; Protocol PRN Reason: Pain, Severe (Pain Scale 7-10) Last Admin: 08/12/24 07:32 Dose: 0.5 mg Vancomycin HCl 1,500 mg/ (Sodium Chloride) 500 mls @ 333.333 mls/hr IV Q12H [facility] Last Admin: 08/12/24 09:23 Dose: 333.33 mls/hr Loratadine (Loratadine 10 Mg Tablet) 10 mg PO DAILY [facility] Last Admin: 08/12/24 07:36 Dose: 10 mg Magnesium Hydroxide (Milk Of Magnesia 30 Ml Oral.Susp) 30 ml PO DAILY PRN PRN Reason: Constipation Melatonin (Melatonin 3 Mg Tablet) 6 mg PO BEDTIME PRN PRN Reason: Insomnia Nicotine (Nicotine 21 Mg Patch.Td24) 21 mg TRANSDERMA DAILY [facility] Last Admin: 08/12/24 07:34 Dose: 21 mg Ondansetron HCl (Ondansetron Odt 8 Mg Tab.Rapdis) 8 mg TRANSLINGU DAILY PRN PRN Reason: nausea Oxycodone HCl (Oxycodone Hcl Immed Release 5 Mg Tablet) 5 mg PO Q6H PRN PRN Reason: Pain, Moderate(Pain Scale 4-6) Last Admin: 08/12/24 05:25 Dose: 5 mg Pharmacy Consult (Consult Rx Vancomycin Dosing) 1 each MISCELLANE DAILY PRN PRN Reason: Consult order Sodium Chloride (0.9 % Sodium Chloride Flush 3 Ml Syringe) 3 ml IVFLUSH QSHIFT [facility] Last Admin: 08/12/24 07:33 Dose: 3 ml Tizanidine HCl (Tizanidine Hcl 4 Mg Tablet) 4 mg PO TID PRN PRN Reason: muscle spasticity Last Admin: 08/11/24 22:00 Dose: 4 mg Allergies Allergies Allergy/AdvReac Type Severity Reaction Status Date / Time amoxicillin [AMOXICILLIN] Allergy Unknown HIVES Verified 08/11/24 13:15 hydrocodone [From VICODIN] Allergy Unknown RASH Verified 08/11/24 13:15 sulfamethoxazole Allergy Unknown UNKNOWN Verified 08/11/24 13:15 [From BACTRIM] trimethoprim [From BACTRIM] Allergy Unknown UNKNOWN Verified 08/11/24 13:15 Vicodin Allergy Unknown hives Uncoded 06/21/24 11:04 Assessment & Plan Assessment & Plan (1) Opioid use disorder: Status: Acute Code(s): F11.90 - Opioid use, unspecified, uncomplicated Assessment and Plan: * patient still requiring pain medications for hand--will wait to start buprenorphine * unclear dispo * requesting referral to [facility] for ALICIA treatment (staying in [place]) * will continue to follow (2) Cocaine use disorder: Status: Acute Code(s): F14.10 - Cocaine abuse, uncomplicated Assessment and Plan: * risk reduction discussion, including safer injection strategies Total time managing care of this patient today _35___ minutes. PMFSH Past Medical History Medical History Mild intermittent asthma Environmental allergies Allergies Left hemiparesis Cerebral palsy Social History Social History Household Members: Family Housing: Apartment Do you presently have visiting nurse or other home services: No Alcohol intake: current Alcohol intake frequency: holidays/special occasions only Patient Tobacco Use Status: Never used Tobacco Cigarettes Per Day: 10 e-Cigarette/Vaping Use: Currently Using Second Hand Smoke Exposure: Yes Use of substances other than those prescribed or required for medical reasons: Yes Substance Use Type: Crack/Cocaine Substance Use Frequency: Chronic Longstanding Currently Displaying Signs/Symptoms of Drug Intoxication Withdrawal: No Any prior treatment program specific to substance use: No Have you been hit, kicked, punched, or otherwise hurt by someone within the past year? If so, by whom?: No Do you feel safe in your current relationship?: No Current Relationship Is there a partner from a previous relationship who is making you feel unsafe now?: No Are you made to feel afraid or neglected: No Advance Directives: Yes Advance Directives on File: Yes Advance Directives Date on File: 05/29/24 Do you have a plan to hurt others: No Plan Recently lost weight without trying: No Nutrition Risks: No Nutritional Risk Poor oral hygiene: No service: No Current occupational status: unemployed Cognitive needs: No Hearing needs: No Vision needs: No
[2024-08-12 10:21] VITALS: BP 110/58
[2024-08-12] MEDS: cloNIDine HCL 0.1 MG TABLET PO (10:21)
--- NOTE | 2024-08-12 13:22 | MHC.CM.PN ---
Patient lives at home w/ parents. Dx CP. Ambulates w/ cane, also has a walker, bedside commode and shower chair. Mother assists w/ ADL's PRN. Reports he has been working w/ [facility] to enroll in AF (mother as AF provider) but has not followed up because of insurance lapse. Referral sent to [facility] to follow up and to financial for assist w/ insurance. PCP Brenda Breaux MD HCP on file and verified. DP: Goal is home w/ family support. Reports his mother can manage dressing changes. ? Wound clinic f/u if insurance issues resolved. Mother to transport. CM will continue to follow.
[2024-08-12] MEDS: cefTRIAXone sodium 1 GM VIAL IVPUSH (14:18)
[2024-08-12 15:11] VITALS: BP 126/77; PULSE 95; RESP 18; TEMP 36.1; O2SAT 100
[2024-08-12] MEDS: Enoxaparin Sodium 40 MG/0.4 ML SYRINGE SUBCUT (16:58)
[2024-08-12] MEDS: Acetaminophen 325 MG TABLET 650 MG PO (18:42)
[2024-08-12 19:16] VITALS: BP 121/60; PULSE 97; RESP 18; TEMP 36.1; O2SAT 99
[2024-08-12 20:09] LABS: Vancomycin Random 9.9 mcg/mL (15-20)
--- NOTE | 2024-08-12 20:33 | HE.PHANOTE ---
Re [place] Trough came back slightly low after two doses. Because they aren't at steady state, will continue same regimen. Should achieve a therapeutic AUC by the next 2 doses. Will recheck tomorrow evening at 1900.
[2024-08-12] MEDS: TiZANidine HCL 4 MG TABLET PO (21:34)
[2024-08-13] MEDS: HYDROmorphone HCl 1 MG/ML SYRINGE 0.5 MG IVPUSH ×2 (00:18→04:48)
[2024-08-13] MEDS: cloNIDine HCL 0.1 MG TABLET PO (00:18)
[2024-08-13] MEDS: Melatonin 3 MG TABLET 6 MG PO (00:24)
[2024-08-13 03:16] VITALS: BP 106/55; PULSE 74; RESP 16; TEMP 36; O2SAT 99
[2024-08-13] MEDS: oxyCODONE HCl Immed Release 5 MG TABLET PO ×2 (03:29→10:51)
[2024-08-13] MEDS: clonazePAM 1 MG TABLET PO ×2 (03:29→09:13)
[2024-08-13] MEDS: Amphetamine Mixed Salts 10 MG TABLET 30 MG PO (05:55)
[2024-08-13 06:59] LABS: Hematocrit 41.2 % (42.0-52.0); Hemoglobin 13.6 g/dl (14.0-18.0); Mean Corpuscular Hemoglobin 27.6 pg (27.0-33.0); Mean Corpuscular Volume 83.6 fL (80.0-98.0); Mean Platelet Volume 11.7 fL (9.4-12.4); Platelet Count 227 X10*3/uL (160-400); Red Blood Count 4.93 X10*6/uL (4.60-5.80); Red Cell Distribution Width 13.2 % (11.0-16.0); White Blood Count 7.1 X10*3/uL (4.8-10.8)
[2024-08-13 07:18] LABS: Anion Gap 12 (12-20); Blood Urea Nitrogen 14 mg/dL (9-16); Calcium 9.1 mg/dL (8.4-10.2); Carbon Dioxide 22 mmol/L (22-29); Chloride 105 mmol/L (96-108); Creatinine Clr Calc Pharmacy 162.2; Estimated Glomerular Filt Rate > 60; Glucose Random 114 mg/dL (60-115); Sodium 135 mmol/L (135-145)
[2024-08-13 07:21] VITALS: BP 122/68; PULSE 72; RESP 16; TEMP 36.3; O2SAT 97
[2024-08-13] MEDS: HYDROmorphone HCl 0.5 MG/0.5 ML SYRINGE IVPUSH (07:35)
[2024-08-13] MEDS: Nicotine 21 MG PATCH.TD24 TRANSDERMA (07:35)
[2024-08-13] MEDS: Loratadine 10 MG TABLET PO (07:35)
[2024-08-13] MEDS: 0.9 % Sodium Chloride Flush 3 ML SYRINGE IVFLUSH (07:35)
--- NOTE | 2024-08-13 07:49 | PC.NURSE ---
7:15 am 08/13. Patient has food throughout room including orange peels and potato chips on bedside table but reports that he has been npo.
--- NOTE | 2024-08-13 08:50 | HO.PM.IMPN ---
Subjective Subjective Date of Service: 08/13/24 Interval History: left hand pain Physical Exam Vital Signs: Vital Signs: Last Vital Signs Temp 97.3 F 08/13/24 07:21 Pulse 72 08/13/24 07:21 Resp 16 08/13/24 07:21 BP 122/68 08/13/24 07:21 Pulse Ox 97 08/13/24 07:21 O2 Del Method Room Air 08/13/24 07:21 BMI result Body Mass Index 36.2 Extrem: Other: Patient is alert, oriented, and in no acute distress. Neuro: Normal sensation of the tips of all digits of the left hand at this time Vascular: Cap refill brisk Pain: Minor tenderness to palpation about the abscess site on the dorsal aspect of the 1st webspace of the left hand No tenderness to palpation of the thenar eminence or volar 1st webspace No other tenderness to palpation noted ROM: Range of motion of left thumb limited due to pain Patient is able to flex and extend all other digits of the left hand fully and without much difficulty Skin: There is noted to be an approximately 1.5 cm incision noted over the 1st dorsal webspace of the left hand Surrounding cellulitis appears to have improved from images from ED visit No active drainage at this time, drains in place Psych: Appears grossly normal Affect normal Attitude cooperative Objective Data Active Medications Acetaminophen (Acetaminophen 325 Mg Tablet) 650 mg PO Q6H PRN PRN Reason: Pain, Mild 1-3,fever,headache Last Admin: 08/12/24 18:42 Dose: 650 mg Documented By: YONI Albuterol Sulfate (Albuterol Sulfate 90 Mcg 8 Gm Inhaler) 2 puff INHALE QID PRN PRN Reason: wheezing Amphetamine/Dextroamphetamine (Amphetamine Mixed Salts 10 Mg Tablet) 30 mg PO BID@0600,1300 [facility] Last Admin: 08/13/24 05:55 Dose: 30 mg Documented By: SHAYLEE Calcium Carbonate (Calcium Carbonate 750 Mg Tab.Chew) 750 mg PO Q4H PRN PRN Reason: Heartburn Ceftriaxone Sodium (Ceftriaxone Sodium 1 Gm Vial) 1 gm IVPUSH Q24H [facility] Last Admin: 08/12/24 14:18 Dose: 1 gm Documented By: YONI Clonazepam (Clonazepam 1 Mg Tablet) 1 mg PO Q6H [facility] Last Admin: 08/13/24 03:29 Dose: 1 mg Documented By: SHAYLEE Clonidine HCl (Clonidine Hcl 0.1 Mg Tablet) 0.1 mg PO TID PRN; Protocol PRN Reason: Anxiety Last Admin: 08/13/24 00:18 Dose: 0.1 mg Documented By: SHAYLEE Enoxaparin Sodium (Enoxaparin Sodium 40 Mg/0.4 Ml Syringe) 40 mg SUBCUT Q24H [facility] Last Admin: 08/12/24 16:58 Dose: 40 mg Documented By: YONI Hydromorphone HCl (Hydromorphone Hcl 1 Mg/Ml Syringe) 1 mg IVPUSH Q4H PRN; Protocol PRN Reason: Pain, Severe (Pain Scale 7-10) Vancomycin HCl 1,500 mg/ (Sodium Chloride) 500 mls @ 333.333 mls/hr IV Q12H [facility] Last Infusion: 08/12/24 23:05 Dose: Infused Documented By: SHAYLEE Loratadine (Loratadine 10 Mg Tablet) 10 mg PO DAILY [facility] Last Admin: 08/13/24 07:35 Dose: 10 mg Documented By: YOSELYN Magnesium Hydroxide (Milk Of Magnesia 30 Ml Oral.Susp) 30 ml PO DAILY PRN PRN Reason: Constipation Melatonin (Melatonin 3 Mg Tablet) 6 mg PO BEDTIME PRN PRN Reason: Insomnia Last Admin: 08/13/24 00:24 Dose: 6 mg Documented By: SHAYLEE Nicotine (Nicotine 21 Mg Patch.Td24) 21 mg TRANSDERMA DAILY [facility] Last Admin: 08/13/24 07:35 Dose: 21 mg Documented By: YOSELYN Ondansetron HCl (Ondansetron Odt 8 Mg Tab.Rapdis) 8 mg TRANSLINGU DAILY PRN PRN Reason: nausea Oxycodone HCl (Oxycodone Hcl Immed Release 5 Mg Tablet) 5 mg PO Q6H PRN PRN Reason: Pain, Moderate(Pain Scale 4-6) Last Admin: 08/13/24 03:29 Dose: 5 mg Documented By: SHAYLEE Pharmacy Consult (Consult Rx Vancomycin Dosing) 1 each MISCELLANE DAILY PRN PRN Reason: Consult order Sodium Chloride (0.9 % Sodium Chloride Flush 3 Ml Syringe) 3 ml IVFLUSH QSHIFT [facility] Last Admin: 08/13/24 07:35 Dose: 3 ml Documented By: YOSELYN Tizanidine HCl (Tizanidine Hcl 4 Mg Tablet) 4 mg PO TID PRN PRN Reason: muscle spasticity Last Admin: 08/12/24 21:34 Dose: 4 mg Documented By: SHAYLEE Labs 08/13/24 05:54 08/13/24 05:54 Labs: Laboratory Results - last 24 hr 08/12/24 08/13/24 19:23 05:54 MCV 83.6 MCH 27.6 MCHC 33.0 RDW 13.2 Plt Count 227 MPV 11.7 Absolute Nucleated RBC 0.000 Nucleated RBC % (auto) 0.0 Anion Gap 12 Estim Creat Clear Calc 162.2 Estimated GFR > 60 Random Glucose 114 Calcium 9.1 Random Vancomycin 9.9 L Microbiology Microbiology Results: Microbiology 08/11/24 16:33 Gram Stain - Final Hand Left Routine Culture - Preliminary Culture in progress. 08/11/24 14:51 Blood Culture - Preliminary Blood - Venous No growth after 24 hours. 08/11/24 14:11 Blood Culture - Preliminary Blood - Venous No growth after 24 hours. Assessment and Plan (1) Opioid use disorder: Status: Acute Plan 24M PMH polysubstance dependence with IV drug use, cerebral palsy, mild intermittent asthma presented with left hand erythema and swelling Sepsis due to Acute recurrent cellulitis and abscess of left hand due to IV drug use Status post I&D in ED Follow up cultures Continue vancomycin and ceftriaxone Orthopedics appreciated unlikely to need further intervention inpatient Follow up wound care Polysubstance dependence Addiction team following Mood disorder Continue Klonopin DVT prophylaxis with Lovenox Full Code reason for continued hospitalization: Wound care Quality Stroke Does the patient have a stroke diagnosis?: No VTE Prior VTE?: No VTE Risk Level:: Medical - moderate - high VTE Device Contraindication: Treatment Not Indicated VTE Drug Contraindication: N/A - Med Ordered
[2024-08-13] MEDS: HYDROmorphone HCl 1 MG/ML SYRINGE IVPUSH (09:13)
[2024-08-13] MEDS: vancomycin HCL 1,500 MG in 0.9 % Sodium Chloride 500 ML 333 MG IV (09:13)
--- NOTE | 2024-08-13 11:19 | HO.WOUND ---
Wound Consult: Initial 24yr old?male admitted to [facility] on 08/11/24 - See progress notes and H&P for detailed history.? Wound consult placed for Left Hand Abscess.? Patient agreeable to assessment and photo documentation.? Chart review reveals patient was followed by Ortho hand surgery team and will have follow up with them outpt. Request made for topical recommendations for d/c. Patient and his mother at bedside - education and instruction provided to patients mother and him - educated on topical wound care step by step instruction. Opportunity for questions offered - mom reports she is a MA and has wound care knowledge. Left hand Etiology: Abscess s/p I&D Measurements: 1cm x 1cm x 1cm x 1.5cm tunnel at 5 oclock Wound Bed: marbled wound bed with pale pink and yellow slough Drainage / Odor: no odor sanginous drainage noted Edges: ? unattached [place] wound: ? No Induration, Fluctuance or Warmth noted Pain: tenderness reported Goals of Treatment: ? Durafiber packing for moisture management with antimicrobial properties Patient reports he has baseline limited movement to the left hand due to CP - he reports she does hand exercises regularly at baseline - encouraged to continue within provider restrictions. Recommendations: Continue Hand exercises per provider recommendation. Keep follow up appointment with Orthopedic Surgery Office for wound healing and assessment. Left hand - Cleanse with Normal saline moist gauze, pat dry. Apply skin prep to periwound. Lightly pack wound bed with Durafiber AG, cover with dry gauze, ABD pad and gauze wrap. Apply Andrea wrap to aid in swelling reduction. Keep covered when showering until cleared from provider. Elevate left hand above the heart with support of pillows to aid in swelling reduction. Re-consult wound care Nurse for wound deterioration or wound changes.
--- NOTE | 2024-08-13 11:39 | P.DS_ITS ---
DS: Providers Provider Date of Service: 08/13/24 Date of admission: 08/11/24 16:28 Date of discharge: 08/13/24 Primary care physician: Brenda Breaux MD Consults: 08/11/24 16:31 Consult to Orthopedics Routine Consulting Provider: [facility] Sur[facility] Reason for consultation: L hand abscess IVDA 08/12/24 08:42 Addiction Medicine Provider Routine Consulting Provider: Addiction Covering Reason for consultation: opiates, intersted in suboxone 08/12/24 10:09 Inpt - Recovery Team Routine Comment: Reason for consultation: ALICIA eval 08/13/24 08:26 Consult to Wound Care Routine Reason for consultation: left hand abscess DS: Diagnosis Discharge Diagnosis (1) Opioid use disorder: Status: Acute DS: Summary Hospital Course Hospital Course: from initial hpi: 24-year-old male with a past medical history significant for cerebral palsy with left hand deficit, substance use disorder (cocaine), obesity and mild intermittent asthma, who presented to the ED due to left hand pain, swelling and redness ongoing for several days. He endores IV cocaine abuse, last use 4 days ago. Reports injecting in the L hand. Has history of cellulitis/abscess ulnar aspect left hand requiring OR I&D but left AMA after several days. Wound cultures positive for MRSA. No history of bacteremia. Endorses subjective fevers and chills. In the ED, slightly tachycardic in the 90s, leukocytosis 13.5. CRP 6.06, ESR 24. Lactic acid 1.2. XR L hand pending. In the ED has received IV vanco and ctx. Also received IV dilaudid. hospital course: Patient was admitted for sepsis due to acute recurrent cellulitis and abscess of the left hand due to IV drug use. He underwent incision and drainage in the ED. given vancomycin ceftriaxone with improvement. Was seen by Orthopedics who felt patient unlikely to require further intervention inpatient. Was seen by wound care and med recommendations see discharge instructions. On discharge will continue 7 more days of Keflex and doxycycline for polysubstance dependence was seen by Addiction team who will set up patient for Suboxone treatment. For mood disorder continue Klonopin. Patient is feeling better will be discharged home Time Attestation Discharge Coordination Time (in mins): 32 Quality: Safe Use of Opioids Does Pt have an Active Cancer Diagnosis on the Problem List?: No Quality: Stroke Does the patient have a stroke diagnosis?: No Physical Exam Vital Signs: Vital Signs: Last Vital Signs Temp 97.3 F 08/13/24 07:21 Pulse 72 08/13/24 07:21 Resp 16 08/13/24 07:21 BP 122/68 08/13/24 07:21 Pulse Ox 97 08/13/24 07:21 O2 Del Method Room Air 08/13/24 07:21 BMI result Body Mass Index 36.2 Extrem: Other: Patient is alert, oriented, and in no acute distress. Neuro: Normal sensation of the tips of all digits of the left hand at this time Vascular: Cap refill brisk Pain: Minor tenderness to palpation about the abscess site on the dorsal aspect of the 1st webspace of the left hand No tenderness to palpation of the thenar eminence or volar 1st webspace No other tenderness to palpation noted ROM: Range of motion of left thumb limited due to pain Patient is able to flex and extend all other digits of the left hand fully and without much difficulty Skin: There is noted to be an approximately 1.5 cm incision noted over the 1st dorsal webspace of the left hand Surrounding cellulitis appears to have improved from images from ED visit No active drainage at this time, drains in place Psych: Appears grossly normal Affect normal Attitude cooperative DS: Data Data Completed and Pending Completed studies during hospitalization [Text1]: Procedures Drainage of Left Hand Tendon, Open Approach (06/21/24) Labs on day of discharge: Laboratory Results - last 24 hr 08/12/24 08/13/24 19:23 05:54 WBC 7.1 RBC 4.93 Hgb 13.6 L Hct 41.2 L MCV 83.6 MCH 27.6 MCHC 33.0 RDW 13.2 Plt Count 227 MPV 11.7 Absolute Nucleated RBC 0.000 Nucleated RBC % (auto) 0.0 Sodium 135 Potassium 4.0 Chloride 105 Carbon Dioxide 22 Anion Gap 12 BUN 14 Creatinine 0.81 Estim Creat Clear Calc 162.2 Estimated GFR > 60 Random Glucose 114 Calcium 9.1 Random Vancomycin 9.9 L Preliminary micro results at discharge 08/11/24 16:33 Routine Culture - Preliminary Hand Left Culture in progress. 08/11/24 14:51 Blood Culture - Preliminary Blood - Venous No growth after 24 hours. 08/11/24 14:11 Blood Culture - Preliminary Blood - Venous No growth after 24 hours. Discharge Plan Discharge Anticipated Discharge Date/Time: 08/13/24 11:35 Patient Disposition: Home, Self-Care Discharge Diagnosis: left hand abscess Referrals: Brenda Breaux MD [Primary Care Provider] - 1 Week Fanny Cruz MD [Physician] - 1 Week Discharge Medications: New doxycycline hyclate 100 mg capsule 100 mg PO BID 7 Days Qty: 14 0RF cephalexin 500 mg capsule 500 mg PO BID 7 Days Qty: 14 0RF Continued tizanidine 4 mg tablet 4 mg PO TID PRN (Reason: muscle spasticity) 30 Days Qty: 90 1RF clonidine HCl 0.1 mg tablet 0.1 mg PO TID PRN (Reason: Anxiety) ibuprofen 800 mg tablet 800 mg PO BID PRN (Reason: pain) clonazepam 1 mg tablet 1 mg PO QID fexofenadine 180 mg tablet 180 mg PO DAILY dextroamphetamine-amphetamine 30 mg tablet 1 tab PO BID@0600,1300 nicotine 21 mg/24 hr patch 24 hour 1 patch transdermal DAILY PRN (Reason: Nicotine Cravings) albuterol sulfate [Ventolin HFA] 90 mcg/actuation HFA aerosol inhaler 2 puff INHALATION QID PRN (Reason: wheezing) ondansetron 8 mg tablet,disintegrating 8 mg PO DAILY PRN (Reason: nausea) Discharge Orders: Discharge Order (Routine); Ordered 08/13/24 Ordered By: Raheel Parekh Diet: Advance to usual diet Activity on Discharge: As tolerated Stand Alone Forms: Patient Portal Discharge page Print Language: [place] Activity Restrictions/Additional Instructions: Topical Wound Care Recommendations: Continue Hand exercises per provider recommendation. Keep follow up appointment with Orthopedic Surgery Office for wound healing and assessment. Left hand - Cleanse with Normal saline moist gauze, pat dry. Apply skin prep to periwound. Lightly pack wound bed with Durafiber AG, cover with dry gauze, ABD pad and gauze wrap. Apply Andrea wrap to aid in swelling reduction. Keep covered when showering until cleared from provider. Elevate left hand above the heart with support of pillows to aid in swelling reduction. Care Plan Goals: recovery Health Concerns: ivda, abscess Plan of Treatment: 1 week doxy and keflex see above Assessment: see above
--- NOTE | 2024-08-13 12:33 | MHC.CM.PN ---
Patient medically cleared for dc home w/ family support. Mother at bedside and feels comfortable managing dressing changes. RN sent home w/ supplies. Mother to provide transport.
--- NOTE | 2024-08-13 13:17 | PM.PNORT ---
Subjective Subjective Date of Service: 08/13/24 Interval history: Admission day 2 for abscess of left hand status post bedside I and D Patient resting comfortably in bed this morning Reports pain well managed, improved from yesterday No acute events overnight No other acute complaints or concerns at this time Physical Exam Vital Signs: Vital Signs: Last Vital Signs Temp 97.3 F 08/13/24 07:21 Pulse 72 08/13/24 07:21 Resp 16 08/13/24 07:21 BP 122/68 08/13/24 07:21 Pulse Ox 97 08/13/24 07:21 O2 Del Method Room Air 08/13/24 07:21 BMI result Body Mass Index 36.2 Extrem: Other: Patient is alert, oriented, and in no acute distress. Neuro: Normal sensation of the tips of all digits of the left hand at this time Vascular: Cap refill brisk Pain: No tenderness to palpation about the abscess site on the dorsal aspect of the 1st webspace of the left hand No tenderness to palpation of the thenar eminence or volar 1st webspace No other tenderness to palpation noted ROM: Range of motion of left thumb limited due to pain Patient is able to flex and extend all other digits of the left hand fully and without much difficulty Skin: There is noted to be an approximately 1.5 cm incision noted over the 1st dorsal webspace of the left hand Surrounding cellulitis appears to have improved from images from ED visit No active drainage at this time, drains in place Psych: Appears grossly normal Affect normal Attitude cooperative Procedures Date of Service Date of Service: 08/13/24 Progress Note: A&P Assessment and plan (1) Abscess of hand, left: Status: Acute (2) Cocaine use disorder: Status: Acute Plan 1. Status post I and D of left hand Dressing changed, drains pulled today Patient should continue with IV antibiotics OT eval and treat ordered for today for range of motion and strengthening of the left hand Daily dressing changes, and as needed for saturation Patient should be discharged with antibiotics when he is medically cleared to do so Patient will follow-up with us on an outpatient basis in approximately 1 week Patient was amenable to this plan Continue with all other recommendations per Medicine Time Spent With Patient Time: Total time managing care of this patient today ____ minutes. Quality Stroke Does the patient have a stroke diagnosis?: No VTE Prior VTE?: No VTE Risk Level:: Medical - moderate - high VTE Device Contraindication: Treatment Not Indicated VTE Drug Contraindication: N/A - Med Ordered
== END 2024-08-13 12:31 | disposition home or self-care (01) | DRG 720 ==
LOC: HO.ED 16:20 → HO.EDOVER 17:10 → HO.S3 17:44
PROVIDERS: Nurse Practitioner Family; Registered Nurse Emergency; Admitting Provider Physician Assistant; Emergency Provider Emergency Medicine; PCP Internal Medicine; Visit Provider Internal Medicine
DX: A41.9 Sepsis, unspecified organism (principal); F11.20 Opioid dependence, uncomplicated; L02.512 Cutaneous abscess of left hand; F14.10 Cocaine abuse, uncomplicated; F17.290 Nicotine dependence, other tobacco product, uncomplicated; F19.20 Other psychoactive substance dependence, uncomplicated; F39 Unspecified mood [affective] disorder; G80.9 Cerebral palsy, unspecified; J45.20 Mild intermittent asthma, uncomplicated; L03.114 Cellulitis of left upper limb; Z86.14 Personal history of Methicillin resistant Staphylococcus aureus infection; Z71.6 Tobacco abuse counseling; Z79.899 Other long term (current) drug therapy
CPT/HCPCS: 36415; 73130; 80048; 80053; 80202; 80307; 83605; 85025; 85027; 85652; 86140; 87040; 87070; 87147; 87205; 99285; J0696; J1171; J1650; J2003; J3370; J3371; S9485

== ENCOUNTER → 2024-08-11 14:14 | Outpatient (BNV) | payer MEDICAID, SELFPAY | PROVIDERS: Emergency Provider Emergency Medicine; PCP Internal Medicine; Visit Provider Physician Assistant | DX: L02.91 Cutaneous abscess, unspecified (principal); L03.90 Cellulitis, unspecified; F19.10 Other psychoactive substance abuse, uncomplicated | CPT/HCPCS: 99223 ==

== ENCOUNTER → 2024-08-11 14:29 | Outpatient (BNV) | payer MEDICAID, SELFPAY | PROVIDERS: Emergency Provider Emergency Medicine; PCP Internal Medicine; Visit Provider Radiology Diagnostic Radiology | DX: R22.31 Localized swelling, mass and lump, right upper limb (principal) | CPT/HCPCS: 73130 ==

== ENCOUNTER → 2024-08-11 16:28 | Outpatient (BNV) | payer MEDICAID, SELFPAY | PROVIDERS: Admitting Provider Physician Assistant; Emergency Provider Emergency Medicine; PCP Internal Medicine; Visit Provider Nurse Practitioner Psychiatric/Mental Health | DX: F11.90 Opioid use, unspecified, uncomplicated (principal); F14.10 Cocaine abuse, uncomplicated | CPT/HCPCS: 99222 ==

== ENCOUNTER → 2024-08-11 16:28 | Outpatient (BNV) | payer MEDICAID, SELFPAY | PROVIDERS: Admitting Provider Physician Assistant; Emergency Provider Emergency Medicine; PCP Internal Medicine | DX: L02.512 Cutaneous abscess of left hand (principal); F14.10 Cocaine abuse, uncomplicated | CPT/HCPCS: 99222; 99232 ==

== ENCOUNTER 2024-08-16 09:41 | Outpatient (AMB) | payer MEDICAID, SELFPAY ==
--- NOTE | 2024-08-16 09:53 | MHC.OFFVIS ---
Intake Visit Reasons: OV-Cellulitis, Abscess L Hand-E/D follow up Intake Note: Mookie is a 24 year old right hand dominant male who presents today for an emergency department follow up for her abscess of hand, left. Patient reports he has been in a high amount of pain from his left hand. He reports his digits of the left hand feel extremely stiff and he is experiencing some numbness as well. Allergies amoxicillin [AMOXICILLIN] Allergy (Unknown, Verified 08/16/24 09:56) HIVES hydrocodone [From VICODIN] Allergy (Unknown, Verified 08/16/24 09:56) RASH sulfamethoxazole [From BACTRIM] Allergy (Unknown, Verified 08/16/24 09:56) UNKNOWN trimethoprim [From BACTRIM] Allergy (Unknown, Verified 08/16/24 09:56) UNKNOWN Vicodin Allergy (Unknown, Uncoded 06/21/24 11:04) hives HPI HPI OV-Cellulitis, Abscess L Hand-E/D follow up: Details: Mookie is a 24 year old right hand dominant male who presents today for an emergency department follow up for her abscess of hand, left. Patient reports he has been in a high amount of pain from his left hand. He reports his digits of the left hand feel extremely stiff and he is experiencing some numbness as well. [facility] Medical History Mild intermittent asthma Environmental allergies Allergies Left hemiparesis Cerebral palsy Social History Household Members: Family Housing: Apartment Do you presently have visiting nurse or other home services: No Alcohol intake: current Alcohol intake frequency: holidays/special occasions only Patient Tobacco Use Status: Never used Tobacco Cigarettes Per Day: 10 e-Cigarette/Vaping Use: Currently Using Second Hand Smoke Exposure: Yes Substance Use Type: Crack/Cocaine Advance Directives Date on File: 05/29/24 service: No Current occupational status: unemployed Cognitive needs: No Hearing needs: No Vision needs: No Review of Systems Const All systems reviewed & are unremarkable except as noted in HPI and below Physical Exam Extrem Other: Patient is alert, oriented, and in no acute distress. Neuro: Normal sensation of the tips of all digits of the left hand at this time Vascular: Cap refill brisk Pain: Patient reports no tenderness to palpation about the wound sites on dorsal left hand No tenderness to palpation of area of fluctuance over the dorsal left hand ROM: Patient was able to make a closed fist and extend all digits of the left hand fully Skin: No lacerations or abrasions. General: No ecchymosis, erythema, or evidence of infection. Psych: Appears grossly normal Affect normal Attitude cooperative Office Procedures Incision and Drainage Incision and drainage performed by: Ken Arnold Informed consent given: Yes Consent signed: Yes Time out checklist: patient, procedure, site marked/identified, positioning of patient, supplies available, allergies confirmed and team agrees on procedure Time out date: 08/16/24 Time out time: 10:40 Anesthesia: local Incision with: #15 blade Drainage quality: purulent and serous Probed cavity: No Culture taken: No Lesion: drainage and fluctuance Hemostasis: pressure Dressing: gauze Patient tolerated procedure: well Complications: No Assessment & Plan Assessment & Plan (1) Abscess of hand, left: Code(s): L02.512 - Cutaneous abscess of left hand Category: Medical Plan 1. Abscess of the left hand I&D in emergency department on 08/11/2024 Patient is educated about this condition Patient is educated about the typical recovery course At this time, due to the small area of fluctuance that is still noted on the hand, I feel it was best to proceed with I and D in the office today The risks and benefits of incision and drainage including but not limited to risk of damage to blood vessels, nerve, tendon, infection, persistent or worsening pain, and failure to improve symptoms were discussed with the patient and they wish to proceed with incision and drainage Once consent was obtained the skin over the dorsum of the left hand was aseptically prepped. The area was then injected with 3 mL of plain lidocaine. At this point, a small, 1.5 cm incision was made over the area of fluctuance in the dorsum of the left hand, proximal to the 1st webspace. Small amounts of purulent and serosanguineous drainage were expressed from the incision. Small amounts of blood were also noted to be draining from the incision, and hemostasis was obtained using 2 minutes of pressure. The wound was then dressed using gauze, Nacho wrap, and Coban. Patient was advised that this time that he should keep the incision site clean and dry, while performing daily dressing changes at home. The patient appears to have tolerated the procedure well and with no complications. Wound site of I and D from 08/11 appears to be healing very well, no concerns at this time Patient was prescribed 400 mg of ibuprofen q8h for pain management Antibiotics previously prescribed after discharge from the hospital have been refilled Follow-up early next week for wound check, sooner with any acute concerns Medications: New ibuprofen 400 mg PO Q8H 21 tabs 0RF Refilled cephalexin 500 mg PO BID 14 caps 0RF 7 days doxycycline hyclate 100 mg PO BID 14 caps 0RF 7 days Coding Level of Care Code Est Pt Level 4 (45631) Diagnoses Abscess of hand, left L02.512
--- OUTSIDE RECORDS SUMMARY | 2024-08-16 10:19 | XMS_ITS | Encounter Summary ---
Author Organization [facility] Address [address] [place] [address] Care Team Providers Care Director Of Strategic Sourcing Name Role Phone Brenda Breaux MD Primary Care Provider [phone] Encounter Details Date Type Department Care Team (Late st Contact Info) Description 08/05/2024 Lab Requisition [facility] - Main Lab [address] [facility] [place] [address] Alia Mota MD [address] [place] [address] Opioid dependence, uncomplicated (CMS/HCC V24, CMS/HCC V28) Social History Tobacco Use Types Packs/Day Years Used Date Smoking Tobacco: Never Smokeless Tobacco: Never Alcohol Use Standard Drinks/Week Comments Never 0 (1 standard drink = 0.6 oz pur e alcohol) Sex and Gender Information Value Date Recorded Sex Assigned at Male 06/30/2024 4:20 AM EST Legal Sex Male 9:06 AM EST Gender Identity Male 06/30/2024 4:20 AM EST Sexual Orientation Choose not to disclose 2024 4:20 AM EST documented as of this encounter Functional Status * Are you deaf or do you have serious difficulty hearing? Answer Date of Assessment Author No 06/30/2024 3:53 AM EST Toby Espitia RN * Are you blind or do you have serious difficulty seeing, even when wearing glasses? Answer Date of Assessment Author No 06/30/2024 3:53 AM EST Toby Espitia RN * Do you have serious difficulty walking or climbing stairs? Answer Date of Assessment Author No 06/30/2024 3:53 AM Toby Mendoza RN * Do you have serious difficulty dressing or bathing? Answer Date of Assessment Author No 06/30/2024 3:53 AM Toby Mendoza RN * Because of a physical, mental, or emotional condition, do you have serious difficulty doing errandsalone such as visiting the doctor? Answer Date of Assessment Author No 06/30/2024 3:53 AM Toby Mendoza RN documented as of this encounter Mental Status * Because of a physical, mental, or emotional condition, do you have serious difficulty concentrating, remembering, or making decisions? (5 years old or older) Answer Entry Date Author No 06/30/2024 3:53 AM Toby Mendoza RN documented in this encounter Plan of Treatment Not on file documented as of this encounter Procedures Procedure Name Priority Date/Time Associated Diagnosis Comments CHLAMYDIA TRACHOMATIS AND NEISSERIA GONORRHOEAE PCR Routine 08/05/2024 10:04 AM EDT Opioid dependence, uncomplicated ([facility] V24, [facility] V28) documented in this encounter Results * Chlamydia trachomatis and Neisseria gonorrhoeae molecular study (08/05/2024 10:04 AM EDT) Neisseria gonorrhoeae PCR Negative Negative LAB MOLECULAR DIAGNOSTICS METHOD 08/06/2024 10:59 AM EDT [facility] Chlamydia trachomatis PCR Negative Negative LAB MOLECULAR DIAGNOSTICS METHOD 08/06/2024 10:59 AM EDT [facility] Urine 08/05/2024 10:0 4 AM EDT 08/05/2024 2:37 PM EDT us Alia Mota MD LAB MICROBIOLOGY - GENE RAL ORDERABLES Final Result [facility] [address] [place] [address], [place] [phone] documented in this encounter Visit Diagnoses Diagnosis Opioid dependence, uncomplicated ([facility] V24, [facility] V28) documented in this encounter Care Teams Director Of Strategic Sourcing Relationship Specialty Start Date End Date Brenda Breaux MD [address] [place] [address] Dr Mazariegos, [place] [address] PCP - General Internal Medicine 06/30/24 documented as of this encounter
--- OUTSIDE RECORDS SUMMARY | 2024-08-16 10:19 | XMS_ITS | Clinical Summary ---
Author Organization [facility] Address [address] [place] [address] Care Team Providers Care Secretary Specialist Name Role Phone Pcp, No MD Primary Care Provider Unavailabl e Allergies Active Allergy Reactions Criticality Noted Date Comments Acetaminophen Other (see comments) Medium 04/17/2018 Amoxicillin Hives Medium 02/22/2017 Codeine Other (see comments) Medium 04/17/2018 Hydrocodone Other (see comments) Medium 04/17/2018 Medications fluticasone HFA (FLOVENT HFA) 44 mcg/actuation inhaler 2 PUFF(S) 2 TIMES A DAY INHALED 30 DAY(S) 03/19/2018 Active ipratropium (ATROVENT) 42 mcg (0.06 %) nasal spray SPRAY 1 SPRAY INTO EACH NOSTRIL TWICE A DAY 0 05/04/2018 Active melatonin 10 mg capsule TAKE 1 TABLET ORALLY AT BEDTIME 1 05/09/2018 Active amphetamine-dex troamphetamine XR (ADDERALL XR) 30 mg 24 hr capsule Take 30 mg by mouth daily. 02/19/2018 Active triamcinolone (KENALOG) 0.1 % ointment AAA twice daily x 2-3 weeks, then 1 week off. Repeat prn flare. 454 g 1 06/13/2018 Active vitamin E 50 unit/mL dropsIndication s:Intrinsic atopic dermatitis AAA daily 30 mL 3 06/13/2018 Active Active Problems No known active problems Family History Medical History Relation Comments Eczema Paternal Grandfather Relation Status Comments Paternal Grandfather Alive Social History Tobacco Use Types Packs/Day Years Used Date Smoking Tobacco: Never Smokeless Tobacco: Never Sex and Gender Information Value Date Recorded Sex Assigned at Not on file Legal Sex Male 3:33 PM EDT Gender Identity Not on file Sexual Orientation Not on file Plan of Treatment Health Maintenance Due Date Last Done Comments HIV Screening 2000 HPV Vaccines (1 - Male 3-dos e series) 2015 DTaP,Tdap,and Td Vaccines (1 - Tdap) 2018 Hepatitis B Vaccines (1 of 3 - 19+ 3-dose series) 2019 COVID-19 Vaccine (1 - 2023-2 5 season) 2023 Influenza Vaccine (Season Ended) 2024 Zoster Vaccines (1 of 2) 2050 Hepatitis A Vaccines Aged Out No long er eligible based on patient's age to complete this topic MMR Vaccines Aged Out No longer eligi ble based on patient's age to complete this topic Meningococcal Vaccine Aged Out No deandra peggy eligible based on patient's age to complete this topic Pneumococcal Vaccine: Pediat rics (0 to 5 Years) and At-Risk Patients (6 to 49 Years) Aged Out No longer eligible b ased on patient's age to complete this topic Insurance MEDICAID HUSKY A Care Teams Secretary Specialist Relationship Specialty Start Date End Date Bibi Jain MD [address] [place] [address] PCP - General Internal Medicine 10/27/22
--- OUTSIDE RECORDS SUMMARY | 2024-08-16 10:19 | XMS_ITS | Clinical Summary ---
Author Organization [facility] Address [address] [place] [address] Care Team Providers Care Claims Auditor Name Role Phone Sanjana Schofield Primary Care Provider Source Comments Please note that some or all of the patient's information could have additional privacy protections. State laws allow health care providers to render certain types of treatment to minors without parental consent. Please do not assume that this information can be shared solely by obtaining just the consent of the patient's parent/guardian. Please determine if all or part of the patient's care was rendered without parent/guardian involvement. And, if so, obtain the minor's consent prior to disclosure.[facility] Allergies Active Allergy Reactions Criticality Noted Date Comments Amoxicillin Hives 02/22/2017 Medications PROVENTIL HFA 90 mcg/actuation inhaler Inhale 2 puffs into the lungs every 4 (four) hours as needed 0 7 Active hydrOXYzine (ATARAX) 25 MG tablet Take 25 mg by mouth daily At night 0 7 Active triamcinolone (KENALOG) 0.025 % ointment APPLY TO FACE TWICE DAILY if needed 0 7 Active dextroamphetami ne-amphetamine (ADDERALL) 15 mg per tablet Take 15 mg by mouth daily Active cloNIDine HCl (CATAPRES) 0.1 MG tablet TAKE 1 TABLET BY MOUTH EVERY DAY AT BEDTIME 1 8 Active melatonin 10 mg Capsule TAKE 1 TABLET ORALLY AT BEDTIME 1 8 Active montelukast (SINGULAIR) 10 mg tablet Take 10 mg by mouth daily 3 8 Active gabapentin (NEURONTIN) 300 MG capsule TAKE 1 CAPSULE IN THE MORNING AND MAY TAKE 1 ADDITIONAL DAILY NEEDED FOR ANXIETY. 2 8 Active FLOVENT HFA 44 mcg/actuation inhaler 2 PUFF(S) 2 TIMES A DAY INHALED 30 DAY(S) 3 8 Active FLUoxetine (PROZAC) 20 MG capsule Take 20 mg by mouth daily 1 8 Active ibuprofen (ADVIL,MOTRIN) 800 MG tablet Take by mouth 8 Active Active Problems Problem Noted Date Diagnosed Date Elevated serum creatinine 04/06/2018 Elevated blood pressure read ing without diagnosis of hypertension 02/22/2017 Morbid (severe) obesity due to excess calories 1 Excessive sodium intake 02/22/2017 Sleep disorder 02/22/2017 Family History Medical History Relation Name Comments Kidney disease 2nd cousin ESRD of uncle ar etiology Kidney transplant 2nd cousin Hypertension Father Diabetes Maternal Grandmother Dialysis Maternal Grandmother ESRD se condary to Type 2 diabetes mellittus Hypertension Maternal Grandmother Adult-o nset Kidney disease Maternal Grandmother Relation Name Status Comments 2nd cousin Father Maternal Grandmother Social History Tobacco Use Types Packs/Day Years Used Date Smoking Tobacco: Never Smokeless Tobacco: Never Alcohol Use Standard Drinks/Week Comments Not Asked 0 (1 standard drink = 0.6 oz pur e alcohol) Sex and Gender Information Value Date Recorded Sex Assigned at Not on file Legal Sex Male 9:58 AM EDT Gender Identity Not on file Sexual Orientation Not on file Last Filed Vital Signs Vital Sign Reading Time Taken Comments Blood Pressure 118/56 04/12/2018 2:13 PM EST Pulse 88 07/18/2017 3:24 PM EDT Temperature - - Respiratory Rate 16 07/18/2017 3:24 PM EDT Oxygen Saturation - - Inhaled Oxygen Concentration - - Weight 113.4 kg (250 lb) 04/12/2018 2:13 PM EST Height 171.5 cm (5' 7.52 ) 04/12/2018 2:13 PM ES T Body Mass Index 38.56 04/12/2018 2:13 PM EST Plan of Treatment Health Maintenance Due Date Last Done Comments DTaP/TDAP/TD VACCINES (1 - Tdap) 2007 ADOLESCENT HIV SCREENING 2013 COVID-19 Vaccine ( - 2023-2 5 season) 2023 INFLUENZA (#1) 2023 NIRSEVIMAB VACCINES UNDER 8 MONTHS Aged Out No longer eligible based on patient's age to complete this topic Insurance HUSKY A SAYRAKY A Care Teams Claims Auditor Relationship Specialty Start Date End Date Sanjana Schofield DO [address] [place] [address] PCP - General Internal Medicine 12/14/16
--- OUTSIDE RECORDS SUMMARY | 2024-08-16 10:19 | XMS_ITS | Encounter Summary ---
Author Organization [facility] Address [address] [place] [address] Care Team Providers Care Third Cook Name Role Phone Brenda Breaux MD Primary Care Provider [phone] Encounter Details Date Type Department Care Team (Late st Contact Info) Description 06/21/2024 Lab Requisition [facility] - Main Lab [address] [facility] [place] [address] Alia Mota MD [address] [place] [address] Opioid dependence, uncomplicated (CMS/HCC V24, CMS/HCC V28) [...] AM EST documented as of this encounter Plan of Treatment Not on file documented as of this encounter Procedures Procedure Name Priority Date/Time Associated Diagnosis Comments HEPATITIS C ANTIBODY Routine 06/21/2024 10:35 AM EST Opioid dependence, uncomplicated (CMS/HCC) HIV 1, 2 ANTIBODY, P24 ANTIGEN WITH REFLEX TO DIFFERENTIATION Routine 06/21/2024 10:35 AM EST Opioid dependence, uncomplicated (CMS/HCC) HEPATITIS B SURFACE ANTIGEN WITH CONFIRMATION Routine 06/21/2024 10:35 AM EST Opioid dependence, uncomplicated (CMS/HCC) TREPONEMA PALLIDUM ANTIBODY WITH REFLEX TO RPR AND PARTICLE AGGLUTINATION Routine 06/21/2024 10:35 AM EST Opioid dependence, uncomplicated (CMS/HCC) HEPATITIS A ANTIBODY IGM Routine 06/21/2024 10:35 AM EST Opioid dependence, uncomplicated (CMS/HCC) HEPATITIS B CORE ANTIBODY, TOTAL Routine 06/21/2024 10:35 AM EST Opioid dependence, uncomplicated (CMS/HCC) HEPATITIS B SURFACE ANTIBODY Routine 06/21/2024 10:35 AM EST Opioid dependence, uncomplicated (CMS/HCC) COMPLETE BLOOD COUNT Routine 06/21/2024 10:35 AM EST Opioid dependence, uncomplicated (CMS/HCC) COMPREHENSIVE METABOLIC PANEL Routine 06/21/2024 10:35 AM EST Opioid dependence, uncomplicated (CMS/HCC) documented in this encounter Results * Hepatitis C antibody (06/21/2024 10:35 AM EST) Pathologist [facility] Hepatitis C Antibody Negative Negative LAB CHEMISTRY METHOD 06/22/2024 8:29 AM EST [facility] Blood Venous blood specimen / Unknown 06/21/2024 10:35 AM EST 06/21/2024 2:35 PM EST us Alia Mota MD LAB BLOOD ORDERABLES Ed ited Result - Final [facility] [address] [place] [address], * Hepatitis A antibody IgM (06/21/2024 10:35 AM EST) Pathologist [facility] Hepatitis A Antibody IgM Negative Negative LAB CHEMISTRY METHOD 06/21/2024 5:59 PM EST [facility] Blood Venous blood specimen / Unknown 06/21/2024 10:35 AM EST 06/21/2024 2:35 PM EST Narrative [facility] - 06/21/2024 5:59 PM EST Over the counter supplements containing high doses of biotin may interfere with this assay. ??If interference is suspected, patients shoud be retested after refraining from biotin supplements for 72 hours. Alia Mota MD LAB BLOOD ORDERABLES Fi nal Result Performing Organization Address [facility] Co de Phone Number [facility] [address] [place] [address], [place] [phone] * HIV 1,2 antibody, p24 antigen with reflex to differentiation (06/21/2024 10:35 AM EST) HIV Combo AB/AG Negative Negative LAB CHEMISTRY METHOD 06/21/2024 5:43 PM EST [facility] Blood Venous blood specimen / Unknown 06/21/2024 10:35 AM EST 06/21/2024 2:35 PM EST Narrative [facility] - 06/21/2024 5:43 PM EST This assay is a 4th generation assay allowing for earlier detection of HIV infection by detecting the presence of the HIV-1 p24 antigen as well as the traditional antibodies to HIV type 1 (including group O) and type 2. ??Use of a 4th generation assay is the current CDC recommendation for HIV screening. Alia Mota MD LAB BLOOD ORDERABLES Fi nal Result Performing Organization Address [facility]/ZIP Co de Phone Number [facility] [address] [place] [address], [place] [phone] * Hepatitis B core antibody, total (06/21/2024 10:35 AM EST) Hep B Core Total Ab Negative Negative LAB CHEMISTRY METHOD 06/21/2024 5:58 PM EST [facility] Blood Venous blood specimen / Unknown 06/21/2024 10:35 AM EST 06/21/2024 2:35 PM EST Alia Mota MD LAB BLOOD ORDERABLES Fi nal Result Performing Organization Address [facility]/ZIP Co de Phone Number [facility] [address] [place] [address], [place] [phone] * Hepatitis B surface antibody (06/21/2024 10:35 AM EST) Hepatitis B Surface Ab Negative Negative LAB CHEMISTRY METHOD 06/21/2024 5:04 PM EST [facility] Hepatitis B Surface Ab Quantitative <3.1 mIU/mL LAB CHEMISTRY METHOD 06/21/2024 5:04 PM EST [facility] Blood Venous blood specimen / Unknown 06/21/2024 10:35 AM EST 06/21/2024 2:35 PM EST Narrative [facility] - 06/21/2024 5:04 PM EST >=10 mIU/mL is considered to be consistent with immunity. Alia Mota MD LAB BLOOD ORDERABLES Fi nal Result Performing Organization Address [facility]/ZIP Co de Phone Number [facility] [address] [place] [address], [place] [phone] * Hepatitis B surface antigen with reflex to confirmation (06/21/2024 10:35 AM EST) Hepatitis B Surface Ag Negative Negative LAB CHEMISTRY METHOD 06/21/2024 5:14 PM EST [facility] Blood Venous blood specimen / Unknown 06/21/2024 10:35 AM EST 06/21/2024 2:35 PM EST Narrative [facility] - 06/21/2024 5:14 PM EST Over the counter supplements containing high doses of biotin may interfere with this assay. ??If interference is suspected, patients shoud be retested after refraining from biotin supplements for 72 hours. Alia Mota MD LAB BLOOD ORDERABLES Fi nal Result Performing Organization Address [facility]/ZIP Co de Phone Number [facility] [address] [place] [address], [place] [phone] * Treponema pallidum antibody with reflex to RPR and particle agglutination (06/21/2024 10:35 AM EST) Pathologist [facility] T. Pallidum Antibodies Negative Negative LAB CHEMISTRY METHOD 06/21/2024 5:14 PM EST [facility] Blood Venous blood specimen / Unknown 06/21/2024 10:35 AM EST 06/21/2024 2:35 PM EST Alia Mota MD LAB BLOOD ORDERABLES Fi nal Result Performing Organization Address [facility] Co de Phone Number [facility] [address] [place] [address], [place] [phone] * (ABNORMAL) Comprehensive metabolic panel (06/21/2024 10:35 AM EST) Pathologist [facility] Sodium 139 133 - 145 mmol/L LAB CHEMISTRY METHOD 06/21/2024 4:56 PM [facility] Potassium 4.7 3.5 - 5.5 mmol/L LAB CHEMISTRY METHOD 06/21/2024 4:56 PM [facility] Chloride 104 96 - 110 mmol/L LAB CHEMISTRY METHOD 06/21/2024 4:56 PM [facility] CO2 27 21 - 32 mmol/L LAB CHEMISTRY METHOD 06/21/2024 4:56 PM [facility] Anion Gap 8 3 - 11 LAB CHEMISTRY METHOD 06/21/2024 4:56 PM [facility] Glucose 77 70 - 100 mg/dL LAB CHEMISTRY METHOD 06/21/2024 4:56 PM [facility] BUN 15 5 - 25 mg/dL LAB CHEMISTRY METHOD 06/21/2024 4:56 PM [facility] Creatinine 1.01 0.70 - 1.30 mg/dL LAB CHEMISTRY METHOD 06/21/2024 4:56 PM [facility] eGFR 107 >=60 mL/min/1. 73m2 LAB CHEMISTRY METHOD 06/21/2024 4:56 PM [facility] Comment:Calculation based on the??Chronic Kidney Disease Epidemiology Collaboration (CKD-EPI) equation refit??without adjustment for race. BUN/Creatinine Ratio 14.9 LAB CHEMISTRY METHOD 06/21/2024 4:56 PM [facility] Calcium 9.5 8.5 - 10.5 mg/dL LAB CHEMISTRY METHOD 06/21/2024 4:56 PM [facility] AST (SGOT) 22 10 - 42 unit/L LAB CHEMISTRY METHOD 06/21/2024 4:56 PM [facility] ALT (SGPT) 29 10 - 60 unit/L LAB CHEMISTRY METHOD 06/21/2024 4:56 PM [facility] Alkaline Phosphatase 114 42 - 121 unit/L LAB CHEMISTRY METHOD 06/21/2024 4:56 PM [facility] Total Protein 8.1(H) 6.0 - 8.0 g/dL LAB CHEMISTRY METHOD 06/21/2024 4:56 PM [facility] Albumin 3.6 3.2 - 5.0 g/dL LAB CHEMISTRY METHOD 06/21/2024 4:56 PM [facility] Total Bilirubin 0.3 0.0 - 1.4 mg/dL LAB CHEMISTRY METHOD 06/21/2024 4:56 PM [facility] Blood Venous blood specimen / Unknown 06/21/2024 10:35 AM EST 06/21/2024 2:35 PM EST us Alia Mota MD LAB BLOOD ORDERABLES Fi nal Result [facility] [address] [place] [address], [place] [phone] * (ABNORMAL) Complete blood count (06/21/2024 10:35 AM EST) WBC 12.8(H) 4.8 - 10.8 K/mcL LAB HEMETOLOGY METHOD 06/21/2024 2:44 PM EST [facility] RBC 5.20 4.50 - 5.50 M/mcL LAB HEMETOLOGY METHOD 06/21/2024 2:44 PM EST [facility] Hemoglobin 14.3 13.5 - 17.5 g/dL LAB HEMETOLOGY METHOD 06/21/2024 2:44 PM EST [facility] Hematocrit 44.5 42.0 - 54.0 % LAB HEMETOLOGY METHOD 06/21/2024 2:44 PM [facility] MCV 85.1 79.0 - 98.0 FL LAB HEMETOLOGY METHOD 06/21/2024 2:44 PM EST [facility] MCH 27.3 27.0 - 32.0 pcg LAB HEMETOLOGY METHOD 06/21/2024 2:44 PM EST [facility] MCHC 32.1 32.0 - 37.0 g/dL LAB HEMETOLOGY METHOD 06/21/2024 2:44 PM [facility] RDW 12.8 11.0 - 15.0 % LAB HEMETOLOGY METHOD 06/21/2024 2:44 PM [facility] Platelets 298 130 - 400 K/mcL LAB HEMETOLOGY METHOD 06/21/2024 2:44 PM [facility] MPV 11.5(H) 7.0 - 11.0 FL LAB HEMETOLOGY METHOD 06/21/2024 2:44 PM EST [facility] NRBC 0.0 <1.0 % LAB HEMETOLOGY METHOD 06/21/2024 2:44 PM EST [facility] NRBC Absolute 0.00 <0.10 K/mcL LAB HEMETOLOGY METHOD 06/21/2024 2:44 PM EST [facility] Blood Venous blood specimen / Unknown 06/21/2024 10:35 AM EST 06/21/2024 2:35 PM EST us Alia Mota MD LAB BLOOD ORDERABLES Fi nal Result [facility] [address] [place] [address], documented in this encounter Visit Diagnoses Diagnosis Opioid dependence, uncomplicated (CMS/HCC V24, CMS/HCC V28) documented in this encounter Care Teams Third Cook Relationship Specialty Start Date End Date Brenda Breaux MD [address] [place] [address] [place] [address] PCP - General Internal Medicine 06/30/24 documented as of this encounter
--- OUTSIDE RECORDS SUMMARY | 2024-08-16 10:19 | XMS_ITS | Encounter Summary ---
Author Organization [facility] Address [address] [place] [address] Phone Care Team Providers Care Evs Manager Name Role Phone Kori Dover MD Primary Care Provider [phone] Encounter Details Date Type Department Care Team (Late st Contact Info) Description 12/15/2016 Conversion Encounter [facility] [place] [address] [place] [address] Social History Tobacco Use Types Packs/Day Years [...] on filedocumented in this encounter Care Teams Evs Manager Relationship Specialty Start Date End Date Kori Dover MD [address] [place] [address] PCP - General 12/09/16 10/30/22 documented as of this encounter
--- OUTSIDE RECORDS SUMMARY | 2024-08-16 10:19 | XMS_ITS | Clinical Summary ---
Author Organization [address] [facility] Address [address] [place] [address] Phone Care Team Providers Care Gun Number Name Role Phone Brenda Breaux MD Primary Care Provider [phone] Allergies Active Allergy Reactions Criticality Noted Date Comments Amoxicillin 06/30/2024 Encounters Date Type Department Care Team Description 08/05/2024 Lab Requisition [facility] Lab [address] [place] [address] Alia Mota MD Opioid dependence, uncomplicated (CMS/HCC V24, CMS/FORMERLY [facility] V28) 06/30/2024 3:07 AM EST - 06/30/2024 4:59 AM EST Emergency [facility] Emergency [address] [place] [id number] Cocaine use disorder (CMS/HCC V24, CMS/[facility]ER[facility] V28) (Primary Dx); Open wound of left hand, subsequent encounter Discharge Disposition: Home or Self Care 06/21/2024 Lab Requisition [facility] Lab [address] [place] [phone] Alia Mota MD Opioid dependence, uncomplicated (CMS/HCC V24, CMS/HCC V28) from Last 3 Months Surgical History Surgery Date Site/Laterality Comments ABSCESS DRAINAGE Right right hand Medical History Medical History Date Comments Left hemiparesis (CMS/HCC V2 4, CMS/HCC V28) DX:Left hemiparesis (HCC); 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 Banks- AFO in past- Obesity DX:Obesity; COMM ENT: seen at [facility] wt clinic Fracture of patella, right, closed 2010 DX:Fracture of patella, right, closed; COMMENT: no complications, Hx MRSA infection 04/07/2014 DX:Hx MRSA inf ection; COMMENT: Abscess thigh 04/04/14 ADHD (attention deficit hype ractivity disorder) DX:ADHD (attention deficit hyperactivity disorder) Anxiety Bipolar 1 disorder ([facility] V24, [facility] V28) Cerebral palsy ([facility] V24, [facility] V28) Family History Medical History Relation Name Comments [...] Date Smoking Tobacco: Never Smokeless Tobacco: Never Tobacco Cessation:Counseling Given: Not Answered Alcohol Use Standard Drinks/Week Comments Never 0 (1 standard drink = 0.6 oz pur e alcohol) Sex and Gender Information Value Date Recorded Sex Assigned at Male 06/30/2024 4:20 AM EST Legal Sex Male 9:06 AM EST Gender Identity Male 06/30/2024 4:20 AM EST Sexual Orientation Choose not to disclose 2024 4:20 AM EST Obstetrics History Last Filed Vital Signs Vital Sign Reading Time Taken Comments Blood Pressure 115/79 06/30/2024 2:54 AM EST Pulse 93 06/30/2024 2:54 AM EST Temperature 36.7 ??C (98.1 ??F) 06/30/2024 2:54 AM ES T Respiratory Rate 18 06/30/2024 2:54 AM EST Oxygen Saturation 99% 06/30/2024 2:54 AM EST Inhaled Oxygen Concentration - - Weight 111 kg (245 lb) 06/30/2024 2:54 AM EST Height 175.3 cm (5' 9 ) 06/30/2024 2:54 AM EST Body Mass Index 36.18 06/30/2024 2:54 AM EST Plan of Treatment Health Maintenance Due Date Last Done Comments DTaP,Tdap,and Td Vaccines (7 - Td or Tdap) 03/30/2021 03/30/2011, 05/17/2005, 05/17/2005, Additional history exists Cholesterol Screening (Lipid Panel) 04/03/2022 Depression Screening 04/03/2022 Social Influencers of Health Screening 04/03/2022 Hepatitis B Vaccines Completed 2000, 2000, 2000 HIB Vaccines Completed 07/02/2001, 0 07/2001, 2000, Additional history exists MMR Vaccines Completed 05/05/2004, 04/03/2001 IPV Vaccines Completed 05/17/2005, 0 07/2001, 07/02/2001, Additional history exists Pneumococcal Vaccine: Pediatrics (0 to 5 Years) and At-Risk Patients (6 to 64 Years) Completed 05/05/2006, 05/05/2004, 05/30/2001, Additional history exists Varicella Vaccines Completed 03/05/2008, 04/03/2001 Meningococcal ACWY Vaccine Aged Out 03/30/2011 N o longer eligible based on patient's age to complete this topic HPV Vaccines Completed 06/11/2014, 03/31, 04/16/2012 Hepatitis A Vaccines Completed 08/29/2023, 02/11/20 22 COVID-19 Vaccine Completed 02/12/2024, 10/2021, 12/02/2021 Influenza Vaccine Completed 02/12/2024, , 01/26/2022, Additional history exists HIV Screening Completed 06/21/2024 Hepatitis C Screening Completed 06/21/2024, 024 Meningococcal B Vaccine Aged Out No l onger eligible based on patient's age to complete this topic RSV Immunization Patients Under 20 months Aged Out No longer eligible based on patient's age to complete this topic Procedures Procedure Name Priority Date/Time Associated Diagnosis Comments CHLAMYDIA TRACHOMATIS AND NEISSERIA GONORRHOEAE PCR Routine 08/05/2024 10:04 AM EDT Opioid dependence, uncomplicated (CMS/HCC V24, CMS/HCC V28) CBC WITH AUTO DIFFERENTIAL STAT 06/30/2024 3:10 AM EST BASIC METABOLIC PANEL STAT 06/30/2024 3:10 AM EST CBC AND DIFFERENTIAL STAT 06/30/2024 3:10 AM EST HEPATITIS C ANTIBODY Routine 06/21/2024 10:35 AM [...] (CMS/HCC) from Last 3 Months Results * Chlamydia trachomatis and Neisseria gonorrhoeae molecular study (08/05/2024 10:04 AM EDT) Neisseria gonorrhoeae PCR Negative Negative LAB MOLECULAR DIAGNOSTICS METHOD 08/06/2024 10:59 AM EDT [facility] Chlamydia trachomatis PCR Negative Negative LAB MOLECULAR DIAGNOSTICS METHOD 08/06/2024 10:59 AM EDT [facility] Urine 08/05/2024 10:0 4 AM EDT 08/05/2024 2:37 PM EDT Alia Mota MD LAB MICROBIOLOGY - GENE RAL ORDERABLES Final Result [facility] LAB [address] [place] [address], [place] [phone] * CBC auto differential (06/30/2024 3:10 AM EST) WBC 9.2 4.8 - 10.8 K/mcL LAB HEMETOLOGY METHOD 06/30/2024 3:39 AM EST [facility] LAB RBC 5.10 4.50 - 5.50 M/mcL LAB HEMETOLOGY METHOD 06/30/2024 3:39 AM [facility] LAB Hemoglobin 13.9 13.5 - 17.5 g/dL LAB HEMETOLOGY METHOD 06/30/2024 3:39 AM [facility] LAB Hematocrit 42.7 42.0 - 54.0 % LAB HEMETOLOGY METHOD 06/30/2024 3:39 AM [facility] LAB MCV 83.6 79.0 - 98.0 FL LAB HEMETOLOGY METHOD 06/30/2024 3:39 AM [facility] LAB MCH 27.2 27.0 - 32.0 pcg LAB HEMETOLOGY METHOD 06/30/2024 3:39 AM [facility] LAB MCHC 32.6 32.0 - 37.0 g/dL LAB HEMETOLOGY METHOD 06/30/2024 3:39 AM [facility] LAB RDW 12.2 11.0 - 15.0 % LAB HEMETOLOGY METHOD 06/30/2024 3:39 AM [facility] LAB Platelets 387 130 - 400 K/mcL LAB HEMETOLOGY METHOD 06/30/2024 3:39 AM [facility] LAB MPV 10.2 7.0 - 11.0 FL LAB HEMETOLOGY METHOD 06/30/2024 3:39 AM [facility] LAB NRBC 0.0 <1.0 % LAB HEMETOLOGY METHOD 06/30/2024 3:39 AM [facility] LAB NRBC Absolute 0.00 <0.10 K/mcL LAB HEMETOLOGY METHOD 06/30/2024 3:39 AM [facility] Neutrophils Relative 62.2 % LAB HEMETOLOGY METHOD 06/30/2024 3:39 AM [facility] Lymphocytes Relative 29.3 % LAB HEMETOLOGY METHOD 06/30/2024 3:39 AM [facility] Monocytes Relative 6.6 % LAB HEMETOLOGY METHOD 06/30/2024 3:39 AM [facility] Eosinophils Relative 1.2 % LAB HEMETOLOGY METHOD 06/30/2024 3:39 AM [facility] Basophils Relative 0.5 % LAB HEMETOLOGY METHOD 06/30/2024 3:39 AM [facility] Immature Granulocytes Relative 0.2 % LAB HEMETOLOGY METHOD 06/30/2024 3:39 AM [facility] LAB Neutrophils Absolute 5.70 1.50 - 7.00 K/mcL LAB HEMETOLOGY METHOD 06/30/2024 3:39 AM [facility] Lymphocytes Absolute 2.69 1.00 - 5.00 K/mcL LAB HEMETOLOGY METHOD 06/30/2024 3:39 AM [facility] Monocytes Absolute 0.61 0.20 - 1.00 K/mcL LAB HEMETOLOGY METHOD 06/30/2024 3:39 AM [facility] LAB Eosinophils Absolute 0.11 0.00 - 0.50 K/mcL LAB HEMETOLOGY METHOD 06/30/2024 3:39 AM [facility] Basophils Absolute 0.05 0.00 - 0.20 K/mcL LAB HEMETOLOGY METHOD 06/30/2024 3:39 AM EST [facility] Immature Granulocytes Absolute 0.02 0.00 - 0.03 K/mcL LAB HEMETOLOGY METHOD 06/30/2024 3:39 AM [facility] Blood Venous blood specimen / Unknown Venipuncture / Unknown 06/30/2024 3:10 AM EST 06/30/2024 3:24 AM EST us Citlali Schaefer MD LAB BLOOD ORDERABLES Fin al Result [facility] LAB [address] [place] [address], * Basic metabolic panel (06/30/2024 3:10 AM EST) Sodium 138 133 - 145 mmol/L LAB CHEMISTRY METHOD 06/30/2024 3:48 AM [facility] Potassium 4.0 3.5 - 5.5 mmol/L LAB CHEMISTRY METHOD 06/30/2024 3:48 AM [facility] Chloride 106 96 - 110 mmol/L LAB CHEMISTRY METHOD 06/30/2024 3:48 AM [facility] CO2 26 21 - 32 mmol/L LAB CHEMISTRY METHOD 06/30/2024 3:48 AM [facility] Anion Gap 6 3 - 11 LAB CHEMISTRY METHOD 06/30/2024 3:48 AM [facility] Glucose 100 70 - 100 mg/dL LAB CHEMISTRY METHOD 06/30/2024 3:48 AM [facility] BUN 21 5 - 25 mg/dL LAB CHEMISTRY METHOD 06/30/2024 3:48 AM [facility] Creatinine 1.08 0.70 - 1.30 mg/dL LAB CHEMISTRY METHOD 06/30/2024 3:48 AM [facility] LAB eGFR 98 >=60 mL/min/1. 73m2 LAB CHEMISTRY METHOD 06/30/2024 3:48 AM EST [facility] LAB Comment:Calculation based on the??Chronic Kidney Disease Epidemiology Collaboration (CKD-EPI) equation refit??without adjustment for race. BUN/Creatinine Ratio 19.4 LAB CHEMISTRY METHOD 06/30/2024 3:48 AM EST [facility] Calcium 10.1 8.5 - 10.5 mg/dL LAB CHEMISTRY METHOD 06/30/2024 3:48 AM [facility] Blood Venous blood specimen / Unknown Venipuncture / Unknown 06/30/2024 3:10 AM EST 06/30/2024 3:24 AM EST Citlali Schaefer MD LAB BLOOD ORDERABLES Fin al Result Performing Organization Address City/[facility]/ZIP Co de Phone Number [facility] [address] [place] [address], * Hepatitis C antibody (06/21/2024 10:35 AM EST) Hepatitis C Antibody Negative Negative LAB CHEMISTRY METHOD 06/22/2024 8:29 AM [facility] Blood Venous blood specimen / Unknown 06/21/2024 10:35 AM EST 06/21/2024 2:35 PM EST Alia Mota MD LAB BLOOD ORDERABLES Ed ited Result - Final [facility] [address] [place] [address], * HIV 1,2 antibody, p24 antigen with reflex to differentiation (06/21/2024 10:35 AM EST) HIV Combo AB/AG Negative Negative LAB CHEMISTRY METHOD 06/21/2024 5:43 PM EST [facility] Blood Venous blood specimen / Unknown 06/21/2024 10:35 AM EST 06/21/2024 2:35 PM EST [facility] LAB - 06/21/2024 5:43 PM EST This [...] ORDERABLES Fi nal Result Performing Organization Address [facility] Co de Phone Number [facility] [address] [place] [address], [place] [phone] * Hepatitis B surface antigen with reflex to confirmation (06/21/2024 10:35 AM EST) Hepatitis B Surface Ag Negative Negative LAB CHEMISTRY METHOD 06/21/2024 5:14 PM EST [facility] Blood Venous blood specimen / Unknown 06/21/2024 10:35 AM EST 06/21/2024 2:35 PM EST [facility] LAB - 06/21/2024 5:14 PM EST Over the counter supplements containing high doses of biotin may interfere with this assay. ??If interference is suspected, patients shoud be retested after refraining from biotin supplements for 72 hours. Alia Mota MD LAB BLOOD ORDERABLES Fi nal Result Performing Organization Address [facility]/ZIP Co de Phone Number [facility] [address] [place] [address], [place] [phone] * Treponema pallidum antibody with reflex to RPR and particle agglutination (06/21/2024 10:35 AM EST) T. Pallidum Antibodies Negative Negative LAB CHEMISTRY METHOD 06/21/2024 5:14 PM EST [facility] Blood Venous blood specimen / Unknown 06/21/2024 10:35 AM EST 06/21/2024 2:35 PM EST Alia Mota MD LAB BLOOD ORDERABLES Fi nal Result Performing Organization Address [facility]/ZIP Co de Phone Number [facility] [address] [place] [address], [place] [phone] * Hepatitis A antibody IgM (06/21/2024 10:35 AM EST) Hepatitis A Antibody IgM Negative Negative LAB CHEMISTRY METHOD 06/21/2024 5:59 PM EST [facility] Blood Venous blood specimen / Unknown 06/21/2024 10:35 AM EST 06/21/2024 2:35 PM EST Narrative [facility] - 06/21/2024 5:59 PM EST Over the counter supplements containing high doses of biotin may interfere with this assay. ??If interference is suspected, patients shoud be retested after refraining from biotin supplements for 72 hours. Alia Mota MD LAB BLOOD ORDERABLES Fi nal Result Performing Organization Address [facility] Co de Phone Number [facility] [address] [place] [address], [place] [phone] * Hepatitis B core antibody, total (06/21/2024 10:35 AM EST) Pathologist [facility] Hep B Core Total Ab Negative Negative LAB CHEMISTRY METHOD 06/21/2024 5:58 PM EST [facility] Blood Venous blood specimen / Unknown 06/21/2024 10:35 AM EST 06/21/2024 2:35 PM EST Alia Mota MD LAB BLOOD ORDERABLES Fi nal Result Performing Organization Address City/[facility]/ZIP Co de Phone Number [facility] [address] [place] [address], [place] [phone] * Hepatitis B surface antibody (06/21/2024 10:35 AM EST) [facility] Hepatitis B Surface Ab Negative Negative LAB CHEMISTRY METHOD 06/21/2024 5:04 PM EST [facility] Hepatitis B Surface Ab Quantitative <3.1 mIU/mL LAB CHEMISTRY METHOD 06/21/2024 5:04 PM EST [facility] Blood Venous blood specimen / Unknown 06/21/2024 10:35 AM EST 06/21/2024 2:35 PM EST [facility] LAB - 06/21/2024 5:04 PM EST >=10 mIU/mL is considered to be consistent with immunity. Alia Mota MD LAB BLOOD ORDERABLES nal Result [facility] [address] [place] [address], [place] [phone] * (ABNORMAL) Complete blood count (06/21/2024 10:35 AM EST) [facility] WBC 12.8(H) 4.8 - 10.8 K/mcL LAB HEMETOLOGY METHOD 06/21/2024 2:44 PM [facility] RBC 5.20 4.50 - 5.50 M/mcL LAB HEMETOLOGY METHOD 06/21/2024 2:44 PM [facility] LAB Hemoglobin 14.3 13.5 - 17.5 g/dL LAB HEMETOLOGY METHOD 06/21/2024 2:44 PM [facility] LAB Hematocrit 44.5 42.0 - 54.0 % LAB HEMETOLOGY METHOD 06/21/2024 2:44 PM [facility] MCV 85.1 79.0 - 98.0 FL LAB HEMETOLOGY METHOD 06/21/2024 2:44 PM EST [facility] MCH 27.3 27.0 - 32.0 pcg LAB HEMETOLOGY METHOD 06/21/2024 2:44 PM EST [facility] MCHC 32.1 32.0 - 37.0 g/dL LAB HEMETOLOGY METHOD 06/21/2024 2:44 PM EST [facility] RDW 12.8 11.0 - 15.0 % LAB HEMETOLOGY METHOD 06/21/2024 2:44 PM EST [facility] Platelets 298 130 - 400 K/mcL LAB HEMETOLOGY METHOD 06/21/2024 2:44 PM EST [facility] MPV 11.5(H) 7.0 - 11.0 FL LAB HEMETOLOGY METHOD 06/21/2024 2:44 PM EST [facility] NRBC 0.0 <1.0 % LAB HEMETOLOGY METHOD 06/21/2024 2:44 PM EST [facility] NRBC Absolute 0.00 <0.10 K/mcL LAB HEMETOLOGY METHOD 06/21/2024 2:44 PM EST [facility] Blood Venous blood specimen / Unknown 06/21/2024 10:35 AM EST 06/21/2024 2:35 PM EST Alia Mota MD LAB BLOOD ORDERABLES Fi nal Result [facility] [address] [place] [address], * (ABNORMAL) Comprehensive metabolic panel (06/21/2024 10:35 AM EST) Sodium 139 133 - 145 mmol/L LAB CHEMISTRY METHOD 06/21/2024 4:56 PM EST [facility] Potassium 4.7 3.5 - 5.5 mmol/L LAB CHEMISTRY METHOD 06/21/2024 4:56 PM [facility] Chloride 104 96 - 110 mmol/L LAB CHEMISTRY METHOD 06/21/2024 4:56 PM [facility] CO2 27 21 - 32 mmol/L LAB CHEMISTRY METHOD 06/21/2024 4:56 PM [facility] Anion Gap 8 3 - 11 LAB CHEMISTRY METHOD 06/21/2024 4:56 PM [facility] Glucose 77 70 - 100 mg/dL LAB CHEMISTRY METHOD 06/21/2024 4:56 PM [facility] BUN 15 5 - 25 mg/dL LAB CHEMISTRY METHOD 06/21/2024 4:56 PM [facility] Creatinine 1.01 0.70 - 1.30 mg/dL LAB CHEMISTRY METHOD 06/21/2024 4:56 PM [facility] eGFR 107 >=60 mL/min/1. 73m2 LAB CHEMISTRY METHOD 06/21/2024 4:56 PM [facility] Comment:Calculation based on the??Chronic Kidney Disease Epidemiology Collaboration (CKD-EPI) equation refit??without adjustment for race. BUN/Creatinine Ratio 14.9 LAB CHEMISTRY METHOD 06/21/2024 4:56 PM [facility] Calcium 9.5 8.5 - 10.5 mg/dL LAB CHEMISTRY METHOD 06/21/2024 4:56 PM [facility] AST (SGOT) 22 10 - 42 unit/L LAB CHEMISTRY METHOD 06/21/2024 4:56 PM [facility] ALT (SGPT) 29 10 - 60 unit/L LAB CHEMISTRY METHOD 06/21/2024 4:56 PM [facility] Alkaline Phosphatase 114 42 - 121 unit/L LAB CHEMISTRY METHOD 06/21/2024 4:56 PM [facility] Total Protein 8.1(H) 6.0 - 8.0 g/dL LAB CHEMISTRY METHOD 06/21/2024 4:56 PM [facility] Albumin 3.6 3.2 - 5.0 g/dL LAB CHEMISTRY METHOD 06/21/2024 4:56 PM EST [facility] Total Bilirubin 0.3 0.0 - 1.4 mg/dL LAB CHEMISTRY METHOD 06/21/2024 4:56 PM EST [facility] Blood Venous blood specimen / Unknown 06/21/2024 10:35 AM EST 06/21/2024 2:35 PM EST us Alia Mota MD LAB BLOOD ORDERABLES Fi nal Result [facility] [address] [place] [address], from Last 3 Months Insurance MEDICAID - [place] Care Teams Gun Number Relationship Specialty Start Date End Date Brenda Breaux MD [address] [place] [address] [place] [address] PCP - General Internal Medicine 06/30/24
--- OUTSIDE RECORDS SUMMARY | 2024-08-16 10:19 | XMS_ITS | Clinical Summary ---
Author Organization [facility] Address [address] [place] [phone] Phone Care Team Providers Care Yoker Machine Operator Name Role Phone Unavailable Primary Care Provider [...] Diabetes mellitus, No family history of Sudden /NM under age 55 Sister Alive Sister: Asthma [...]
--- OUTSIDE RECORDS SUMMARY | 2024-08-16 10:19 | XMS_ITS | Clinical Summary ---
Author Organization [facility] Address [address] [place] [address] Care Team Providers Care Hand Mixer Name Role Phone Unavailable Primary Care Provider Unavailabl e Social History Tobacco Use Types Packs/Day Years Used Date Smoking Tobacco: Never Assessed Sex and Gender Information Value Date Recorded Sex Assigned at Not on file Gender Identity Not on file Sexual Orientation Not on file Plan of Treatment Health Maintenance Due Date Last Done Comments Hepatitis C Screening 2000 COVID-19 Vaccine (#1) 2000 Depression Screening 2012 Preventative Health Evaluation 2018 DTap / Tdap / Td (7 - Td or Tdap) 03/30/2021 03/30/2011, 05/17/2005, 09/18/2001, Additional history exists Influenza Vaccine (#1) 2023 2, 03/30/2009, 03/05/2008, Additional history exists Hepatitis B Vaccines Completed 2000, 2000, 2000 Pneumococcal Vaccine Completed 05/05/2006, 05/30/2001, 2000, Additional history exists RSV Ped < 20 months Aged Out No longe r eligible based on patient's age to complete this topic
== END 2024-08-16 10:54 | disposition home or self-care (01) ==
LOC: HO.HOS 09:42
PROVIDERS: PCP Internal Medicine
DX: L02.512 Cutaneous abscess of left hand (principal)
CPT/HCPCS: 10060; 99214

== ENCOUNTER → 2024-08-16 09:41 | Outpatient (BNVA) | payer MEDICAID, SELFPAY | PROVIDERS: PCP Internal Medicine | DX: L02.512 Cutaneous abscess of left hand (principal) | CPT/HCPCS: 10060; 99212; J2003 ==

== ENCOUNTER 2024-08-21 08:58 | Outpatient (AMB) | payer MEDICAID, SELFPAY ==
--- NOTE | 2024-08-21 08:59 | MHC.OFFVIS ---
Vital Signs 08/21/24 09:00 Height 5 ft 8 in Weight 229 lb BMI 34.8 Intake Visit Reasons: OV-Cellulitis, Abscess L Hand-Follow up Intake Note: Mookie is a 24 year old right hand dominant male who presents today for a follow up of his left hand abscess & cellulitis. At his last visit the abscess was drained in the office and he was given a course of antibiotics. Patient reports that he completed his first round of antibiotics and has to mixing picker tender more at the pharmacy. Allergies amoxicillin [AMOXICILLIN] Allergy (Unknown, Verified 08/16/24 09:56) HIVES hydrocodone [From VICODIN] Allergy (Unknown, Verified 08/16/24 09:56) RASH sulfamethoxazole [From BACTRIM] Allergy (Unknown, Verified 08/16/24 09:56) UNKNOWN trimethoprim [From BACTRIM] Allergy (Unknown, Verified 08/16/24 09:56) UNKNOWN Vicodin Allergy (Unknown, Uncoded 06/21/24 11:04) hives HPI HPI OV-Cellulitis, Abscess L Hand-Follow up: Details: Mookie is a 24 year old right hand dominant male who presents today for a follow up of his left hand abscess & cellulitis. At his last visit the abscess was drained in the office and he was given a course of antibiotics. Patient reports that he completed his first round of antibiotics and has to mixing picker tender more at the pharmacy. [facility] Medical History Mild intermittent asthma Environmental allergies Allergies Left hemiparesis Cerebral palsy Social History Household Members: Family Housing: Apartment Do you presently have visiting nurse or other home services: No Alcohol intake: current Alcohol intake frequency: holidays/special occasions only Patient Tobacco Use Status: Never used Tobacco Cigarettes Per Day: 10 e-Cigarette/Vaping Use: Currently Using Second Hand Smoke Exposure: Yes Substance Use Type: Crack/Cocaine Advance Directives Date on File: 05/29/24 service: No Current occupational status: unemployed Cognitive needs: No Hearing needs: No Vision needs: No Review of Systems Const All systems reviewed & are unremarkable except as noted in HPI and below Physical Exam Vital Signs: BMI result Body Mass Index 34.8 Extrem Other: Patient is alert, oriented, and in no acute distress. Neuro: Normal sensation of the tips of all digits of the left hand at this time Vascular: Cap refill brisk Pain: Patient reports no tenderness to palpation about the wound sites on dorsal left hand No tenderness to palpation of previous area of fluctuance over the dorsal left hand No further fluctuance ROM: Patient was able to make a closed fist and extend all digits of the left hand fully Skin: No lacerations or abrasions. General: No ecchymosis, erythema, or evidence of infection. Psych: Appears grossly normal Affect normal Attitude cooperative Assessment & Plan Assessment & Plan (1) Abscess of hand, left: Code(s): L02.512 - Cutaneous abscess of left hand Category: Medical Plan 1. Abscess of the left hand I&D in emergency department on 08/11/2024 Patient is educated about this condition Patient is educated about the typical recovery course At this time, patient was advised that he needs to mixing picker tender the next course of antibiotics at the pharmacy on his way home today and begin taking them Patient was amenable to this plan Patient was advised that he can wash the sites with soap and water in the sink of the shower, but should continue to avoid submerging Patient was amenable to this plan Follow-up 7-10 days for wound check, sooner with any acute concerns Coding Level of Care Code Global (23819) Diagnoses Abscess of hand, left L02.512
[2024-08-21 09:00] VITALS: BMI 34.8
--- OUTSIDE RECORDS SUMMARY | 2024-08-21 09:39 | XMS_ITS | Clinical Summary ---
Author Organization [facility] Address [address] [place] [address] Care Team Providers Care Creative Developer Name Role Phone Unavailable Primary Care Provider [...]
--- OUTSIDE RECORDS SUMMARY | 2024-08-21 09:39 | XMS_ITS | Encounter Summary ---
Author Organization [facility] Address [address] [place] [address] Phone Care Team Providers Care Manager Target Name Role Phone Kori Dover MD Primary Care Provider Encounter Details Date Type Department Care Team (Late st Contact Info) Description 12/15/2016 Conversion Encounter [facility] [place] [address] [place] [address] Social History Tobacco Use Types Packs/Day Years [...] on filedocumented in this encounter Care Teams Manager Target Relationship Specialty Start Date End Date Kori Dover MD [address] [place] [address] PCP - General 12/09/16 10/30/22 documented as of this encounter
--- OUTSIDE RECORDS SUMMARY | 2024-08-21 09:39 | XMS_ITS | Encounter Summary ---
Author Organization [employer] Address [address] [place] [address] Care Team Providers Care Die Technician Name Role Phone Brenda Breaux MD Primary Care Provider Encounter Details Date Type Department Care Team (Late st Contact Info) Description 06/21/2024 Lab Requisition [facility] - Main Lab [address] [facility] [place] [address] Alia Mota MD [address] [place] [address] Opioid dependence, uncomplicated (CMS/HCC V24, CMS/HCC V28) [...] C antibody (06/21/2024 10:35 AM EST) Pathologist [facility] Hepatitis C Antibody Negative Negative LAB CHEMISTRY METHOD 06/22/2024 8:29 AM EST [facility] Blood Venous blood specimen / Unknown 06/21/2024 10:35 AM EST 06/21/2024 2:35 PM EST us Alia Mota MD LAB BLOOD ORDERABLES Ed ited Result - Final [facility] [address] [place] [address], * Hepatitis A antibody IgM (06/21/2024 10:35 AM EST) Pathologist [facility] Hepatitis A Antibody IgM Negative Negative LAB CHEMISTRY METHOD 06/21/2024 5:59 PM EST [facility] Blood Venous blood specimen / Unknown 06/21/2024 10:35 AM EST 06/21/2024 2:35 PM EST Narrative [facility] - 06/21/2024 5:59 PM EST Over the counter supplements containing high doses of biotin may interfere with this assay. ??If interference is suspected, patients shoud be retested after refraining from biotin supplements for 72 hours. Alia Mota MD LAB BLOOD ORDERABLES Fi nal Result Performing Organization Address [facility] Co de Phone Number [facility] [address] [place] [address], [place] [phone] * HIV 1,2 antibody, p24 antigen with reflex to differentiation (06/21/2024 10:35 AM EST) HIV Combo AB/AG Negative Negative LAB CHEMISTRY METHOD 06/21/2024 5:43 PM EST [facility] Blood Venous blood specimen / Unknown 06/21/2024 10:35 AM EST 06/21/2024 2:35 PM EST Narrative [facility] - 06/21/2024 5:43 PM EST [...] ORDERABLES Fi nal Result Performing Organization Address [facility]/ZIP Co de Phone Number [facility] [address] [place] [address], [place] [phone] * Hepatitis B core antibody, total (06/21/2024 10:35 AM EST) Hep B Core Total Ab Negative Negative LAB CHEMISTRY METHOD 06/21/2024 5:58 PM EST [facility] Blood Venous blood specimen / Unknown 06/21/2024 10:35 AM EST 06/21/2024 2:35 PM EST Alia Mota MD LAB BLOOD ORDERABLES Fi nal Result Performing Organization Address [facility]/ZIP Co de Phone Number [facility] [address] [place] [address], [place] [phone] * Hepatitis B surface antibody (06/21/2024 10:35 AM EST) Hepatitis B Surface Ab Negative Negative LAB CHEMISTRY METHOD 06/21/2024 5:04 PM EST [facility] Hepatitis B Surface Ab Quantitative <3.1 mIU/mL LAB CHEMISTRY METHOD 06/21/2024 5:04 PM EST [facility] Blood Venous blood specimen / Unknown 06/21/2024 10:35 AM EST 06/21/2024 2:35 PM EST Narrative [facility] - 06/21/2024 5:04 PM EST >=10 mIU/mL is considered to be consistent with immunity. Alia Mota MD LAB BLOOD ORDERABLES Fi nal Result Performing Organization Address [facility]/ZIP Co de Phone Number [facility] [address] [place] [address], [place] [phone] * Hepatitis B surface antigen with reflex to confirmation (06/21/2024 10:35 AM EST) Hepatitis B Surface Ag Negative Negative LAB CHEMISTRY METHOD 06/21/2024 5:14 PM EST [facility] Blood Venous blood specimen / Unknown 06/21/2024 10:35 AM EST 06/21/2024 2:35 PM EST Narrative [facility] - 06/21/2024 5:14 PM EST Over the counter supplements containing high doses of biotin may interfere with this assay. ??If interference is suspected, patients shoud be retested after refraining from biotin supplements for 72 hours. Alia Mota MD LAB BLOOD ORDERABLES Fi nal Result Performing Organization Address [facility]/ZIP Co de Phone Number [facility] [address] [place] [address], [place] [phone] * Treponema pallidum antibody with reflex to RPR and particle agglutination (06/21/2024 10:35 AM EST) Pathologist [facility] T. Pallidum Antibodies Negative Negative LAB CHEMISTRY METHOD 06/21/2024 5:14 PM EST [facility] Blood Venous blood specimen / Unknown 06/21/2024 10:35 AM EST 06/21/2024 2:35 PM EST Alia Mota MD LAB BLOOD ORDERABLES Fi nal Result Performing Organization Address [facility] Co de Phone Number [facility] [address] [place] [address], [place] [phone] * (ABNORMAL) Comprehensive metabolic panel (06/21/2024 10:35 AM EST) Pathologist [facility] Sodium 139 133 - 145 mmol/L LAB CHEMISTRY METHOD 06/21/2024 4:56 PM [facility] Potassium 4.7 3.5 - 5.5 mmol/L LAB CHEMISTRY METHOD 06/21/2024 4:56 PM [facility] Chloride 104 96 - 110 mmol/L LAB CHEMISTRY METHOD 06/21/2024 4:56 PM [facility] CO2 27 21 - 32 mmol/L LAB CHEMISTRY METHOD 06/21/2024 4:56 PM [facility] Anion Gap 8 3 - 11 LAB CHEMISTRY METHOD 06/21/2024 4:56 PM [facility] Glucose 77 70 - 100 mg/dL LAB CHEMISTRY METHOD 06/21/2024 4:56 PM [facility] BUN 15 5 - 25 mg/dL LAB CHEMISTRY METHOD 06/21/2024 4:56 PM [facility] Creatinine 1.01 0.70 - 1.30 mg/dL LAB CHEMISTRY METHOD 06/21/2024 4:56 PM [facility] eGFR 107 >=60 mL/min/1. 73m2 LAB CHEMISTRY METHOD 06/21/2024 4:56 PM [facility] Comment:Calculation based on the??Chronic Kidney Disease Epidemiology Collaboration (CKD-EPI) equation refit??without adjustment for race. BUN/Creatinine Ratio 14.9 LAB CHEMISTRY METHOD 06/21/2024 4:56 PM [facility] Calcium 9.5 8.5 - 10.5 mg/dL LAB CHEMISTRY METHOD 06/21/2024 4:56 PM [facility] AST (SGOT) 22 10 - 42 unit/L LAB CHEMISTRY METHOD 06/21/2024 4:56 PM [facility] ALT (SGPT) 29 10 - 60 unit/L LAB CHEMISTRY METHOD 06/21/2024 4:56 PM [facility] Alkaline Phosphatase 114 42 - 121 unit/L LAB CHEMISTRY METHOD 06/21/2024 4:56 PM [facility] Total Protein 8.1(H) 6.0 - 8.0 g/dL LAB CHEMISTRY METHOD 06/21/2024 4:56 PM [facility] Albumin 3.6 3.2 - 5.0 g/dL LAB CHEMISTRY METHOD 06/21/2024 4:56 PM [facility] Total Bilirubin 0.3 0.0 - 1.4 mg/dL LAB CHEMISTRY METHOD 06/21/2024 4:56 PM [facility] Blood Venous blood specimen / Unknown 06/21/2024 10:35 AM EST 06/21/2024 2:35 PM EST us Alia Mota MD LAB BLOOD ORDERABLES Fi nal Result [facility] [address] [place] [address], [place] [phone] * (ABNORMAL) Complete blood count (06/21/2024 10:35 AM EST) WBC 12.8(H) 4.8 - 10.8 K/mcL LAB HEMETOLOGY METHOD 06/21/2024 2:44 PM EST [facility] RBC 5.20 4.50 - 5.50 M/mcL LAB HEMETOLOGY METHOD 06/21/2024 2:44 PM EST [facility] Hemoglobin 14.3 13.5 - 17.5 g/dL LAB HEMETOLOGY METHOD 06/21/2024 2:44 PM EST [facility] Hematocrit 44.5 42.0 - 54.0 % LAB HEMETOLOGY METHOD 06/21/2024 2:44 PM [facility] MCV 85.1 79.0 - 98.0 FL LAB HEMETOLOGY METHOD 06/21/2024 2:44 PM EST [facility] MCH 27.3 27.0 - 32.0 pcg LAB HEMETOLOGY METHOD 06/21/2024 2:44 PM EST [facility] MCHC 32.1 32.0 - 37.0 g/dL LAB HEMETOLOGY METHOD 06/21/2024 2:44 PM [facility] RDW 12.8 11.0 - 15.0 % LAB HEMETOLOGY METHOD 06/21/2024 2:44 PM [facility] Platelets 298 130 - 400 K/mcL LAB HEMETOLOGY METHOD 06/21/2024 2:44 PM [facility] MPV 11.5(H) 7.0 - 11.0 FL LAB HEMETOLOGY METHOD 06/21/2024 2:44 PM EST [facility] NRBC 0.0 <1.0 % LAB HEMETOLOGY METHOD 06/21/2024 2:44 PM EST [facility] NRBC Absolute 0.00 <0.10 K/mcL LAB HEMETOLOGY METHOD 06/21/2024 2:44 PM EST [facility] Blood Venous blood specimen / Unknown 06/21/2024 10:35 AM EST 06/21/2024 2:35 PM EST us Alia Mota MD LAB BLOOD ORDERABLES Fi nal Result [facility] [address] [place] [address], documented in this encounter Visit Diagnoses Diagnosis Opioid dependence, uncomplicated (CMS/HCC V24, CMS/HCC V28) documented in this encounter Care Teams Die Technician Relationship Specialty Start Date End Date Brenda Breaux MD [address] [place] [address] [place] [address] PCP - General Internal Medicine 06/30/24 documented as of this encounter
--- OUTSIDE RECORDS SUMMARY | 2024-08-21 09:39 | XMS_ITS | Clinical Summary ---
Author Organization [facility] Address [address] [place] [address] Phone Care Team Providers Care Home Health Billing Specialist Name Role Phone Unavailable Primary Care Provider [...] Diabetes mellitus, No family history of Sudden /[place] under age 55 Sister Alive Sister: Asthma [...]
--- OUTSIDE RECORDS SUMMARY | 2024-08-21 09:39 | XMS_ITS | Encounter Summary ---
Author Organization [employer] Address [address] [place] [address] Care Team Providers Care Inspection And Testing Supervisor Name Role Phone Brenda Breaux MD Primary Care Provider [phone] Encounter Details Date Type Department Care Team (Late st Contact Info) Description 08/05/2024 Lab Requisition [facility] - Main Lab [address] [facility] [place] [address] Alia Mota MD [address] [place] [address] Opioid dependence, uncomplicated (CMS/HCC V24, CMS/HCC V28) [...] 08/05/2024 10:04 AM EDT Opioid dependence, uncomplicated ([facility] V24, [facility] V28) documented in this encounter Results * Chlamydia trachomatis and Neisseria gonorrhoeae molecular study (08/05/2024 10:04 AM EDT) Neisseria gonorrhoeae PCR Negative Negative LAB MOLECULAR DIAGNOSTICS METHOD 08/06/2024 10:59 AM EDT [facility] Chlamydia trachomatis PCR Negative Negative LAB MOLECULAR DIAGNOSTICS METHOD 08/06/2024 10:59 AM EDT [facility] Urine 08/05/2024 10:0 4 AM EDT 08/05/2024 2:37 PM EDT us Alia Mota MD LAB MICROBIOLOGY - GENE RAL ORDERABLES Final Result [facility] [address] [place] [address], [place] [phone] documented in this encounter Visit Diagnoses Diagnosis Opioid dependence, uncomplicated ([facility] V24, [facility] V28) documented in this encounter Care Teams Inspection And Testing Supervisor Relationship Specialty Start Date End Date Brenda Breaux MD [address] [place] [address] Dr Mazariegos, [place] [address] PCP - General Internal Medicine 06/30/24 documented as of this encounter
--- OUTSIDE RECORDS SUMMARY | 2024-08-21 09:39 | XMS_ITS | Clinical Summary ---
Author Organization [address] [facility] Address [address] [place] [address] Phone Care Team Providers Care Regional Production Manager Name Role Phone Brenda Breaux MD Primary Care Provider [phone] Allergies Active Allergy Reactions Criticality Noted Date Comments Amoxicillin 06/30/2024 Encounters Date Type Department Care Team Description 08/05/2024 Lab Requisition [facility] [address] [place] [address] Alia Mota MD Opioid dependence, uncomplicated (CMS/HCC V24, CMS/[facility] V28) 06/30/2024 3:07 AM EST - 06/30/2024 4:59 AM EST Emergency [facility] [address] [place] [id number] Cocaine use disorder (CMS/HCC V24, [facility] V28) (Primary Dx); Open wound of left hand, subsequent encounter Discharge Disposition: Home or Self Care 06/21/2024 Lab Requisition [facility] [address] [place] [phone] Alia Mota MD Opioid dependence, uncomplicated (CMS/HCC [...] past- Obesity DX:Obesity; COMM ENT: seen at [facility] wt clinic Fracture of patella, right, closed 2010 DX:Fracture of patella, right, closed; COMMENT: no complications, Hx MRSA infection 04/07/2014 DX:Hx MRSA inf ection; COMMENT: Abscess thigh 04/04/14 ADHD (attention deficit hype ractivity disorder) DX:ADHD (attention deficit hyperactivity disorder) Anxiety Bipolar 1 disorder ([facility] V24, [facility] V28) Cerebral palsy ([facility] V24, [facility] V28) Family History Medical History Relation Name [...] MOLECULAR DIAGNOSTICS METHOD 08/06/2024 10:59 AM EDT [facility] Chlamydia trachomatis PCR Negative Negative LAB MOLECULAR DIAGNOSTICS METHOD 08/06/2024 10:59 AM EDT [facility] Urine 08/05/2024 10:0 4 AM EDT 08/05/2024 2:37 PM EDT Alia Mota MD LAB MICROBIOLOGY - GENE RAL ORDERABLES Final Result [facility] [address] [place] [address], [place] [phone] * CBC auto differential (06/30/2024 3:10 AM EST) WBC 9.2 4.8 - 10.8 K/mcL LAB HEMETOLOGY METHOD 06/30/2024 3:39 AM EST [facility] RBC 5.10 4.50 - 5.50 M/mcL LAB HEMETOLOGY METHOD 06/30/2024 3:39 AM [facility] Hemoglobin 13.9 13.5 - 17.5 g/dL LAB HEMETOLOGY METHOD 06/30/2024 3:39 AM [facility] Hematocrit 42.7 42.0 - 54.0 % LAB HEMETOLOGY METHOD 06/30/2024 3:39 AM [facility] MCV 83.6 79.0 - 98.0 FL LAB HEMETOLOGY METHOD 06/30/2024 3:39 AM [facility] MCH 27.2 27.0 - 32.0 pcg LAB HEMETOLOGY METHOD 06/30/2024 3:39 AM [facility] MCHC 32.6 32.0 - 37.0 g/dL LAB HEMETOLOGY METHOD 06/30/2024 3:39 AM [facility] RDW 12.2 11.0 - 15.0 % LAB HEMETOLOGY METHOD 06/30/2024 3:39 AM [facility] Platelets 387 130 - 400 K/mcL LAB HEMETOLOGY METHOD 06/30/2024 3:39 AM [facility] MPV 10.2 7.0 - 11.0 FL LAB HEMETOLOGY METHOD 06/30/2024 3:39 AM [facility] NRBC 0.0 <1.0 % LAB HEMETOLOGY METHOD 06/30/2024 3:39 AM [facility] NRBC Absolute 0.00 <0.10 K/mcL LAB HEMETOLOGY METHOD 06/30/2024 3:39 AM [facility] Neutrophils Relative 62.2 % LAB HEMETOLOGY METHOD 06/30/2024 3:39 AM [facility] Lymphocytes Relative 29.3 % LAB HEMETOLOGY METHOD 06/30/2024 3:39 AM [facility] Monocytes Relative 6.6 % LAB HEMETOLOGY METHOD 06/30/2024 3:39 AM [facility] Eosinophils Relative 1.2 % LAB HEMETOLOGY METHOD 06/30/2024 3:39 AM [facility] Basophils Relative 0.5 % LAB HEMETOLOGY METHOD 06/30/2024 3:39 AM [facility] Immature Granulocytes Relative 0.2 % LAB HEMETOLOGY METHOD 06/30/2024 3:39 AM [facility] Neutrophils Absolute 5.70 1.50 - 7.00 K/mcL LAB HEMETOLOGY METHOD 06/30/2024 3:39 AM [facility] Lymphocytes Absolute 2.69 1.00 - 5.00 K/mcL LAB HEMETOLOGY METHOD 06/30/2024 3:39 AM [facility] Monocytes Absolute 0.61 0.20 - 1.00 K/mcL LAB HEMETOLOGY METHOD 06/30/2024 3:39 AM [facility] Eosinophils Absolute 0.11 0.00 - 0.50 K/mcL LAB HEMETOLOGY METHOD 06/30/2024 3:39 AM [facility] Basophils Absolute 0.05 0.00 - 0.20 K/mcL LAB HEMETOLOGY METHOD 06/30/2024 3:39 AM EST [facility] Immature Granulocytes Absolute 0.02 0.00 - 0.03 K/mcL LAB HEMETOLOGY METHOD 06/30/2024 3:39 AM [facility] Blood Venous blood specimen / Unknown Venipuncture / Unknown 06/30/2024 3:10 AM EST 06/30/2024 3:24 AM EST us Citlali Schaefer MD LAB BLOOD ORDERABLES Fin al Result [facility] [address] [place] [address], * Basic metabolic panel (06/30/2024 3:10 AM EST) Sodium 138 133 - 145 mmol/L LAB CHEMISTRY METHOD 06/30/2024 3:48 AM [facility] Potassium 4.0 3.5 - 5.5 mmol/L LAB CHEMISTRY METHOD 06/30/2024 3:48 AM [facility] Chloride 106 96 - 110 mmol/L LAB CHEMISTRY METHOD 06/30/2024 3:48 AM [facility] CO2 26 21 - 32 mmol/L LAB CHEMISTRY METHOD 06/30/2024 3:48 AM [facility] Anion Gap 6 3 - 11 LAB CHEMISTRY METHOD 06/30/2024 3:48 AM [facility] Glucose 100 70 - 100 mg/dL LAB CHEMISTRY METHOD 06/30/2024 3:48 AM [facility] BUN 21 5 - 25 mg/dL LAB CHEMISTRY METHOD 06/30/2024 3:48 AM [facility] Creatinine 1.08 0.70 - 1.30 mg/dL LAB CHEMISTRY METHOD 06/30/2024 3:48 AM [facility] eGFR 98 >=60 mL/min/1. 73m2 LAB CHEMISTRY METHOD 06/30/2024 3:48 AM EST [facility] Comment:Calculation based on the??Chronic Kidney Disease Epidemiology Collaboration (CKD-EPI) equation refit??without adjustment for race. BUN/Creatinine Ratio 19.4 LAB CHEMISTRY METHOD 06/30/2024 3:48 AM EST [facility] Calcium 10.1 8.5 - 10.5 mg/dL LAB CHEMISTRY METHOD 06/30/2024 3:48 AM [facility] Blood Venous blood specimen / Unknown Venipuncture / Unknown 06/30/2024 3:10 AM EST 06/30/2024 3:24 AM EST Citlali Schaefer MD LAB BLOOD ORDERABLES Fin al Result Performing Organization Address City/[facility]/ZIP Co de Phone Number [facility] [address] [place] [address], * Hepatitis C antibody (06/21/2024 10:35 AM EST) Hepatitis C Antibody Negative Negative LAB CHEMISTRY METHOD 06/22/2024 8:29 AM [facility] Blood Venous blood specimen / Unknown 06/21/2024 10:35 AM EST 06/21/2024 2:35 PM EST Alia Mota MD LAB BLOOD ORDERABLES Ed ited Result - Final [facility] [address] [place] [address], * HIV 1,2 antibody, p24 antigen with reflex to differentiation (06/21/2024 10:35 AM EST) HIV Combo AB/AG Negative Negative LAB CHEMISTRY METHOD 06/21/2024 5:43 PM EST [facility] Blood Venous blood specimen / Unknown 06/21/2024 10:35 AM EST 06/21/2024 2:35 PM EST [facility] - 06/21/2024 5:43 PM EST This [...] ORDERABLES Fi nal Result Performing Organization Address [facility] Co de Phone Number [facility] [address] [place] [address], [place] [phone] * Hepatitis B surface antigen with reflex to confirmation (06/21/2024 10:35 AM EST) Hepatitis B Surface Ag Negative Negative LAB CHEMISTRY METHOD 06/21/2024 5:14 PM EST [facility] Blood Venous blood specimen / Unknown 06/21/2024 10:35 AM EST 06/21/2024 2:35 PM EST [facility] - 06/21/2024 5:14 PM EST Over the counter supplements containing high doses of biotin may interfere with this assay. ??If interference is suspected, patients shoud be retested after refraining from biotin supplements for 72 hours. Alia Mota MD LAB BLOOD ORDERABLES Fi nal Result Performing Organization Address [facility]/ZIP Co de Phone Number [facility] [address] [place] [address], [place] [phone] * Treponema pallidum antibody with reflex to RPR and particle agglutination (06/21/2024 10:35 AM EST) T. Pallidum Antibodies Negative Negative LAB CHEMISTRY METHOD 06/21/2024 5:14 PM EST [facility] Blood Venous blood specimen / Unknown 06/21/2024 10:35 AM EST 06/21/2024 2:35 PM EST Alia Mota MD LAB BLOOD ORDERABLES Fi nal Result Performing Organization Address [facility]/ZIP Co de Phone Number [facility] [address] [place] [address], [place] [phone] * Hepatitis A antibody IgM (06/21/2024 10:35 AM EST) Hepatitis A Antibody IgM Negative Negative LAB CHEMISTRY METHOD 06/21/2024 5:59 PM EST [facility] Blood Venous blood specimen / Unknown 06/21/2024 10:35 AM EST 06/21/2024 2:35 PM EST Narrative [facility] - 06/21/2024 5:59 PM EST Over the counter supplements containing high doses of biotin may interfere with this assay. ??If interference is suspected, patients shoud be retested after refraining from biotin supplements for 72 hours. Alia Mota MD LAB BLOOD ORDERABLES Fi nal Result Performing Organization Address [facility] Co de Phone Number [facility] [address] [place] [address], [place] [phone] * Hepatitis B core antibody, total (06/21/2024 10:35 AM EST) Pathologist [facility] Hep B Core Total Ab Negative Negative LAB CHEMISTRY METHOD 06/21/2024 5:58 PM EST [facility] Blood Venous blood specimen / Unknown 06/21/2024 10:35 AM EST 06/21/2024 2:35 PM EST Alia Mota MD LAB BLOOD ORDERABLES Fi nal Result Performing Organization Address City/[facility]/ZIP Co de Phone Number [facility] [address] [place] [address], [place] [phone] * Hepatitis B surface antibody (06/21/2024 10:35 AM EST) [facility] Hepatitis B Surface Ab Negative Negative LAB CHEMISTRY METHOD 06/21/2024 5:04 PM EST [facility] Hepatitis B Surface Ab Quantitative <3.1 mIU/mL LAB CHEMISTRY METHOD 06/21/2024 5:04 PM EST [facility] Blood Venous blood specimen / Unknown 06/21/2024 10:35 AM EST 06/21/2024 2:35 PM EST [facility] - 06/21/2024 5:04 PM EST >=10 mIU/mL is considered to be consistent with immunity. Alia Mota MD LAB BLOOD ORDERABLES nal Result [facility] [address] [place] [address], [place] [phone] * (ABNORMAL) Complete blood count (06/21/2024 10:35 AM EST) [facility] WBC 12.8(H) 4.8 - 10.8 K/mcL LAB HEMETOLOGY METHOD 06/21/2024 2:44 PM [facility] RBC 5.20 4.50 - 5.50 M/mcL LAB HEMETOLOGY METHOD 06/21/2024 2:44 PM [facility] Hemoglobin 14.3 13.5 - 17.5 g/dL LAB HEMETOLOGY METHOD 06/21/2024 2:44 PM [facility] Hematocrit 44.5 42.0 - 54.0 % LAB HEMETOLOGY METHOD 06/21/2024 2:44 PM [facility] MCV 85.1 79.0 - 98.0 FL LAB HEMETOLOGY METHOD 06/21/2024 2:44 PM EST [facility] MCH 27.3 27.0 - 32.0 pcg LAB HEMETOLOGY METHOD 06/21/2024 2:44 PM EST [facility] MCHC 32.1 32.0 - 37.0 g/dL LAB HEMETOLOGY METHOD 06/21/2024 2:44 PM EST [facility] RDW 12.8 11.0 - 15.0 % LAB HEMETOLOGY METHOD 06/21/2024 2:44 PM EST [facility] Platelets 298 130 - 400 K/mcL LAB HEMETOLOGY METHOD 06/21/2024 2:44 PM EST [facility] MPV 11.5(H) 7.0 - 11.0 FL LAB HEMETOLOGY METHOD 06/21/2024 2:44 PM EST [facility] NRBC 0.0 <1.0 % LAB HEMETOLOGY METHOD 06/21/2024 2:44 PM EST [facility] NRBC Absolute 0.00 <0.10 K/mcL LAB HEMETOLOGY METHOD 06/21/2024 2:44 PM EST [facility] Blood Venous blood specimen / Unknown 06/21/2024 10:35 AM EST 06/21/2024 2:35 PM EST Alia Mota MD LAB BLOOD ORDERABLES Fi nal Result [facility] [address] [place] [address], * (ABNORMAL) Comprehensive metabolic panel (06/21/2024 10:35 AM EST) Sodium 139 133 - 145 mmol/L LAB CHEMISTRY METHOD 06/21/2024 4:56 PM EST [facility] Potassium 4.7 3.5 - 5.5 [...] LAB CHEMISTRY METHOD 06/21/2024 4:56 PM EST [facility] Total Bilirubin 0.3 0.0 - 1.4 mg/dL LAB CHEMISTRY METHOD 06/21/2024 4:56 PM EST [facility] Blood Venous blood specimen / Unknown 06/21/2024 10:35 AM EST 06/21/2024 2:35 PM EST us Alia Mota MD LAB BLOOD ORDERABLES Fi nal Result [facility] [address] [place] [address], from Last 3 Months Insurance MEDICAID - [place] Care Teams Regional Production Manager Relationship Specialty Start Date End Date Brenda Breaux MD [address] [place] [address] [place] [address] PCP - General Internal Medicine 06/30/24
--- OUTSIDE RECORDS SUMMARY | 2024-08-21 09:39 | XMS_ITS | Clinical Summary ---
Author Organization [facility] Address [address] [place] [address] Care Team Providers Care Infantry Assaultman Name Role Phone Pcp, No MD Primary [...] topic Insurance MEDICAID [place]KY A Care Teams Infantry Assaultman Relationship Specialty Start Date End Date Bibi Jain MD [address] [place] [address] PCP - General Internal Medicine 10/27/22
== END 2024-08-21 09:10 | disposition home or self-care (01) ==
LOC: HO.HOS 08:58
PROVIDERS: PCP Internal Medicine
DX: L02.512 Cutaneous abscess of left hand (principal)
CPT/HCPCS: 99024

== ENCOUNTER → 2024-08-21 08:58 | Outpatient (BNVA) | payer MEDICAID, SELFPAY | PROVIDERS: PCP Internal Medicine | DX: L02.512 Cutaneous abscess of left hand (principal) | CPT/HCPCS: 99212 ==

== ENCOUNTER 2025-01-02 22:45 | Emergency (ER) | payer MEDICAID, SELFPAY ==
--- NOTE | 2025-01-02 | ECG_ITS ---
Test Reason : SEZIURE Blood Pressure : */* mmHG Vent. Rate : 103 BPM Atrial Rate : 103 BPM P-R Int : 166 ms QRS Dur : 92 ms QT Int : 340 ms P-R-T Axes : 38 -7 21 degrees QTcB Int : 445 ms Sinus tachycardia Otherwise normal ECG When compared with ECG of 12-Jun-2023 03:55, Incomplete right bundle branch block is no longer Present Nonspecific T wave abnormality no longer evident in Anterior leads Referred By: Generic ED Physician Electronically Signed By: Seamus Stallworth
[2025-01-02 22:48] VITALS: BP 138/71; PULSE 105; O2SAT 96; BMI 36.0
[2025-01-02 23:15] LABS: Hematocrit 40.9 % (42.0-52.0); Hemoglobin 13.9 g/dl (14.0-18.0); Imm Gran Abs Auto 0.02 X10*3/uL (0.00-0.03); Imm Gran Pct Auto 0.3 % (0.0-0.4); Lymphocytes Absolute Auto 2.0 X10*3/uL (1.2-4.9); MANUAL DIFF FLAG NO; Mean Corpuscular HGB Conc 34.0 g/dl (31.0-36.0); Mean Corpuscular Hemoglobin 28.7 pg (27.0-33.0); Mean Corpuscular Volume 84.3 fL (80.0-98.0); NRBC Abs Auto 0.000 X10*3/uL (0.0-0.012); NRBC Pct Auto 0.0 /100WBC (0.0-0.2); Platelet Count 191 X10*3/uL (160-400); Red Blood Count 4.85 X10*6/uL (4.60-5.80); White Blood Count 7.2 X10*3/uL (4.8-10.8)
[2025-01-02 23:17] LABS: Appearance Urine Clear; Glucose Urine UA Negative (Negative); PH 5.0 (5.0-9.0); Specific Gravity - Urine 1.020 (1.005-1.025)
[2025-01-02 23:28] LABS: Cannabinoid Screen Urine Not Detected (Not Detect)
[2025-01-02 23:29] LABS: Alanine Aminotransferase 34 U/L (0-40); Albumin Level 4.1 g/dL (3.5-5.0); Alkaline Phosphatase 89 U/L (39-117); Anion Gap 13 (12-20); Aspartate Amino Transferase 17 U/L (5-37); Blood Urea Nitrogen 24 mg/dL (9-16); Calcium 8.9 mg/dL (8.4-10.2); Carbon Dioxide 26 mmol/L (22-29); Chloride 106 mmol/L (96-108); Creatinine Clr Calc Pharmacy 107.4; Estimated Glomerular Filt Rate > 60; Magnesium 2.2 mg/dL (1.6-2.6); Potassium 3.8 mmol/L (3.3-5.1); Sodium 141 mmol/L (135-145); Total Protein 6.8 g/dL (6.5-8.0)
--- NOTE | 2025-01-02 23:38 | ED.SEIZURE ---
HPI - Seizure General Chief Complaint: Seizure Stated Complaint: seizure Time Seen by Provider: 01/02/25 23:28 Source: patient, family and EMS Mode of arrival: EMS Limitations: no limitations History of Present Illness ED Provider: Dr. Zahira Rosado HPI Narrative: Patient comes to the emergency room via ambulance from home. According to the patient's mother, they were both watching a movie together, and the patient started having tonic-clonic seizures and drooling at the mouth. According to the patient's mother, this is the 2nd time this happens in 2 months. Patient states that 2 months ago, he was taken to [facility], CAT scan of the head was done and was normal. Since this was the 1st seizure, patient was not started on any antiseizure medications, he was supposed to follow-up with neurology. However, patient states that he never got a referral. Patient states that 5 days ago he snorted cocaine. Patient states that he feels a bit confused, tired. Patient denies any tongue injuries. Related Data Home Medications ?Medication ?Instructions ?Recorded ?Confirmed albuterol sulfate 90 mcg/actuation 2 puff inhalation QID PRN wheezing 05/26/24 08/11/24 aerosol inhaler (Ventolin HFA) clonazepam 1 mg tablet 1 mg PO QID 05/26/24 08/11/24 clonidine HCl 0.1 mg tablet 0.1 mg PO TID PRN Anxiety 05/26/24 08/11/24 dextroamphetamine-amphetamine 30 1 tab PO BID@0600,1300 05/26/24 08/11/24 mg tablet fexofenadine 180 mg tablet 180 mg PO DAILY 05/26/24 08/11/24 ibuprofen 800 mg tablet 800 mg PO BID PRN pain 05/26/24 08/11/24 nicotine 21 mg/24 hr daily 1 patch transdermal DAILY PRN 05/26/24 08/11/24 transdermal patch Nicotine Cravings ondansetron 8 mg disintegrating 8 mg PO DAILY PRN nausea 06/21/24 08/11/24 tablet Previous Rx's ?Medication ?Instructions ?Recorded tizanidine 4 mg tablet 4 mg PO TID PRN muscle spasticity 03/14/24 30 days #90 tabs cephalexin 500 mg capsule 500 mg PO BID 7 days #14 caps 08/16/24 doxycycline hyclate 100 mg capsule 100 mg PO BID 7 days #14 caps 08/16/24 ibuprofen 400 mg tablet 400 mg PO Q8H #21 tabs 08/16/24 levetiracetam 500 mg tablet 500 mg PO BID 2 months #120 tabs 01/03/25 (Keppra) Allergies Allergy/AdvReac Type Severity Reaction Status Date / Time amoxicillin (AMOXICILLIN) Allergy Unknown HIVES Verified 01/02/25 22:52 hydrocodone (From VICODIN) Allergy Unknown RASH Verified 01/02/25 22:52 sulfamethoxazole (From Allergy Unknown UNKNOWN Verified 01/02/25 22:52 BACTRIM) trimethoprim (From BACTRIM) Allergy Unknown UNKNOWN Verified 01/02/25 22:52 Vicodin Allergy Unknown hives Uncoded 01/02/25 22:52 Review of Systems Review of Systems: Constitutional : No Weight loss, No Fever, No Chills, No Night Sweats, No Fatigue, No Malaise ENT/Mouth : No Hearing loss, No Ear Pain, No Nasal Congestion, No Sinus Pain, No Hoarseness, No sore throat, No Rhinorrhea, No Swallowing Difficulty Eyes: No Eye Pain, No Swelling, No Redness, No Foreign Body, No Discharge, No Vision Changes Cardiovascular : No Chest Pain, No SOB, No Dyspnea on Exertion, No Orthopnea, No Edema, No Palpitations Respiratory : No Cough, No Sputum, No Wheezing, No Smoke Exposure, No Dyspnea Gastrointestinal : No Nausea, No Vomiting, No Diarrhea, No Constipation, No abdominal Pain, No Hematochezia, No Melena Genitourinary : no irregular bleeding, No Dysuria, No Urinary Frequency, No Hematuria, No Urinary Incontinence, No Urgency, No Flank Pain, No Urinary Flow Changes, No Hesitancy Musculoskeletal : No joint pain, No Myalgias, No Joint Swelling Skin : No Skin Lesions, No rash Neuro : Patient reports having a tonic-clonic seizure today, feeling postictal/confused, No Weakness, No Numbness, No Paresthesias, No Loss of Consciousness, No Dizziness, No Headache Psych : No Anxiety/Panic, No Depression, No SI/HI/AH/VH, admits to snoring cocaine Heme/Lymph: No Bruising, No Bleeding,No Lymphadenopathy Endocrine : No Polyuria, No Polydipsia, No Temperature Intolerance PMFSH Past Medical History Medical History Mild intermittent asthma Environmental allergies Allergies Left hemiparesis Cerebral palsy Social History Social History Household Members: Family Housing: Apartment Do you presently have visiting nurse or other home services: No Alcohol intake: current Alcohol intake frequency: holidays/special occasions only Patient Tobacco Use Status: Never used Tobacco Cigarettes Per Day: 10 Smoked in Last 30 Days: No e-Cigarette/Vaping Use: Currently Using Second Hand Smoke Exposure: Yes Use of substances other than those prescribed or required for medical reasons: Unknown Substance Use Type: Crack/Cocaine Advance Directives: Yes Advance Directives on File: Yes Advance Directives Date on File: 05/29/24 service: No Current occupational status: unemployed Cognitive needs: No Hearing needs: No Vision needs: No Physical Exam Exam: Exam: Appearance: Alert. Oriented X3. No acute distress. Coherent Eyes: Pupils equal, round and reactive to light. ENT: Pharynx normal. Neck: Normal inspection. Neck supple. No lymph nodes noted. No crepitus CVS: Normal heart rate and rhythm. Pulses normal. Normal S1 and S2 Respiratory: No respiratory distress. Breath sounds normal. No Wheezing. No rales Abdomen: Soft and nontender. No rigidity. No distention. Skin: Skin warm and dry. Normal skin color. Normal skin turgor. Extremities: No lower extremity edema. No Lacerations. No Rash Neuro: Oriented X 3. No motor deficit. No sensory deficit. Moving all extremities. No slurred speech. CN 2 through 12 grossly intact Psych: calm, cooperative, normal affect Vital Signs: Vital Signs: Last Vital Signs Pulse 91 01/03/25 00:57 Resp 18 01/03/25 00:57 BP 116/62 01/03/25 00:57 Pulse Ox 96 01/03/25 00:57 O2 Del Method Room Air 01/03/25 00:57 BMI result Body Mass Index 36.0 Course Course Course Narrative: Patient reports that 2 months ago he had his 1st seizure. Taken to [facility], CT scan according to the patient was within normal limits. Patient states that they he had tonic-clonic seizure. Patient has never taking any antiepileptic medications. All of patient's labs pending We requested records from [facility]. If not available, patient needs to be CAT scan. All of patient's labs pending Medications Administered Discontinued Medications Generic Name Dose Route Start Last Admin Trade Name Charan PRN Reason Stop Dose Admin Diazepam 2.5 mg 01/02/25 23:46 01/03/25 00:51 Diazepam 10 Mg/2 Ml Cartridge IVPUSH 01/02/25 23:47 2.5 mg STAT STA Administration Sodium Chloride 1,000 mls @ 999 mls/hr 01/02/25 23:46 01/03/25 01:52 Ns IVCONT 01/03/25 00:46 Infused .Q1H1M ONE Infusion Medical Decision Making Medical Decision Making [facility] Narrative: My interpretation of labs: No significant abnormality in patient's hematology, normal white blood cell count, chemistry within normal limits, lactic acid normal at 1.6, CPK normal, 148 It is unlikely that patient had a full tonic-clonic seizures based on his labs. Not impossible but it is quite unlikely. I reviewed patient's medical records from [facility] from his admission in July after his 1st seizure: MRI of the brain from [facility] done last week of July showed: Right parietal and posterior superior right temporal encephalomalacia, no intracranial mass, abnormal intracranial enhancement or temporal sclerosis EEG: Within normal limits, no focal slowing, no epileptogenic discharges or electrographic seizures were recorded Overall, from they neurology consult, impression: Possible new onset seizures more likely provoked than unprovoked, recommend cessation of substance abuse I discussed with the patient to stop using drugs. Patient needs to have close follow-up with his PCP. Patient states that he has been using his Klonopin as prescribed, not skipping doses or changing doses, unlikely to have benzodiazepine withdrawal seizures Since this is the 2nd time that patient has seizures, I will start him on low-dose Keppra and instructed to follow-up with neurology. Patient instructed to not drive until he has at least 6 months seizure-free Differential Diagnosis Differential Diagnoses: The differential diagnosis associated with the presentation includes (Seizures, pseudoseizures, cocaine versus polysubstance induced seizure) Admission/Observation Consideration of admission/observation: Escalation of care including admission/observation considered (Since this is the 2nd time the patient has seizures, observation was considered) Lab Data [facility] Lab Attestation statement: I reviewed the patient's lab results. 01/02/25 23:09 01/02/25 23:09 Labs: Lab Results 01/02/25 01/02/25 Range/Units 23:09 23:42 WBC 7.2 (4.8-10.8) X10*3/uL RBC 4.85 (4.60-5.80) X10*6/uL Hgb 13.9 L (14.0-18.0) g/dl Hct 40.9 L (42.0-52.0) % MCV 84.3 (80.0-98.0) fL MCH 28.7 (27.0-33.0) pg MCHC 34.0 (31.0-36.0) g/dl RDW 13.2 (11.0-16.0) % Plt Count 191 (160-400) X10*3/uL MPV 11.3 (9.4-12.4) fL Immature Gran % (Auto) 0.3 (0.0-0.4) % Neut % (Auto) 57.8 (45-73) % Lymph % (Auto) 27.8 (20-40) % Laurel % (Auto) 9.0 (2-11) % Eos % (Auto) 4.8 H (0-4) % Baso % (Auto) 0.3 (0-2) % Lymph # (Auto) 2.0 (1.2-4.9) X10*3/uL Laurel # (Auto) 0.7 (0.1-1.2) X10*3/uL Eos # (Auto) 0.4 (0.0-0.4) X10*3/uL Baso # (Auto) 0.0 (0.0-0.2) X10*3/uL Abs Immat Gran (auto) 0.02 (0.00-0.03) X10*3/uL Absolute Neuts (auto) 4.2 (2.0-8.3) x10*3/uL Absolute Nucleated RBC 0.000 (0.0-0.012) X10*3/uL Nucleated RBC % (auto) 0.0 (0.0-0.2) /100WBC Sodium 141 (135-145) mmol/L Potassium 3.8 (3.3-5.1) mmol/L Chloride 106 (96-108) mmol/L Carbon Dioxide 26 (22-29) mmol/L Anion Gap 13 (12-20) BUN 24 H (9-16) mg/dL Creatinine 1.22 (0.5-1.4) mg/dL Estim Creat Clear Calc 107.4 Estimated GFR > 60 Random Glucose 84 (60-115) mg/dL Lactic Acid 1.6 (0.5-2.0) mmol/L Calcium 8.9 (8.4-10.2) mg/dL Magnesium 2.2 (1.6-2.6) mg/dL Total Bilirubin 0.2 (0.0-1.0) mg/dL AST 17 (5-37) U/L ALT 34 (0-40) U/L Alkaline Phosphatase 89 (39-117) U/L Total Creatine Kinase 148 (38-174) U/L Total Protein 6.8 (6.5-8.0) g/dL Albumin 4.1 (3.5-5.0) g/dL Urine Color Yellow Urine Appearance Clear Urine pH 5.0 (5.0-9.0) Ur Specific [place] 1.020 (1.005-1.025) Urine Protein Negative (Neg-Trace) mg/dL Urine Glucose (UA) Negative (Negative) mg/dL Urine Ketones Trace (Negative) mg/dL Urine Blood Negative (Negative) Urine Nitrite Negative (Negative) Ur Leukocyte Esterase Negative (Negative) Urine RBC 0-2 (0-2) /HPF Urine WBC 0-5 (0-5) /HPF Ur Squamous Epith Cells 0-2 (0-2) /HPF Urine Bacteria None Seen (None Seen) Hyaline Casts 0-2 (0-2) /LPF Urine Opiates Screen Not Detected (Not Detect) Ur Buprenorphine Scrn Positive H (Not Detect) ng/mL Ur Oxycodone Screen Not Detected (Not Detect) ng/mL Urine Methadone Screen Not Detected (Not Detect) ng/mL Urine Fentanyl Screen Not Detected (Not Detect) Ur Barbiturates Screen Not Detected (Not Detect) Ur Phencyclidine Scrn Not Detected (Not Detect) Ur Amphetamines Screen Not Detected (Not Detect) U Benzodiazepines Scrn Not Detected (Not Detect) Urine Cocaine Screen POSITIVE H (Not Detect) U Marijuana (THC) Screen Not Detected (Not Detect) Independent Interpretation I performed an independent interpretation of an: EKG Interpretation: My interpretation of EKG: Sinus tachycardia, heart rate 103, no ST segment depression or elevation, no T-wave inversion, QTC 445 Independent Historian Clinical information obtained from an independent historian. History obtained from or confirmed by: Parent (Patient's mother) External Record Review External record reviewed: Inpatient record (From [facility], as above) Tests considered The following testing was considered but not selected: I was considering ordering a CT scan of the brain. However, patient recently had an MRI. Chronic Conditions Patient?s care impacted by: Other (Polysubstance abuse) Critical Care Time Critical Care Time Critical Care Time: Yes Total Critical Care Time: 60 Attestation: I have personally provided critical care time. Time includes review of lab data, radiology results, discussion with consultants, and monitoring for potential decompensation. Intervention performed as documented. Discharge Plan Discharge Clinical Impression: Seizure, Generalized seizure Patient Disposition: Home, Self-Care Instructions: Recurrent Seizures in Adults (ED) Additional Instructions: Unfortunately, he will not be allowed to drive for the next 6 months. Please follow-up with your primary care physician. Also please follow-up with neurology. Please stop using drugs, this is likely the cause the you are having seizures. Please follow-up with your primary care physician tomorrow. If you have any worsening or new symptoms, please return to the emergency room or call 911 Prescriptions: New levetiracetam [Keppra] 500 mg tablet 500 mg PO BID 60 Days Qty: 120 0RF No Action tizanidine 4 mg tablet 4 mg PO TID PRN (Reason: muscle spasticity) 30 Days Qty: 90 1RF clonidine HCl 0.1 mg tablet 0.1 mg PO TID PRN (Reason: Anxiety) ibuprofen 800 mg tablet 800 mg PO BID PRN (Reason: pain) clonazepam 1 mg tablet 1 mg PO QID fexofenadine 180 mg tablet 180 mg PO DAILY dextroamphetamine-amphetamine 30 mg tablet 1 tab PO BID@0600,1300 nicotine 21 mg/24 hr patch 24 hour 1 patch transdermal DAILY PRN (Reason: Nicotine Cravings) albuterol sulfate [Ventolin HFA] 90 mcg/actuation HFA aerosol inhaler 2 puff INHALATION QID PRN (Reason: wheezing) ondansetron 8 mg tablet,disintegrating 8 mg PO DAILY PRN (Reason: nausea) cephalexin 500 mg capsule 500 mg PO BID 7 Days Qty: 14 0RF doxycycline hyclate 100 mg capsule 100 mg PO BID 7 Days Qty: 14 0RF ibuprofen 400 mg tablet 400 mg PO Q8H Qty: 21 0RF Referrals: richa [Other] Dread Gill MD [Physician, Neurology] Print Language: Citizen Of [place]
[2025-01-03] MEDS: diazePAM 10 MG/2 ML CARTRIDGE 2.5 MG IVPUSH (00:51)
[2025-01-03 00:57] VITALS: BP 116/62; PULSE 91; RESP 18; O2SAT 96
--- OUTSIDE RECORDS SUMMARY | 2025-01-03 01:13 | XMS_ITS | Clinical Summary ---
Author Organization [facility] Address [address] [place] [address] Care Team Providers Care Electric Motor Controls Assembler Name Role Phone Pcp, No MD Primary [...] 3-dose series) 2019 COVID-19 Vaccine (1 - 4-2 5 season) 2024 Influenza Vaccine (#1) 2024 Zoster Vaccines (1 of 2) 2050 [...] topic Insurance MEDICAID HUSKY A Care Teams Electric Motor Controls Assembler Relationship Specialty Start Date End Date Bibi Jain MD [address] [place] [address] PCP - General Internal Medicine 10/27/22
--- OUTSIDE RECORDS SUMMARY | 2025-01-03 01:13 | XMS_ITS | Encounter Summary ---
Author Organization [employer] Address [address] [place] [address] Care Team Providers Care Conditioning Coach Name Role Phone Brenda Breaux MD Primary Care Provider [phone] Encounter Details Date Type Department Care Team (Late st Contact Info) Description 06/21/2024 Lab Requisition [facility] - Main Lab [address] [facility] [place] [address] Alia Mota MD [address] [place] [address] Opioid dependence, uncomplicated (CMS/HCC V24, CMS/HCC V28) [...] C antibody (06/21/2024 10:35 AM EST) Pathologist [facility] Hepatitis C Antibody Negative Negative LAB CHEMISTRY METHOD 06/22/2024 8:29 AM EST [facility] Blood Venous blood specimen / Unknown 06/21/2024 10:35 AM EST 06/21/2024 2:35 PM EST us Alia Mota MD LAB BLOOD ORDERABLES Ed ited Result - Final [facility] [address] [place] [address], * Hepatitis A antibody IgM (06/21/2024 10:35 AM EST) Pathologist [facility] Hepatitis A Antibody IgM Negative Negative LAB CHEMISTRY METHOD 06/21/2024 5:59 PM EST [facility] Blood Venous blood specimen / Unknown 06/21/2024 10:35 AM EST 06/21/2024 2:35 PM EST Narrative [facility] - 06/21/2024 5:59 PM EST Over the counter supplements containing high doses of biotin may interfere with this assay. If interference is suspected, patients shoud be retested after refraining from biotin supplements for 72 hours. Alia Mota MD LAB BLOOD ORDERABLES Fi nal Result Performing Organization Address [facility] Co de Phone Number [facility] [address] [place] [address], [place] [phone] * HIV 1,2 antibody, p24 antigen with reflex to differentiation (06/21/2024 10:35 AM EST) HIV Combo AB/AG Negative Negative LAB CHEMISTRY METHOD 06/21/2024 5:43 PM EST [facility] Blood Venous blood specimen / Unknown 06/21/2024 10:35 AM EST 06/21/2024 2:35 PM EST Narrative [facility] - 06/21/2024 5:43 PM EST This assay is a 4th generation assay allowing for earlier detection of HIV infection by detecting the presence of the HIV-1 p24 antigen as well as the traditional antibodies to HIV type 1 (including group O) and type 2. Use of a 4th generation assay is the current CDC recommendation for HIV screening. Alia Mota MD LAB BLOOD ORDERABLES Fi nal Result Performing Organization Address [facility]/ZIP Co de Phone Number [facility] [address] [place] [address], [place] [phone] * Hepatitis B core antibody, total (06/21/2024 10:35 AM EST) Hep B Core Total Ab Negative Negative LAB CHEMISTRY METHOD 06/21/2024 5:58 PM EST [facility] Blood Venous blood specimen / Unknown 06/21/2024 10:35 AM EST 06/21/2024 2:35 PM EST Alia Mota MD LAB BLOOD ORDERABLES Fi nal Result Performing Organization Address [facility] Co de Phone Number [facility] [address] [place] [address], * Hepatitis B surface antibody (06/21/2024 10:35 [...] [facility] - 06/21/2024 5:04 PM EST >=10 mIU/mL is considered to be consistent with immunity. Alia Mota MD LAB BLOOD ORDERABLES Fi nal Result Performing Organization Address [facility] de Phone Number [facility] [address] [place] [address], * Hepatitis B surface antigen with reflex to confirmation (06/21/2024 10:35 AM EST) Hepatitis B Surface Ag Negative Negative LAB CHEMISTRY METHOD 06/21/2024 5:14 PM EST [facility] Blood Venous blood specimen / Unknown 06/21/2024 10:35 AM EST 06/21/2024 2:35 PM EST Narrative [facility] - 06/21/2024 5:14 PM EST Over the counter supplements containing high doses of biotin may interfere with this assay. If interference is suspected, patients shoud be retested after refraining from biotin supplements for 72 hours. Alia Mota MD LAB BLOOD ORDERABLES Fi nal Result Performing Organization Address [facility]/ZIP Co de Phone Number [facility] [address] [place] [address], [place] [phone] * Treponema pallidum antibody with reflex to RPR and particle agglutination (06/21/2024 10:35 AM EST) Pathologist [facility] T. Pallidum Antibodies Negative Negative LAB CHEMISTRY METHOD 06/21/2024 5:14 PM EST [facility] Blood Venous blood specimen / Unknown 06/21/2024 10:35 AM EST 06/21/2024 2:35 PM EST Alia Mota MD LAB BLOOD ORDERABLES Fi nal Result Performing Organization Address [facility] Co de Phone Number [facility] [address] [place] [address], [place] [phone] * (ABNORMAL) Comprehensive metabolic panel (06/21/2024 10:35 AM EST) [facility] Sodium 139 133 - 145 mmol/L LAB CHEMISTRY METHOD 06/21/2024 4:56 PM [facility] Potassium 4.7 3.5 - 5.5 mmol/L LAB CHEMISTRY METHOD 06/21/2024 4:56 PM [facility] Chloride 104 96 - 110 mmol/L LAB CHEMISTRY METHOD 06/21/2024 4:56 PM [facility] CO2 27 21 - 32 mmol/L LAB CHEMISTRY METHOD 06/21/2024 4:56 PM [facility] Anion Gap 8 3 - 11 LAB CHEMISTRY METHOD 06/21/2024 4:56 PM [facility] Glucose 77 70 - 100 mg/dL LAB CHEMISTRY METHOD 06/21/2024 4:56 PM [facility] BUN 15 5 - 25 mg/dL LAB CHEMISTRY METHOD 06/21/2024 4:56 PM [facility] Creatinine 1.01 0.70 - 1.30 mg/dL LAB CHEMISTRY METHOD 06/21/2024 4:56 PM [facility] eGFR 107 >=60 mL/min/1. 73m2 LAB CHEMISTRY METHOD 06/21/2024 4:56 PM [facility] Comment:Calculation based on the Chronic Kidney Disease Epidemiology Collaboration (CKD-EPI) equation refit without adjustment for race. BUN/Creatinine Ratio 14.9 LAB CHEMISTRY METHOD 06/21/2024 4:56 PM [facility] Calcium 9.5 8.5 - 10.5 mg/dL LAB CHEMISTRY METHOD 06/21/2024 4:56 PM [facility] AST (SGOT) 22 10 - 42 unit/L LAB CHEMISTRY METHOD 06/21/2024 4:56 PM [facility] ALT (SGPT) 29 10 - 60 unit/L LAB CHEMISTRY METHOD 06/21/2024 4:56 PM [facility] Alkaline Phosphatase 114 42 - 121 unit/L LAB CHEMISTRY METHOD 06/21/2024 4:56 PM [facility] Total Protein 8.1(H) 6.0 - 8.0 g/dL LAB CHEMISTRY METHOD 06/21/2024 4:56 PM [facility] Albumin 3.6 3.2 - 5.0 g/dL LAB CHEMISTRY METHOD 06/21/2024 4:56 PM [facility] Total Bilirubin 0.3 0.0 - 1.4 mg/dL LAB CHEMISTRY METHOD 06/21/2024 4:56 PM [facility] Blood Venous blood specimen / Unknown 06/21/2024 10:35 AM EST 06/21/2024 2:35 PM EST us Alia Mota MD LAB BLOOD ORDERABLES Fi nal Result [facility] [address] [place] [address], * (ABNORMAL) Complete blood count (06/21/2024 10:35 AM EST) WBC 12.8(H) 4.8 - 10.8 K/mcL LAB HEMETOLOGY METHOD 06/21/2024 2:44 PM EST [facility] RBC 5.20 4.50 - 5.50 M/mcL LAB HEMETOLOGY METHOD 06/21/2024 2:44 PM EST [facility] Hemoglobin 14.3 13.5 - 17.5 g/dL LAB HEMETOLOGY METHOD 06/21/2024 2:44 PM EST [facility] Hematocrit 44.5 42.0 - 54.0 % LAB HEMETOLOGY METHOD 06/21/2024 2:44 PM EST [facility] MCV 85.1 79.0 - 98.0 [...] Result [facility] [address] [place] [address], documented in this encounter Visit Diagnoses Diagnosis Opioid dependence, uncomplicated (CMS/HCC V24, CMS/HCC V28) documented in this encounter Care Teams Conditioning Coach Relationship Specialty Start Date End Date Brenda Breaux MD [address] [place] [address] [place] [address] PCP - General Internal Medicine 06/30/24 documented as of this encounter
--- OUTSIDE RECORDS SUMMARY | 2025-01-03 01:13 | XMS_ITS | Encounter Summary ---
Author Organization [employer] Address [address] [place] [address] Care Team Providers Care Hospital Chief Executive Officer Name Role Phone Brenda Breaux MD Primary Care Provider [phone] Encounter Details Date Type Department Care Team (Late st Contact Info) Description 08/05/2024 Lab Requisition [facility] - Main Lab [address] [facility] [place] [address] Alia Mota MD [address] [place] [address] Opioid dependence, uncomplicated (CMS/HCC V24, CMS/HCC V28) [...] 08/05/2024 10:04 AM EDT Opioid dependence, uncomplicated ([facility] V24, [facility] V28) documented in this encounter Results * Chlamydia trachomatis and Neisseria gonorrhoeae molecular study (08/05/2024 10:04 AM EDT) Neisseria gonorrhoeae PCR Negative Negative LAB MOLECULAR DIAGNOSTICS METHOD 08/06/2024 10:59 AM EDT [facility] Chlamydia trachomatis PCR Negative Negative LAB MOLECULAR DIAGNOSTICS METHOD 08/06/2024 10:59 AM EDT [facility] Urine 08/05/2024 10:0 4 AM EDT 08/05/2024 2:37 PM EDT us Alia Mota MD LAB MICROBIOLOGY - GENE RAL ORDERABLES Final Result [facility] [address] [place] [address], [place] [phone] documented in this encounter Visit Diagnoses Diagnosis Opioid dependence, uncomplicated ([facility] V24, [facility] V28) documented in this encounter Care Teams Hospital Chief Executive Officer Relationship Specialty Start Date End Date Brenda Breaux MD [address] [place] [address] Dr Mazariegos, [place] [address] PCP - General Internal Medicine 06/30/24 documented as of this encounter
--- OUTSIDE RECORDS SUMMARY | 2025-01-03 01:13 | XMS_ITS | Clinical Summary ---
Author Organization [address] [facility] Address [address] [place] [address] Phone Care Team Providers Care Clergy Member Name Role Phone Brenda Breaux MD Primary Care Provider [phone] Allergies Active Allergy Reactions Criticality Noted Date Comments Amoxicillin 06/30/2024 Surgical History Surgery Date Site/Laterality Comments ABSCESS DRAINAGE Right right hand Medical History Medical History Date Comments Left hemiparesis ([facility] V2 4, [facility] V28) DX:Left hemiparesis (HCC); 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 Kristie LÓPEZ in past- Obesity DX:Obesity; COMM ENT: seen at [facility] wt clinic Fracture of patella, right, closed 2010 DX:Fracture of patella, right, closed; COMMENT: no complications, Hx MRSA infection 04/07/2014 DX:Hx MRSA inf ection; COMMENT: Abscess thigh 04/04/14 ADHD (attention deficit hype ractivity disorder) DX:ADHD (attention deficit hyperactivity disorder) Anxiety Bipolar 1 disorder (CMS/HCC V24, CMS/HCC V28) Cerebral palsy (CMS/HCC V24, CMS/[facility] V28) Family History Medical History Relation Name [...] 93 06/30/2024 2:54 AM EST Temperature 36.7 C (98.1 F) 06/30/2024 2:54 AM EST Respiratory Rate 18 06/30/2024 2:54 AM EST [...] history exists Cholesterol Screening (Lipid Panel) 04/03/2022 Social Influencers of Health Screening 04/03/2022 Depression Screening 05/01/2024 Influenza Vaccine (#1) 2024 , 04/10/2023, 01/26/2022, Additional history exists Hepatitis B Vaccines Completed 2000, 2000, 2000 HIB Vaccines Completed 07/02/2001, 07/2001, 2000, Additional history exists MMR Vaccines Completed 05/05/2004, 04/03/2001 IPV Vaccines Completed 05/17/2005, 07/2001, 07/02/2001, Additional history exists Pneumococcal Vaccine: Pediatrics (0 to 5 Years) and At-Risk Patients (6 to 49 Years) Completed 05/05/2006, 05/05/2004, 05/30/2001, Additional history exists Varicella Vaccines Completed 03/05/2008, 04/03/2001 Meningococcal ACWY Vaccine Aged Out 03/30/2011 N o longer eligible based on patient's age to complete this topic HPV Vaccines Completed 06/11/2014, 03/31, 04/16/2012 Hepatitis A Vaccines Completed 08/29/2023, 02/11/20 COVID-19 Vaccine Completed 02/12/2024, 10/2021, 12/02/2021 HIV Screening Completed 06/21/2024 Hepatitis C Screening [...] dependence, uncomplicated (CMS/HCC) from Last 3 Months or Most Recently Relevant to Health Maintenance Results * Hepatitis C antibody (06/21/2024 10:35 AM EST) Pathologist [facility] Hepatitis C Antibody Negative Negative LAB CHEMISTRY METHOD 06/22/2024 8:29 AM EST [facility] Blood Venous blood specimen / Unknown 06/21/2024 10:35 AM EST 06/21/2024 2:35 PM EST us Alia Mota MD LAB BLOOD ORDERABLES Ed ited Result - Final [facility] [address] [place] [address], * HIV 1,2 antibody, p24 antigen with reflex to differentiation (06/21/2024 10:35 AM EST) HIV Combo AB/AG Negative Negative LAB CHEMISTRY METHOD 06/21/2024 5:43 PM EST [facility] Blood Venous blood specimen / Unknown 06/21/2024 10:35 AM EST 06/21/2024 2:35 PM EST Narrative [facility] [place] [facility] - 06/21/2024 5:43 PM EST This assay is a 4th generation assay allowing for earlier detection of HIV infection by detecting the presence of the HIV-1 p24 antigen as well as the traditional antibodies to HIV type 1 (including group O) and type 2. Use of a 4th generation assay is the current CDC recommendation for HIV screening. us Alia Mota MD LAB BLOOD ORDERABLES Fi nal Result [facility] [address] [place] [address], from Last 3 Months or Most Recently Relevant to Health Maintenance Insurance MEDICAID - [place] Care Teams Clergy Member Relationship Specialty Start Date End Date Brenda Breaux MD [address] [place] [address] [place] [address] PCP - General Internal Medicine 06/30/24
--- OUTSIDE RECORDS SUMMARY | 2025-01-03 01:13 | XMS_ITS | Clinical Summary ---
Author Organization [facility] Address [address] [place] [address] Phone Care Team Providers Care Reclamation Worker Name Role Phone Unknown, Unknown Primary Care Provider pS peace Allergies Active Allergy Reactions Criticality Noted Date Comments Amoxicillin 11/26/2018 Hydrocodone-Acetaminophen Hives 11/26/2018 Ibuprofen 11/26/2018 Medications oxyCODONE-aceta minophen (PERCOCET) 5-325 mg per tablet Take 1-2 tablets by mouth every 6 (six) hours as needed for pain (specific location in comments). Can partial fill 20 tablet 11/27/2018 Active Social History Tobacco Use Types Packs/Day Years Used Date Smoking Tobacco: Never Alcohol Use Standard Drinks/Week Comments Never 0 (1 standard drink = 0.6 oz pur e alcohol) Education Answer Date Recorded Are you interested in more education? Not on luis felipe e 08/26/2022 Are you concerned about learning? Not on file 08/26/2022 No 08/26/2022 No 08/26/2022 Digital Access Answer Date Recorded No 09/27/2022 No 09/27/2022 No 09/27/2022 Reliable internet access at home? Not on file 09/27/2022 Device with a working camera? Not on file Sex and Gender Information Value Date Recorded Sex Assigned at Male 12/18/2018 11:51 PM EDT Legal Sex Male 10:53 PM EDT Gender Identity Male 12/18/2018 11:51 PM EDT Sexual Orientation Straight 12/18/2018 11 :51 PM EDT Last Filed Vital Signs Vital Sign Reading Time Taken Comments Blood Pressure 131/84 12/18/2018 11:48 PM EDT Pulse 84 12/18/2018 11:48 PM EDT Temperature 36.2 C (97.2 F) 12/18/2018 11:48 PM EDT Respiratory Rate 18 12/18/2018 11:48 PM EDT Oxygen Saturation 99% 12/18/2018 11:48 PM EDT Inhaled Oxygen Concentration - - Weight 113.4 kg (250 lb) 12/18/2018 11:48 PM EDT Height 172.7 cm (5' 8 ) 12/18/2018 11:48 PM EDT Body Mass Index 38.01 12/18/2018 11:48 PM EDT Plan of Treatment Health Maintenance Due Date Last Done Comments DEPRESSION SCREENING 2012 SMOKING Hx and SMOKELESS TOBACCO SCREENING 2013 HIV ONE-TIME SCREENING (18-65 YEARS) 2018 Adult Td,Tdap Booster 03/30/2021 03/30/2011 COVID-19 VACCINE ( season) 2023 01/05/2022, 12/02/2021 HIB VACCINES Completed 07/02/2001, 10/2000, 2000, Additional history exists PNEUMOCOCCAL VACCINES (0-49 years) Aged Out 05/05/2006, 05/05/2004, 05/30/2001, Additional history exists No longer eligible based on patient's age to complete this topic MENINGOCOCCAL VACCINES (ACWY) Aged Out 03/30/2011 No longer eligible based on patient's age to complete this topic HPV VACCINES Completed 06/11/2014, 03/31, 04/16/2012 HEPATITIS C SCREENING Completed 07/21/2023 , 07/21/2023, 11/16/2021 HEPATITIS A VACCINES Aged Out No long er eligible based on patient's age to complete this topic MENINGOCOCCAL VACCINES (B) Aged Out N o longer eligible based on patient's age to complete this topic Medical Devices Not on file Procedures Procedure Name Priority Date/Time Associated Diagnosis Comments HEPATITIS C ANTIBODY, QUALITATIVE Routine 07/21/2023 7:45 AM EDT Encounter for health examination of prisoner from Last 3 Months or Most Recently Relevant to Health Maintenance Results * Hepatitis C antibody, qualitative (07/21/2023 7:45 AM EDT) HCV NON-REACTIV E NON-REACTI VE [facility] 07/21/2023 7:45 AM EDT 07/21/2023 11:09 AM EDT John Garland [employer] LAB BLOOD ORDERABL ES Final Result [facility] [address] [place] [address] from Last 3 Months or Most Recently Relevant to Health Maintenance Insurance [facility] [address] [facility] [address] [facility] [address] [facility] [address] [facility] [address] [facility] [address] [facility] Care Teams Reclamation Worker Relationship Specialty Start Date End Date Unknown, Unknown, PCP - General 11/26/18 Additional Source Comments The information contained in this document represents components of the legal health record. It is not the complete legal health record.[facility]
--- OUTSIDE RECORDS SUMMARY | 2025-01-03 01:13 | XMS_ITS | Encounter Summary ---
Author Organization [facility] Address [address] [place] [address] Phone Care Team Providers Care Lead Generation Specialist Name Role Phone Unknown, Unknown Primary Care Provider Sp peace Encounter Details Date Type Department Care Team (Late st Contact Info) Description 07/04/2022 Transcribe Orders [facility] Specimen Processing [address] [place] [address] John Garland, [facility] [address] [place] [address] [email or web address] Encounter for health examination of prisoner (Primary Dx) Social History Tobacco Use Types Packs/Day Years [...] Orientation Straight 12/18/2018 11 :51 PM EDT documented as of this encounter Plan of Treatment Not on file documented as of this encounter Visit Diagnoses Diagnosis Encounter for health examination of prisoner- Primary documented in this encounter Care Teams Lead Generation Specialist Relationship Specialty Start Date End Date Unknown, Unknown, PCP - General 11/26/18 documented as of this encounter Additional Source Comments The information contained in this document represents components of the legal health record. It is not the complete legal health record.[facility]
--- OUTSIDE RECORDS SUMMARY | 2025-01-03 01:13 | XMS_ITS | Clinical Summary ---
Author Organization [facility] Address [address] [place] [address] Care Team Providers Care Front Office Director Name Role Phone Unavailable Primary Care Provider [...] 09/18/2001, Additional history exists Influenza Vaccine (#1) 2024 2, 03/30/2009, 03/05/2008, Additional history exists Hepatitis B Vaccines Completed 2000, 2000, 2000 Pneumococcal Vaccine Completed 05/05/2006, 05/30/2001, 2000, Additional history exists RSV Ped < 20 months Aged Out No longe r eligible based on patient's age to complete this topic
--- OUTSIDE RECORDS SUMMARY | 2025-01-03 01:13 | XMS_ITS | Clinical Summary ---
Author Organization [facility] Address [address] [place] [address] [address] [place] [address] Care Team Providers Care [facility] Office Supervisor Name Role Phone Unavailable Primary Care Provider Unavailabl e Social History Tobacco Use Types Packs/Day Years Used Date Smoking Tobacco: Never Assessed Sex and Gender Information Value Date Recorded Sex Assigned at Not on file Legal Sex Male 1:14 PM EST Gender Identity Not on file Sexual Orientation Not on file Plan of Treatment Health Maintenance Due Date Last Done Comments Depression Screening 2000 HIV Screening 2000 SDOH Screening 2000 Disability Screening 2000 Alcohol/Substance Use Screening 2012 Tobacco Screening 2012 Family Planning (PISQ) 2015 HPV Vaccines (1 - Male 3-dos e series) 2015 Hepatitis C Screening 2018 DTaP/Tdap/Td Vaccines (1 - Tdap) 2019 Hepatitis B Vaccines (1 of 3 - 19+ 3-dose series) 2019 COVID-19 Vaccine (1 - 2023-2 5 season) 2024 Influenza Vaccine (#1) 2024 Zoster Vaccines (1 of 2) 2050 RSV Patients and Pa tients Aged 60 years or older (1 - 1-dose 75+ series) 2075 HIB Vaccines Aged Out No longer eligi ble based on patient's age to complete this topic Hepatitis A Vaccines Aged Out No long er eligible based on patient's age to complete this topic IPV Vaccines Aged Out No longer eligi ble based on patient's age to complete this topic Meningococcal B Vaccine Aged Out No l onger eligible based on patient's age to complete this topic Meningococcal Vaccine Aged Out No deandra peggy eligible based on patient's age to complete this topic Pneumococcal Vaccine: Pediat rics (0 to 5 Years) and At-Risk Patients (6 to 49) Years Aged Out No longer eligible b ased on patient's age to complete this topic RSV under 20 months Aged Out No longe r eligible based on patient's age to complete this topic Rotavirus Vaccines Aged Out No longer eligible based on patient's age to complete this topic Insurance [facility]
--- OUTSIDE RECORDS SUMMARY | 2025-01-03 01:13 | XMS_ITS | Encounter Summary ---
Author Organization [facility] Address [address] [facility] [address] [address] [place] [address] Phone Care Team Providers Care Filter Operator Name Role Phone Unknown, Unknown Primary Care Provider Sp peace Encounter Details Date Type Department Care Team (Late st Contact Info) Description 07/19/2023 Transcribe Orders [facility] Specimen Processing [address] [place] [address] John Garland, [facility] [address] [place] [address] [email or web address] Encounter for health examination of prisoner (Primary [...] on file documented as of this encounter Results * Hepatitis C viral load (PCR) (07/21/2023 7:45 AM EDT) Pathologist [facility] HCV RNA DETECT/QNT Undetected Undetected IU/mL [facility] MED[facility] Comment: (NOTE) Result in log IU/mL is Undetected. ADDITIONAL INFORMATION The quantification range of this assay is 15 to 100,000,000 IU/mL (1.18 log to 8.00 log IU/mL). Testing was performed using the alva HCV test ([employer] Blood 07/21/2023 7:45 AM EDT 07/21/2023 11:09 AM EDT John MARTINP NON CULTURE MICROB IOLOGY Final Result [facility] [address] [place] [address] * Hepatitis A antibody, IgM (07/21/2023 7:45 AM EDT) Pathologist [facility] Hepatitis A Antibody, IgM NON-REACTI VE NON-REACTI VE [facility] 07/21/2023 7:45 AM EDT 07/21/2023 11:09 AM EDT John TINSLEY LAB BLOOD ORDERABL ES Final Result Performing Organization Address City/[facility]/ZIP Co de Phone Number [address] [address] * Hepatitis B core antibody, total (07/21/2023 7:45 AM EDT) Pathologist [facility] HEP B CORE AB, TOT NON-REACTI VE NON-REACTI VE [facility] 07/21/2023 7:45 AM EDT 07/21/2023 11:09 AM EDT John Garland [facility] LAB BLOOD ORDERABL ES Final Result Performing Organization Address [facility] Co de Phone Number [address] [address] * Hepatitis C antibody, qualitative (07/21/2023 7:45 AM EDT) HCV NON-REACTIV E NON-REACTI VE [facility] 07/21/2023 7:45 AM EDT 07/21/2023 11:09 AM EDT John Garland [facility] LAB BLOOD ORDERABL ES Final Result Performing Organization Address [facility] de Phone Number [address] [address] * Hepatitis B surface antigen (07/21/2023 7:45 AM EDT) HBV SURFACE ANTIGEN NON-REACTI VE NON-REACTI VE [facility] 07/21/2023 7:45 AM EDT 07/21/2023 11:09 AM EDT John MARTINP LAB BLOOD ORDERABL ES Final Result Performing Organization Address [facility] de Phone Number [address] [address] * Hepatitis B surface antibody (07/21/2023 7:45 AM EDT) HBV SURFACE ANTIBODY Negative [facility] Comment: Unvaccinated: Negative Vaccinated: Positive 07/21/2023 7:45 AM EDT 07/21/2023 11:09 AM EDT John Garland [facility] LAB BLOOD ORDERABL ES Final Result [address] [address] * CBC (07/21/2023 7:45 AM EDT) Pathologist [facility] WBC 7.93 4.00 - 11.00 K/uL [facility] RBC 5.29 4.48 - 5.88 M/uL [facility] HGB 14.8 13.4 - 17.5 g/dL [facility] HCT 44.9 38.0 - 51.0 % [facility] PLT 238 140 - 430 K/uL [facility] MCV 84.9 78.0 - 97.0 fL [facility] MCH 28.0 25.0 - 33.0 pg [facility] MCHC 33.0 32.0 - 36.0 g/dL [facility] RDW 12.4 11.0 - 15.0 % [facility] MPV 12.0 8.4 - 12.8 fl [facility] 07/21/2023 7:45 AM EDT 07/21/2023 11:09 AM EDT us John Garland [employer] LAB BLOOD ORDERABL ES Final Result [address] [address] * (ABNORMAL) LFTs (hepatic panel) (07/21/2023 7:45 AM EDT) Pathologist [facility] ALKALINE PHOSPHATASE 99 39 - 117 U/L [facility] TOTAL BILIRUBIN 0.3 0.0 - 1.2 mg/dL [facility] DIRECT BILIRUBIN <0.2 0 - 0.3 mg/dL [facility] Bilirubin (Indirect) NOT CALCULATED 0 - 1.5 mg/dL [facility] AST 50(H) 0 - 37 U/L [facility] ALT 38 0 - 40 U/L [facility] TOTAL PROTEIN 7.3 6.5 - 8.0 g/dL [facility] ALBUMIN 4.5 3.9 - 4.8 g/dL [facility] GLOBULIN 2.8 1 - 4.8 g/dL [facility] A/G Ratio 1.61 1.00 - 4.80 RATIO [facility] 07/21/2023 7:45 AM EDT 07/21/2023 11:09 AM EDT John Kwan Garland [facility] LAB BLOOD ORDERABL ES Final Result Performing Organization Address [facility]/ZIP Co de Phone Number [address] [address] * Basic metabolic panel (07/21/2023 7:45 AM EDT) SODIUM 139 133 - 146 mmol/L [facility] CHLORIDE 103 96 - 108 mmol/L [facility] POTASSIUM 4.4 3.3 - 5.1 mmol/L [facility] CO2 26 21 - 35 mmol/L [facility] BUN 18 6 - 19 mg/dL [facility] CREATININE 1.00 0.5 - 1.5 mg/dL [facility] GLUCOSE 72 70 - 99 mg/dL [facility] CALCIUM 9.4 8.4 - 10.3 mg/dL [facility] EGFR 108 >59 mL/min/1.7 3m2 [facility] Comment:Estimated glomerular filtration rate calculated using the CKD-EPI refit equation. ANION GAP 14 10 - 20 mmol/L [facility] 07/21/2023 7:45 AM EDT 07/21/2023 11:09 AM EDT Mackmonique Kwan Gill [facility] LAB BLOOD ORDERABL ES Final Result Performing Organization Address [facility]/ZIP Co de Phone Number [address] [address] documented in this encounter Visit Diagnoses Diagnosis Encounter for health examination of prisoner- Primary documented in this encounter Care Teams Filter Operator Relationship Specialty Start Date End Date Unknown, Unknown, PCP - General 11/26/18 documented as of this encounter Additional Source Comments The information contained in this document represents components of the legal health record. It is not the complete legal health record.[facility]
--- OUTSIDE RECORDS SUMMARY | 2025-01-03 01:13 | XMS_ITS | Encounter Summary ---
Author Organization [facility] Address [address] [place] [address] Phone Care Team Providers Care Night Assistant Name Role Phone Kori Dover MD Primary Care Provider [phone] Encounter Details Date Type Department Care Team (Late st Contact Info) Description 12/15/2016 Conversion Encounter [facility] [address] [place] [address] Social History Tobacco Use Types Packs/Day Years [...] on filedocumented in this encounter Care Teams Night Assistant Relationship Specialty Start Date End Date Kori Dover MD [address] [place] [address] PCP - General 12/09/16 10/30/22 documented as of this encounter
--- OUTSIDE RECORDS SUMMARY | 2025-01-03 01:13 | XMS_ITS | Clinical Summary ---
Author Organization [facility] Address [address] [place] [address] Care Team Providers Care Credit Professional Name Role Phone Sanjana Schofield Primary Care Provider [phone] Source Comments Please note that some or [...] so, obtain the minor's consent prior to disclosure.[facility] Allergies Active Allergy Reactions Criticality Noted Date [...] ( - 2023-2 5 season) 2023 INFLUENZA (Season Ended) 2024 NIRSEVIMAB VACCINES UNDER 8 MONTHS Aged Out No longer eligible based on patient's age to complete this topic Insurance HUSKY A SAYRAKY A Care Teams Credit Professional Relationship Specialty Start Date End Date Sanjana Schofield DO [address] [place] [address] PCP - General Internal Medicine 12/14/16
--- OUTSIDE RECORDS SUMMARY | 2025-01-03 01:13 | XMS_ITS | Clinical Summary ---
Author Organization [facility] Address [address] [place] [address] Phone Care Team Providers Care Sash Finisher Name Role Phone Unavailable Primary Care Provider [...] Diabetes mellitus, No family history of Sudden /PA under age 55 Sister Alive Sister: Asthma [...] 72 05/30/2013 12:00 AM EST Temperature 35.7 C (96.2 F) 05/30/2013 12:00 AM EST Respiratory Rate - - Oxygen Saturation - [...] 09/18/2001, Additional history exists Influenza Vaccines (#1) 2024 04/11/20 13, 04/16/2012, 12/30/2009, Additional history exists COVID-19 Vaccine ( season) 2024 Hepatitis B Vaccines Completed 2000, 2000, 2000 [...]
[2025-01-03 03:12] VITALS: BP 120/66; PULSE 70; RESP 14; O2SAT 97
[2025-01-03 04:16] VITALS: BP 120/66; PULSE 70; RESP 14; TEMP 36.9; O2SAT 97
== END 2025-01-03 03:23 | disposition home or self-care (01) ==
PROVIDERS: Emergency Provider Emergency Medicine; PCP Internal Medicine
DX: G40.909 Epilepsy, unspecified, not intractable, without status epilepticus (principal); F14.10 Cocaine abuse, uncomplicated; F15.10 Other stimulant abuse, uncomplicated; G80.9 Cerebral palsy, unspecified
CPT/HCPCS: 36415; 80053; 80307; 81001; 82550; 83605; 83735; 84146; 85025; 93005; 96361; 96374; 99285; J3360

== ENCOUNTER → 2025-01-02 22:58 | Outpatient (BNV) | payer MEDICAID, SELFPAY | PROVIDERS: Emergency Provider Emergency Medicine; PCP Internal Medicine; Visit Provider Internal Medicine Cardiovascular Disease | DX: R00.0 Tachycardia, unspecified (principal) | CPT/HCPCS: 93010 ==

== ENCOUNTER 2025-01-08 13:23 | Outpatient (AMB) | payer MEDICAID, SELFPAY ==
--- NOTE | 2025-01-08 13:41 | A.OFFVIS_ITS ---
Intake Visit Reasons: ER visit, Seizures Allergies amoxicillin (AMOXICILLIN) Allergy (Unknown, Verified 01/02/25 22:52) HIVES hydrocodone (From VICODIN) Allergy (Unknown, Verified 01/02/25 22:52) RASH sulfamethoxazole (From BACTRIM) Allergy (Unknown, Verified 01/02/25 22:52) UNKNOWN trimethoprim (From BACTRIM) Allergy (Unknown, Verified 01/02/25 22:52) UNKNOWN Vicodin Allergy (Unknown, Uncoded 01/02/25 22:52) hives Medication List - Last Reconciled 01/08/25 by Dread Gill MD albuterol sulfate 90 mcg/actuation (Ventolin HFA) 2 puffs inhalation QID PRN cephalexin 500 mg PO BID 7 days clonazepam 1 mg PO QID clonidine HCl 0.1 mg PO TID PRN dextroamphetamine-amphetamine 30 mg 1 tab PO BID@0600,1300 doxycycline hyclate 100 mg PO BID 7 days fexofenadine 180 mg PO DAILY ibuprofen 800 mg PO BID PRN ibuprofen 400 mg PO Q8H levetiracetam (Keppra) 500 mg PO BID 2 months nicotine 1 patch transdermal DAILY PRN ondansetron 8 mg PO DAILY PRN tizanidine 4 mg PO TID PRN 30 days HPI Comments Details: The patient is a 24-year-old male presenting with seizures. He first experienced seizures three months ago, having three episodes since their onset. These seizures are characterized by generalized shaking while asleep, with the initial episode resulting in temporary amnesia and loss of mobility from the waist down. Recovery included a period of physical therapy to regain function. 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 He denies any previous seizures during his earlier years. The patient admits to recreational drug use, starting at age 18, which includes cocaine. Notably, the recent seizure episode occurred a week after cessation of drug use, emphasizing the potential influence of substances on his condition. His current medication regime includes anticonvulsants (Keppra, Oxcarbazepine, Divalproex) and psychiatric medications (Clonazepam, Sertraline) for comorbid bipolar disorder and asthmatic treatment with Ventolin. Since commencement of Keppra, his seizure activity has not recurred. ON LICENSE OF [facility] Medical History Mild intermittent asthma Environmental allergies Allergies Left hemiparesis Cerebral palsy Social History Household Members: Family Housing: Apartment Do you presently have visiting nurse or other home services: No Alcohol intake: current Alcohol intake frequency: holidays/special occasions only Patient Tobacco Use Status: Never used Tobacco Cigarettes Per Day: 10 e-Cigarette/Vaping Use: Currently Using Second Hand Smoke Exposure: Yes Substance Use Type: Crack/Cocaine Advance Directives Date on File: 05/29/24 service: No Current occupational status: unemployed Cognitive needs: No Hearing needs: No Vision needs: No Review of Systems Const Details: - Neurological: Reports seizures; denies previous history of seizures in childhood. - Musculoskeletal: Reports left-side hemiparesis. - Behavioral/Psychiatric: Reports history of bipolar disorder; reports substance use since age 18. - Respiratory: Reports using Ventolin for asthma. Assessment & Plan Assessment & Plan (1) Seizure disorder: Code(s): G40.909 - Epilepsy, unspecified, not intractable, without status epilepticus Category: Medical Plan I explained to the patient the likely correlation between substance use, particularly cocaine, and the increased risk and potential frequency of seizure activity, stressing the importance of abstaining from drugs to manage seizure threshold. I discussed the initiation of Keppra to stabilize his seizures and inform him of the plan to conduct an EEG to further evaluate his condition. We spoke about the significance of sustaining medication adherence and the potential implications if seizure activity persists. I stressed the importance of obtaining and bringing the MRI CD to the next visit for thorough evaluation. Additionally, we discussed the stabilization approach for his comorbid bipolar disorder and the need for ongoing psychiatric evaluation. I emphasized that reducing polypharmacy would be beneficial and only necessary anticonvulsant medications should be continued. The patient acknowledged the potential consequences of substance use, agreed to further evaluations, and understood plans for ongoing care. Orders: Orders EEG electroencephalogram Today G40.909 - Epilepsy, unspecified, not intractable, without status epilepticus Medications: New oxcarbazepine 150 mg PO DAILY sertraline 150 mg PO DAILY oxcarbazepine 300 mg PO ONCE divalproex 2,000 mg PO ONCE levetiracetam 500 mg PO BID Coding Level of Care Code New Pt Level 5 (86564) Diagnoses Seizure disorder G40.909
--- OUTSIDE RECORDS SUMMARY | 2025-01-08 16:26 | XMS_ITS | Encounter Summary ---
Author Organization [facility] Address [address] [place] [address] Phone Care Team Providers Care Pig Caster Name Role Phone Unknown, Unknown Primary Care Provider Sp peace Encounter Details Date Type Department Care Team (Late st Contact Info) Description 07/19/2023 Transcribe Orders [facility] Specimen Processing [address] [place] [address] John Garland, [facility] [address] [place] [address] [email or web address] Encounter for health examination of prisoner (Primary [...] load (PCR) (07/21/2023 7:45 AM EDT) Pathologist [facility] HCV RNA DETECT/QNT Undetected Undetected IU/mL [facility] MED/[facility] [address] Comment: (NOTE) Result in log IU/mL is Undetected. ADDITIONAL INFORMATION The quantification range of this assay is 15 to 100,000,000 IU/mL (1.18 log to 8.00 log IU/mL). Testing was performed using the alva HCV test ([employer] Blood 07/21/2023 7:45 AM EDT 07/21/2023 11:09 AM EDT John MARTINP NON CULTURE MICROB IOLOGY Final Result [facility] MED/[address] [place] [address] * Hepatitis A antibody, IgM (07/21/2023 7:45 AM EDT) Pathologist [facility] Hepatitis A Antibody, IgM NON-REACTI VE NON-REACTI VE [facility] 07/21/2023 7:45 AM EDT 07/21/2023 11:09 AM EDT John TINSLEY LAB BLOOD ORDERABL ES Final Result Performing Organization Address City/[facility]/ZIP Co de Phone Number [address] [address] * Hepatitis B core antibody, total (07/21/2023 7:45 AM EDT) Pathologist [facility] HEP B CORE AB, TOT NON-REACTI VE NON-REACTI VE [facility] 07/21/2023 7:45 AM EDT 07/21/2023 11:09 AM EDT John Garland [facility] LAB BLOOD ORDERABL ES Final Result Performing Organization Address [facility] Co de Phone Number [address] [address] * Hepatitis C antibody, qualitative (07/21/2023 7:45 AM EDT) HCV NON-REACTIV E NON-REACTI VE [facility] 07/21/2023 7:45 AM EDT 07/21/2023 11:09 AM EDT John Garland [facility] LAB BLOOD ORDERABL ES Final Result Performing Organization Address [facility] de Phone Number [address] [address] * Hepatitis B surface antigen (07/21/2023 7:45 AM EDT) HBV SURFACE ANTIGEN NON-REACTI VE NON-REACTI VE [facility] 07/21/2023 7:45 AM EDT 07/21/2023 11:09 AM EDT John MARTINP LAB BLOOD ORDERABL ES Final Result Performing Organization Address [facility] de Phone Number [address] [address] * Hepatitis B surface antibody (07/21/2023 7:45 AM EDT) HBV SURFACE ANTIBODY Negative [facility] Comment: Unvaccinated: Negative Vaccinated: Positive 07/21/2023 7:45 AM EDT 07/21/2023 11:09 AM EDT John Garland [facility] LAB BLOOD ORDERABL ES Final Result [address] [address] * CBC (07/21/2023 7:45 AM EDT) Pathologist [facility] WBC 7.93 4.00 - 11.00 K/uL [facility] RBC 5.29 4.48 - 5.88 M/uL [facility] HGB 14.8 13.4 - 17.5 g/dL [facility] HCT 44.9 38.0 - 51.0 % [facility] PLT 238 140 - 430 K/uL [facility] MCV 84.9 78.0 - 97.0 fL [facility] MCH 28.0 25.0 - 33.0 pg [facility] MCHC 33.0 32.0 - 36.0 g/dL [facility] RDW 12.4 11.0 - 15.0 % [facility] MPV 12.0 8.4 - 12.8 fl [facility] 07/21/2023 7:45 AM EDT 07/21/2023 11:09 AM EDT us John Garland LOG MANAGER LAB BLOOD ORDERABL ES Final Result [address] [address] * (ABNORMAL) LFTs (hepatic panel) (07/21/2023 7:45 AM EDT) Pathologist [facility] ALKALINE PHOSPHATASE 99 39 - 117 U/L [facility] TOTAL BILIRUBIN 0.3 0.0 - 1.2 mg/dL [facility] DIRECT BILIRUBIN <0.2 0 - 0.3 mg/dL [facility] Bilirubin (Indirect) NOT CALCULATED 0 - 1.5 mg/dL [facility] AST 50(H) 0 - 37 U/L [facility] ALT 38 0 - 40 U/L [facility] TOTAL PROTEIN 7.3 6.5 - 8.0 g/dL [facility] ALBUMIN 4.5 3.9 - 4.8 g/dL [facility] GLOBULIN 2.8 1 - 4.8 g/dL [facility] A/G Ratio 1.61 1.00 - 4.80 RATIO [facility] 07/21/2023 7:45 AM EDT 07/21/2023 11:09 AM EDT John Kwan Garland [facility] LAB BLOOD ORDERABL ES Final Result Performing Organization Address [facility]/ZIP Co de Phone Number [address] [address] * Basic metabolic panel (07/21/2023 7:45 AM EDT) SODIUM 139 133 - 146 mmol/L [facility] CHLORIDE 103 96 - 108 mmol/L [facility] POTASSIUM 4.4 3.3 - 5.1 mmol/L [facility] CO2 26 21 - 35 mmol/L [facility] BUN 18 6 - 19 mg/dL [facility] CREATININE 1.00 0.5 - 1.5 mg/dL [facility] GLUCOSE 72 70 - 99 mg/dL [facility] CALCIUM 9.4 8.4 - 10.3 mg/dL [facility] EGFR 108 >59 mL/min/1.7 3m2 [facility] Comment:Estimated glomerular filtration rate calculated using the CKD-EPI refit equation. ANION GAP 14 10 - 20 mmol/L [facility] 07/21/2023 7:45 AM EDT 07/21/2023 11:09 AM EDT Mackmonique Kwan Gill [facility] LAB BLOOD ORDERABL ES Final Result Performing Organization Address [facility]/ZIP Co de Phone Number [address] [address] documented in this encounter Visit Diagnoses Diagnosis Encounter for health examination of prisoner- Primary documented in this encounter Care Teams Pig Caster Relationship Specialty Start Date End Date Unknown, Unknown, PCP - General 11/26/18 documented as of this encounter Additional Source Comments The information contained in this document represents components of the legal health record. It is not the complete legal health record.[facility]
--- OUTSIDE RECORDS SUMMARY | 2025-01-08 16:26 | XMS_ITS | Encounter Summary ---
Author Organization [facility] Address [address] [place] [address] Phone Care Team Providers Care Marine Habitat Resource Specialist Name Role Phone Kori Dover MD Primary Care Provider [phone] Encounter Details Date Type Department Care Team (Late st Contact Info) Description 12/15/2016 Conversion Encounter [facility] [address] [place] [address] Social History Tobacco Use Types Packs/Day Years [...] on filedocumented in this encounter Care Teams Marine Habitat Resource Specialist Relationship Specialty Start Date End Date Kori Dover MD [address] [place] [address] PCP - General 12/09/16 10/30/22 documented as of this encounter
--- OUTSIDE RECORDS SUMMARY | 2025-01-08 16:26 | XMS_ITS | Encounter Summary ---
Author Organization [employer] Address [address] [place] [address] Care Team Providers Care Supplier Development Manager Name Role Phone Brenda Breaux MD Primary Care Provider [phone] Encounter Details Date Type Department Care Team (Late st Contact Info) Description 06/21/2024 Lab Requisition [facility] [address] [facility] [place] [address] Alia Mota MD [address] [place] [address] Opioid dependence, uncomplicated (CMS/HCC V24, CMS/HCC V28) [...] C antibody (06/21/2024 10:35 AM EST) Pathologist [facility] Hepatitis C Antibody Negative Negative LAB CHEMISTRY METHOD 06/22/2024 8:29 AM EST [facility] Blood Venous blood specimen / Unknown 06/21/2024 10:35 AM EST 06/21/2024 2:35 PM EST us Alia Mota MD LAB BLOOD ORDERABLES Ed ited Result - Final [facility] [address] [place] [address], * Hepatitis A antibody IgM (06/21/2024 10:35 AM EST) Pathologist [facility] Hepatitis A Antibody IgM Negative Negative LAB CHEMISTRY METHOD 06/21/2024 5:59 PM EST [facility] Blood Venous blood specimen / Unknown 06/21/2024 10:35 AM EST 06/21/2024 2:35 PM EST Narrative [facility] - 06/21/2024 5:59 PM EST Over the counter supplements containing high doses of biotin may interfere with this assay. If interference is suspected, patients shoud be retested after refraining from biotin supplements for 72 hours. Alia Mota MD LAB BLOOD ORDERABLES Fi nal Result Performing Organization Address [facility] Co de Phone Number [facility] [address] [place] [address], [place] [phone] * HIV 1,2 antibody, p24 antigen with reflex to differentiation (06/21/2024 10:35 AM EST) HIV Combo AB/AG Negative Negative LAB CHEMISTRY METHOD 06/21/2024 5:43 PM EST [facility] Blood Venous blood specimen / Unknown 06/21/2024 10:35 AM EST 06/21/2024 2:35 PM EST Narrative [facility] - 06/21/2024 5:43 PM EST [...] ORDERABLES Fi nal Result Performing Organization Address [facility]/ZIP Co de Phone Number [facility] [address] [place] [address], [place] [phone] * Hepatitis B core antibody, total (06/21/2024 10:35 AM EST) Hep B Core Total Ab Negative Negative LAB CHEMISTRY METHOD 06/21/2024 5:58 PM EST [facility] Blood Venous blood specimen / Unknown 06/21/2024 10:35 AM EST 06/21/2024 2:35 PM EST Alia Mota MD LAB BLOOD ORDERABLES Fi nal Result Performing Organization Address [facility] Co de Phone Number [facility] [address] [place] [address], * Hepatitis B surface antibody (06/21/2024 10:35 AM EST) Hepatitis B Surface Ab Negative Negative LAB CHEMISTRY METHOD 06/21/2024 5:04 PM EST [facility] Hepatitis B Surface Ab Quantitative <3.1 mIU/mL LAB CHEMISTRY METHOD 06/21/2024 5:04 PM EST [facility] Blood Venous blood specimen / Unknown 06/21/2024 10:35 AM EST 06/21/2024 2:35 PM EST Narrative [facility] - 06/21/2024 5:04 PM EST >=10 mIU/mL is considered to be consistent with immunity. Alia Mota MD LAB BLOOD ORDERABLES Fi nal Result Performing Organization Address [facility] de Phone Number [facility] [address] [place] [address], * Hepatitis B surface antigen with reflex to confirmation (06/21/2024 10:35 AM EST) Hepatitis B Surface Ag Negative Negative LAB CHEMISTRY METHOD 06/21/2024 5:14 PM EST [facility] Blood Venous blood specimen / Unknown 06/21/2024 10:35 AM EST 06/21/2024 2:35 PM EST Narrative [facility] - 06/21/2024 5:14 PM EST Over the counter supplements containing high doses of biotin may interfere with this assay. If interference is suspected, patients shoud be retested after refraining from biotin supplements for 72 hours. Alia Mota MD LAB BLOOD ORDERABLES Fi nal Result Performing Organization Address [facility]/ZIP Co de Phone Number [facility] [address] [place] [address], [place] [phone] * Treponema pallidum antibody with reflex to RPR and particle agglutination (06/21/2024 10:35 AM EST) Pathologist [facility] T. Pallidum Antibodies Negative Negative LAB CHEMISTRY METHOD 06/21/2024 5:14 PM EST [facility] Blood Venous blood specimen / Unknown 06/21/2024 10:35 AM EST 06/21/2024 2:35 PM EST Alia Mota MD LAB BLOOD ORDERABLES Fi nal Result Performing Organization Address [facility] Co de Phone Number [facility] [address] [place] [address], [place] [phone] * (ABNORMAL) Comprehensive metabolic panel (06/21/2024 10:35 AM EST) [facility] Sodium 139 133 - 145 mmol/L LAB CHEMISTRY METHOD 06/21/2024 4:56 PM [facility] Potassium 4.7 3.5 - 5.5 mmol/L LAB CHEMISTRY METHOD 06/21/2024 4:56 PM [facility] Chloride 104 96 - 110 mmol/L LAB CHEMISTRY METHOD 06/21/2024 4:56 PM [facility] CO2 27 21 - 32 mmol/L LAB CHEMISTRY METHOD 06/21/2024 4:56 PM [facility] Anion Gap 8 3 - 11 LAB CHEMISTRY METHOD 06/21/2024 4:56 PM [facility] Glucose 77 70 - 100 mg/dL LAB CHEMISTRY METHOD 06/21/2024 4:56 PM [facility] BUN 15 5 - 25 mg/dL LAB CHEMISTRY METHOD 06/21/2024 4:56 PM [facility] Creatinine 1.01 0.70 - 1.30 mg/dL LAB CHEMISTRY METHOD 06/21/2024 4:56 PM [facility] eGFR 107 >=60 mL/min/1. 73m2 LAB CHEMISTRY METHOD 06/21/2024 4:56 PM [facility] Comment:Calculation based on the Chronic Kidney Disease Epidemiology Collaboration (CKD-EPI) equation refit without adjustment for race. BUN/Creatinine Ratio 14.9 LAB CHEMISTRY METHOD 06/21/2024 4:56 PM [facility] Calcium 9.5 8.5 - 10.5 mg/dL LAB CHEMISTRY METHOD 06/21/2024 4:56 PM [facility] AST (SGOT) 22 10 - 42 unit/L LAB CHEMISTRY METHOD 06/21/2024 4:56 PM [facility] ALT (SGPT) 29 10 - 60 unit/L LAB CHEMISTRY METHOD 06/21/2024 4:56 PM [facility] Alkaline Phosphatase 114 42 - 121 unit/L LAB CHEMISTRY METHOD 06/21/2024 4:56 PM [facility] Total Protein 8.1(H) 6.0 - 8.0 g/dL LAB CHEMISTRY METHOD 06/21/2024 4:56 PM [facility] Albumin 3.6 3.2 - 5.0 g/dL LAB CHEMISTRY METHOD 06/21/2024 4:56 PM [facility] Total Bilirubin 0.3 0.0 - 1.4 mg/dL LAB CHEMISTRY METHOD 06/21/2024 4:56 PM [facility] Blood Venous blood specimen / Unknown 06/21/2024 10:35 AM EST 06/21/2024 2:35 PM EST us Alia Mota MD LAB BLOOD ORDERABLES Fi nal Result [facility] [address] [place] [address], * (ABNORMAL) Complete blood count (06/21/2024 10:35 AM EST) WBC 12.8(H) 4.8 - 10.8 K/mcL LAB HEMETOLOGY METHOD 06/21/2024 2:44 PM EST [facility] RBC 5.20 4.50 - 5.50 M/mcL LAB HEMETOLOGY METHOD 06/21/2024 2:44 PM EST [facility] Hemoglobin 14.3 13.5 - 17.5 g/dL LAB HEMETOLOGY METHOD 06/21/2024 2:44 PM EST [facility] Hematocrit 44.5 42.0 - 54.0 % LAB HEMETOLOGY METHOD 06/21/2024 2:44 PM EST [facility] MCV 85.1 79.0 - 98.0 FL LAB HEMETOLOGY METHOD 06/21/2024 2:44 PM EST [facility] MCH 27.3 27.0 - 32.0 pcg LAB HEMETOLOGY METHOD 06/21/2024 2:44 PM EST [facility] MCHC 32.1 32.0 - 37.0 g/dL LAB HEMETOLOGY METHOD 06/21/2024 2:44 PM EST [facility] RDW 12.8 11.0 - 15.0 % LAB HEMETOLOGY METHOD 06/21/2024 2:44 PM EST [facility] Platelets 298 130 - 400 K/mcL LAB HEMETOLOGY METHOD 06/21/2024 2:44 PM EST [facility] MPV 11.5(H) 7.0 - 11.0 FL LAB HEMETOLOGY METHOD 06/21/2024 2:44 PM EST [facility] NRBC 0.0 <1.0 % LAB HEMETOLOGY METHOD 06/21/2024 2:44 PM EST [facility] NRBC Absolute 0.00 <0.10 K/mcL LAB HEMETOLOGY METHOD 06/21/2024 2:44 PM EST [facility] Blood Venous blood specimen / Unknown 06/21/2024 10:35 AM EST 06/21/2024 2:35 PM EST us Alia Mota MD LAB BLOOD ORDERABLES Fi nal Result [facility] [address] [place] [address], documented in this encounter Visit Diagnoses Diagnosis Opioid dependence, uncomplicated (CMS/HCC V24, CMS/HCC V28) documented in this encounter Care Teams Supplier Development Manager Relationship Specialty Start Date End Date Brenda Breaux MD [address] [place] [address] [place] [phone] PCP - General Internal Medicine 06/30/24 documented as of this encounter
--- OUTSIDE RECORDS SUMMARY | 2025-01-08 16:26 | XMS_ITS | Clinical Summary ---
Author Organization [facility] Address [address] [place] [address] Care Team Providers Care Casket Liner Name Role Phone Sanjana Schofield Primary Care Provider [phone] Source Comments Please note that some or [...] so, obtain the minor's consent prior to disclosure.[facility] Allergies Active Allergy Reactions Criticality Noted [...] COVID-19 Vaccine ( - 2023-2 5 season) 2024 INFLUENZA (#1) 2024 NIRSEVIMAB VACCINES UNDER 8 MONTHS Aged Out No longer eligible based on patient's age to complete this topic Insurance HUSKY A SAYRAKY A Care Teams Casket Liner Relationship Specialty Start Date End Date Sanjana Schofield DO [address] [place] [address] PCP - General Internal Medicine 12/14/16
--- OUTSIDE RECORDS SUMMARY | 2025-01-08 16:26 | XMS_ITS | Clinical Summary ---
Author Organization [facility] Address [address] [place] [address] Care Team Providers Care Attorney At Law Name Role Phone Unavailable Primary Care Provider [...]
--- OUTSIDE RECORDS SUMMARY | 2025-01-08 16:26 | XMS_ITS | Clinical Summary ---
Author Organization [facility] Address [address] [place] [address] Phone Care Team Providers Care Optical Laboratory Manager Name Role Phone Unknown, Unknown Primary Care Provider Sp peace Allergies Active Allergy Reactions Criticality Noted [...] YEARS) 2018 Adult Td,Tdap Booster 03/30/2021 03/30/2011 INFLUENZA VACCINE (#1) 2024 , 02/08/2016, 04/11/2013, Additional history exists COVID-19 VACCINE ( season) 2024 01/05/2022, 12/02/2021 HIB VACCINES Completed 07/02/2001, 10/2000, [...] AM EDT) HCV NON-REACTIV E NON-REACTI VE [facility] 07/21/2023 7:45 AM EDT 07/21/2023 11:09 AM EDT us John Garland CHURN OPERATOR MARGARINE LAB BLOOD ORDERABL ES Final Result [facility] [address] [place], [place] [phone] from Last 3 Months or Most Recently Relevant to Health Maintenance Insurance [facility] [place] [address] [place] [address] [facility] [address] [facility] [address] [facility]CO [facility]CO [facility]CO [facility] ACO [facility] ACO [address] [facility] ACO [facility] Care Teams Optical Laboratory Manager Relationship Specialty Start Date End Date Unknown, Unknown, PCP - General 11/26/18 Additional Source Comments The information contained in this document represents components of the legal health record. It is not the complete legal health record.[facility]
--- OUTSIDE RECORDS SUMMARY | 2025-01-08 16:26 | XMS_ITS | Clinical Summary ---
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 Kristie LÓPEZ in past- Obesity DX:Obesity; COMM ENT: [place] [facility] Fracture of patella, right, closed 2010 DX:Fracture of patella, right, closed; COMMENT: no complications, Hx MRSA infection 04/07/2014 DX:Hx MRSA inf ection; COMMENT: Abscess thigh 04/04/14 ADHD (attention deficit hype ractivity disorder) DX:ADHD (attention deficit hyperactivity disorder) Anxiety Bipolar 1 disorder (CMS/HCC V24, CMS/HCC V28) Cerebral palsy ([facility] V24, [facility] V28) Family History Medical History Relation Name [...] C antibody (06/21/2024 10:35 AM EST) Pathologist [facility] Hepatitis C Antibody Negative Negative LAB CHEMISTRY METHOD 06/22/2024 8:29 AM EST [facility] Blood Venous blood specimen / Unknown 06/21/2024 10:35 AM EST 06/21/2024 2:35 PM EST us Alia Mota MD LAB BLOOD ORDERABLES Ed ited Result - Final [facility] [address] [place] [address], * HIV 1,2 antibody, p24 antigen with reflex to differentiation (06/21/2024 10:35 AM EST) HIV Combo AB/AG Negative Negative LAB CHEMISTRY METHOD 06/21/2024 5:43 PM EST [facility] Blood Venous blood specimen / Unknown 06/21/2024 10:35 AM EST 06/21/2024 2:35 PM EST Narrative [facility] [place] ([facility]) [facility] - 06/21/2024 5:43 PM EST [...] BLOOD ORDERABLES Fi nal Result [facility] [place] ([facility]) [facility] [address] [place] [address], from Last 3 Months or Most Recently Relevant to Health Maintenance Insurance MEDICAID - [place] Care Teams Range Aide Relationship Specialty Start Date End Date Brenda Breaux MD [address] [place] [address] [place] [address] PCP - General Internal Medicine 06/30/24
--- OUTSIDE RECORDS SUMMARY | 2025-01-08 16:26 | XMS_ITS | Clinical Summary ---
Author Organization [facility] Address [address] [place] [address] Care Team Providers Care Internal Control Specialist Name Role Phone Pcp, No MD [...] topic Insurance MEDICAID HUSKY A Care Teams Internal Control Specialist Relationship Specialty Start Date End Date Bibi Jain MD [address] [place] [address] PCP - General Internal Medicine 10/27/22
--- OUTSIDE RECORDS SUMMARY | 2025-01-08 16:26 | XMS_ITS | Clinical Summary ---
Author Organization [facility] Address [address] [place] [address] Phone Care Team Providers Care Dye Room Helper Name Role Phone Unavailable Primary Care Provider [...] Diabetes mellitus, No family history of Sudden /[place] under age 55 Sister Alive Sister: Asthma [...]
--- OUTSIDE RECORDS SUMMARY | 2025-01-08 16:26 | XMS_ITS | Encounter Summary ---
Author Organization [email or web address] Address [address] [place] [address] Care Team Providers Care Therapeutic Activities Services Worker Name Role Phone Brenda Breaux MD Primary Care Provider Encounter Details Date Type Department Care Team (Late st Contact Info) Description 08/05/2024 Lab Requisition [facility] - Main Lab [address] [facility] [place] [address] Alia Mota MD [address] [place] [address] Opioid dependence, uncomplicated (CMS/HCC V24, CMS/HCC V28) [...] 08/05/2024 10:04 AM EDT Opioid dependence, uncomplicated ([facility] V24, [facility] V28) documented in this encounter Results * Chlamydia trachomatis and Neisseria gonorrhoeae molecular study (08/05/2024 10:04 AM EDT) Neisseria gonorrhoeae PCR Negative Negative LAB MOLECULAR DIAGNOSTICS METHOD 08/06/2024 10:59 AM EDT [facility] Chlamydia trachomatis PCR Negative Negative LAB MOLECULAR DIAGNOSTICS METHOD 08/06/2024 10:59 AM EDT [facility] Urine 08/05/2024 10:0 4 AM EDT 08/05/2024 2:37 PM EDT us Alia Mota MD LAB MICROBIOLOGY - GENE RAL ORDERABLES Final Result [facility] [address] [place] [address], [place] [phone] documented in this encounter Visit Diagnoses Diagnosis Opioid dependence, uncomplicated ([facility] V24, [facility] V28) documented in this encounter Care Teams Therapeutic Activities Services Worker Relationship Specialty Start Date End Date Brenda Breaux MD [address] [place] [address] Dr Mazariegos, [place] [address] PCP - General Internal Medicine 06/30/24 documented as of this encounter
--- OUTSIDE RECORDS SUMMARY | 2025-01-08 16:26 | XMS_ITS | Encounter Summary ---
Author Organization [facility] Address [address] [place] [address] Phone Care Team Providers Care 3Rd Mate Name Role Phone Unknown, Unknown Primary Care Provider Sp peace Encounter Details Date Type Department Care Team (Late st Contact Info) Description 07/04/2022 Transcribe Orders [facility] Specimen Processing [address] [place] [address] John Garland, [facility] [address] [place] [address] [email or web address] Encounter for health examination of prisoner [...] Primary documented in this encounter Care Teams 3Rd Mate Relationship Specialty Start Date End Date Unknown, Unknown, PCP - General 11/26/18 documented as of this encounter Additional Source Comments The information contained in this document represents components of the legal health record. It is not the complete legal health record.[facility]
== END 2025-01-08 13:57 | disposition home or self-care (01) ==
LOC: HO.HSM 13:23
PROVIDERS: PCP Internal Medicine; Visit Provider Psychiatry & Neurology Neurology
DX: G40.909 Epilepsy, unspecified, not intractable, without status epilepticus (principal)
CPT/HCPCS: 99205

== ENCOUNTER → 2025-01-08 13:23 | Outpatient (BNVA) | payer MEDICAID, SELFPAY | PROVIDERS: PCP Internal Medicine; Visit Provider Psychiatry & Neurology Neurology | DX: G40.909 Epilepsy, unspecified, not intractable, without status epilepticus (principal); Z79.899 Other long term (current) drug therapy | CPT/HCPCS: 99202 ==

== ENCOUNTER 2025-01-23 13:27 | Outpatient (REF) | payer MEDICAID, SELFPAY ==
--- NOTE | 2025-01-23 14:50 | EMG_ITS ---
Chief complaint: Left arm and hand pain Reason for referral: Evaluate for CTS, Ulnar neuropathy, Radiculopathy Referred by: VINNIE Wood Procedure done: Left upper extremity NCS and EMG preformed Left median and ulnar motor and sensory studies were performed left radial sensory and median and lateral antecubital brachial sensory studies were performed an EMG needle examination is performed. No significant abnormality on this study is noted. Impression: This is an unremarkable study with no evidence of entrapment neuropathy or a proximal lesion affecting left arm MTDD
--- NOTE | 2025-01-23 15:45 | EEG_ITS ---
Roomed Performed:?402 Reason: Seizures History: H/O Mild intermittent asthma, Environmental allergies, Allergies, Left hemiparesis Cerebral palsy- pt experienced seizures three months ago, having three episodes since their onset. These seizures are characterized by generalized shaking while asleep, with the initial episode resulting in temporary amnesia and loss of mobility from the waist down- patient admits to recreational drug use, starting at age 18, which includes cocaine. Notably, the recent seizure episode occurred a week after cessation of drug use, emphasizing the potential influence of substances on his condition. Medication: albuterol sulfate, cephalexin, clonazepam, clonidine HCl, dextroamphetamine-amphetamine, doxycycline hyclate, fexofenadine, ibuprofen, levetiracetam (Keppra), nicotine, transdermal, ondansetron, tizanidine Technical description Photic stimulation: completed Hyperventilation:?performed - fair effort Behavioral state: cooperative State of Consciousness: awake and asleep Skull defect: no Sedation: no Handedness: Right Duration of study:? 31 min 38? sec Description: This is a 16 channel EEG with an EKG lead. Patient is reported awake and sleep during the tracing. Background EEG rhythm is 10-12 hertz 5-100 microvolt posteriorly lower amplitude fast anteriorly. Some lead and muscle artifacts are noted. Occasional vertex waves were noted during light sleep. Photic stimulation does not produce any significant driving. Hyperventilation is unremarkable. Cardiac lead does not reveal any significant abnormality. No sharp wave spikes or paroxysmal tendency noted. Impression: No significant abnormality noted on this EEG. MTDD
--- OUTSIDE RECORDS SUMMARY | 2025-01-23 18:02 | XMS_ITS | Clinical Summary ---
Author Organization [employer] Address [address] [place] [address] 7 [place] [address] Care Team Providers Care Solar Energy Specialist Name Role Phone Unavailable Primary Care [...] patient's age to complete this topic Insurance [facility]
--- OUTSIDE RECORDS SUMMARY | 2025-01-23 18:02 | XMS_ITS | Encounter Summary ---
Author Organization [facility] Address [address] [place] [address] Phone Care Team Providers Care Supervisor Propellant Charge Loading Name Role Phone Unknown, Unknown Primary Care Provider Sp peace Encounter Details Date Type Department Care Team (Late st Contact Info) Description 07/04/2022 Transcribe Orders [facility] Specimen Processing [address] [place] [address] John Garland, [facility] [address] [place] [address] [email or web address] Encounter for health examination of prisoner [...] Primary documented in this encounter Care Teams Supervisor Propellant Charge Loading Relationship Specialty Start Date End Date Unknown, Unknown, PCP - General 11/26/18 documented as of this encounter Additional Source Comments The information contained in this document represents components of the legal health record. It is not the complete legal health record.[facility]
--- OUTSIDE RECORDS SUMMARY | 2025-01-23 18:02 | XMS_ITS | Clinical Summary ---
Author Organization [facility] Address [address] [place] [address] Care Team Providers Care Site Manager Name Role Phone Pcp, No MD Primary [...] topic Insurance MEDICAID HUSKY A Care Teams Site Manager Relationship Specialty Start Date End Date Bibi Jain MD [address] [place] [address] PCP - General Internal Medicine 10/27/22
--- OUTSIDE RECORDS SUMMARY | 2025-01-23 18:02 | XMS_ITS | Clinical Summary ---
Author Organization [facility] Address [address] [place] [address] Phone Care Team Providers Care Mechanical Piping Designer Name Role Phone Unknown, Unknown Primary Care [...] AM EDT) HCV NON-REACTIV E NON-REACTI VE [facility] 07/21/2023 7:45 AM EDT 07/21/2023 11:09 AM EDT us John Garland PROSTHODONTIST LAB BLOOD ORDERABL ES Final Result [facility] [address] [place], [place] [id number] from Last 3 Months or Most Recently Relevant to Health Maintenance Insurance [facility] [address] [place] [address] [facility] [address] [facility] [address] [facility] [address] [facility] INTERMEDIATE Care Teams Mechanical Piping Designer Relationship Specialty Start Date End Date Unknown, Unknown, PCP - General 11/26/18 Additional Source Comments The information contained in this document represents components of the legal health record. It is not the complete legal health record.[facility]
--- OUTSIDE RECORDS SUMMARY | 2025-01-23 18:02 | XMS_ITS | Encounter Summary ---
Author Organization [facility] Address [address] [place] [address] Phone Care Team Providers Care Preventive Medicine Officer Name Role Phone Kori Dover MD Primary Care Provider [phone] Encounter Details Date Type Department Care Team (Late st Contact Info) Description 12/15/2016 Conversion Encounter [facility] [place] [address] [place] [address] Social History Tobacco Use Types Packs/Day Years [...] on filedocumented in this encounter Care Teams Preventive Medicine Officer Relationship Specialty Start Date End Date Kori Dover MD [address] [place] [address] PCP - General 12/09/16 10/30/22 documented as of this encounter
--- OUTSIDE RECORDS SUMMARY | 2025-01-23 18:02 | XMS_ITS | Clinical Summary ---
Author Organization 299 [facility] Address [address] [place] [address] Phone Care Team Providers Care Tnt Line Supervisor Name Role Phone Brenda Breaux MD Primary Care Provider [phone] Allergies Active Allergy Reactions Criticality Noted Date Comments Amoxicillin 06/30/2024 Surgical History Surgery Date Site/Laterality Comments ABSCESS DRAINAGE Right right hand Medical History Medical History Date Comments Left hemiparesis ([facility] V2 4, [facility] V28) DX:Left hemiparesis (HCC); 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 Kristie LÓPEZ in past- Obesity DX:Obesity; COMM ENT: seen at [facility] [place] Fracture of patella, right, closed 2010 DX:Fracture of patella, right, closed; COMMENT: no complications, Hx MRSA infection 04/07/2014 DX:Hx MRSA inf ection; COMMENT: Abscess thigh 04/04/14 ADHD (attention deficit hype ractivity disorder) DX:ADHD (attention deficit hyperactivity disorder) Anxiety Bipolar 1 disorder (CMS/HCC V24, CMS/HCC V28) Cerebral palsy ([facility] V24, [facility] V28) Family History Medical History Relation Name [...] C antibody (06/21/2024 10:35 AM EST) Pathologist [facility] Hepatitis C Antibody Negative Negative LAB CHEMISTRY METHOD 06/22/2024 8:29 AM EST [facility] Blood Venous blood specimen / Unknown 06/21/2024 10:35 AM EST 06/21/2024 2:35 PM EST us Alia Mota MD LAB BLOOD ORDERABLES Ed ited Result - Final [facility] [address] [place] [address], * HIV 1,2 antibody, p24 antigen with reflex to differentiation (06/21/2024 10:35 AM EST) HIV Combo AB/AG Negative Negative LAB CHEMISTRY METHOD 06/21/2024 5:43 PM EST [facility] Blood Venous blood specimen / Unknown 06/21/2024 10:35 AM EST 06/21/2024 2:35 PM EST Narrative [place] ([facility]) [facility] - 06/21/2024 5:43 PM EST This [...] BLOOD ORDERABLES Fi nal Result [place] [place] ([facility]) [facility] [address] [place] [address], from Last 3 Months or Most Recently Relevant to Health Maintenance Insurance MEDICAID - [place] Care Teams Tnt Line Supervisor Relationship Specialty Start Date End Date Brenda Breaux MD [address] [place] [address] [place] [address] PCP - General Internal Medicine 06/30/24
--- OUTSIDE RECORDS SUMMARY | 2025-01-23 18:02 | XMS_ITS | Encounter Summary ---
Author Organization [facility] Address [address] [place] [address] Phone Care Team Providers Care Automatic Mold Sander Name Role Phone Unknown, Unknown Primary Care Provider Sp peace Encounter Details Date Type Department Care Team (Late st Contact Info) Description 07/19/2023 Transcribe Orders [facility] Specimen Processing [address] [place] [address] John Garland, [facility] [address] [place] [address] [email or web address] Encounter for health examination of prisoner [...] load (PCR) (07/21/2023 7:45 AM EDT) Pathologist [facility] HCV RNA DETECT/QNT Undetected Undetected IU/mL [facility] Comment: (NOTE) Result in log IU/mL is Undetected. ADDITIONAL INFORMATION The quantification range of this assay is 15 to 100,000,000 IU/mL (1.18 log to 8.00 log IU/mL). Testing was performed using the alva HCV test ([employer] Blood 07/21/2023 7:45 AM EDT 07/21/2023 11:09 AM EDT John MARTINP NON CULTURE MICROB IOLOGY Final Result [facility] MED/[facility] [address] [place] [address] * Hepatitis A antibody, IgM (07/21/2023 7:45 AM EDT) Pathologist [facility] Hepatitis A Antibody, IgM NON-REACTI VE NON-REACTI VE [facility] 07/21/2023 7:45 AM EDT 07/21/2023 11:09 AM EDT John TINSLEY LAB BLOOD ORDERABL ES Final Result Performing Organization Address City/[facility]/ZIP Co de Phone Number [address] [address] * Hepatitis B core antibody, total (07/21/2023 7:45 AM EDT) Pathologist [facility] HEP B CORE AB, TOT NON-REACTI VE NON-REACTI VE [facility] 07/21/2023 7:45 AM EDT 07/21/2023 11:09 AM EDT John Garland [facility] LAB BLOOD ORDERABL ES Final Result Performing Organization Address [facility] Co de Phone Number [address] [address] * Hepatitis C antibody, qualitative (07/21/2023 7:45 AM EDT) HCV NON-REACTIV E NON-REACTI VE [facility] 07/21/2023 7:45 AM EDT 07/21/2023 11:09 AM EDT John Garland [facility] LAB BLOOD ORDERABL ES Final Result Performing Organization Address [facility] de Phone Number [address] [address] * Hepatitis B surface antigen (07/21/2023 7:45 AM EDT) HBV SURFACE ANTIGEN NON-REACTI VE NON-REACTI VE [facility] 07/21/2023 7:45 AM EDT 07/21/2023 11:09 AM EDT John MARTINP LAB BLOOD ORDERABL ES Final Result Performing Organization Address [facility] de Phone Number [address] [address] * Hepatitis B surface antibody (07/21/2023 7:45 AM EDT) HBV SURFACE ANTIBODY Negative [facility] Comment: Unvaccinated: Negative Vaccinated: Positive 07/21/2023 7:45 AM EDT 07/21/2023 11:09 AM EDT John Garland [facility] LAB BLOOD ORDERABL ES Final Result [address] [address] * CBC (07/21/2023 7:45 AM EDT) Pathologist [facility] WBC 7.93 4.00 - 11.00 K/uL [facility] RBC 5.29 4.48 - 5.88 M/uL [facility] HGB 14.8 13.4 - 17.5 g/dL [facility] HCT 44.9 38.0 - 51.0 % [facility] PLT 238 140 - 430 K/uL [facility] MCV 84.9 78.0 - 97.0 fL [facility] MCH 28.0 25.0 - 33.0 pg [facility] MCHC 33.0 32.0 - 36.0 g/dL [facility] RDW 12.4 11.0 - 15.0 % [facility] MPV 12.0 8.4 - 12.8 fl [facility] 07/21/2023 7:45 AM EDT 07/21/2023 11:09 AM EDT us John Garland ESTIMATOR AND DRAFTER LAB BLOOD ORDERABL ES Final Result [address] [address] * (ABNORMAL) LFTs (hepatic panel) (07/21/2023 7:45 AM EDT) Pathologist [facility] ALKALINE PHOSPHATASE 99 39 - 117 U/L [facility] TOTAL BILIRUBIN 0.3 0.0 - 1.2 mg/dL [facility] DIRECT BILIRUBIN <0.2 0 - 0.3 mg/dL [facility] Bilirubin (Indirect) NOT CALCULATED 0 - 1.5 mg/dL [facility] AST 50(H) 0 - 37 U/L [facility] ALT 38 0 - 40 U/L [facility] TOTAL PROTEIN 7.3 6.5 - 8.0 g/dL [facility] ALBUMIN 4.5 3.9 - 4.8 g/dL [facility] GLOBULIN 2.8 1 - 4.8 g/dL [facility] A/G Ratio 1.61 1.00 - 4.80 RATIO [facility] 07/21/2023 7:45 AM EDT 07/21/2023 11:09 AM EDT John Kwan Garland [facility] LAB BLOOD ORDERABL ES Final Result Performing Organization Address [facility]/ZIP Co de Phone Number [address] [address] * Basic metabolic panel (07/21/2023 7:45 AM EDT) SODIUM 139 133 - 146 mmol/L [facility] CHLORIDE 103 96 - 108 mmol/L [facility] POTASSIUM 4.4 3.3 - 5.1 mmol/L [facility] CO2 26 21 - 35 mmol/L [facility] BUN 18 6 - 19 mg/dL [facility] CREATININE 1.00 0.5 - 1.5 mg/dL [facility] GLUCOSE 72 70 - 99 mg/dL [facility] CALCIUM 9.4 8.4 - 10.3 mg/dL [facility] EGFR 108 >59 mL/min/1.7 3m2 [facility] Comment:Estimated glomerular filtration rate calculated using the CKD-EPI refit equation. ANION GAP 14 10 - 20 mmol/L [facility] 07/21/2023 7:45 AM EDT 07/21/2023 11:09 AM EDT Mackmonique Kwan Gill [facility] LAB BLOOD ORDERABL ES Final Result Performing Organization Address [facility]/ZIP Co de Phone Number [address] [address] documented in this encounter Visit Diagnoses Diagnosis Encounter for health examination of prisoner- Primary documented in this encounter Care Teams Automatic Mold Sander Relationship Specialty Start Date End Date Unknown, Unknown, PCP - General 11/26/18 documented as of this encounter Additional Source Comments The information contained in this document represents components of the legal health record. It is not the complete legal health record.[facility]
--- OUTSIDE RECORDS SUMMARY | 2025-01-23 18:02 | XMS_ITS | Clinical Summary ---
Author Organization [facility] Address [address] [place] [address] Phone Care Team Providers Care Senior Medical Director Name Role Phone Unavailable Primary Care [...] Diabetes mellitus, No family history of Sudden /[place] under age 55 Sister Alive Sister: Asthma [...]
--- OUTSIDE RECORDS SUMMARY | 2025-01-23 18:02 | XMS_ITS | Encounter Summary ---
Author Organization [employer] Address [address] [place] [address] Care Team Providers Care Disability Case Manager Name Role Phone Brenda Breaux MD Primary Care Provider [phone] Encounter Details Date Type Department Care Team (Late st Contact Info) Description 08/05/2024 Lab Requisition [facility] - Main Lab [address] [facility] [place] [address] Alia Mota MD [address] [place] [address] Opioid dependence, uncomplicated (CMS/HCC V24, CMS/HCC V28) [...] 08/05/2024 10:04 AM EDT Opioid dependence, uncomplicated ([facility] V24, [facility] V28) documented in this encounter Results * Chlamydia trachomatis and Neisseria gonorrhoeae molecular study (08/05/2024 10:04 AM EDT) Neisseria gonorrhoeae PCR Negative Negative LAB MOLECULAR DIAGNOSTICS METHOD 08/06/2024 10:59 AM EDT [facility] Chlamydia trachomatis PCR Negative Negative LAB MOLECULAR DIAGNOSTICS METHOD 08/06/2024 10:59 AM EDT [facility] Urine 08/05/2024 10:0 4 AM EDT 08/05/2024 2:37 PM EDT us Alia Mota MD LAB MICROBIOLOGY - GENE RAL ORDERABLES Final Result [facility] [address] [place] [address], [place] [phone] documented in this encounter Visit Diagnoses Diagnosis Opioid dependence, uncomplicated ([facility] V24, [facility] V28) documented in this encounter Care Teams Disability Case Manager Relationship Specialty Start Date End Date Brenda Breaux MD [address] [place] [address] Dr Mazariegos, [place] [address] PCP - General Internal Medicine 06/30/24 documented as of this encounter
--- OUTSIDE RECORDS SUMMARY | 2025-01-23 18:02 | XMS_ITS | Clinical Summary ---
Author Organization [facility] Address [address] [place] [address] Care Team Providers Care Public Service Administrator Name Role Phone Sanjana Schofield Primary Care Provider [phone] Source Comments Please note that some or [...] so, obtain the minor's consent prior to disclosure.[facility] Allergies Active Allergy Reactions Criticality Noted [...] Insurance HUSKY A SAYRAKY A Care Teams Public Service Administrator Relationship Specialty Start Date End Date Sanjana Schofield DO [address] [place] [address] PCP - General Internal Medicine 12/14/16
--- OUTSIDE RECORDS SUMMARY | 2025-01-23 18:02 | XMS_ITS | Clinical Summary ---
Author Organization [facility] Address [address] [place] [address] Care Team Providers Care Heel Sander Rubber Name Role Phone Unavailable Primary Care Provider [...]
== END 2025-01-23 13:28 | disposition home or self-care (01) ==
LOC: HO.NEURO 13:27
PROVIDERS: PCP Internal Medicine; Visit Provider Psychiatry & Neurology Neurology
DX: R20.0 Anesthesia of skin (principal); R20.2 Paresthesia of skin; G40.909 Epilepsy, unspecified, not intractable, without status epilepticus
CPT/HCPCS: 95819; 95886; 95910

== ENCOUNTER → 2025-01-23 14:50 | Outpatient (BNV) | payer MEDICAID, SELFPAY | PROVIDERS: PCP Internal Medicine; Visit Provider Psychiatry & Neurology Neurology | DX: M79.602 Pain in left arm (principal); G40.909 Epilepsy, unspecified, not intractable, without status epilepticus | CPT/HCPCS: 95819; 95886; 95910 ==

== ENCOUNTER 2025-01-29 10:28 | Outpatient (REF) | payer MEDICAID, SELFPAY ==
[2025-01-29 12:03] LABS: Alanine Aminotransferase 21 U/L (0-40); Albumin Level 4.5 g/dL (3.5-5.0); Alkaline Phosphatase 64 U/L (39-117); Anion Gap 9 (12-20); Aspartate Amino Transferase 27 U/L (5-37); Blood Urea Nitrogen 21 mg/dL (9-16); Calcium 9.2 mg/dL (8.4-10.2); Carbon Dioxide 30 mmol/L (22-29); Chloride 106 mmol/L (96-108); Cholesterol 145 mg/dL (<200); Estimated Glomerular Filt Rate > 60; HDL Cholesterol 49 mg/dL (>40); Potassium 4.3 mmol/L (3.3-5.1); Sodium 141 mmol/L (135-145); Thyroid Stimulating Hormone 1.23 uIU/mL (0.32-4.0); Total Protein 7.5 g/dL (6.5-8.0); Triglycerides 79 mg/dL (<150)
--- OUTSIDE RECORDS SUMMARY | 2025-01-29 12:05 | XMS_ITS | Encounter Summary ---
Author Organization [employer] Address [address] [place] [address] Care Team Providers Care Patent Chemist Name Role Phone Brenda Breaux MD Primary Care Provider [phone] Encounter Details Date Type Department Care Team (Late st Contact Info) Description 06/21/2024 Lab Requisition [facility] - Main Lab [address] [facility] [place] [address] Alia Mota MD [address] [place] [address] Opioid dependence, uncomplicated (CMS/HCC V24, CMS/HCC V28) [...] C antibody (06/21/2024 10:35 AM EST) Pathologist [facility] Hepatitis C Antibody Negative Negative LAB CHEMISTRY METHOD 06/22/2024 8:29 AM EST [facility] Blood Venous blood specimen / Unknown 06/21/2024 10:35 AM EST 06/21/2024 2:35 PM EST us Alia Mota MD LAB BLOOD ORDERABLES Ed ited Result - Final [facility] [address] [place] [address], * Hepatitis A antibody IgM (06/21/2024 10:35 AM EST) Pathologist [facility] Hepatitis A Antibody IgM Negative Negative LAB CHEMISTRY METHOD 06/21/2024 5:59 PM EST [facility] Blood Venous blood specimen / Unknown 06/21/2024 10:35 AM EST 06/21/2024 2:35 PM EST Narrative [facility] - 06/21/2024 5:59 PM EST Over the counter supplements containing high doses of biotin may interfere with this assay. If interference is suspected, patients shoud be retested after refraining from biotin supplements for 72 hours. Alia Mota MD LAB BLOOD ORDERABLES Fi nal Result Performing Organization Address [facility] Co de Phone Number [facility] [address] [place] [address], [place] [phone] * HIV 1,2 antibody, p24 antigen with reflex to differentiation (06/21/2024 10:35 AM EST) HIV Combo AB/AG Negative Negative LAB CHEMISTRY METHOD 06/21/2024 5:43 PM EST [facility] Blood Venous blood specimen / Unknown 06/21/2024 10:35 AM EST 06/21/2024 2:35 PM EST Narrative [facility] - 06/21/2024 5:43 PM EST [...] ORDERABLES Fi nal Result Performing Organization Address [facility]/ZIP Co de Phone Number [facility] [address] [place] [address], [place] [phone] * Hepatitis B core antibody, total (06/21/2024 10:35 AM EST) Hep B Core Total Ab Negative Negative LAB CHEMISTRY METHOD 06/21/2024 5:58 PM EST [facility] Blood Venous blood specimen / Unknown 06/21/2024 10:35 AM EST 06/21/2024 2:35 PM EST Alia Mota MD LAB BLOOD ORDERABLES Fi nal Result Performing Organization Address [facility] Co de Phone Number [facility] [address] [place] [address], * Hepatitis B surface antibody (06/21/2024 10:35 AM EST) Hepatitis B Surface Ab Negative Negative LAB CHEMISTRY METHOD 06/21/2024 5:04 PM EST [facility] Hepatitis B Surface Ab Quantitative <3.1 mIU/mL LAB CHEMISTRY METHOD 06/21/2024 5:04 PM EST [facility] Blood Venous blood specimen / Unknown 06/21/2024 10:35 AM EST 06/21/2024 2:35 PM EST Narrative [facility] - 06/21/2024 5:04 PM EST >=10 mIU/mL is considered to be consistent with immunity. Alia Mota MD LAB BLOOD ORDERABLES Fi nal Result Performing Organization Address [facility] de Phone Number [facility] [address] [place] [address], * Hepatitis B surface antigen with reflex to confirmation (06/21/2024 10:35 AM EST) Hepatitis B Surface Ag Negative Negative LAB CHEMISTRY METHOD 06/21/2024 5:14 PM EST [facility] Blood Venous blood specimen / Unknown 06/21/2024 10:35 AM EST 06/21/2024 2:35 PM EST Narrative [facility] - 06/21/2024 5:14 PM EST Over the counter supplements containing high doses of biotin may interfere with this assay. If interference is suspected, patients shoud be retested after refraining from biotin supplements for 72 hours. Alia Mota MD LAB BLOOD ORDERABLES Fi nal Result Performing Organization Address [facility]/ZIP Co de Phone Number [facility] [address] [place] [address], [place] [phone] * Treponema pallidum antibody with reflex to RPR and particle agglutination (06/21/2024 10:35 AM EST) Pathologist [facility] T. Pallidum Antibodies Negative Negative LAB CHEMISTRY METHOD 06/21/2024 5:14 PM EST [facility] Blood Venous blood specimen / Unknown 06/21/2024 10:35 AM EST 06/21/2024 2:35 PM EST Alia Mota MD LAB BLOOD ORDERABLES Fi nal Result Performing Organization Address [facility] Co de Phone Number [facility] [address] [place] [address], [place] [phone] * (ABNORMAL) Comprehensive metabolic panel (06/21/2024 10:35 AM EST) [facility] Sodium 139 133 - 145 mmol/L LAB CHEMISTRY METHOD 06/21/2024 4:56 PM [facility] Potassium 4.7 3.5 - 5.5 mmol/L LAB CHEMISTRY METHOD 06/21/2024 4:56 PM [facility] Chloride 104 96 - 110 mmol/L LAB CHEMISTRY METHOD 06/21/2024 4:56 PM [facility] CO2 27 21 - 32 mmol/L LAB CHEMISTRY METHOD 06/21/2024 4:56 PM [facility] Anion Gap 8 3 - 11 LAB CHEMISTRY METHOD 06/21/2024 4:56 PM [facility] Glucose 77 70 - 100 mg/dL LAB CHEMISTRY METHOD 06/21/2024 4:56 PM [facility] BUN 15 5 - 25 mg/dL LAB CHEMISTRY METHOD 06/21/2024 4:56 PM [facility] Creatinine 1.01 0.70 - 1.30 mg/dL LAB CHEMISTRY METHOD 06/21/2024 4:56 PM [facility] eGFR 107 >=60 mL/min/1. 73m2 LAB CHEMISTRY METHOD 06/21/2024 4:56 PM [facility] Comment:Calculation based on the Chronic Kidney Disease Epidemiology Collaboration (CKD-EPI) equation refit without adjustment for race. BUN/Creatinine Ratio 14.9 LAB CHEMISTRY METHOD 06/21/2024 4:56 PM [facility] Calcium 9.5 8.5 - 10.5 mg/dL LAB CHEMISTRY METHOD 06/21/2024 4:56 PM [facility] AST (SGOT) 22 10 - 42 unit/L LAB CHEMISTRY METHOD 06/21/2024 4:56 PM [facility] ALT (SGPT) 29 10 - 60 unit/L LAB CHEMISTRY METHOD 06/21/2024 4:56 PM [facility] Alkaline Phosphatase 114 42 - 121 unit/L LAB CHEMISTRY METHOD 06/21/2024 4:56 PM [facility] Total Protein 8.1(H) 6.0 - 8.0 g/dL LAB CHEMISTRY METHOD 06/21/2024 4:56 PM [facility] Albumin 3.6 3.2 - 5.0 g/dL LAB CHEMISTRY METHOD 06/21/2024 4:56 PM [facility] Total Bilirubin 0.3 0.0 - 1.4 mg/dL LAB CHEMISTRY METHOD 06/21/2024 4:56 PM [facility] Blood Venous blood specimen / Unknown 06/21/2024 10:35 AM EST 06/21/2024 2:35 PM EST us Alia Mota MD LAB BLOOD ORDERABLES Fi nal Result [facility] [address] [place] [address], * (ABNORMAL) Complete blood count (06/21/2024 10:35 AM EST) WBC 12.8(H) 4.8 - 10.8 K/mcL LAB HEMETOLOGY METHOD 06/21/2024 2:44 PM EST [facility] RBC 5.20 4.50 - 5.50 M/mcL LAB HEMETOLOGY METHOD 06/21/2024 2:44 PM EST [facility] Hemoglobin 14.3 13.5 - 17.5 g/dL LAB HEMETOLOGY METHOD 06/21/2024 2:44 PM EST [facility] Hematocrit 44.5 42.0 - 54.0 % LAB HEMETOLOGY METHOD 06/21/2024 2:44 PM EST [facility] MCV 85.1 79.0 - 98.0 FL LAB HEMETOLOGY METHOD 06/21/2024 2:44 PM EST [facility] MCH 27.3 27.0 - 32.0 pcg LAB HEMETOLOGY METHOD 06/21/2024 2:44 PM EST [facility] MCHC 32.1 32.0 - 37.0 g/dL LAB HEMETOLOGY METHOD 06/21/2024 2:44 PM EST [facility] RDW 12.8 11.0 - 15.0 % LAB HEMETOLOGY METHOD 06/21/2024 2:44 PM EST [facility] Platelets 298 130 - 400 K/mcL LAB HEMETOLOGY METHOD 06/21/2024 2:44 PM EST [facility] MPV 11.5(H) 7.0 - 11.0 FL LAB HEMETOLOGY METHOD 06/21/2024 2:44 PM EST [facility] NRBC 0.0 <1.0 % LAB HEMETOLOGY METHOD 06/21/2024 2:44 PM EST [facility] NRBC Absolute 0.00 <0.10 K/mcL LAB HEMETOLOGY METHOD 06/21/2024 2:44 PM EST [facility] Blood Venous blood specimen / Unknown 06/21/2024 10:35 AM EST 06/21/2024 2:35 PM EST us Alia Mota MD LAB BLOOD ORDERABLES Fi nal Result [facility] [address] [place] [address], documented in this encounter Visit Diagnoses Diagnosis Opioid dependence, uncomplicated (CMS/HCC V24, CMS/HCC V28) documented in this encounter Care Teams Patent Chemist Relationship Specialty Start Date End Date Brenda Breaux MD [address] [place] [address] [place] [address] PCP - General Internal Medicine 06/30/24 documented as of this encounter
--- OUTSIDE RECORDS SUMMARY | 2025-01-29 12:05 | XMS_ITS | Clinical Summary ---
Author Organization [facility] Address [address] [place] [address] Care Team Providers Care Knit Tubing Dyer Name Role Phone Pcp, No MD Primary [...] topic Insurance MEDICAID HUSKY A Care Teams Knit Tubing Dyer Relationship Specialty Start Date End Date Bibi Jain MD [address] [place] [address] PCP - General Internal Medicine 10/27/22
--- OUTSIDE RECORDS SUMMARY | 2025-01-29 12:05 | XMS_ITS | Clinical Summary ---
Author Organization [facility] Address [address] [place] [address] Phone Care Team Providers Care Wheel And Pinion Inspector Name Role Phone Unknown, Unknown Primary Care [...] AM EDT) HCV NON-REACTIV E NON-REACTI VE [facility] 07/21/2023 7:45 AM EDT 07/21/2023 11:09 AM EDT us John Garland VIDEO LIBRARY ASSISTANT LAB BLOOD ORDERABL ES Final Result [facility] [address] [place] [address] from Last 3 Months or Most Recently Relevant to Health Maintenance Insurance [facility] [address] [facility] [address] Member Subscriber Plan / Payer (Ef fective 2021-Present) Name:Mookie Menchaca Member ID:[id number] Relation to Subscriber:Self Name:Mookie Menchaca Subscriber ID:[id number] Payer ID:Not on file Group ID:Not on file Type:[employer] Address: [facility] [place] [id number] [facility] [address] [facility] A[facility] Member Subscriber Plan / Payer (Ef fective 2019-Present) Name:Mookie Menchaca Relation to Subscriber:Self Name:Mookie Menchaca Payer ID:[id number] Group ID:[id number] Type:Medicaid Address: [address] [facility] ACO Member Subscriber Plan / Payer (Ef fective 2019-Present) Name:Mookie Menchaca Relation to Subscriber:Self Name:Mookie Menchaca Payer ID:[id number] Group ID:[id number] Type:Medicaid Address: [address] [facility] ACO Member Subscriber Plan / Payer (Ef fective 2019-Present) Name:Menchaca, Zavier Relation to Subscriber:Self Name:Menchaca, Zavier Payer ID:[id number] Group ID:[id number] Type:Medicaid Address: [address] [facility] ACO [address] [place] [address] [facility] [place] [address] [facility] [place] [address] Care Teams Wheel And Pinion Inspector Relationship Specialty Start Date End Date Unknown, Unknown, PCP - General 11/26/18 Additional Source Comments The information contained in this document represents components of the legal health record. It is not the complete legal health record.[facility]
--- OUTSIDE RECORDS SUMMARY | 2025-01-29 12:05 | XMS_ITS | Clinical Summary ---
Author Organization [facility] Address [address] [place] [address] Care Team Providers Care Food And Drug Research Scientist Name Role Phone Unavailable Primary Care Provider [...]
--- OUTSIDE RECORDS SUMMARY | 2025-01-29 12:05 | XMS_ITS | Encounter Summary ---
Author Organization [facility] Address [address] [place] [address] Phone Care Team Providers Care Orthopedic Dentist Name Role Phone Kori Dover MD Primary Care Provider [phone] Encounter Details Date Type Department Care Team (Late st Contact Info) Description 12/15/2016 Conversion Encounter [facility] [place] [address] [place] [address] Social History Tobacco Use Types Packs/Day Years [...] on filedocumented in this encounter Care Teams Orthopedic Dentist Relationship Specialty Start Date End Date Kori Dover MD [address] [place] [address] PCP - General 12/09/16 10/30/22 documented as of this encounter
--- OUTSIDE RECORDS SUMMARY | 2025-01-29 12:05 | XMS_ITS | Clinical Summary ---
Author Organization [facility] Address [address] [place] [address] Phone Care Team Providers Care Blue Line Trimmer Name Role Phone Unavailable Primary Care Provider [...] Diabetes mellitus, No family history of Sudden /MS under age 55 Sister Alive Sister: Asthma [...]
--- OUTSIDE RECORDS SUMMARY | 2025-01-29 12:05 | XMS_ITS | Clinical Summary ---
Author Organization [address] [facility] Address [address] [place] [address] Phone Care Team Providers Care Hand Picker Name Role Phone Brenda Breaux MD Primary Care Provider [phone] Allergies Active Allergy Reactions Criticality Noted Date Comments Amoxicillin 06/30/2024 Surgical History Surgery Date Site/Laterality Comments ABSCESS DRAINAGE Right right hand Medical History Medical History Date Comments Left hemiparesis ([facility] V2 4, [facility] V28) DX:Left hemiparesis (HCC); 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 Kristie LÓPEZ in past- Obesity DX:Obesity; COMM ENT: seen [facility] Fracture of patella, right, closed 2010 DX:Fracture of patella, right, closed; COMMENT: no complications, Hx MRSA infection 04/07/2014 DX:Hx MRSA inf ection; COMMENT: Abscess thigh 04/04/14 ADHD (attention deficit hype ractivity disorder) DX:ADHD (attention deficit hyperactivity disorder) Anxiety Bipolar 1 disorder (CMS/HCC V24, CMS/HCC V28) Cerebral palsy (CMS/[facility] V24, CMS/[facility] V28) Family History Medical History Relation Name [...] 2024 , 04/10/2023, 01/26/2022, Additional history exists RSV Immunization Adult Patients (1 - 1-dose 75+ series) 2075 Hepatitis B Vaccines Completed 2000, 2000, 2000 [...] Result - Final [facility] [address] [place] [address], * HIV 1,2 antibody, p24 antigen with reflex to differentiation (06/21/2024 10:35 AM EST) HIV Combo AB/AG Negative Negative LAB CHEMISTRY METHOD 06/21/2024 5:43 PM EST [facility] Blood Venous blood specimen / Unknown 06/21/2024 10:35 AM EST 06/21/2024 2:35 PM EST Narrative [facility] ([facility] - 06/21/2024 5:43 PM EST This [...] Fi nal Result [facility] [address] [place] [address], from Last 3 Months or Most Recently Relevant to Health Maintenance Insurance MEDICAID - [place] Care Teams Hand Picker Relationship Specialty Start Date End Date Brenda Breaux MD [address] [place] [address] [place] [address] PCP - General Internal Medicine 06/30/24
--- OUTSIDE RECORDS SUMMARY | 2025-01-29 12:05 | XMS_ITS | Encounter Summary ---
Author Organization [facility] Address [address] [place] [address] Phone Care Team Providers Care Sex Therapist Name Role Phone Unknown, Unknown Primary Care Provider Sp peace Encounter Details Date Type Department Care Team (Late st Contact Info) Description 07/04/2022 Transcribe Orders [facility] Specimen Processing [address] [place] [address] John Garland, [facility] [address] [place] [address] [email or web address]. Encounter for health examination of prisoner (Primary [...] Primary documented in this encounter Care Teams Sex Therapist Relationship Specialty Start Date End Date Unknown, Unknown, PCP - General 11/26/18 documented as of this encounter Additional Source Comments The information contained in this document represents components of the legal health record. It is not the complete legal health record.[facility]
--- OUTSIDE RECORDS SUMMARY | 2025-01-29 12:05 | XMS_ITS | Encounter Summary ---
Author Organization [facility] Address [address] [place] [address] Phone Care Team Providers Care Clothes Shaker Name Role Phone Unknown, Unknown Primary Care Provider Sp peace Encounter Details Date Type Department Care Team (Late st Contact Info) Description 07/19/2023 Transcribe Orders [facility] Specimen Processing [address] [place] [address] John Garland, [facility] [address] [place] [address] [email or web address]. Encounter for health examination of prisoner (Primary [...] load (PCR) (07/21/2023 7:45 AM EDT) Pathologist [facility] HCV RNA DETECT/QNT Undetected Undetected IU/mL [facility] MED/[facility] Comment: (NOTE) Result in log IU/mL is Undetected. ADDITIONAL INFORMATION The quantification range of this assay is 15 to 100,000,000 IU/mL (1.18 log to 8.00 log IU/mL). Testing was performed using the alva HCV test ([employer] Blood 07/21/2023 7:45 AM EDT 07/21/2023 11:09 AM EDT John MARTINP NON CULTURE MICROB IOLOGY Final Result [facility] MED/[facility] [address] [place] [address] * Hepatitis A antibody, IgM (07/21/2023 7:45 AM EDT) Pathologist [facility] Hepatitis A Antibody, IgM NON-REACTI VE NON-REACTI VE [facility] 07/21/2023 7:45 AM EDT 07/21/2023 11:09 AM EDT John TINSLEY LAB BLOOD ORDERABL ES Final Result Performing Organization Address City/[facility]/ZIP Co de Phone Number [address] [address] * Hepatitis B core antibody, total (07/21/2023 7:45 AM EDT) Pathologist [facility] HEP B CORE AB, TOT NON-REACTI VE NON-REACTI VE [facility] 07/21/2023 7:45 AM EDT 07/21/2023 11:09 AM EDT John Garland [facility] LAB BLOOD ORDERABL ES Final Result Performing Organization Address [facility] Co de Phone Number [address] [address] * Hepatitis C antibody, qualitative (07/21/2023 7:45 AM EDT) HCV NON-REACTIV E NON-REACTI VE [facility] 07/21/2023 7:45 AM EDT 07/21/2023 11:09 AM EDT John Garland [facility] LAB BLOOD ORDERABL ES Final Result Performing Organization Address [facility] de Phone Number [address] [address] * Hepatitis B surface antigen (07/21/2023 7:45 AM EDT) HBV SURFACE ANTIGEN NON-REACTI VE NON-REACTI VE [facility] 07/21/2023 7:45 AM EDT 07/21/2023 11:09 AM EDT John MARTINP LAB BLOOD ORDERABL ES Final Result Performing Organization Address [facility] de Phone Number [address] [address] * Hepatitis B surface antibody (07/21/2023 7:45 AM EDT) HBV SURFACE ANTIBODY Negative [facility] Comment: Unvaccinated: Negative Vaccinated: Positive 07/21/2023 7:45 AM EDT 07/21/2023 11:09 AM EDT John Garland [facility] LAB BLOOD ORDERABL ES Final Result [address] [address] * CBC (07/21/2023 7:45 AM EDT) Pathologist [facility] WBC 7.93 4.00 - 11.00 K/uL [facility] RBC 5.29 4.48 - 5.88 M/uL [facility] HGB 14.8 13.4 - 17.5 g/dL [facility] HCT 44.9 38.0 - 51.0 % [facility] PLT 238 140 - 430 K/uL [facility] MCV 84.9 78.0 - 97.0 fL [facility] MCH 28.0 25.0 - 33.0 pg [facility] MCHC 33.0 32.0 - 36.0 g/dL [facility] RDW 12.4 11.0 - 15.0 % [facility] MPV 12.0 8.4 - 12.8 fl [facility] 07/21/2023 7:45 AM EDT 07/21/2023 11:09 AM EDT us John Garland ORE FIELDER LAB BLOOD ORDERABL ES Final Result [address] [address] * (ABNORMAL) LFTs (hepatic panel) (07/21/2023 7:45 AM EDT) Pathologist [facility] ALKALINE PHOSPHATASE 99 39 - 117 U/L [facility] TOTAL BILIRUBIN 0.3 0.0 - 1.2 mg/dL [facility] DIRECT BILIRUBIN <0.2 0 - 0.3 mg/dL [facility] Bilirubin (Indirect) NOT CALCULATED 0 - 1.5 mg/dL [facility] AST 50(H) 0 - 37 U/L [facility] ALT 38 0 - 40 U/L [facility] TOTAL PROTEIN 7.3 6.5 - 8.0 g/dL [facility] ALBUMIN 4.5 3.9 - 4.8 g/dL [facility] GLOBULIN 2.8 1 - 4.8 g/dL [facility] A/G Ratio 1.61 1.00 - 4.80 RATIO [facility] 07/21/2023 7:45 AM EDT 07/21/2023 11:09 AM EDT John Kwan Garland [facility] LAB BLOOD ORDERABL ES Final Result Performing Organization Address [facility]/ZIP Co de Phone Number [address] [address] * Basic metabolic panel (07/21/2023 7:45 AM EDT) SODIUM 139 133 - 146 mmol/L [facility] CHLORIDE 103 96 - 108 mmol/L [facility] POTASSIUM 4.4 3.3 - 5.1 mmol/L [facility] CO2 26 21 - 35 mmol/L [facility] BUN 18 6 - 19 mg/dL [facility] CREATININE 1.00 0.5 - 1.5 mg/dL [facility] GLUCOSE 72 70 - 99 mg/dL [facility] CALCIUM 9.4 8.4 - 10.3 mg/dL [facility] EGFR 108 >59 mL/min/1.7 3m2 [facility] Comment:Estimated glomerular filtration rate calculated using the CKD-EPI refit equation. ANION GAP 14 10 - 20 mmol/L [facility] 07/21/2023 7:45 AM EDT 07/21/2023 11:09 AM EDT Mackmonique Kwan Gill [facility] LAB BLOOD ORDERABL ES Final Result Performing Organization Address [facility]/ZIP Co de Phone Number [address] [address] documented in this encounter Visit Diagnoses Diagnosis Encounter for health examination of prisoner- Primary documented in this encounter Care Teams Clothes Shaker Relationship Specialty Start Date End Date Unknown, Unknown, PCP - General 11/26/18 documented as of this encounter Additional Source Comments The information contained in this document represents components of the legal health record. It is not the complete legal health record.[facility]
--- OUTSIDE RECORDS SUMMARY | 2025-01-29 12:05 | XMS_ITS | Encounter Summary ---
Author Organization [employer] Address [address] [place] [address] Care Team Providers Care Piece Work Checker Name Role Phone Brenda Breaux MD Primary Care Provider [phone] Encounter Details Date Type Department Care Team (Late st Contact Info) Description 08/05/2024 Lab Requisition [facility] - Main Lab 299 [facility] [place] [address] Alia Mota MD [address] [place] [address] Opioid dependence, uncomplicated (CMS/HCC V24, CMS/HCC V28) [...] 08/05/2024 10:04 AM EDT Opioid dependence, uncomplicated ([facility] V24, [facility] V28) documented in this encounter [...] ORDERABLES Final Result [facility] [address] [place] [address], [place] [phone] documented in this encounter Visit Diagnoses Diagnosis Opioid dependence, uncomplicated ([facility] V24, [facility] V28) documented in this encounter Care Teams Piece Work Checker Relationship Specialty Start Date End Date Brenda Breaux MD [address] [place] [address] Dr Mazariegos, [place] [address] PCP - General Internal Medicine 06/30/24 documented as of this encounter
--- OUTSIDE RECORDS SUMMARY | 2025-01-29 12:05 | XMS_ITS | Clinical Summary ---
Author Organization [facility] Address [address] [place] [address] Care Team Providers Care Automotive Mechanical Engineer Name Role Phone Sanjana Schofield Primary Care Provider [phone] Source Comments Please note that some or [...] so, obtain the minor's consent prior to disclosure.[facility] Allergies Active Allergy Reactions Criticality [...] Insurance HUSKY A SAYRAKY A Care Teams Automotive Mechanical Engineer Relationship Specialty Start Date End Date Sanjana Schofield DO [address] [place] [address] PCP - General Internal Medicine 12/14/16
--- OUTSIDE RECORDS SUMMARY | 2025-01-29 12:05 | XMS_ITS | Clinical Summary ---
Author Organization [employer] Address [address] [place] [address] 7 [place] [address] Care Team Providers Care Undraped Artist Model Name Role Phone Unavailable Primary Care Provider [...] age to complete this topic Insurance [facility]
== END 2025-01-29 10:29 | disposition home or self-care (01) ==
LOC: HO.10HDL 10:28
PROVIDERS: Visit Provider Internal Medicine
DX: Z00.01 Encounter for general adult medical examination with abnormal findings (principal); E66.01 Morbid (severe) obesity due to excess calories; F14.988 Cocaine use, unspecified with other cocaine-induced disorder; F43.12 Post-traumatic stress disorder, chronic; F90.0 Attention-deficit hyperactivity disorder, predominantly inattentive type; G40.109 Localization-related (focal) (partial) symptomatic epilepsy and epileptic syndromes with simple partial seizures, not intractable, without status epilepticus; M21.70 Unequal limb length (acquired), unspecified site; M54.16 Radiculopathy, lumbar region; Z72.0 Tobacco use
CPT/HCPCS: 36415; 80053; 80061; 84443

== ENCOUNTER 2025-02-04 15:33 | Outpatient (AMB) | payer MEDICAID, SELFPAY ==
--- NOTE | 2025-02-04 16:07 | MHC.OFFVIS ---
Intake Visit Reasons: RESULTS Allergies amoxicillin (AMOXICILLIN) Allergy (Unknown, Verified 01/31/25 11:17) HIVES hydrocodone (From VICODIN) Allergy (Unknown, Verified 01/31/25 11:17) RASH sulfamethoxazole (From BACTRIM) Allergy (Unknown, Verified 01/31/25 11:17) UNKNOWN trimethoprim (From BACTRIM) Allergy (Unknown, Verified 01/31/25 11:17) UNKNOWN Vicodin Allergy (Unknown, Uncoded 01/02/25 22:52) hives HPI Comments Details: The patient is a 24-year-old male presenting with seizures. He first experienced seizures in Nov, having three episodes since their onset. These seizures are characterized by generalized shaking while asleep, with the initial episode resulting in temporary amnesia and loss of mobility from the waist down. Recovery included a period of physical therapy to regain function. 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 He denies any previous seizures during his earlier years. The patient admits to recreational drug use, starting at age 18, which includes cocaine. Notably, the recent seizure episode occurred a week after cessation of drug use, emphasizing the potential influence of substances on his condition. He was having a lot headaches. He also stated that there was some problem with a sleep. He would wake up in the middle of night not able to breathe. [facility] Medical History (Updated 02/04/25 @ 16:19 by Dread Gill MD) Mild intermittent asthma Environmental allergies Allergies Left hemiparesis Cerebral palsy Surgical History (Updated 01/31/25 @ 13:34 by Eva Shi CMA) Hx of hand surgery Family History (Updated 01/31/25 @ 13:33 by Eva Shi CMA) Mother Anemia Father Hypertension Pre-diabetes Hepatitis C Maternal Grandmother Hypertension Diabetes Anemia Paternal Grandmother Diabetes Kidney problem Lung cancer Social History (Updated 01/31/25 @ 13:30 by Eva Shi CMA) Household Members: Family Housing: Apartment Do you presently have visiting nurse or other home services: No Alcohol intake: current Alcohol intake frequency: holidays/special occasions only Patient Tobacco Use Status: Never used Tobacco Cigarettes Per Day: 4 e-Cigarette/Vaping Use: Currently Using Second Hand Smoke Exposure: Yes Substance Use Type: Crack/Cocaine Advance Directives Date on File: 05/29/24 service: No Current occupational status: unemployed Cognitive needs: No Hearing needs: No Vision needs: No Review of Systems Const Details: Frequent headaches in awakening up at night with difficulty breathing Physical Exam Neuro Other: Mental Status: Alert and oriented to person, place, and time. Normal attention. Normal spontaneous speech, fluency, and comprehension. No obvious issues with mood and memory. Affect is appropriate. Cranial Nerves: CN II: Visual da silva full to confrontation, visual acuity intact. CN III, IV, : Pupils equal, round, reactive to light and accommodation. Extraocular movements are normal. CN V: Facial sensation is normal. CN VII: Facial movements symmetrical. CN VIII: Hearing intact to bedside conversation is normal. CN IX, X: Palate elevates symmetrically. CN XI: Shoulder shrug and head turn symmetrical. CN XII: Tongue midline without atrophy or fasciculations. Extrapyramidal: Full facial expressions and blinking. No rigidity. Movements are appropriate with no tremor or abnormality. Speech: Normal; no dysarthria or tremor. Assessment & Plan Assessment & Plan (1) Seizure disorder: Comment: EEG at [facility] in 2024: WNL EMG/NCS L UE at [facility] in 2024: WNL Code(s): G40.909 - Epilepsy, unspecified, not intractable, without status epilepticus Category: Medical (2) Migraine: Code(s): G43.909 - Migraine, unspecified, not intractable, without status migrainosus Category: Medical Qualifiers: Migraine type: migraine (< 15 days per month) without aura Status migrainosus presence: without status migrainosus Intractability: not intractable Qualified Code(s): G43.009 - Migraine without aura, not intractable, without status migrainosus (3) RAFFI (obstructive sleep apnea): Code(s): G47.33 - Obstructive sleep apnea (adult) (pediatric) Category: Medical Plan Impression: a: Seizure disorder that started this year when he was admitted at [facility]. b: Migrainous headaches. c: Possible RAFFI Rec: a: Keppra 500mg bid b: Sumatriptan 50mg one a day as needed c: Will call for imaging and EEG records from [facility] d: Home PSG Orders: Orders RT home sleep study Today G47.33 - Obstructive sleep apnea (adult) (pediatric) Medications: New sumatriptan succinate 50 mg orally one a day as needed PRN; do not exceed 4 doses per 24 hrs 10 tabs 5RF migraine headache 30 days Coding Level of Care Code Est Pt Level 4 (72784) Diagnoses Seizure disorder G40.909 Migraine without aura and without status migrainosus, not intractable G43.009 Migraine type: migraine (< 15 days per month) without aura Status migrainosus presence: without status migrainosus Intractability: not intractable RAFFI (obstructive sleep apnea) G47.33
--- OUTSIDE RECORDS SUMMARY | 2025-02-04 18:37 | XMS_ITS | Clinical Summary ---
Author Organization [facility] Address [address] [place] [address] Phone Care Team Providers Care Tuyere Fitter Name Role Phone Unknown, Unknown Primary Care [...] AM EDT) HCV NON-REACTIV E NON-REACTI VE [facility] 07/21/2023 7:45 AM EDT 07/21/2023 11:09 AM EDT us John Garland ELECTRICAL MAINTENANCE SUPERVISOR LAB BLOOD ORDERABL ES Final Result [facility] [address] [place] [address] from Last 3 Months or Most Recently Relevant to Health Maintenance Insurance [facility] [address] [facility] [address] Member Subscriber Plan / Payer (Ef fective 2021-Present) Name:Mookie Menchaca Member ID:[id number] Relation to Subscriber:Self Name:Mookie Menchaca Subscriber ID:[id number] Payer ID:Not on file Group ID:Not on file Type:[employer] Address: [facility] C/O [place] [id number] [facility] [address] [facility] Member Subscriber Plan / Payer (Ef fective 2019-Present) Name:Mookie Menchaca Relation to Subscriber:Self Name:Mookie Menchaca Payer ID:[id number] Group ID:[id number] Type:Medicaid Address: [address] [facility] Member Subscriber Plan / Payer (Ef fective 2019-Present) Name:Mookie Menchaca Relation to Subscriber:Self Name:Mookie Menchaca Payer ID:[id number] Group ID:[id number] Type:Medicaid Address: [address] [facility] Member Subscriber Plan / Payer (Ef fective 2019-Present) Name:Menchaca, Zavier Relation to Subscriber:Self Name:Menchaca, Zavier Payer ID:[id number] Group ID:[id number] Type:Medicaid Address: [address] [facility] [address] [place] [address] [facility] [place] [address] [facility] [place] [facility] [place] [address] Care Teams Tuyere Fitter Relationship Specialty Start Date End Date Unknown, Unknown, PCP - General 11/26/18 Additional Source Comments The information contained in this document represents components of the legal health record. It is not the complete legal health record.[facility]
--- OUTSIDE RECORDS SUMMARY | 2025-02-04 18:37 | XMS_ITS | Encounter Summary ---
Author Organization [employer] Address [address] [place] [address] Care Team Providers Care Insulator Tester Name Role Phone Brenda Breaux MD Primary Care Provider [phone] Encounter Details Date Type Department Care Team (Late st Contact Info) Description 06/21/2024 Lab Requisition [facility] - Main Lab 299 [facility] [place] [address] Alia Mota MD [address] [place] [address] Opioid dependence, uncomplicated (CMS/HCC V24, CMS/HCC V28) [...] - Final [facility] [address] [place] [address], * Hepatitis A antibody IgM (06/21/2024 10:35 [...] ORDERABLES Fi nal Result Performing Organization Address [facility] Co de Phone Number [facility] [address] [place] [address], [place] [phone] * HIV 1,2 antibody, p24 antigen with [...] current CDC recommendation for HIV screening. Alia Mtoa MD LAB BLOOD ORDERABLES Fi nal Result Performing Organization Address [facility]/ZIP Co de Phone Number [facility] [address] [place] [address], [place] [phone] * Hepatitis B core antibody, total (06/21/2024 10:35 AM EST) Hep B Core Total Ab Negative Negative LAB CHEMISTRY METHOD 06/21/2024 5:58 PM EST [facility] Blood Venous blood specimen / Unknown 06/21/2024 10:35 AM EST 06/21/2024 2:35 PM EST Alia Mota MD LAB BLOOD ORDERABLES Fi nal Result Performing Organization Address [facility] Co de Phone Number [facility] [address] [place] [address], * Hepatitis B surface antibody (06/21/2024 10:35 [...] ORDERABLES Fi nal Result Performing Organization Address [facility] de Phone Number [facility] [address] [place] [address], * Hepatitis B surface antigen with reflex [...] ORDERABLES Fi nal Result Performing Organization Address [facility]/ZIP Co de Phone Number [facility] [address] [place] [address], [place] [phone] * Treponema pallidum antibody with reflex to RPR and particle agglutination (06/21/2024 10:35 AM EST) Pathologist [facility] T. Pallidum Antibodies Negative Negative LAB CHEMISTRY METHOD 06/21/2024 5:14 PM EST [facility] Blood Venous blood specimen / Unknown 06/21/2024 10:35 AM EST 06/21/2024 2:35 PM EST Alia Mota MD LAB BLOOD ORDERABLES Fi nal Result Performing Organization Address [facility] Co de Phone Number [facility] [address] [place] [address], [place] [phone] * (ABNORMAL) Comprehensive metabolic panel (06/21/2024 10:35 AM EST) [facility] Sodium 139 133 - 145 mmol/L LAB CHEMISTRY METHOD 06/21/2024 4:56 PM [facility] Potassium 4.7 3.5 - 5.5 mmol/L LAB CHEMISTRY METHOD 06/21/2024 4:56 PM [facility] Chloride 104 96 - 110 mmol/L LAB CHEMISTRY METHOD 06/21/2024 4:56 PM [facility] CO2 27 21 - 32 mmol/L LAB CHEMISTRY METHOD 06/21/2024 4:56 PM [facility] Anion Gap 8 3 - 11 LAB CHEMISTRY METHOD 06/21/2024 4:56 PM [facility] Glucose 77 70 - 100 mg/dL LAB CHEMISTRY METHOD 06/21/2024 4:56 PM [facility] BUN 15 5 - 25 mg/dL LAB CHEMISTRY METHOD 06/21/2024 4:56 PM [facility] Creatinine 1.01 0.70 - 1.30 mg/dL LAB CHEMISTRY METHOD 06/21/2024 4:56 PM [facility] eGFR 107 >=60 mL/min/1. 73m2 LAB CHEMISTRY METHOD 06/21/2024 4:56 PM [facility] Comment:Calculation based on the Chronic Kidney Disease Epidemiology Collaboration (CKD-EPI) equation refit without adjustment for race. BUN/Creatinine Ratio 14.9 LAB CHEMISTRY METHOD 06/21/2024 4:56 PM [facility] Calcium 9.5 8.5 - 10.5 mg/dL LAB CHEMISTRY METHOD 06/21/2024 4:56 PM [facility] AST (SGOT) 22 10 - 42 unit/L LAB CHEMISTRY METHOD 06/21/2024 4:56 PM [facility] ALT (SGPT) 29 10 - 60 unit/L LAB CHEMISTRY METHOD 06/21/2024 4:56 PM [facility] Alkaline Phosphatase 114 42 - 121 unit/L LAB CHEMISTRY METHOD 06/21/2024 4:56 PM [facility] Total Protein 8.1(H) 6.0 - 8.0 g/dL LAB CHEMISTRY METHOD 06/21/2024 4:56 PM [facility] Albumin 3.6 3.2 - 5.0 g/dL LAB CHEMISTRY METHOD 06/21/2024 4:56 PM [facility] Total Bilirubin 0.3 0.0 - 1.4 mg/dL LAB CHEMISTRY METHOD 06/21/2024 4:56 PM [facility] Blood Venous blood specimen / Unknown 06/21/2024 10:35 AM EST 06/21/2024 2:35 PM EST us Alia Mota MD LAB BLOOD ORDERABLES Fi nal Result [facility] [address] [place] [address], * (ABNORMAL) Complete blood count (06/21/2024 10:35 [...] nal Result [facility] [address] [place] [address], documented in this encounter Visit Diagnoses Diagnosis Opioid dependence, uncomplicated (CMS/HCC V24, CMS/HCC V28) documented in this encounter Care Teams Insulator Tester Relationship Specialty Start Date End Date Brenda Breaux MD [address] [place] [address] [place] [address] PCP - General Internal Medicine 06/30/24 documented as of this encounter
--- OUTSIDE RECORDS SUMMARY | 2025-02-04 18:37 | XMS_ITS | Clinical Summary ---
Author Organization [facility] Address [address] [place] [address] Phone Care Team Providers Care Foundry Equipment Mechanic Name Role Phone Unavailable Primary Care Provider [...] Diabetes mellitus, No family history of Sudden /HI under age 55 Sister Alive Sister: Asthma [...]
--- OUTSIDE RECORDS SUMMARY | 2025-02-04 18:37 | XMS_ITS | Encounter Summary ---
Author Organization [facility] Address [address] [place] [address] Phone Care Team Providers Care Forest Economics Professor Name Role Phone Unknown, Unknown Primary Care Provider Sp peace Encounter Details Date Type Department Care Team (Late st Contact Info) Description 07/04/2022 Transcribe Orders [facility] Specimen Processing [address] [place] [address] John Garland, [facility] [address] [place] [address] [email or web address] Encounter for health examination of prisoner [...] Primary documented in this encounter Care Teams Forest Economics Professor Relationship Specialty Start Date End Date Unknown, Unknown, PCP - General 11/26/18 documented as of this encounter Additional Source Comments The information contained in this document represents components of the legal health record. It is not the complete legal health record.[facility]
--- OUTSIDE RECORDS SUMMARY | 2025-02-04 18:37 | XMS_ITS | Clinical Summary ---
Author Organization [address] [facility] Address [address] [place] [address] Phone Care Team Providers Care Parking Lot Manager Name Role Phone Brenda Breaux MD Primary Care Provider [phone] Allergies Active Allergy Reactions Criticality Noted Date Comments Amoxicillin 06/30/2024 Surgical History Surgery Date Site/Laterality Comments ABSCESS DRAINAGE Right right hand Medical History Medical History Date Comments Left hemiparesis ([facility] V2 4, [facility] V28) DX:Left hemiparesis (HCC); 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 Kristie LÓPEZ in past- Obesity DX:Obesity; COMM ENT: seen at [facility] wt clinic Fracture of patella, right, closed 2010 DX:Fracture of patella, right, closed; COMMENT: no complications, Hx MRSA infection 04/07/2014 DX:Hx MRSA inf ection; COMMENT: Abscess thigh 04/04/14 ADHD (attention deficit hype ractivity disorder) DX:ADHD (attention deficit hyperactivity disorder) Anxiety Bipolar 1 disorder (CMS/HCC V24, CMS/HCC V28) Cerebral palsy (CMS/[facility] V24, CMS/[facility] V28) Family History Medical History [...] LAB CHEMISTRY METHOD 06/22/2024 8:[address] [facility] Blood Venous blood specimen / Unknown 06/21/2024 10:35 AM EST 06/21/2024 2:35 PM EST us Alia Mota MD LAB BLOOD ORDERABLES Ed ited Result - Final [facility] [address] [place] [address], * HIV 1,2 antibody, p24 antigen with reflex to differentiation (06/21/2024 10:35 AM EST) HIV Combo AB/AG Negative Negative LAB CHEMISTRY METHOD 06/21/2024 5:[address] [facility] Blood Venous blood specimen / Unknown 06/21/2024 10:35 AM EST 06/21/2024 2:35 PM EST Narrative [facility] - 06/21/2024 5:43 PM EST [...] MD LAB BLOOD ORDERABLES Fi nal Result [facility] [address] [place] [address], from Last 3 Months or Most Recently Relevant to Health Maintenance Insurance MEDICAID - [place] Care Teams Parking Lot Manager Relationship Specialty Start Date End Date Brenda Breaux MD [address] [place] [address] [place] [address] PCP - General Internal Medicine 06/30/24
--- OUTSIDE RECORDS SUMMARY | 2025-02-04 18:37 | XMS_ITS | Encounter Summary ---
Author Organization [employer] Address [address] [place] [address] Care Team Providers Care Sinter Machine Operator Name Role Phone Brenda Breaux MD Primary Care Provider [phone] Encounter Details Date Type Department Care Team (Late st Contact Info) Description 08/05/2024 Lab Requisition [facility] - Main Lab 299 [facility] [place] [address] Alia Mota MD [address] [place] [address] Opioid dependence, uncomplicated (CMS/HCC V24, CMS/HCC V28) [...] 08/05/2024 10:04 AM EDT Opioid dependence, uncomplicated ([facility] V24, [facility] V28) documented in this encounter Results * Chlamydia trachomatis and Neisseria gonorrhoeae molecular study (08/05/2024 10:04 AM EDT) Neisseria gonorrhoeae PCR Negative Negative LAB MOLECULAR DIAGNOSTICS METHOD 08/06/2024 10:59 AM EDT [facility] Chlamydia trachomatis PCR Negative Negative LAB MOLECULAR DIAGNOSTICS METHOD 08/06/2024 10:59 AM EDT [facility] Urine 08/05/2024 10:0 4 AM EDT 08/05/2024 2:37 PM EDT us Alia Mota MD LAB MICROBIOLOGY - GENE RAL ORDERABLES Final Result [facility] [address] [place] [address], [place] [phone] documented in this encounter Visit Diagnoses Diagnosis Opioid dependence, uncomplicated ([facility] V24, [facility] V28) documented in this encounter Care Teams Sinter Machine Operator Relationship Specialty Start Date End Date Brenda Breaux MD [address] [place] [address] Dr Mazariegos, [place] [address] PCP - General Internal Medicine 06/30/24 documented as of this encounter
--- OUTSIDE RECORDS SUMMARY | 2025-02-04 18:37 | XMS_ITS | Encounter Summary ---
Author Organization [facility] Address [address] [place] [address] Phone Care Team Providers Care Paper Carrier Name Role Phone Unknown, Unknown Primary Care Provider Sp peace Encounter Details Date Type Department Care Team (Late st Contact Info) Description 07/19/2023 Transcribe Orders [facility] Specimen Processing [address] [place] [address] John Garland, [facility] [address] [place] [address] [email or web address] Encounter for health examination of prisoner [...] load (PCR) (07/21/2023 7:45 AM EDT) Pathologist [facility] HCV RNA DETECT/QNT Undetected Undetected IU/mL [facility] MED/PATH [facility] Comment: (NOTE) Result in log IU/mL is Undetected. ADDITIONAL INFORMATION The quantification range of this assay is 15 to 100,000,000 IU/mL (1.18 log to 8.00 log IU/mL). Testing was performed using the alva HCV test ([employer] Blood 07/21/2023 7:45 AM EDT 07/21/2023 11:09 AM EDT John MARTINP NON CULTURE MICROB IOLOGY Final Result [facility] MED/PATH [facility] [address] [place] [address] * Hepatitis A antibody, IgM (07/21/2023 7:45 AM EDT) Pathologist [facility] Hepatitis A Antibody, IgM NON-REACTI VE NON-REACTI VE [facility] 07/21/2023 7:45 AM EDT 07/21/2023 11:09 AM EDT John TINSLEY LAB BLOOD ORDERABL ES Final Result Performing Organization Address City/[facility]/ZIP Co de Phone Number [address] [address] * Hepatitis B core antibody, total (07/21/2023 7:45 AM EDT) Pathologist [facility] HEP B CORE AB, TOT NON-REACTI VE NON-REACTI VE [facility] 07/21/2023 7:45 AM EDT 07/21/2023 11:09 AM EDT John Garland [facility] LAB BLOOD ORDERABL ES Final Result Performing Organization Address [facility] Co de Phone Number [address] [address] * Hepatitis C antibody, qualitative (07/21/2023 7:45 AM EDT) HCV NON-REACTIV E NON-REACTI VE [facility] 07/21/2023 7:45 AM EDT 07/21/2023 11:09 AM EDT John Garland [facility] LAB BLOOD ORDERABL ES Final Result Performing Organization Address [facility] de Phone Number [address] [address] * Hepatitis B surface antigen (07/21/2023 7:45 AM EDT) HBV SURFACE ANTIGEN NON-REACTI VE NON-REACTI VE [facility] 07/21/2023 7:45 AM EDT 07/21/2023 11:09 AM EDT John MARTINP LAB BLOOD ORDERABL ES Final Result Performing Organization Address [facility] de Phone Number [address] [address] * Hepatitis B surface antibody (07/21/2023 7:45 AM EDT) HBV SURFACE ANTIBODY Negative [facility] Comment: Unvaccinated: Negative Vaccinated: Positive 07/21/2023 7:45 AM EDT 07/21/2023 11:09 AM EDT John Garland [facility] LAB BLOOD ORDERABL ES Final Result [address] [address] * CBC (07/21/2023 7:45 AM EDT) Pathologist [facility] WBC 7.93 4.00 - 11.00 K/uL [facility] RBC 5.29 4.48 - 5.88 M/uL [facility] HGB 14.8 13.4 - 17.5 g/dL [facility] HCT 44.9 38.0 - 51.0 % [facility] PLT 238 140 - 430 K/uL [facility] MCV 84.9 78.0 - 97.0 fL [facility] MCH 28.0 25.0 - 33.0 pg [facility] MCHC 33.0 32.0 - 36.0 g/dL [facility] RDW 12.4 11.0 - 15.0 % [facility] MPV 12.0 8.4 - 12.8 fl [facility] 07/21/2023 7:45 AM EDT 07/21/2023 11:09 AM EDT us John Garland CLINICAL DENTAL TECHNICIAN LAB BLOOD ORDERABL ES Final Result [address] [address] * (ABNORMAL) LFTs (hepatic panel) (07/21/2023 7:45 AM EDT) Pathologist [facility] ALKALINE PHOSPHATASE 99 39 - 117 U/L [facility] TOTAL BILIRUBIN 0.3 0.0 - 1.2 mg/dL [facility] DIRECT BILIRUBIN <0.2 0 - 0.3 mg/dL [facility] Bilirubin (Indirect) NOT CALCULATED 0 - 1.5 mg/dL [facility] AST 50(H) 0 - 37 U/L [facility] ALT 38 0 - 40 U/L [facility] TOTAL PROTEIN 7.3 6.5 - 8.0 g/dL [facility] ALBUMIN 4.5 3.9 - 4.8 g/dL [facility] GLOBULIN 2.8 1 - 4.8 g/dL [facility] A/G Ratio 1.61 1.00 - 4.80 RATIO [facility] 07/21/2023 7:45 AM EDT 07/21/2023 11:09 AM EDT John Kwan Garland [facility] LAB BLOOD ORDERABL ES Final Result Performing Organization Address [facility]/ZIP Co de Phone Number [address] [address] * Basic metabolic panel (07/21/2023 7:45 AM EDT) SODIUM 139 133 - 146 mmol/L [facility] CHLORIDE 103 96 - 108 mmol/L [facility] POTASSIUM 4.4 3.3 - 5.1 mmol/L [facility] CO2 26 21 - 35 mmol/L [facility] BUN 18 6 - 19 mg/dL [facility] CREATININE 1.00 0.5 - 1.5 mg/dL [facility] GLUCOSE 72 70 - 99 mg/dL [facility] CALCIUM 9.4 8.4 - 10.3 mg/dL [facility] EGFR 108 >59 mL/min/1.7 3m2 [facility] Comment:Estimated glomerular filtration rate calculated using the CKD-EPI refit equation. ANION GAP 14 10 - 20 mmol/L [facility] 07/21/2023 7:45 AM EDT 07/21/2023 11:09 AM EDT Mackmonique Kwan Gill [facility] LAB BLOOD ORDERABL ES Final Result Performing Organization Address [facility]/ZIP Co de Phone Number [address] [address] documented in this encounter Visit Diagnoses Diagnosis Encounter for health examination of prisoner- Primary documented in this encounter Care Teams Paper Carrier Relationship Specialty Start Date End Date Unknown, Unknown, PCP - General 11/26/18 documented as of this encounter Additional Source Comments The information contained in this document represents components of the legal health record. It is not the complete legal health record.[facility]
--- OUTSIDE RECORDS SUMMARY | 2025-02-04 18:37 | XMS_ITS | Encounter Summary ---
Author Organization [facility] Address [address] [place] [address] Phone Care Team Providers Care Wet Pan Operator Name Role Phone Kori Dover MD Primary Care Provider [phone] Encounter Details Date Type Department Care Team (Late st Contact Info) Description 12/15/2016 Conversion Encounter [facility] [address] [place] [address] Social History Tobacco Use Types Packs/Day Years [...] on filedocumented in this encounter Care Teams Wet Pan Operator Relationship Specialty Start Date End Date Kori Dover MD [address] [place] [address] PCP - General 12/09/16 10/30/22 documented as of this encounter
== END 2025-02-04 16:21 | disposition home or self-care (01) ==
LOC: HO.HSM 15:34
PROVIDERS: PCP Internal Medicine; Referring Provider Internal Medicine; Visit Provider Psychiatry & Neurology Neurology
DX: G40.909 Epilepsy, unspecified, not intractable, without status epilepticus (principal); G43.009 Migraine without aura, not intractable, without status migrainosus; G47.33 Obstructive sleep apnea (adult) (pediatric)
CPT/HCPCS: 99214

== ENCOUNTER → 2025-02-04 15:33 | Outpatient (BNVA) | payer MEDICAID, SELFPAY | PROVIDERS: PCP Internal Medicine; Visit Provider Psychiatry & Neurology Neurology | DX: G43.009 Migraine without aura, not intractable, without status migrainosus (principal); G47.30 Sleep apnea, unspecified; G40.909 Epilepsy, unspecified, not intractable, without status epilepticus | CPT/HCPCS: 99212 ==

== ENCOUNTER 2025-02-08 10:03 | Inpatient (IN) | payer MEDICAID, SELFPAY ==
[2025-02-08] VITALS (11 sets, daily range): BP systolic 104–147; BP diastolic 52–84; PULSE 51–72; RESP 13–20; TEMP 36.3–36.9; O2SAT 96–100; BMI 38.3
--- NOTE | ~2025-02-08 | CT_ITS ---
CLINICAL HISTORY: R flank pain, RLQ pain Exam: CT Abdomen and Pelvis With IV Contrast Comparison: None. Findings: The liver density is homogeneous No biliary abnormalities The spleen is normal in size No pancreatic ductal dilatation No hydronephrosis. No urinary tract calculi or obstruction. Normal bowel caliber The appendix is distended and fluid-filled measuring 1.2 cm in diameter with small amount of periappendiceal increased inflammatory fat density. No free fluid/free air No vascular abnormalities Bladder outline is smooth No suspicious skeletal lesions. Impression : Acute appendicitis. No perforation. No abscess. This document has been electronically signed by: Favian Kim MD on 02/08/2025 13:09:26
--- OUTSIDE RECORDS SUMMARY | 2025-02-08 10:20 | XMS_ITS | Encounter Summary ---
Author Organization [facility] Address [address] [place] [address] Care Team Providers Care Factory Helper Name Role Phone Brenda Breaux MD Primary Care Provider [phone] Encounter Details Date Type Department Care Team (Late st Contact Info) Description 06/21/2024 Lab Requisition [facility] - Main Lab [address] [facility] [place] [address] Alia Mota MD [address] [place] [address] Opioid dependence, uncomplicated (CMS/HCC V24, CMS/HCC V28) [...] C antibody (06/21/2024 10:35 AM EST) Pathologist [facility] Hepatitis C Antibody Negative Negative LAB CHEMISTRY METHOD 06/22/2024 8:29 AM EST [facility] Blood Venous blood specimen / Unknown 06/21/2024 10:35 AM EST 06/21/2024 2:35 PM EST us Alia Mota MD LAB BLOOD ORDERABLES Ed ited Result - Final [facility] [address] [place] [address], * Hepatitis A antibody IgM (06/21/2024 10:35 AM EST) Pathologist [facility] Hepatitis A Antibody IgM Negative Negative LAB CHEMISTRY METHOD 06/21/2024 5:59 PM EST [facility] Blood Venous blood specimen / Unknown 06/21/2024 10:35 AM EST 06/21/2024 2:35 PM EST Narrative [facility] - 06/21/2024 5:59 PM EST Over the counter supplements containing high doses of biotin may interfere with this assay. If interference is suspected, patients shoud be retested after refraining from biotin supplements for 72 hours. Alia Mota MD LAB BLOOD ORDERABLES Fi nal Result Performing Organization Address [facility] Co de Phone Number [facility] [address] [place] [address], [place] [phone] * HIV 1,2 antibody, p24 antigen with reflex to differentiation (06/21/2024 10:35 AM EST) HIV Combo AB/AG Negative Negative LAB CHEMISTRY METHOD 06/21/2024 5:43 PM EST [facility] Blood Venous blood specimen / Unknown 06/21/2024 10:35 AM EST 06/21/2024 2:35 PM EST Narrative [facility] - 06/21/2024 5:43 PM [...] ORDERABLES Fi nal Result Performing Organization Address [facility]/ZIP Co de Phone Number [facility] [address] [place] [address], [place] [phone] * Hepatitis B core antibody, total (06/21/2024 10:35 AM EST) Hep B Core Total Ab Negative Negative LAB CHEMISTRY METHOD 06/21/2024 5:58 PM EST [facility] Blood Venous blood specimen / Unknown 06/21/2024 10:35 AM EST 06/21/2024 2:35 PM EST Alia Mota MD LAB BLOOD ORDERABLES Fi nal Result Performing Organization Address [facility] Co de Phone Number [facility] [address] [place] [address], * Hepatitis B surface antibody (06/21/2024 10:35 AM EST) Hepatitis B Surface Ab Negative Negative LAB CHEMISTRY METHOD 06/21/2024 5:04 PM EST [facility] Hepatitis B Surface Ab Quantitative <3.1 mIU/mL LAB CHEMISTRY METHOD 06/21/2024 5:04 PM EST [facility] Blood Venous blood specimen / Unknown 06/21/2024 10:35 AM EST 06/21/2024 2:35 PM EST Narrative [facility] - 06/21/2024 5:04 PM EST >=10 mIU/mL is considered to be consistent with immunity. Alia Mota MD LAB BLOOD ORDERABLES Fi nal Result Performing Organization Address [facility] de Phone Number [facility] [address] [place] [address], * Hepatitis B surface antigen with reflex to confirmation (06/21/2024 10:35 AM EST) Hepatitis B Surface Ag Negative Negative LAB CHEMISTRY METHOD 06/21/2024 5:14 PM EST [facility] Blood Venous blood specimen / Unknown 06/21/2024 10:35 AM EST 06/21/2024 2:35 PM EST Narrative [facility] - 06/21/2024 5:14 PM EST Over the counter supplements containing high doses of biotin may interfere with this assay. If interference is suspected, patients shoud be retested after refraining from biotin supplements for 72 hours. Alia Mota MD LAB BLOOD ORDERABLES Fi nal Result Performing Organization Address [facility]/ZIP Co de Phone Number [facility] [address] [place] [address], [place] [phone] * Treponema pallidum antibody with reflex to RPR and particle agglutination (06/21/2024 10:35 AM EST) Pathologist [facility] T. Pallidum Antibodies Negative Negative LAB CHEMISTRY METHOD 06/21/2024 5:14 PM EST [facility] Blood Venous blood specimen / Unknown 06/21/2024 10:35 AM EST 06/21/2024 2:35 PM EST Alia Mota MD LAB BLOOD ORDERABLES Fi nal Result Performing Organization Address [facility] Co de Phone Number [facility] [address] [place] [address], [place] [phone] * (ABNORMAL) Comprehensive metabolic panel (06/21/2024 10:35 AM EST) [facility] Sodium 139 133 - 145 mmol/L LAB [...] [facility] Comment:Calculation based on the [...] MD LAB BLOOD ORDERABLES Fi nal Result [facility] [address] [place] [address], * (ABNORMAL) Complete blood count (06/21/2024 10:35 AM EST) WBC 12.8(H) 4.8 - 10.8 K/mcL LAB HEMETOLOGY METHOD 06/21/2024 2:44 PM EST [facility] RBC 5.20 4.50 - 5.50 M/mcL LAB HEMETOLOGY METHOD 06/21/2024 2:44 PM EST [facility] Hemoglobin 14.3 13.5 - 17.5 g/dL LAB HEMETOLOGY METHOD 06/21/2024 2:44 PM EST [facility] Hematocrit 44.5 42.0 - 54.0 % LAB HEMETOLOGY METHOD 06/21/2024 2:44 PM EST [facility] MCV 85.1 79.0 - 98.0 FL LAB HEMETOLOGY METHOD 06/21/2024 2:44 PM EST [facility] MCH 27.3 27.0 - 32.0 pcg LAB HEMETOLOGY METHOD 06/21/2024 2:44 PM EST [facility] MCHC 32.1 32.0 - 37.0 g/dL LAB HEMETOLOGY METHOD 06/21/2024 2:44 PM EST [facility] RDW 12.8 11.0 - 15.0 % LAB HEMETOLOGY METHOD 06/21/2024 2:44 PM EST [facility] Platelets 298 130 - 400 K/mcL LAB HEMETOLOGY METHOD 06/21/2024 2:44 PM EST [facility] MPV 11.5(H) 7.0 - 11.0 FL LAB HEMETOLOGY METHOD 06/21/2024 2:44 PM EST [facility] NRBC 0.0 <1.0 % LAB HEMETOLOGY METHOD 06/21/2024 2:44 PM EST [facility] NRBC Absolute 0.00 <0.10 K/mcL LAB HEMETOLOGY METHOD 06/21/2024 2:44 PM EST [facility] Blood Venous blood specimen / Unknown 06/21/2024 10:35 AM EST 06/21/2024 2:35 PM EST us Alia Mota MD LAB BLOOD ORDERABLES Fi nal Result [facility] [address] [place] [address], documented in this encounter Visit Diagnoses Diagnosis Opioid dependence, uncomplicated (CMS/HCC V24, CMS/HCC V28) documented in this encounter Care Teams Factory Helper Relationship Specialty Start Date End Date Brenda Breaux MD [address] [place] [address] [place] [address] PCP - General Internal Medicine 06/30/24 documented as of this encounter
--- OUTSIDE RECORDS SUMMARY | 2025-02-08 10:20 | XMS_ITS | Encounter Summary ---
Author Organization [facility] Address [address] [place] [address] Care Team Providers Care Ticket Collector Name Role Phone Brenda Breaux MD Primary Care Provider [phone] Encounter Details Date Type Department Care Team (Late st Contact Info) Description 08/05/2024 Lab Requisition [facility] - Main Lab [address] [facility] [place] [address] Alia Mota MD [address] [place] [address] Opioid dependence, uncomplicated (CMS/HCC V24, CMS/HCC V28) [...] 08/05/2024 10:04 AM EDT Opioid dependence, uncomplicated ([facility] V24, [facility] V28) documented in this encounter Results * Chlamydia trachomatis and Neisseria gonorrhoeae molecular study (08/05/2024 10:04 AM EDT) Neisseria gonorrhoeae PCR Negative Negative LAB MOLECULAR DIAGNOSTICS METHOD 08/06/2024 10:59 AM EDT [facility] Chlamydia trachomatis PCR Negative Negative LAB MOLECULAR DIAGNOSTICS METHOD 08/06/2024 10:59 AM EDT [facility] Urine 08/05/2024 10:0 4 AM EDT 08/05/2024 2:37 PM EDT us Alia Mota MD LAB MICROBIOLOGY - GENE RAL ORDERABLES Final Result [facility] [address] [place] [address], [place] [phone] documented in this encounter Visit Diagnoses Diagnosis Opioid dependence, uncomplicated ([facility] V24, [facility] V28) documented in this encounter Care Teams Ticket Collector Relationship Specialty Start Date End Date Brenda Breaux MD [address] [place] [address] Dr Mazariegos, [place] [address] PCP - General Internal Medicine 06/30/24 documented as of this encounter
--- NOTE | 2025-02-08 10:21 | PC.NURSE ---
Patient oresents to ED after being seen at urgent care, urgent care believes patient may have kidney stone Patient c.o right ABD pain traveling to right flank Denies injury or recent surgeries Patient also states he feels like hes having trouble emptying bladder Nausea no vomiting Patient reports having temp of 100 yesterday, temp in Ed 97.6 orally VSS and up to date Provider in to see patient Plan of care on going
--- OUTSIDE RECORDS SUMMARY | 2025-02-08 10:21 | XMS_ITS | Clinical Summary ---
Author Organization [facility] Address [address] [place] [address] Phone Care Team Providers Care Technician Assistant Name Role Phone Unknown, Unknown Primary Care [...] AM EDT) HCV NON-REACTIV E NON-REACTI VE [facility] 07/21/2023 7:45 AM EDT 07/21/2023 11:09 AM EDT us John Garland ORDER MAKE UP CLERK LAB BLOOD ORDERABL ES Final Result [facility] [address] [place] [address] from Last 3 Months or Most Recently Relevant to Health Maintenance Insurance [facility] [address] [facility] [address] Member Subscriber Plan / Payer (Ef fective 2021-Present) Name:Mookie Menchaca Member ID:[id number] Relation to Subscriber:Self Name:Mookie Menchaca Subscriber ID:[id number] Payer ID:Not on file Group ID:Not on file Type:Sxbbm Address: [facility] [address] [place] [id number] [facility] [address] [facility] Member Subscriber Plan / Payer (Ef fective 2019-Present) Name:Mookie Menchaca Relation to Subscriber:Self Name:Mookie Menchaca Payer ID:[id number] Group ID:[id number] Type:Medicaid Address: [address] [facility] Member Subscriber Plan / Payer (Ef fective 2019-Present) Name:Mookie Menchaca Relation to Subscriber:Self Name:Mookie Menchaca Payer ID:[id number] Group ID:[id number] Type:Medicaid Address: [address] [facility] Member Subscriber Plan / Payer (Ef fective 2019-Present) Name:Menchaca, Zavier Relation to Subscriber:Self Name:Menchaca, Zavier Payer ID:[id number] Group ID:[id number] Type:Medicaid Address: [address] [facility] [address] [place] [address] [place] [address] [facility] [place] [address] Care Teams Technician Assistant Relationship Specialty Start Date End Date Unknown, Unknown, PCP - General 11/26/18 Additional Source Comments The information contained in this document represents components of the legal health record. It is not the complete legal health record.[facility]
--- OUTSIDE RECORDS SUMMARY | 2025-02-08 10:21 | XMS_ITS | Clinical Summary ---
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 Kristie LÓPEZ in past- Obesity DX:Obesity; COMM ENT: seen at [facility] [place] clinic Fracture of patella, right, closed 2010 DX:Fracture of patella, right, closed; COMMENT: no complications, Hx MRSA infection 04/07/2014 DX:Hx MRSA inf ection; COMMENT: Abscess thigh 04/04/14 ADHD (attention deficit hype ractivity disorder) DX:ADHD (attention deficit hyperactivity disorder) Anxiety Bipolar 1 disorder (CMS/HCC V24, CMS/HCC V28) Cerebral palsy (CMS/[facility] V24, CMS/[facility] V28) Family History Medical History [facility] [address] [place] [address], * HIV 1,2 antibody, p24 antigen with reflex to differentiation (06/21/2024 10:35 AM EST) HIV Combo AB/AG Negative Negative LAB CHEMISTRY METHOD 06/21/2024 5:43 PM EST [facility] Blood Venous blood specimen / Unknown 06/21/2024 10:35 AM EST 06/21/2024 2:35 PM EST Narrative [facility] - 06/21/2024 5:43 PM EST [...] [facility] [address] [place] [address], from Last 3 Months or Most Recently Relevant to Health Maintenance Insurance [place] Care Teams Delinquent Notice Machine Operator Relationship Specialty Start Date End Date Brenda Breaux MD [address] [place] [address] [place] [address] PCP - General Internal Medicine 06/30/24
--- OUTSIDE RECORDS SUMMARY | 2025-02-08 10:21 | XMS_ITS | Encounter Summary ---
Author Organization [facility] Address [address] [place] [address] Phone Care Team Providers Care Electrical Engineering Intern Name Role Phone Unknown, Unknown Primary Care Provider Sp peace Encounter Details Date Type Department Care Team (Late st Contact Info) Description 07/19/2023 Transcribe Orders [facility] Specimen Processing [address] [place] [address] John Garland, [facility] [address] [place] [address] [email or web address] Encounter for health examination of [...] (PCR) (07/21/2023 7:45 AM EDT) Pathologist [facility] HCV RNA DETECT/QNT Undetected Undetected IU/mL [facility] MED/[facility] Comment: (NOTE) Result in log IU/mL is Undetected. ADDITIONAL INFORMATION The quantification range of this assay is 15 to 100,000,000 IU/mL (1.18 log to 8.00 log IU/mL). Testing was performed using the alva HCV test ([employer] Blood 07/21/2023 7:45 AM EDT 07/21/2023 11:09 AM EDT John MARTINP NON CULTURE MICROB IOLOGY Final Result [facility] MED/PATH [facility] [address] [place] [address] * Hepatitis A antibody, IgM (07/21/2023 7:45 AM EDT) Pathologist [facility] Hepatitis A Antibody, IgM NON-REACTI VE NON-REACTI VE [facility] 07/21/2023 7:45 AM EDT 07/21/2023 11:09 AM EDT John TINSLEY LAB BLOOD ORDERABL ES Final Result Performing Organization Address City/[facility]/ZIP Co de Phone Number [address] [address] * Hepatitis B core antibody, total (07/21/2023 7:45 AM EDT) Pathologist [facility] HEP B CORE AB, TOT NON-REACTI VE NON-REACTI VE [facility] 07/21/2023 7:45 AM EDT 07/21/2023 11:09 AM EDT John Garland [facility] LAB BLOOD ORDERABL ES Final Result Performing Organization Address [facility] Co de Phone Number [address] [address] * Hepatitis C antibody, qualitative (07/21/2023 7:45 AM EDT) HCV NON-REACTIV E NON-REACTI VE [facility] 07/21/2023 7:45 AM EDT 07/21/2023 11:09 AM EDT John Garland [facility] LAB BLOOD ORDERABL ES Final Result Performing Organization Address [facility] de Phone Number [address] [address] * Hepatitis B surface antigen (07/21/2023 7:45 AM EDT) HBV SURFACE ANTIGEN NON-REACTI VE NON-REACTI VE [facility] 07/21/2023 7:45 AM EDT 07/21/2023 11:09 AM EDT John MARTINP LAB BLOOD ORDERABL ES Final Result Performing Organization Address [facility] de Phone Number [address] [address] * Hepatitis B surface antibody (07/21/2023 7:45 AM EDT) HBV SURFACE ANTIBODY Negative [facility] Comment: Unvaccinated: Negative Vaccinated: Positive 07/21/2023 7:45 AM EDT 07/21/2023 11:09 AM EDT John Garland [facility] LAB BLOOD ORDERABL ES Final Result [address] [address] * CBC (07/21/2023 7:45 AM EDT) Pathologist [facility] WBC 7.93 4.00 - 11.00 K/uL [facility] RBC 5.29 4.48 - 5.88 M/uL [facility] HGB 14.8 13.4 - 17.5 g/dL [facility] HCT 44.9 38.0 - 51.0 % [facility] PLT 238 140 - 430 K/uL [facility] MCV 84.9 78.0 - 97.0 fL [facility] MCH 28.0 25.0 - 33.0 pg [facility] MCHC 33.0 32.0 - 36.0 g/dL [facility] RDW 12.4 11.0 - 15.0 % [facility] MPV 12.0 8.4 - 12.8 fl [facility] 07/21/2023 7:45 AM EDT 07/21/2023 11:09 AM EDT us John Garland [employer] LAB BLOOD ORDERABL ES Final Result [address] [address] * (ABNORMAL) LFTs (hepatic panel) (07/21/2023 7:45 AM EDT) Pathologist [facility] ALKALINE PHOSPHATASE 99 39 - 117 U/L [facility] TOTAL BILIRUBIN 0.3 0.0 - 1.2 mg/dL [facility] DIRECT BILIRUBIN <0.2 0 - 0.3 mg/dL [facility] Bilirubin (Indirect) NOT CALCULATED 0 - 1.5 mg/dL [facility] AST 50(H) 0 - 37 U/L [facility] ALT 38 0 - 40 U/L [facility] TOTAL PROTEIN 7.3 6.5 - 8.0 g/dL [facility] ALBUMIN 4.5 3.9 - 4.8 g/dL [facility] GLOBULIN 2.8 1 - 4.8 g/dL [facility] A/G Ratio 1.61 1.00 - 4.80 RATIO [facility] 07/21/2023 7:45 AM EDT 07/21/2023 11:09 AM EDT John Kwan Garland [facility] LAB BLOOD ORDERABL ES Final Result Performing Organization Address [facility]/ZIP Co de Phone Number [address] [address] * Basic metabolic panel (07/21/2023 7:45 AM EDT) SODIUM 139 133 - 146 mmol/L [facility] CHLORIDE 103 96 - 108 mmol/L [facility] POTASSIUM 4.4 3.3 - 5.1 mmol/L [facility] CO2 26 21 - 35 mmol/L [facility] BUN 18 6 - 19 mg/dL [facility] CREATININE 1.00 0.5 - 1.5 mg/dL [facility] GLUCOSE 72 70 - 99 mg/dL [facility] CALCIUM 9.4 8.4 - 10.3 mg/dL [facility] EGFR 108 >59 mL/min/1.7 3m2 [facility] Comment:Estimated glomerular filtration rate calculated using the CKD-EPI refit equation. ANION GAP 14 10 - 20 mmol/L [facility] 07/21/2023 7:45 AM EDT 07/21/2023 11:09 AM EDT Mackmonique Kwan Gill [facility] LAB BLOOD ORDERABL ES Final Result Performing Organization Address [facility]/ZIP Co de Phone Number [address] [address] documented in this encounter Visit Diagnoses Diagnosis Encounter for health examination of prisoner- Primary documented in this encounter Care Teams Electrical Engineering Intern Relationship Specialty Start Date End Date Unknown, Unknown, PCP - General 11/26/18 documented as of this encounter Additional Source Comments The information contained in this document represents components of the legal health record. It is not the complete legal health record.[facility]
--- OUTSIDE RECORDS SUMMARY | 2025-02-08 10:21 | XMS_ITS | Encounter Summary ---
Author Organization [facility] Address [address] [place] [phone] Phone Care Team Providers Care Health Care Attorney Name Role Phone Unknown, Unknown Primary Care Provider Sp peace Encounter Details Date Type Department Care Team (Late st Contact Info) Description 07/04/2022 Transcribe Orders [facility] Specimen Processing [address] [place] [address] John Garland, [facility] [address] [place] [address] [email or web address] Encounter for health examination [...] Primary documented in this encounter Care Teams Health Care Attorney Relationship Specialty Start Date End Date Unknown, Unknown, PCP - General 11/26/18 documented as of this encounter Additional Source Comments The information contained in this document represents components of the legal health record. It is not the complete legal health record.[facility]
--- OUTSIDE RECORDS SUMMARY | 2025-02-08 10:21 | XMS_ITS | Clinical Summary ---
Author Organization [facility] Address [address] [place] [phone] Phone Care Team Providers Care Call Or Contact Centre Manager Name Role Phone Unavailable Primary Care Provider [...] Diabetes mellitus, No family history of Sudden /[place] under age 55 Sister Alive Sister: Asthma [...]
--- OUTSIDE RECORDS SUMMARY | 2025-02-08 10:21 | XMS_ITS | Encounter Summary ---
Author Organization [facility] Address [address] [place] [phone] Phone Care Team Providers Care Qc Lab Technician Name Role Phone Kori Dover MD Primary Care Provider [phone] Encounter Details Date Type Department Care Team (Late st Contact Info) Description 12/15/2016 Conversion Encounter [facility] [address] [place] [address] Social History Tobacco Use Types Packs/Day Years [...] on filedocumented in this encounter Care Teams Qc Lab Technician Relationship Specialty Start Date End Date Kori Dover MD [address] [place] [address] PCP - General 12/09/16 10/30/22 documented as of this encounter
--- NOTE | 2025-02-08 10:41 | ED.ABDPAIN ---
HPI - Abdominal Pain General Chief Complaint: Abdominal Pain Stated Complaint: abd pain sent from urgent care Time Seen by Provider: 02/08/25 10:18 Source: patient and RN notes reviewed Mode of arrival: ambulatory Limitations: no limitations History of Present Illness ED Provider: Emerita Izaguirre PA-C HPI narrative: This is a 24-year-old male, with a past medical history of seizure disorder on Keppra, cerebral palsy, who presents emergency department with concerns of abdominal pain, nausea, subjective fevers and chills, and urinary symptoms which started 1 week ago. Patient states that he has been experiencing right-sided flank pain and right lower quadrant pain for the last week which has been progressively getting worse. He states that he took his temperature several days ago which was 100? F. he states that he took ibuprofen and Tylenol this morning without any relief. Patient reports that his urine is dark, and does report some urinary hesitancy. No history of kidney stones in the past. Denies history of abdominal surgeries in the past. No other complaints or concerns at this time. MD elicited complaint: abdominal pain Pertinent past history: none Onset (ago): week(s) Pain Consistency: constant Location: RLQ and R flank Severity: moderate Quality: stabbing and aching Radiation: R flank Migration to: no migration Exacerbating factors: nothing Relieving factors: nothing Associated symptoms: denies other symptoms Related Data Home Medications ?Medication ?Instructions ?Recorded ?Confirmed albuterol sulfate 90 mcg/actuation 2 puff inhalation QID PRN wheezing 05/26/24 08/11/24 aerosol inhaler (Ventolin HFA) clonazepam 1 mg tablet 1 mg PO QID 05/26/24 01/08/25 dextroamphetamine-amphetamine 30 1 tab PO BID@0600,1300 05/26/24 01/08/25 mg tablet ibuprofen 800 mg tablet 800 mg PO BID PRN pain 05/26/24 08/11/24 sertraline 150 mg capsule 150 mg PO DAILY 01/08/25 01/08/25 acetaminophen 500 mg capsule 500 mg PO Q6H PRN 01/31/25 buprenorphine 8 mg-naloxone 2 mg 2 tab sublingual DAILY 01/31/25 sublingual tablet dextroamphetamine-amphetamine 30 1 tab PO BID 02/08/25 mg tablet divalproex 500 mg tablet,extended 2,000 mg PO BEDTIME 02/08/25 release 24 hr (Depakote ER) naproxen 500 mg tablet 500 mg PO BID 02/08/25 nicotine 14 mg/24 hr daily patch topical DAILY 02/08/25 transdermal patch oxcarbazepine 150 mg tablet 150 mg PO BID 02/08/25 prazosin 1 mg capsule 1 mg PO BEDTIME 02/08/25 sertraline 100 mg tablet 150 mg PO BEDTIME 02/08/25 sumatriptan succinate 50 mg tablet 50 mg PO DAILY PRN migraine 02/08/25 tizanidine 4 mg tablet 4 mg PO BID 02/08/25 Previous Rx's ?Medication ?Instructions ?Recorded tizanidine 4 mg tablet 4 mg PO TID PRN muscle spasticity 03/14/24 30 days #90 tabs levetiracetam 500 mg tablet 500 mg PO BID 30 days #60 tabs 01/23/25 (Keppra) oxycodone-acetaminophen 5 mg-325 1 tab PO Q6H PRN pain #20 tabs 02/08/25 mg tablet Allergies Allergy/AdvReac Type Severity Reaction Status Date / Time amoxicillin (AMOXICILLIN) Allergy Unknown HIVES Verified 02/08/25 10:09 hydrocodone (From VICODIN) Allergy Unknown RASH Verified 02/08/25 10:09 sulfamethoxazole (From Allergy Unknown UNKNOWN Verified 02/08/25 10:09 BACTRIM) trimethoprim (From BACTRIM) Allergy Unknown UNKNOWN Verified 02/08/25 10:09 Vicodin Allergy Unknown hives Uncoded 02/08/25 10:09 Review of Systems Review of Systems Constitutional : No Fever, No Chills ENT/Mouth : No sore throat, No Rhinorrhea Eyes: No Eye Pain, No Swelling, No Redness Cardiovascular : No Chest Pain, No SOB Respiratory : No Cough, No Sputum Gastrointestinal : + Nausea, No Vomiting, No Diarrhea, +abdominal Pain Genitourinary : No Dysuria, No Hematuria Musculoskeletal : No joint pain, No Myalgias, No Joint Swelling Skin : No Skin Lesions Neuro : No Weakness, No Numbness, No Headache All other systems reviewed and are negative Yes all other systems are reviewed and are negative Constitutional: Reports as per [facility] Past Medical History Medical History (Updated 02/08/25 @ 13:32 by VINNIE Hardin) Mild intermittent asthma Environmental allergies Allergies Left hemiparesis Cerebral palsy Surgical History (Updated 01/31/25 @ 13:34 by Eva Shi CMA) Hx of hand surgery Family History Family History (Updated 01/31/25 @ 13:33 by Eva Shi CMA) Mother Anemia Father Hypertension Pre-diabetes Hepatitis C Maternal Grandmother Hypertension Diabetes Anemia Paternal Grandmother Diabetes Kidney problem Lung cancer Social History Social History (Updated 01/31/25 @ 13:30 by Eva Shi CMA) Household Members: Family Housing: House Do you presently have visiting nurse or other home services: No Alcohol intake: current Alcohol intake frequency: holidays/special occasions only Patient Tobacco Use Status: Never used Tobacco Tobacco use type: Cigarette Cigarettes Per Day: 4 Smoked in Last 30 Days: Yes e-Cigarette/Vaping Use: Currently Using Patient Interested in Nicotine Replacement: Yes Second Hand Smoke Exposure: Yes Use of substances other than those prescribed or required for medical reasons: Yes Substance Use Type: Crack/Cocaine Substance Use Frequency: Occasionally Have you been hit, kicked, punched, or otherwise hurt by someone within the past year? If so, by whom?: No Do you feel safe in your current relationship?: No Current Relationship Is there a partner from a previous relationship who is making you feel unsafe now?: No Are you made to feel afraid or neglected: No Advance Directives: Yes Advance Directives on File: Yes Advance Directives Date on File: 05/29/24 Do you have a plan to hurt others: No Plan Recently lost weight without trying: No How much weight loss: Not applicable Eating poorly because of decreased appetite: No Nutrition screen score: 0 Nutrition Risks: No Nutritional Risk service: No Current occupational status: unemployed Cognitive needs: No Hearing needs: No Vision needs: No Physical Exam ED Vital Signs: Vital Signs - 24 hr 02/08/25 10:07 02/08/25 10:18 02/08/25 10:57 Temperature 97.3 F 97.6 F Pulse Rate 61 68 Respiratory Rate 15 14 14 Blood Pressure 126/60 120/52 L Pulse Oximetry 98 97 Oxygen Delivery Method Room Air Room Air 02/08/25 12:59 Temperature 97.7 F Pulse Rate 65 Respiratory Rate 16 Blood Pressure 126/62 Pulse Oximetry 97 Oxygen Delivery Method Room Air BMI result Body Mass Index 38.3 Const General: cooperative, comfortable and no acute distress Orientation/consciousness: patient oriented x3 Limitations: no limitations HENMT Head: Yes normal to inspection, Yes normocephalic and Yes atraumatic Ears: hearing grossly normal bilaterally General nose exam: Normal external nose present Face and sinus: Yes normal facial exam Mouth: Normal oral and palatal mucosa present, oropharynx normal and moist mucous membranes Throat: Yes posterior oropharynx normal Eyes General: appearance normal, both eyes and all related structures Eyelids: Yes eyelids normal Conjunctivae: conjunctivae normal Sclerae: sclerae normal Pupils: Equal, round and reactive pupils present EOM: EOMs intact bilaterally Neck Neck: Yes normal visual inspection, Yes full ROM and Yes no lymphadenopathy Lymphatic: no lymphadenopathy noted Chest Chest palpation & inspection: normal inspection of the chest Resp Effort & Inspection: normal respiratory effort and able to speak in complete sentences Auscultation: clear to auscultation bilaterally, no crackles, no rales, no rhonchi and no wheezes Cardio Rate: regular rate Rhythm: regular rhythm Heart sounds: S1 normal heart sound present and S2 normal heart sound present GI Other: Abdomen is soft with tenderness palpation overlying McBurney's point as well as right upper quadrant extending into the right flank. Positive Rovsing's. Normoactive bowel sounds present in all 4 quadrants. Inspection: Yes normal to inspection Skin General skin exam: no rashes or lesions noted Trauma: no lacerations or abrasions Wounds: no wounds Neuro General: patient oriented x3 and moves all extremities Cranial nerves: Yes Equal, round and reactive pupils present Extrem General: Yes normal to inspection Right upper extremity: normal to inspection Left upper extremity: normal to inspection Right lower extremity: normal to inspection Left lower extremity: normal to inspection Medical Decision Making Medical Decision Making MDM Narrative: This is a 24-year-old male who presents emergency department with complaints of right lower quadrant pain for the last week. Patient also reporting right-sided flank pain, as well as dark urine, urinary hesitancy. Denies history of similar symptoms in the past. On arrival, vital signs within normal limits. He is speaking full sentences under no acute distress. Abdomen is soft with tenderness palpation in the right lower quadrant as well as overlying McBurney's point pain also radiating into the right flank. High suspicion for possible renal colic versus acute appendicitis. Given exquisite tenderness palpation overlying McBurney's point, CT abdomen and pelvis with IV contrast will be ordered. Labs also ordered. He already took ibuprofen and Tylenol this morning at 6 a.m. without any relief therefore will medicate with dose of morphine which he has tolerated well in the past. Will also medicate with IV Zofran. We will continue to closely monitor. 1:29 PM 02/08/2025 (Emerita Izaguirre PA-C): Labs returned, he has no leukocytosis, stable H&H, chemistry revealing no significant electrolyte derangement. Slight elevation in CPK at 195, otherwise unremarkable. Urine without any evidence of infection. Patient medicated with Toradol, this did not provide him with any relief therefore 2nd dose of morphine was ordered. CT scan revealing acute appendicitis, reached out to Dr. Davis, who will see patient. We will continue to monitor. Lactic and blood cultures also ordered, will medicate with Flagyl and ceftriaxone for antibiotic coverage. Vital signs remained to be stable. Transfer of care initiated to the surgical service. Differential Diagnosis Differential Diagnoses: The differential diagnosis associated with the presentation includes Appendicitis, renal colic, nephrolithiasis, pyelonephritis Admission/Observation Consideration of admission/observation: Escalation of care including admission/observation considered Lab Data MDM Lab Attestation statement: I reviewed the patient's lab results. See MDM and course 02/08/25 10:38 02/08/25 10:38 Labs: Lab Results 02/08/25 02/08/25 02/08/25 Range/Units 10:38 11:38 13:45 WBC 6.9 (4.8-10.8) X10*3/uL RBC 5.17 (4.60-5.80) X10*6/uL Hgb 14.8 (14.0-18.0) g/dl Hct 44.8 (42.0-52.0) % MCV 86.7 (80.0-98.0) fL MCH 28.6 (27.0-33.0) pg MCHC 33.0 (31.0-36.0) g/dl RDW 13.0 (11.0-16.0) % Plt Count 208 (160-400) X10*3/uL MPV 11.5 (9.4-12.4) fL Immature Gran % (Auto) 0.1 (0.0-0.4) % Neut % (Auto) 66.1 (45-73) % Lymph % (Auto) 22.5 (20-40) % Foard % (Auto) 9.0 (2-11) % Eos % (Auto) 1.9 (0-4) % Baso % (Auto) 0.4 (0-2) % Lymph # (Auto) 1.6 (1.2-4.9) X10*3/uL Foard # (Auto) 0.6 (0.1-1.2) X10*3/uL Eos # (Auto) 0.1 (0.0-0.4) X10*3/uL Baso # (Auto) 0.0 (0.0-0.2) X10*3/uL Abs Immat Gran (auto) 0.01 (0.00-0.03) X10*3/uL Absolute Neuts (auto) 4.6 (2.0-8.3) x10*3/uL Absolute Nucleated RBC 0.000 (0.0-0.012) X10*3/uL Nucleated RBC % (auto) 0.0 (0.0-0.2) /100WBC Sodium 142 (135-145) mmol/L Potassium 4.1 (3.3-5.1) mmol/L Chloride 109 H (96-108) mmol/L Carbon Dioxide 28 (22-29) mmol/L Anion Gap 9 L (12-20) BUN 23 H (9-16) mg/dL Creatinine 1.03 (0.5-1.4) mg/dL Estim Creat Clear Calc 131.3 Estimated GFR > 60 Random Glucose 60 (60-115) mg/dL Lactic Acid 1.2 (0.5-2.0) mmol/L Calcium 8.9 (8.4-10.2) mg/dL Magnesium 2.1 (1.6-2.6) mg/dL Total Bilirubin 0.5 (0.0-1.0) mg/dL Direct Bilirubin 0.2 (0.0-0.5) mg/dL AST 15 (5-37) U/L ALT 14 (0-40) U/L Alkaline Phosphatase 65 (39-117) U/L Total Creatine Kinase 195 H (38-174) U/L Total Protein 7.2 (6.5-8.0) g/dL Albumin 4.4 (3.5-5.0) g/dL Lipase 11 (8-78) U/L Urine Color Yellow Urine Appearance Clear Urine pH 6.5 (5.0-9.0) Ur Specific Union 1.020 (1.005-1.025) Urine Protein Negative (Neg-Trace) mg/dL Urine Glucose (UA) Negative (Negative) mg/dL Urine Ketones Negative (Negative) mg/dL Urine Blood Negative (Negative) Urine Nitrite Negative (Negative) Ur Leukocyte Esterase Negative (Negative) Urine RBC 0-2 (0-2) /HPF Urine WBC 0-5 (0-5) /HPF Ur Squamous Epith Cells 0-2 (0-2) /HPF Urine Bacteria None Seen (None Seen) Hyaline Casts 0-2 (0-2) /LPF Radiology Impression Discussion of test interpretation with radiology: I have reviewed the radiologist's reading. Radiologist Impression: CLINICAL HISTORY: R flank pain, RLQ pain Exam: CT Abdomen and Pelvis With IV Contrast Comparison: None. Findings: The liver density is homogeneous No biliary abnormalities The spleen is normal in size No pancreatic ductal dilatation No hydronephrosis. No urinary tract calculi or obstruction. Normal bowel caliber The appendix is distended and fluid-filled measuring 1.2 cm in diameter with small amount of periappendiceal increased inflammatory fat density. No free fluid/free air No vascular abnormalities Bladder outline is smooth No suspicious skeletal lesions. Impression : Acute appendicitis. No perforation. No abscess. This document has been electronically signed by: Favian Kim MD on 02/08/2025 13:09:26 Dictated By: Favian Kim MD Medications Administered Generic Name Dose Route Start Last Admin Trade Name Freq PRN Reason Stop Dose Admin Lactated Ringer's 1,000 mls @ 60 mls/hr 02/08/25 14:00 02/08/25 17:28 Lr IVCONT 60 mls/hr .[id number] ROBERT Administration Nicotine 14 mg 02/08/25 18:00 02/08/25 18:07 Nicotine 14 Mg Patch.Td24 TRANSDERMA 14 mg DAILY ROBERT Administration Oxycodone HCl 10 mg 02/08/25 16:38 02/08/25 18:11 Oxycodone Hcl Immed Release 5 Mg Tablet PO 10 mg Q4H PRN Administration Pain, Moderate(Pain Scale 4-6) Sodium Chloride 3 ml 02/08/25 16:00 02/08/25 17:25 0.9 % Sodium Chloride Flush 3 Ml Syringe IVFLUSH Not Given QSHIFT ROBERT Discontinued Medications Generic Name Dose Route Start Last Admin Trade Name Charan PRN Reason Stop Dose Admin Ceftriaxone Sodium 1 gm 02/08/25 13:13 02/08/25 13:48 Ceftriaxone Sodium 1 Gm Vial IVPUSH 02/08/25 13:14 1 gm ONCE ONE Administration Sodium Chloride 1,000 mls @ 999 mls/hr 02/08/25 11:02 02/08/25 14:14 Ns IV 02/08/25 12:02 Infused .Q1H1M ONE Infusion Metronidazole 500 mg in 100 mls @ 100 mls/hr 02/08/25 13:13 02/08/25 17:23 Flagyl IV 02/08/25 14:12 Infused ONCE ONE Infusion Sodium Chloride 1,000 mls @ 999 mls/hr 02/08/25 13:15 02/08/25 17:23 Ns IV 02/08/25 14:15 Infused .Q1H1M ONE Infusion Gentamicin Sulfate 380 mg/ 109.5 mls @ 109.5 mls/hr 02/08/25 15:00 02/08/25 17:23 Sodium Chloride IV 02/08/25 15:59 Infused PREOP ONE Infusion Acetaminophen 1,000 mg in 100 mls @ 400 mls/hr 02/08/25 16:05 02/08/25 17:26 Ofirmev IV 02/08/25 22:07 Infused ONCE PRN Infusion Pain, Mild (Pain Scale 1-3) Iohexol 100 ml 02/08/25 11:52 02/08/25 11:52 Iohexol 350 Mg/Ml 100 Ml Infus..Btl IV 02/08/25 11:53 100 ml ONCE ONE Administration Ketorolac Tromethamine 15 mg 02/08/25 13:01 02/08/25 13:06 Ketorolac Tromethamine 15 Mg/Ml Vial IVPUSH 02/08/25 13:02 15 mg ONCE ONE Administration Midazolam HCl 1 mg 02/08/25 16:40 02/08/25 17:25 Midazolam Hcl 2 Mg/2 Ml Vial IVPUSH 02/08/25 16:41 Not Given ONCE ONE Morphine Sulfate 4 mg 02/08/25 10:44 02/08/25 10:57 Morphine Sulfate 4 Mg/Ml Cartridge IVPUSH 02/08/25 10:45 4 mg ONCE ONE Administration Protocol Morphine Sulfate 4 mg 02/08/25 13:28 02/08/25 14:13 Morphine Sulfate 4 Mg/Ml Cartridge IVPUSH 02/08/25 13:29 4 mg ONCE ONE Administration Protocol Ondansetron HCl 4 mg 02/08/25 10:44 02/08/25 10:57 Ondansetron Hcl 4 Mg/2 Ml Vial IVPUSH 02/08/25 10:45 4 mg ONCE ONE Administration Critical Care Time Critical Care Time Critical Care Time: Yes Total Critical Care Time: 50 Attestation: I have personally provided critical care time exclusive of time spent on separately billable procedures. Time includes review of lab data, radiology results, discussion with consultants, and monitoring for potential decompensation. Intervention performed as documented. Discharge Plan Discharge Clinical Impression: Acute appendicitis Patient Disposition: Admitted As Inpatient Interventions: Admission Worksheet (ED) Last Done: 02/08/25 14:26 Discharge Date/Time: 02/08/25 15:03
[2025-02-08 10:44] LABS: MANUAL DIFF FLAG NO
[2025-02-08 10:45] LABS: Hematocrit 44.8 % (42.0-52.0); Hemoglobin 14.8 g/dl (14.0-18.0); Imm Gran Abs Auto 0.01 X10*3/uL (0.00-0.03); Imm Gran Pct Auto 0.1 % (0.0-0.4); Lymphocytes Absolute Auto 1.6 X10*3/uL (1.2-4.9); Mean Corpuscular HGB Conc 33.0 g/dl (31.0-36.0); Mean Corpuscular Hemoglobin 28.6 pg (27.0-33.0); Mean Corpuscular Volume 86.7 fL (80.0-98.0); NRBC Abs Auto 0.000 X10*3/uL (0.0-0.012); NRBC Pct Auto 0.0 /100WBC (0.0-0.2); Platelet Count 208 X10*3/uL (160-400); Red Blood Count 5.17 X10*6/uL (4.60-5.80); White Blood Count 6.9 X10*3/uL (4.8-10.8)
[2025-02-08 10:59] LABS: Alanine Aminotransferase 14 U/L (0-40); Albumin Level 4.4 g/dL (3.5-5.0); Alkaline Phosphatase 65 U/L (39-117); Anion Gap 9 (12-20); Aspartate Amino Transferase 15 U/L (5-37); Blood Urea Nitrogen 23 mg/dL (9-16); Calcium 8.9 mg/dL (8.4-10.2); Carbon Dioxide 28 mmol/L (22-29); Chloride 109 mmol/L (96-108); Creatinine Clr Calc Pharmacy 131.3; Estimated Glomerular Filt Rate > 60; Lipase 11 U/L (8-78); Magnesium 2.1 mg/dL (1.6-2.6); Potassium 4.1 mmol/L (3.3-5.1); Sodium 142 mmol/L (135-145); Total Protein 7.2 g/dL (6.5-8.0)
[2025-02-08] MEDS: iohexoL 350 MG/ML 100 ML INFUS..BTL IV (11:52)
[2025-02-08 11:55] LABS: Appearance Urine Clear; Glucose Urine UA Negative (Negative); PH 6.5 (5.0-9.0); Specific Gravity - Urine 1.020 (1.005-1.025)
--- NOTE | 2025-02-08 13:59 | PM.HPGS ---
History of Present Illness History of Present Illness Date of Service: 02/13/25 Chief complaint: Appendicitis Narrative: Mookie Menchaca is a 24 year old male with morbid obesity, mild cerebral palsy, migraine and sleep apnea, here because of lower abdominal pain for about 2 days now. He says that this seems to be mostly in the right lower quadrant. He says that may have had some mild abdominal pain for about over a week However, he says that yesterday, he started to feel this right lower quadrant pain and lower abdominal pain which was more severe and seemed to be different. He says the pain seemed to be worsening last night He denies any nausea or vomiting. Denies any fever or chills. He denies any diarrhea. He has a seizure disorder and says that his last seizure episode was over a month ago. This has been following Gunjan Damon for opioid use disorder in the past and had been on Buprenorphine before. Review of Systems Constitutional: Constitutional: Denies chills and Denies fever(s) Cardiovascular: Cardiovascular: Denies chest pain, Denies dyspnea and Denies dyspnea on exertion Respiratory: Respiratory: Denies cough, Denies dyspnea and Denies dyspnea on exertion Gastrointestinal: Gastrointestinal: Denies hematochezia and Denies change in bowel habits Genitourinary: Genitourinary: Denies hematuria and Denies difficulty urinating Musculoskeletal: Musculoskeletal: Denies back pain and Denies limited range of motion Neurologic: Denies focal weakness and Denies convulsions Psychiatric: Psychiatric: Denies depression and Denies mood swings PMFSH Past Medical History Medical History (Updated 02/12/25 @ 00:02 by Masoud Leiva) Mild intermittent asthma Environmental allergies Allergies Left hemiparesis Cerebral palsy Family History Family History (Updated 01/31/25 @ 13:33 by Eva Shi CMA) Mother Anemia Father Hypertension Pre-diabetes Hepatitis C Maternal Grandmother Hypertension Diabetes Anemia Paternal Grandmother Diabetes Kidney problem Lung cancer Surgical History Surgical History (Updated 01/31/25 @ 13:34 by Eva Shi CMA) Hx of hand surgery Social History Social History (Updated 01/31/25 @ 13:30 by Eva Shi CMA) Household Members: Family Housing: House Do you presently have visiting nurse or other home services: No Alcohol intake: current Alcohol intake frequency: holidays/special occasions only Patient Tobacco Use Status: Never used Tobacco Tobacco use type: Cigarette Cigarettes Per Day: 4 e-Cigarette/Vaping Use: Currently Using Second Hand Smoke Exposure: Yes Substance Use Type: Crack/Cocaine Advance Directives Date on File: 05/29/24 service: No Current occupational status: unemployed Cognitive needs: No Hearing needs: No Vision needs: No Meds Allergies Allergy/AdvReac Type Severity Reaction Status Date / Time amoxicillin (AMOXICILLIN) Allergy Unknown HIVES Verified 02/08/25 10:09 hydrocodone (From VICODIN) Allergy Unknown RASH Verified 02/08/25 10:09 sulfamethoxazole (From Allergy Unknown UNKNOWN Verified 02/08/25 10:09 BACTRIM) trimethoprim (From BACTRIM) Allergy Unknown UNKNOWN Verified 02/08/25 10:09 Vicodin Allergy Unknown hives Uncoded 02/08/25 10:09 Active Medications: Current Medications Acetaminophen (Acetaminophen 325 Mg Tablet) 650 mg PO Q6H PRN PRN Reason: Pain, Mild 1-3,fever,headache Calcium Carbonate (Calcium Carbonate 750 Mg Tab.Chew) 750 mg PO Q4H PRN PRN Reason: Heartburn Metronidazole (Flagyl) 500 mg in 100 mls @ 100 mls/hr IV ONCE ONE Stop: 02/08/25 14:12 Sodium Chloride (Ns) 1,000 mls @ 999 mls/hr IV .Q1H1M ONE Stop: 02/08/25 14:15 Lactated Ringer's (Lr) 1,000 mls @ 100 mls/hr IVCONT .Q10H ROBERT Melatonin (Melatonin 3 Mg Tablet) 6 mg PO BEDTIME PRN PRN Reason: Insomnia Sodium Chloride (0.9 % Sodium Chloride Flush 3 Ml Syringe) 3 ml IVFLUSH QSHIFT [facility] Home Medications ?Medication ?Instructions ?Recorded ?Confirmed ?Last Taken ?Type albuterol sulfate 90 mcg/actuation 2 puff inhalation QID PRN wheezing 05/26/24 02/09/25 Unknown History aerosol inhaler (Ventolin HFA) clonazepam 1 mg tablet 1 mg PO QID 05/26/24 02/09/25 02/09/25 History dextroamphetamine-amphetamine 30 1 tab PO BID@0600,1300 05/26/24 02/09/25 02/09/25 History mg tablet ibuprofen 800 mg tablet 800 mg PO BID PRN pain 05/26/24 02/09/25 Unknown History acetaminophen 500 mg capsule 500 mg PO Q6H PRN Pain 01/31/25 02/09/25 Unknown History divalproex 500 mg tablet,extended 2,000 mg PO BEDTIME 02/08/25 02/09/25 02/07/25 History release 24 hr (Depakote ER) nicotine 14 mg/24 hr daily 1 patch topical DAILY 02/08/25 02/09/25 02/07/25 History transdermal patch oxcarbazepine 150 mg tablet 150 mg PO BID 02/08/25 02/09/25 02/07/25 History prazosin 1 mg capsule 1 mg PO BEDTIME 02/08/25 02/09/25 02/07/25 History sertraline 100 mg tablet 150 mg PO BEDTIME 02/08/25 02/09/25 02/07/25 History sumatriptan succinate 50 mg tablet 50 mg PO DAILY PRN migraine 02/08/25 02/09/25 Unknown History tizanidine 4 mg tablet 4 mg PO BID 02/08/25 02/09/25 02/07/25 History fluticasone furoate 27.5 2 spray intranasal DAILY PRN 02/09/25 02/09/25 Unknown History mcg/actuation nasal allergies spray,suspension loratadine 10 mg tablet 10 mg PO DAILY PRN allergies 02/09/25 02/09/25 Unknown History Physical Exam Vital Signs: Vital Signs: Last Vital Signs Temp 97.7 F 02/08/25 12:59 Pulse 65 02/08/25 12:59 Resp 16 02/08/25 12:59 BP 126/62 02/08/25 12:59 Pulse Ox 97 02/08/25 12:59 O2 Del Method Room Air 02/08/25 12:59 BMI result Body Mass Index 38.3 Const: Other: Morbidly obese General: comfortable and no acute distress Orientation/consciousness: patient oriented x3 Neck: Neck: Yes no lymphadenopathy Resp: Auscultation: clear to auscultation bilaterally Cardio: Rhythm: regular rhythm GI: Other: Tender on the right lower quadrant Palpation (GI): Soft to palpation, Tenderness to palpation present (GI) and no guarding Neuro: General: patient oriented x3 Results Results Labs: Short CBC 02/08/25 Range/Units 10:38 WBC 6.9 (4.8-10.8) X10*3/uL Hgb 14.8 (14.0-18.0) g/dl Hct 44.8 (42.0-52.0) % Plt Count 208 (160-400) X10*3/uL BMP 02/08/25 10:38 Sodium 142 Potassium 4.1 Chloride 109 H Carbon Dioxide 28 BUN 23 H Creatinine 1.03 Calcium 8.9 Cardiac Enzymes 02/08/25 Range/Units 10:38 Total Creatine Kinase 195 H (38-174) U/L Liver Function 02/08/25 Range/Units 10:38 Total Bilirubin 0.5 (0.0-1.0) mg/dL Direct Bilirubin 0.2 (0.0-0.5) mg/dL AST 15 (5-37) U/L ALT 14 (0-40) U/L Alkaline Phosphatase 65 (39-117) U/L Albumin 4.4 (3.5-5.0) g/dL Urine 02/08/25 Range/Units 11:38 Urine Color Yellow Urine Appearance Clear Urine pH 6.5 (5.0-9.0) Ur Specific [place] 1.020 (1.005-1.025) Urine Protein Negative (Neg-Trace) mg/dL Urine Glucose (UA) Negative (Negative) mg/dL Abdomen CT scan report/results: report reviewed and image reviewed CT scan - pelvis: report reviewed and image reviewed Additional studies: Exam: CT Abdomen and Pelvis With IV Contrast Comparison: None. Findings: The liver density is homogeneous No biliary abnormalities The spleen is normal in size No pancreatic ductal dilatation No hydronephrosis. No urinary tract calculi or obstruction. Normal bowel caliber The appendix is distended and fluid-filled measuring 1.2 cm in diameter with small amount of periappendiceal increased inflammatory fat density. No free fluid/free air No vascular abnormalities Bladder outline is smooth No suspicious skeletal lesions. Impression : Acute appendicitis. No perforation. No abscess. Assessment and Plan (1) Acute appendicitis: Status: Resolved 24-year-old male with morbid obesity, history of apnea, seizure disorder, ideas right lower quadrant pain and tenderness. His CAT scan of the abdomen and pelvis is suggestive of acute appendicitis was dilatation of the appendix and some mild inflammatory changes He says he wants to proceed with appendectomy. I explained to him the technique of laparoscopic appendectomy and possible conversion to open. I reviewed the risks including but not limited bleeding, infections, injury to other organs including bowel and the urinary tract, inherent risks of anesthesia, as well as the benefits and alternatives. He understands this his perioperative risks are higher than average in view of his morbid obesity. He understands that he may have some challenges with postop pain control because of his history of opioid use disorder. He has given consent. I have discussed the above with his mother Alyssia at [phone]. Quality Stroke Does the patient have a stroke diagnosis?: No VTE Prior VTE?: No VTE Risk Level:: Medical - low VTE Device Contraindication: N/A - Device Ordered VTE Drug Contraindication: Treatment Not Indicated Procedures Date of Service Date of Service: 02/13/25
[2025-02-08] MEDS: metroNIDAZOLE/NS 500 MG/100 ML PIGGYBACK 100 MG IV (14:12)
--- NOTE | 2025-02-08 14:21 | HO.ANESPROP2 ---
HPI - Anesthesia Eval Consult details Narrative: for lap. appendectomy PMFSH Active Problems Active Problems: All Active Problems Acute appendicitis (Acute) RAFFI (obstructive sleep apnea) (Acute) Migraine (Acute) Seizure disorder (Acute) Abscess of skin or subcutaneous tissue (Acute) Cellulitis (Acute) Abscess of hand, left (Acute) Numbness and tingling of left hand (Acute) Cocaine use disorder (Acute) Mild intermittent asthma (Acute) Drug abuse, IV (Acute) Smoker (Acute) Upper respiratory tract infection (Acute) Cervical pain (neck) (Acute) Chronic lower back pain (Acute) Morbid obesity (Acute) Physical exam (Acute) Depression (Acute) Lower thoracic back pain (Acute) Opioid use disorder (Acute) Past Medical History Medical History (Updated 02/08/25 @ 13:32 by VINNIE Hardin) Mild intermittent asthma Environmental allergies Allergies Left hemiparesis Cerebral palsy Narrative: NPO since 8am. Ham sandwich. Last cocaine 3 days ago. Did not take his Keppra this morning. Family History Family History (Updated 01/31/25 @ 13:33 by Eva Shi CMA) Mother Anemia Father Hypertension Pre-diabetes Hepatitis C Maternal Grandmother Hypertension Diabetes Anemia Paternal Grandmother Diabetes Kidney problem Lung cancer Family history of problems with anesthesia: No Surgical History Surgical History (Updated 01/31/25 @ 13:34 by Eva Shi CMA) Hx of hand surgery History of Problems with Anesthesia: No Social History Social History (Updated 01/31/25 @ 13:30 by Eva Shi CMA) Household Members: Family Housing: Apartment Do you presently have visiting nurse or other home services: No Alcohol intake: current Alcohol intake frequency: holidays/special occasions only Patient Tobacco Use Status: Never used Tobacco Cigarettes Per Day: 4 Smoked in Last 30 Days: Yes e-Cigarette/Vaping Use: Currently Using Second Hand Smoke Exposure: Yes Use of substances other than those prescribed or required for medical reasons: Yes Substance Use Type: Crack/Cocaine Substance Use Frequency: Occasionally Advance Directives: Yes Advance Directives on File: Yes Advance Directives Date on File: 05/29/24 Do you have a plan to hurt others: No Plan service: No Current occupational status: unemployed Cognitive needs: No Hearing needs: No Vision needs: No Meds Allergies Allergy/AdvReac Type Severity Reaction Status Date / Time amoxicillin (AMOXICILLIN) Allergy Unknown HIVES Verified 02/08/25 10:09 hydrocodone (From VICODIN) Allergy Unknown RASH Verified 02/08/25 10:09 sulfamethoxazole (From Allergy Unknown UNKNOWN Verified 02/08/25 10:09 BACTRIM) trimethoprim (From BACTRIM) Allergy Unknown UNKNOWN Verified 02/08/25 10:09 Vicodin Allergy Unknown hives Uncoded 02/08/25 10:09 Active Medications: Current Medications Acetaminophen (Acetaminophen 325 Mg Tablet) 650 mg PO Q6H PRN PRN Reason: Pain, Mild 1-3,fever,headache Calcium Carbonate (Calcium Carbonate 750 Mg Tab.Chew) 750 mg PO Q4H PRN PRN Reason: Heartburn Lactated Ringer's (Lr) 1,000 mls @ 100 mls/hr IVCONT .Q10H ROBERT Gentamicin Sulfate 380 mg/ (Sodium Chloride) 109.5 mls @ 109.5 mls/hr IV PREOP ONE Stop: 02/08/25 13:59 Melatonin (Melatonin 3 Mg Tablet) 6 mg PO BEDTIME PRN PRN Reason: Insomnia Sodium Chloride (0.9 % Sodium Chloride Flush 3 Ml Syringe) 3 ml IVFLUSH QSHIFT [facility] Home Medications ?Medication ?Instructions ?Recorded ?Confirmed ?Last Taken ?Type albuterol sulfate 90 mcg/actuation 2 puff inhalation QID PRN wheezing 05/26/24 08/11/24 Unknown History aerosol inhaler (Ventolin HFA) clonazepam 1 mg tablet 1 mg PO QID 05/26/24 01/08/25 08/11/24 History dextroamphetamine-amphetamine 30 1 tab PO BID@0600,1300 05/26/24 01/08/25 08/11/24 History mg tablet ibuprofen 800 mg tablet 800 mg PO BID PRN pain 05/26/24 08/11/24 Unknown History sertraline 150 mg capsule 150 mg PO DAILY 01/08/25 01/08/25 Unknown History acetaminophen 500 mg capsule 500 mg PO Q6H PRN 01/31/25 Unknown History buprenorphine 8 mg-naloxone 2 mg 2 tab sublingual DAILY 01/31/25 Unknown History sublingual tablet dextroamphetamine-amphetamine 30 1 tab PO BID 02/08/25 Unknown History mg tablet divalproex 500 mg tablet,extended 2,000 mg PO BEDTIME 02/08/25 Unknown History release 24 hr (Depakote ER) naproxen 500 mg tablet 500 mg PO BID 02/08/25 Unknown History nicotine 14 mg/24 hr daily patch topical DAILY 02/08/25 Unknown History transdermal patch oxcarbazepine 150 mg tablet 150 mg PO BID 02/08/25 Unknown History prazosin 1 mg capsule 1 mg PO BEDTIME 02/08/25 Unknown History sertraline 100 mg tablet 150 mg PO BEDTIME 02/08/25 Unknown History sumatriptan succinate 50 mg tablet 50 mg PO DAILY PRN migraine 02/08/25 Unknown History tizanidine 4 mg tablet 4 mg PO BID 02/08/25 Unknown History Exam Height,Weight and Vital Signs: Height 5 ft 7 in Weight 110.8 kg Last Vital Signs Temp 97.7 F 02/08/25 12:59 Pulse 65 02/08/25 12:59 Resp 16 02/08/25 12:59 BP 126/62 02/08/25 12:59 Pulse Ox 97 02/08/25 12:59 O2 Del Method Room Air 02/08/25 12:59 Pertinent Lab Results Pertinent Lab Results: Laboratory Tests 02/08/25 02/08/25 10:38 11:38 WBC 6.9 RBC 5.17 Hgb 14.8 Hct 44.8 MCV 86.7 MCH 28.6 MCHC 33.0 RDW 13.0 Plt Count 208 MPV 11.5 Immature Gran % (Auto) 0.1 Neut % (Auto) 66.1 Lymph % (Auto) 22.5 Stone % (Auto) 9.0 Eos % (Auto) 1.9 Baso % (Auto) 0.4 Lymph # (Auto) 1.6 Stone # (Auto) 0.6 Eos # (Auto) 0.1 Baso # (Auto) 0.0 Abs Immat Gran (auto) 0.01 Absolute Neuts (auto) 4.6 Absolute Nucleated RBC 0.000 Nucleated RBC % (auto) 0.0 Sodium 142 Potassium 4.1 Chloride 109 H Carbon Dioxide 28 Anion Gap 9 L BUN 23 H Creatinine 1.03 Estim Creat Clear Calc 131.3 Estimated GFR > 60 Random Glucose 60 Calcium 8.9 Magnesium 2.1 Total Bilirubin 0.5 Direct Bilirubin 0.2 AST 15 ALT 14 Alkaline Phosphatase 65 Total Creatine Kinase 195 H Total Protein 7.2 Albumin 4.4 Lipase 11 Urine Color Yellow Urine Appearance Clear Urine pH 6.5 Ur Specific [place] 1.020 Urine Protein Negative Urine Glucose (UA) Negative Urine Ketones Negative Urine Blood Negative Urine Nitrite Negative Ur Leukocyte Esterase Negative Urine RBC 0-2 Urine WBC 0-5 Ur Squamous Epith Cells 0-2 Urine Bacteria None Seen Hyaline Casts 0-2 Airway Mallampati Class: I TM Dist: <=3cm Neck ROM: Full Loose/Missing/Broken Teeth: No Heart: ok Lungs: ok Assessment and Plan Assessment Anesthesia Assessment: Anesthesia Plan Discussed and Chart Reviewed Final Anesthetic Review Family History of Problems with Anesthesia: No History of Problems with Anesthesia: No NPO: No ASA Class: III and Emergency Final Preanesthetic Review: No Changes in Pt Med Stat, Meds/Allgs Chart Reviewed, Consent Obtained/Reviewed and Anes Risks/Benef Reviewed Patient Risk: Intermediate Procedure Risk: Intermediate Anesthetic Plan Anesthetic Plan: GA and Agree w/ Assess. and Plan Disposition: Standard PACU
--- NOTE | 2025-02-08 15:03 | PC.NURSE ---
Patient transferred to surgery Nurse to Nurse given to Aurelia ZHOU
--- NOTE | 2025-02-08 16:33 | W.PM.OPN ---
Operative Note Operative Note Date of Service: 02/08/25 Narrative: Preop diagnosis: Acute appendicitis Postop diagnosis acute appendicitis, with dilatation and erythema of the distal 3rd of the appendix Procedure: Laparoscopic appendectomy Surgeon: Jayant Davis MD The patient is a 24-year-old male with right lower quadrant pain and tenderness for about 2 days. His CAT scan suggested acute appendicitis. He understood the technique of the planned procedure as well as the risks, benefits, and alternatives He was brought to the operating room placed supine under general anesthesia via endotracheal tube. The abdomen was prepped and draped in the usual sterile fashion. A Espinal catheter to be inserted. A surgical time-out was done. The patient received gentamicin and metronidazole as he had anaphylaxis with penicillin I made a short supraumbilical incision with a blade 15. This was carried down bluntly down to the fascia. The fascia was incised. The peritoneum was entered. Through this incision a [place] port was introduced. Pneumoperitoneum was introduced to a pressure of 15 mm Hg. From here on the rest of procedure was done under vision with the 10 mm 30 degree laparoscope With laparoscopic visualization and inserted a 5/12 mm port in the left lower quadrant. A 5 mm port was introduced through a small incision in the suprapubic margin. The patient was placed in steep head-down and [id number] position. Graspers were placed through the working ports. This cecum was easily seen. By lifting this up to expose the posterior aspect, we are able to see the appendix clearly. The appendix was grasped and put on stretch using the graspers. The distal 3rd of the appendix was erythematous and distended. I created a mesenteric window at the base of the appendix. I used the Endo-ALEKSEY 30 mm stapler to transect the base. I used the LigaSure to divide the attached mesentery serially. The appendix was retrieved through an endobag through the left lower quadrant incision. I reinserted all ports and re-insufflated. I examined the area of dissection. The staple line appeared intact. There was note of good hemostasis. I laparoscopic examined all 4 quadrants and there was no evidence of bowel injury or bleeding. I pulled down the omentum gently to the pelvis Once hemostasis was confirmed in the peritoneal cavity and there was there was no evidence of any bowel injury, I desufflated through the port sites. I removed ports under vision with the laparoscope. The umbilical port was removed last The fascia of the umbilical incision was closed with a [id number] Polysorb 0 stitch. Skin closure was achieved on all incisions using Polysorb 4-0 subcuticular running sutures. All incisions were infiltrated with a Marcaine 0.5% for postop analgesia. Dressings were applied. The procedure was completed. The patient tolerated the procedure well. There were no immediate complications. The Espinal catheter was removed. Initial and final counts of sponges and instruments were correct. Estimated blood loss was about 25 cc. The patient was extubated without difficulty and transferred to the recovery room with stable vital signs.
[2025-02-08] MEDS: Lactated Ringers 1,000 ML 60 ML IVCONT (17:28)
--- NOTE | 2025-02-08 17:43 | PM.EVENT ---
Event Note Date of Service: 02/09/25 Event Note: Seen postop Underwent uneventful laparoscopic appendectomy Appears to have good pain control Stable vital signs Abdomen is soft Pain management Diet as tolerated Mother updated Time Spent With Patient Time: Total time managing care of this patient today ____ minutes.
[2025-02-08] MEDS: Nicotine 14 MG PATCH.TD24 TRANSDERMA (18:07)
[2025-02-08] MEDS: oxyCODONE HCl Immed Release 5 MG TABLET 10 MG PO (18:11)
[2025-02-09] MEDS: oxyCODONE HCl Immed Release 5 MG TABLET 10 MG PO ×2 (01:09→06:05)
[2025-02-09 03:21] VITALS: BP 140/65; PULSE 71; RESP 18; TEMP 36.6; O2SAT 96
[2025-02-09] MEDS: Lactated Ringers 1,000 ML 60 ML IVCONT (05:21)
[2025-02-09 08:00] VITALS: BP 113/58; PULSE 72; RESP 16; TEMP 36.7; O2SAT 97
[2025-02-09] MEDS: Nicotine 14 MG PATCH.TD24 TRANSDERMA (08:11)
[2025-02-09] MEDS: Amphetamine Mixed Salts 20 MG TABLET 30 MG PO (08:11)
--- NOTE | 2025-02-09 08:54 | PHA.MEDREC ---
Addendum entered by Arden Walker, Jb 02/09/25 09:22: [facility] rec checked by [facility] Original Note: Pharmacy Consult ? Medication Reconciliation Pharmacy has completed the medication reconciliation. Confirmed medication list with patient. Patient claims he was given his morning dose of Adderall and Klonipin, as well as oxycodone by nursing staff. patient claims he took all of his other non-PRN medications on Monday.
--- NOTE | 2025-02-09 09:42 | P.PNGS_ITS ---
Subjective Subjective Date of Service: 02/13/25 Interval history: Tolerating diet No nausea or vomiting Stable vital signs As per nursing staff has been asking for morphine regularly Physical Exam 2 Vital Signs: Vital Signs: Last Vital Signs Temp 98.0 F 02/09/25 08:00 Pulse 72 02/09/25 08:00 Resp 16 02/09/25 08:00 BP 113/58 L 02/09/25 08:00 Pulse Ox 97 02/09/25 08:00 O2 Del Method Room Air 02/09/25 08:00 BMI result Body Mass Index 38.3 Const: Other: Looks well, sitting up on recliner and having breakfast General: comfortable and no acute distress Resp: Effort & Inspection: normal respiratory effort Cardio: Rate: regular rate GI: Other: All Band-Aids clean and dry Palpation (GI): Soft to palpation, not firm and no guarding Objective Data Active Medications Acetaminophen (Acetaminophen 325 Mg Tablet) 650 mg PO Q6H PRN PRN Reason: Pain, Mild 1-3,fever,headache Amphetamine/Dextroamphetamine (Amphetamine Mixed Salts 20 Mg Tablet) 30 mg PO BID@0900,1400 [facility] Last Admin: 02/09/25 08:11 Dose: 30 mg Documented By: FELICIA Calcium Carbonate (Calcium Carbonate 750 Mg Tab.Chew) 750 mg PO Q4H PRN PRN Reason: Heartburn Clonazepam (Clonazepam 1 Mg Tablet) 1 mg PO QID [facility] Last Admin: 02/09/25 08:11 Dose: 1 mg Documented By: FELICIA Lactated Ringer's (Lr) 1,000 mls @ 60 mls/hr IVCONT .[id number] [facility] Last Admin: 02/09/25 05:21 Dose: 60 mls/hr Documented By: CONRADO Ketorolac Tromethamine (Ketorolac Tromethamine 30 Mg/Ml Vial) 30 mg IVPUSH Q6H PRN PRN Reason: Pain, Severe (Pain Scale 7-10) Last Admin: 02/08/25 22:51 Dose: 30 mg Documented By: CONRADO Levetiracetam (Levetiracetam 500 Mg Tablet) 500 mg PO BID [facility] Last Admin: 02/09/25 08:11 Dose: 500 mg Documented By: FELICIA Melatonin (Melatonin 3 Mg Tablet) 6 mg PO BEDTIME PRN PRN Reason: Insomnia Morphine Sulfate (Morphine Sulfate 4 Mg/Ml Cartridge) 3 mg IVPUSH Q4H PRN; Protocol PRN Reason: Pain, Severe (Pain Scale 7-10) Last Admin: 02/09/25 07:54 Dose: 3 mg Documented By: LOU Naloxone HCl (Naloxone Hcl 0.4 Mg/Ml Vial) 0.04 mg IVPUSH Q5M PRN PRN Reason: Excessive sedation or RR < 8 Nicotine (Nicotine 14 Mg Patch.Td24) 14 mg TRANSDERMA DAILY [facility] Last Admin: 02/09/25 08:11 Dose: 14 mg Documented By: FELICIA Ondansetron HCl (Ondansetron Hcl 4 Mg/2 Ml Vial) 4 mg IVPUSH Q6H PRN PRN Reason: Nausea and Vomiting Oxycodone HCl (Oxycodone Hcl Immed Release 5 Mg Tablet) 10 mg PO Q4H PRN PRN Reason: Pain, Moderate(Pain Scale 4-6) Last Admin: 02/09/25 06:05 Dose: 10 mg Documented By: CONRADO Sodium Chloride (0.9 % Sodium Chloride Flush 3 Ml Syringe) [facility] Last Admin: 02/09/25 07:41 Dose: Not Given Documented By: FELICIA Non-Admin Reason: IV Running Labs 02/08/25 10:38 02/08/25 10:38 Labs: Laboratory Results - last 24 hr 02/08/25 02/08/25 02/08/25 10:38 11:38 13:45 MCV 86.7 MCH 28.6 MCHC 33.0 RDW 13.0 Plt Count 208 MPV 11.5 Immature Gran % (Auto) 0.1 Neut % (Auto) 66.1 Lymph % (Auto) 22.5 [place] % (Auto) 9.0 Eos % (Auto) 1.9 Baso % (Auto) 0.4 Lymph # (Auto) 1.6 [place] # (Auto) 0.6 Eos # (Auto) 0.1 Baso # (Auto) 0.0 Abs Immat Gran (auto) 0.01 Absolute Neuts (auto) 4.6 Absolute Nucleated RBC 0.000 Nucleated RBC % (auto) 0.0 Anion Gap 9 L Estim Creat Clear Calc 131.3 Estimated GFR > 60 Random Glucose 60 Lactic Acid 1.2 Calcium 8.9 Magnesium 2.1 Total Bilirubin 0.5 Direct Bilirubin 0.2 AST 15 ALT 14 Alkaline Phosphatase 65 Total Creatine Kinase 195 H Total Protein 7.2 Albumin 4.4 Lipase 11 Urine Color Yellow Urine Appearance Clear Urine pH 6.5 Ur Specific [place] 1.020 Urine Protein Negative Urine Glucose (UA) Negative Urine Ketones Negative Urine Blood Negative Urine Nitrite Negative Ur Leukocyte Esterase Negative Urine RBC 0-2 Urine WBC 0-5 Ur Squamous Epith Cells 0-2 Urine Bacteria None Seen Hyaline Casts 0-2 Procedures Date of Service Date of Service: 02/13/25 Progress Note: A&P Assessment and plan (1) Acute appendicitis: Status: Resolved Assessment and Plan: Status post laparoscopic appendectomy Clinically looks well He admits to changes with the pain control Tolerating diet Okay to DC home today with oral Percocet He is okay to continue with the rest of his home meds I have reviewed instructions and the above with his mother Alyssia I have discussed the above with the patient as well Time Spent With Patient Time: Total time managing care of this patient today ____ minutes. Quality Stroke Does the patient have a stroke diagnosis?: No VTE Prior VTE?: No VTE Risk Level:: Medical - low VTE Device Contraindication: N/A - Device Ordered VTE Drug Contraindication: Treatment Not Indicated
--- NOTE | 2025-02-09 10:22 | MHC.CM.PN ---
Patient lives at home w/ his mother, brother and sister. Dx CP. Mom assists w/ ADL's PRN. He ambulates short distances independently, but uses a w/c for long distances. 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 Intake appt scheduled for 02/19. PCP Dr Breaux HCP on file and verified DP: Medically cleared for dc home self care, mother to transport.
--- NOTE | 2025-02-09 15:23 | P.DS_ITS ---
DS: Providers Provider Date of Service: 02/09/25 Date of admission: 02/08/25 13:54 Date of discharge: 02/09/25 Primary care physician: Brenda Breaux MD Attending physician on admission: Jayant Davis Attending physician on discharge: Jayant Davis DS: Diagnosis Discharge Diagnosis (1) Acute appendicitis: Status: Resolved DS: Summary Hospital Course Hospital Course: HPI AT ADMISSION: Mookie Menchaca is a 24 year old male with morbid obesity, mild cerebral palsy, migraine and sleep apnea, here because of lower abdominal pain for about 2 days now. He says that this seems to be mostly in the right lower quadrant. He says that may have had some mild abdominal pain for about over a week However, he says that yesterday, he started to feel this right lower quadrant pain and lower abdominal pain which was more severe and seemed to be different. He says the pain seemed to be worsening last night. He denies any nausea or vomiting. Denies any fever or chills. He denies any diarrhea. He has a seizure disorder and says that his last seizure episode was over a month ago. He has been following Gunjan Nelson for opioid use disorder in the past and had been on Buprenorphine before. His CAT scan of the abdomen and pelvis is suggestive of acute appendicitis was dilatation of the appendix and some mild inflammatory changes. HOSPITAL COURSE: The patient was admitted to the surgical service for further treatment of the acute appendicitis. He elected to proceed with laparoscopic appendectomy. He was added onto the OR schedule for that day. On 02/08/25, a laparoscopic appendectomy was performed by Dr. Davis without complication. The patient tolerated the procedure well. He had an uncomplicated recovery course. On POD #1, he felt well and was tolerating a solid diet without nausea or vomiting, had good pain control and was ambulating without difficulty. He was hemodynamically stable. His abdomen was benign with appropriate post op tenderness and clean and intact dressings. He felt ready for discharge. He was discharged to home on 02/09/25 in stable condition. He is to follow up in the office in 1 week. Status at Discharge Functional status at discharge: independent ambulation Overall status at discharge: patient is progressing back to baseline Time Attestation Discharge Coordination Time (in mins): 25 Quality: Safe Use of Opioids Does Pt have an Active Cancer Diagnosis on the Problem List?: No Quality: Stroke Does the patient have a stroke diagnosis?: No Physical Exam Vital Signs: Vital Signs: Last Vital Signs Temp 98.0 F 02/09/25 08:00 Pulse 72 02/09/25 08:00 Resp 16 02/09/25 08:00 BP 113/58 L 02/09/25 08:00 Pulse Ox 97 02/09/25 08:00 O2 Del Method Room Air 02/09/25 08:00 BMI result Body Mass Index 38.3 Const: General: comfortable, no acute distress and alert Orientation/consciousness: patient oriented x3 GI: Other: soft dressings clean and intact Skin: General skin exam: no rashes or lesions noted Neuro: General: patient oriented x3 DS: Data Data Completed and Pending Completed studies during hospitalization [Text1]: Procedures Drainage of Left Hand Tendon, Open Approach (06/21/24) Drainage of Left Hand, Open Approach (08/11/24) Pending studies at discharge: Pending at discharge 02/08/25 15:53 Surgical [PTH] Routine Labs on day of discharge: Preliminary micro results at discharge 02/08/25 13:45 Blood Culture - Preliminary Blood - Venous No growth after 48 hours. 02/08/25 13:45 Blood Culture - Preliminary Blood - Venous No growth after 48 hours. Discharge Plan Discharge Anticipated Discharge Date/Time: 02/09/25 09:46 Patient Disposition: Home, Self-Care Discharge Diagnosis: acute appendicitis Referrals: Brenda Breaux MD [Primary Care Provider, Internal Medicine] - 1 Week Jayant Davis MD [Physician, General Surgery] - 2 Weeks Discharge Medications: New oxycodone-acetaminophen 5-325 mg tablet 1 tab PO Q6H PRN (Reason: pain) Qty: 20 0RF Rx Instructions: Partial Fill upon patient request. ibuprofen 600 mg tablet 600 mg PO Q6H PRN (Reason: pain) Qty: 30 0RF Continued ibuprofen 800 mg tablet 800 mg PO BID PRN (Reason: pain) clonazepam 1 mg tablet 1 mg PO QID Patient Comments: Morning dose given to patient by hospital staff dextroamphetamine-amphetamine 30 mg tablet 1 tab PO BID@0600,1300 Patient Comments: Patient given morning dose of medication by hospital staff. albuterol sulfate [Ventolin HFA] 90 mcg/actuation HFA aerosol inhaler 2 puff INHALATION QID PRN (Reason: wheezing) levetiracetam [Keppra] 500 mg tablet 500 mg PO BID 30 Days Qty: 60 0RF oxcarbazepine 150 mg tablet 150 mg PO BID nicotine 14 mg/24 hr patch 24 hour 1 patch topical DAILY tizanidine 4 mg tablet 4 mg PO BID prazosin 1 mg capsule 1 mg PO BEDTIME sertraline 100 mg tablet 150 mg PO BEDTIME sumatriptan succinate 50 mg tablet 50 mg PO DAILY PRN (Reason: migraine) Rx Instructions: Maximum of 4 doses in 24 hours divalproex [Depakote ER] 500 mg tablet extended release 24 hr 2,000 mg PO BEDTIME loratadine 10 mg Tablet 10 mg PO DAILY PRN (Reason: allergies) fluticasone furoate 27.5 mcg/actuation [place],Suspension 2 spray INTRANASAL DAILY PRN (Reason: allergies) Rx Instructions: into each nostril acetaminophen 500 mg capsule 500 mg PO Q6H PRN (Reason: Pain) Discharge Orders: Discharge Order (Routine); Ordered 02/09/25 Ordered By: Jayant Davis Diet: Advance to usual diet Activity on Discharge: No heavy lifting Stand Alone Forms: Patient Portal Discharge page Print Language: Mongolian Activity Restrictions/Additional Instructions: Okay to restart other home meds If the incision area is tender, you may apply an ice pack for short intervals (No more than 20 minutes on, followed by at least 20 minutes off). Do not apply heat. Do not use creams, lotions, or topical antibiotics unless instructed to do so by your surgeon. These can cause infection or allergic reaction. No lifting more than 20 lbs Okay to shower starting 02/10/2025 Okay to change dressings with gauze or Band-Aid starting 02/10/2025 No strenuous activities Call the office for follow-up in 2 weeks - with Dr. Davis Call Your Doctor If: -Your temperature exceeds 101.5? F -You experience excessive pain or swelling -You have an unexpected reaction to medication -You have excessive bleeding -You experience continued vomiting/nausea -Your incision begins to separate -Your incision shows signs of infection such as increased redness, swelling, excessive pain, drainage (light blood or clear fluid is normal) or heat Care Plan Goals: Return to baseline Health Concerns: Postop pain Seizure disorder Plan of Treatment: Oral pain meds Continue home meds Assessment: Doing well Discharge Date/Time: 02/09/25 10:42
== END 2025-02-09 10:42 | disposition home or self-care (01) | DRG 234 ==
LOC: HO.ED 10:19 → HO.EDOVER 14:02 → HO.S3 14:11
PROVIDERS: Physician Assistant Medical; Admitting Provider Surgery; Emergency Provider Emergency Medicine; PCP Internal Medicine; Visit Provider Surgery
PROC: 0DTJ4ZZ Resection of Appendix, Percutaneous Endoscopic Approach (ICD-10-PCS; CPT 44970; principal; 2025-02-08 15:00)
DX: K35.80 Unspecified acute appendicitis (principal); G80.8 Other cerebral palsy; Z79.899 Other long term (current) drug therapy
CPT/HCPCS: 44970; 36415; 74177; 80053; 81001; 82248; 82550; 83605; 83690; 83735; 85025; 87040; 88304; 99221; 99285; J0131; J0665; J0696; J1580; J1836; J1885; J2003; J2270; J2405; J2704; J3010; J7120; Q9967

== ENCOUNTER → 2025-02-08 10:42 | Outpatient (BNV) | payer MEDICAID, SELFPAY | PROVIDERS: Admitting Provider Surgery; Emergency Provider Emergency Medicine; PCP Internal Medicine; Visit Provider Radiology Diagnostic Radiology | DX: K35.80 Unspecified acute appendicitis (principal) | CPT/HCPCS: 74177 ==

== ENCOUNTER → 2025-02-08 13:54 | Outpatient (BNV) | payer MEDICAID, SELFPAY | PROVIDERS: Admitting Provider Surgery; Emergency Provider Emergency Medicine; PCP Internal Medicine; Visit Provider Surgery | DX: K37 Unspecified appendicitis (principal) | CPT/HCPCS: 99499 ==